=== PATIENT | male | born 1970 | race Caucasian/White ===

== ENCOUNTER → 2019-08-25 | Outpatient (CLI) | payer MEDICARE, MEDICAID ==
--- NOTE | 2019-08-25 10:30 | RADIOLOGY REPORT (SQ) ---
EXAM DESCRIPTION: LUMBAR SPINE COMPLETE COMPLETED DATE/TIME: 08/25/2019 10:15 am REASON FOR STUDY: NEURALGIA AND NEURITIS, UNSPECIFIED,LBP M79.2 NEURALGIA AND NEURITIS, UNSPECIFIED M54.5 LOW BACK PAIN COMPARISON: 11/24/2008 NUMBER OF VIEWS: Five views including obliques. TECHNIQUE: AP, lateral, oblique, and sacral radiographic images acquired of the lumbar spine. LIMITATIONS: None. FINDINGS: MINERALIZATION: Normal. SEGMENTATION: Normal. No transitional anatomy. ALIGNMENT: There is straightening of the normal lumbar lordosis. Very slight anterolisthesis of L4 o n L5. VERTEBRAE: Maintained height. No fracture or worrisome bone lesion. DISCS: Multilevel disc space narrowing most marked at L5-S1. Prominent anterior osteophytes at L3-L4 . POSTERIOR ELEMENTS: Pedicles and facets are intact. No pars defect or posterior arch defects. HARDWARE: None in the spine. PARASPINAL SOFT TISSUES: Normal. PELVIS: Intact as visualized. No fractures or worrisome bone lesions. SI joints intact. OTHER: No other significant finding. IMPRESSION: Multilevel spondylosis most marked at L5-S1. No significant change from prior study. TECHNICAL DOCUMENTATION: JOB ID: [id number] 2010 [employer]- All Rights Reserved Reading location - IP/workstation name: [email or web address]
== END ==
LOC: OD 09:59
PROVIDERS: ATTEND Nurse Practitioner Family
DX: M79.2 Neuralgia and neuritis, unspecified (principal); M54.5 Low back pain
CPT/HCPCS: 72110

== ENCOUNTER 2019-12-30 22:49 | Emergency (ER) | payer MEDICARE, MEDICAID ==
[2019-12-30] MEDS ORDERED: NORMAL SALINE 1000 ML 1,000 ML IV ONE (23:17)
[2019-12-30] MEDS ORDERED: IPRATROPIUM/ALBUTEROL 0.5-2.5 MG/3 ML AMPUL NEB ONE (23:17)
--- NOTE | 2019-12-30 23:19 | ER Document Report ---
ED Medical Screen (RME) - General Chief Complaint: Rectal Bleeding Stated Complaint: RECTAL BLEEDING Time Seen by Provider: 12/30/19 23:16 Primary Care Provider: MAKENNA FRANCISCO FNP-C [Primary Care Provider] - Follow up as needed Information source: Patient Notes: Patient states that he was in the shower and he noticed blood in the shower. Patient states he started to feel lightheaded and fell. Patient denies any known loss of consciousness. Patient denies slipping although thinks that this the blood made him very anxious. Patient denies any pain symptoms. Patient does report cough for the past 2 months. Patient reports a history of diabetes and lymphoma that is in remission. Patient denies any other abnormal bleeding or bruising. I have greeted and performed a rapid initial assessment of this patient. A comprehensive ED assessment and evaluation of the patient, analysis of test results and completion of the medical decision making process will be conducted by additional ED providers. TRAVEL OUTSIDE OF THE [place] IN LAST 30 DAYS: No - Related Data Allergies/Adverse Reactions: No Known Allergies Allergy (Verified 12/29/12 10:28) Past Medical History - Past Medical History Cardiac Medical History: Denies: Hx Coronary Artery Disease, Hx Heart Attack, Hx Hypertension Pulmonary Medical History: Denies: Hx Asthma, Hx Bronchitis, Hx COPD, Hx Pneumonia Neurological Medical History: Denies: Hx Cerebrovascular Accident, Hx Seizures Malignancy Medical History: Reports Hx Lymphoma Musculoskeltal Medical History: Reports Hx Arthritis, Reports Hx Gout Psychiatric Medical History: Reports: Hx Depression Past Surgical History: Reports: Hx Appendectomy - Immunizations Immunizations up to date: Yes Hx Diphtheria, Pertussis, Tetanus Vaccination: Yes Physical Exam - Vital signs Vitals: Temp Pulse Resp BP Pulse Ox 98.9 F 103 H 20 96/68 L 95 12/30/19 22:55 12/30/19 22:55 12/30/19 22:55 12/30/19 22:55 12/30/19 22:55 - Respiratory Breath sounds: Nonproductive cough, Wheezing - Cardiovascular Rhythm: Tachycardia Heart sounds: S1 appreciated, S2 appreciated Course - Vital Signs Vital signs: Temp Pulse Resp BP Pulse Ox 98.9 F 103 H 20 96/68 L 95 12/30/19 22:55 12/30/19 22:55 12/30/19 22:55 12/30/19 22:55 12/30/19 22:55 Doctor's Discharge - Discharge Referrals: MAKENNA FRANCISCO, CLINICAL EDUCATION MANAGER-C [Primary Care Provider] - Follow up as needed
--- NOTE | 2019-12-31 01:09 | ER Document Report ---
ED General - General Chief Complaint: Rectal Bleeding Stated Complaint: RECTAL BLEEDING Time Seen by Provider: 12/30/19 23:16 Primary Care Provider: MAKENNA FRANCISCO FNP-C [NURSE PRACTITIONER] - Follow up as needed Mode of Arrival: Ambulatory Information source: Patient Notes: 12/30/19 23:22 - ED Nursing Note by FREEDOM DE LA CRUZ Num: [id number] : 1970 Patient Age: 49 -pt had blood in tub after shower. blood was noted. pt unsure if he is still bleeding. Eliane notes Patient states that he was in the shower and he noticed blood in the shower. Patient states he started to feel lightheaded and fell. Patient denies any known loss of consciousness. Patient denies slipping although thinks that this the blood made him very anxious. Patient denies any pain symptoms. Patient does report cough for the past 2 months. Patient reports a history of diabetes and lymphoma that is in remission. Patient denies any other abnormal bleeding or bruising. my notes 49-year-old male arrives with chief complaint of having hard stools for many weeks and has to put his finger in his rectum in order to disimpact himself. He reports he had some blood in his stool and toilet today and also in the shower. Patient refuses any chest x-ray KUB or lab work. He is scheduled to see his assistant program director in 3 days and wants to go home. He would actually just want some medication to help soften his stools. TRAVEL OUTSIDE OF THE [place] IN LAST 30 DAYS: No - HPI Onset: Just prior to arrival Onset/Duration: Sudden, Better Quality of pain: No pain Severity: None Pain Level: Denies Associated symptoms: Productive cough Exacerbated by: Denies Relieved by: Denies Similar symptoms previously: No Recently seen / treated by doctor: No - Related Data Allergies/Adverse Reactions: No Known Allergies Allergy (Verified 12/29/12 10:28) Home Medications: albuterol, glipizide, januvia, metformin Past Medical History - General Information source: Patient - Social History Smoking Status: Current Every Day Smoker Cigarette use (# per day): Yes Chew tobacco use (# tins/day): No Smoking Education Provided: Yes Frequency of alcohol use: Occasional Drug Abuse: None Lives with: Family Family History: Reviewed & Not Pertinent, Arthritis Patient has suicidal ideation: No Patient has homicidal ideation: No - Past Medical History Cardiac Medical History: Denies: Hx Coronary Artery Disease, Hx Heart Attack, Hx Hypertension Pulmonary Medical History: Denies: Hx Asthma, Hx Bronchitis, Hx COPD, Hx Pneumonia Neurological Medical History: Denies: Hx Cerebrovascular Accident, Hx Seizures Malignancy Medical History: Reports Hx Lymphoma Musculoskeletal Medical History: Reports Hx Arthritis, Reports Hx Gout Psychiatric Medical History: Reports: Hx Depression Past Surgical History: Reports: Hx Appendectomy - Immunizations Immunizations up to date: Yes Hx Diphtheria, Pertussis, Tetanus Vaccination: Yes Review of Systems - Review of Systems Constitutional: No symptoms reported EENT: No symptoms reported Cardiovascular: No symptoms reported Respiratory: See HPI, Cough, Short of breath Gastrointestinal: See HPI, Constipation, Rectal bleeding Genitourinary: No symptoms reported Male Genitourinary: No symptoms reported Musculoskeletal: No symptoms reported Skin: No symptoms reported Hematologic/Lymphatic: No symptoms reported Neurological/Psychological: No symptoms reported Physical Exam - Vital signs Vitals: Temp Pulse Resp BP Pulse Ox 98.9 F 103 H 20 96/68 L 95 12/30/19 22:55 12/30/19 22:55 12/30/19 22:55 12/30/19 22:55 12/30/19 22:55 Interpretation: Hypotensive, Tachycardic - General General appearance: Appears well - HEENT Head: Normocephalic, Atraumatic Eyes: Normal Pupils: PERRL Pharynx: Normal Neck: Normal - Respiratory Respiratory status: No respiratory distress Chest status: Nontender Breath sounds: Nonproductive cough - Right-sided crackles - Cardiovascular Rhythm: Tachycardia - Abdominal Inspection: Normal Distension: No distension Bowel sounds: Normal Tenderness: Nontender Organomegaly: No organomegaly - Rectal Tenderness: No Hemorrhoids: External - Genitourinary Scrotum: Normal - Back Back: Normal - Extremities General upper extremity: Normal inspection General lower extremity: Normal inspection - Neurological Neuro grossly intact: Yes Cognition: Normal Orientation: AAOx4 Anthony Coma Scale Eye Opening: Spontaneous Anthony Coma Scale Verbal: Oriented Kasise Coma Scale Motor: Obeys Commands Anthony Coma Scale Total: 15 Speech: Normal Motor strength normal: LUE, RUE, LLE, RLE Sensory: Normal - Psychological Associated symptoms: Normal affect - Skin Skin Temperature: Warm Skin Moisture: Dry Course - Vital Signs Vital signs: Temp Pulse Resp BP Pulse Ox 98.1 F 96 16 122/78 99 12/30/19 23:43 12/30/19 23:43 12/30/19 23:43 12/30/19 23:43 12/30/19 23:43 Discharge - Discharge Clinical Impression: Rectal bleeding, Hemorrhoids, external Condition: Good Disposition: HOME, SELF-CARE Additional Instructions: Follow-up with principal technical specialist Dr. Ward or Dr. Kimball return to ER as needed take medicines as directed; encourage fluids. Make sure you follow-up with a assistant program director because of your cough. Prescriptions: Amoxicillin/Potassium Clav [Augmentin 875-125 Tablet] 1 tab PO BID #14 tab Docusate Sodium [Colace 100 mg Capsule] 100 mg PO DAILY #30 capsule Misoprostol [Cytotec 0.2 mg Tablet] 200 mcg PO BID PRN #20 tablet PRN Reason: constipation Referrals: MAKENNA FRANCISCO, SUPERVISOR [employer]-C [NURSE PRACTITIONER] - Follow up as needed
[2019-12-31 01:35] VITALS: BP 122/71
== END 2019-12-31 01:33 | disposition home or self-care (01) ==
LOC: ER 22:49
DX: K62.5 Hemorrhage of anus and rectum (principal); K64.4 Residual hemorrhoidal skin tags; K59.00 Constipation, unspecified; R05 Cough; R06.02 Shortness of breath; R09.89 Other specified symptoms and signs involving the circulatory and respiratory systems; R00.0 Tachycardia, unspecified; F17.210 Nicotine dependence, cigarettes, uncomplicated; E11.9 Type 2 diabetes mellitus without complications; Z79.84 Long term (current) use of oral hypoglycemic drugs; Z79.899 Other long term (current) drug therapy; Z85.72 Personal history of non-Hodgkin lymphomas
CPT/HCPCS: 99283

== ENCOUNTER → 2020-01-25 | Outpatient (CLI) | payer MEDICARE, MEDICAID ==
--- NOTE | 2020-01-25 13:47 | RADIOLOGY REPORT (SQ) ---
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 Images reviewed with lung, soft tissue and bone windows. Reconstructed coronal and sagittal MPR and MIP images reviewed. All images stored on PACS. All CT scanners at this facility use dose modulation, iterative reconstruction, and/or weight based d osing when appropriate to reduce radiation dose to as low as reasonably achievable (ALARA). [facility]: Dose Right [facility]: CareDose [facility]: Dose Right [facility]: Teradose 4D [facility]: Blipify CONTRAST TYPE AND DOSE: 80 mL Omnipaque 350- low osmolar. RENAL FUNCTION: Creatinine 0.9 RADIATION DOSE: . LIMITATIONS: None. FINDINGS: LUNGS AND PLEURA: Ground-glass infiltrates. Pulmonary vascular congestion. No pulmonary mass. No pleural effusion. HILAR AND MEDIASTINAL STRUCTURES: No identified masses or abnormal nodes. HEART AND VASCULAR STRUCTURES: Cardiomegaly. No aneurysm or dissection. No central pulmonary emboli . No pericardial effusion. HARDWARE: Injection port on the right. UPPER ABDOMEN: Gallstones. Periaortic lymph nodes. THYROID AND OTHER SOFT TISSUES: No masses. No adenopathy. BONES: No significant finding. OTHER: No other significant finding. IMPRESSION: 1. Cardiomegaly with pulmonary vascular congestion and ground-glass infiltrates suggest marcy of mild pulmonary edema. 2. Cholelithiasis. 3. Left periaortic lymph nodes that were not present in 2014. TECHNICAL DOCUMENTATION: JOB ID: [id number] Quality ID # [id number]: Final reports with documentation of one or more dose reduction techniques (e.g., Au tomated exposure control, adjustment of the mA and/or kV according to patient size, use of iterative reconstruction technique) 2010 [employer]- All Rights Reserved Reading location - IP/workstation name: [email or web address]
== END ==
LOC: RAD 08:43
PROVIDERS: ATTEND Internal Medicine
DX: C85.10 Unspecified B-cell lymphoma, unspecified site (principal)
CPT/HCPCS: 82565; 71260; J1642

== ENCOUNTER 2020-02-03 17:59 | Emergency (ER) | payer MEDICARE, MEDICAID ==
[2020-02-03 18:08] VITALS: BP 126/73
--- NOTE | 2020-02-03 20:27 | ER Document Report ---
ED Medical Screen (RME) - General Chief Complaint: Hand Swelling Stated Complaint: HAND SWELLING Time Seen by Provider: 02/03/20 20:19 Primary Care Provider: MICHELE GUILLEN PA-C [Primary Care Provider] - Follow up as needed Mode of Arrival: Ambulatory Information source: Patient Notes: HPI; 49-year-old male presents to the emergency room complaining of swelling to his right hand for the past 10 days. Patient states that they attempted to put an IV in his right hand to have a CAT scan they were unable to get it they want up having to access his port. States he has been having swelling ever since. His primary care physician sent him to the ER to rule out a DVT. He has no history of previous DVTs not currently on any blood thinners. PE: Alert and oriented x3. Lungs: Clear to auscultation without rales, rhonchi, wheezes. Heart: Regular rate rhythm without murmurs, rubs, gallops. Right hand swelling. Not warm or tender to palpation. No erythema noted. Positive right radial pulse. Capillary refill less than 3 seconds. I have greeted and performed a rapid initial assessment of this patient. A comprehensive ED assessment and evaluation of the patient, analysis of test results and completion of the medical decision making process will be conducted by additional ED providers. I have specifically instructed the patient or family members with the patient to immediately return to any nursing staff should anything change in the patient's condition or with their chief complaint. TRAVEL OUTSIDE OF THE [place] IN LAST 30 DAYS: No - Related Data Allergies/Adverse Reactions: No Known Allergies Allergy (Verified 12/29/12 10:28) Past Medical History - Social History Chew tobacco use (# tins/day): No Frequency of alcohol use: None Drug Abuse: None - Past Medical History Cardiac Medical History: Denies: Hx Coronary Artery Disease, Hx Heart Attack, Hx Hypertension Pulmonary Medical History: Denies: Hx Asthma, Hx Bronchitis, Hx COPD, Hx Pneumonia Neurological Medical History: Denies: Hx Cerebrovascular Accident, Hx Seizures Malignancy Medical History: Reports Hx Lymphoma Musculoskeltal Medical History: Reports Hx Arthritis, Reports Hx Gout Psychiatric Medical History: Reports: Hx Depression Past Surgical History: Reports: Hx Appendectomy - Immunizations Immunizations up to date: Yes Hx Diphtheria, Pertussis, Tetanus Vaccination: Yes Physical Exam - Vital signs Vitals: Temp 98.4 F 02/03/20 17:59 Course - Vital Signs Vital signs: Temp Pulse Resp BP Pulse Ox 98.4 F 85 18 126/73 H 100 02/03/20 18:07 02/03/20 18:07 02/03/20 18:07 02/03/20 18:07 02/03/20 18:07 Doctor's Discharge - Discharge Referrals: MICHELE GUILLEN PA-C [Primary Care Provider] - Follow up as needed
--- NOTE | 2020-02-03 21:52 | RADIOLOGY REPORT (SQ) ---
EXAM DESCRIPTION: US EXTREMITY VEINS UNILATERAL COMPLETED DATE/TME: 02/03/2020 20:26 CLINICAL HISTORY: 49 years, Male, right hand sweilling after IV attempt EXAM DESCRIPTION: CLINICAL HISTORY: 49 years Male right hand sweilling after IV attempt COMPARISON: None. TECHNIQUE: Duplex and color Doppler imaging performed to evaluate the extremity deep venous structures. Compression imaging and augmentation imaging performed. FINDINGS: No thrombus is identified in the deep venous structures imaged. There is normal flow, compressibility, and augmentation throughout. IMPRESSION: No DVT is identified.
== END 2020-02-04 07:00 | disposition left against medical advice (07) ==
LOC: ER 17:59
DX: Z53.20 Procedure and treatment not carried out because of patient's decision for unspecified reasons (principal); M79.89 Other specified soft tissue disorders
CPT/HCPCS: 93971; 99281

== ENCOUNTER → 2020-02-08 | Outpatient (CLI) | payer MEDICARE, MEDICAID ==
--- NOTE | 2020-02-09 08:37 | RADIOLOGY REPORT (SQ) ---
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 TECHNIQUE: Blood glucose level was verified. Above dose of FDG was injected intravenously. 2-D seg mented attenuation correction images were obtained from the base of the skull to the midthighs. Nonc ontrast CT images were obtained for attenuation correction and fusion with emission images. CT image s were performed without oral or intravenous contrast and are not sensitive for parenchymal lesions. A series of overlapping emission PET images were obtained. Images reviewed and manipulated at [facility] work station by the radiologist. Images stored on PACS. LIMITATIONS: None. FINDINGS: HEAD AND NECK: No areas of abnormal metabolic activity in the soft tissues of the head and neck. CHEST: No areas of abnormal metabolic activity in the chest. ABDOMEN AND PELVIS: No areas of abnormal metabolic activity in the abdomen or pelvis. Expected physi ologic activity is present in the genitourinary system and bowel. PROXIMAL LOWER EXTREMITIES: No areas of abnormal metabolic activity in the soft tissues of the lower extremities. BONES: No abnormal metabolic activity in the visualized skeleton. ADDITIONAL CT FINDINGS: Periaortic and retroperitoneal adenopathy is again noted. OTHER: No other significant findings. IMPRESSION: Negative PET-CT. No abnormal uptake in the enlarged periaortic lymph nodes. TECHNICAL DOCUMENTATION: JOB ID: [id number] 2010 [employer]- All Rights Reserved Reading location - IP/workstation name: [email or web address]
== END ==
LOC: RAD 08:42
PROVIDERS: ATTEND Internal Medicine
DX: C83.38 Diffuse large B-cell lymphoma, lymph nodes of multiple sites (principal)
CPT/HCPCS: 78815; A9552

== ENCOUNTER 2020-03-01 09:00 | Emergency (ER) | payer MEDICARE, MEDICAID ==
[2020-03-01 09:06] VITALS: BP 123/78
[2020-03-01] MEDS ORDERED: LIDOCAINE 1%/EPINEPHRINE INJ 20 ML VIAL INJ ONE (09:36)
[2020-03-01] MEDS ORDERED: SULFAMETHOXAZOLE/TRIMETHOPRIM 800-160 MG TABLET PO ONE (09:37)
[2020-03-01] MEDS ORDERED: OXYCODONE-ACETAMINOPHEN 5-325 MG TABLET PO ONE (09:37)
--- NOTE | 2020-03-01 09:40 | ER Document Report ---
ED Skin Rash/Insect Bite/Abscs - General Stated Complaint: ABSCESS Time Seen by Provider: 03/01/20 09:33 Primary Care Provider: CHANDU AGUILAR MD [ACTIVE STAFF] - Follow up as needed Notes: CHIEF COMPLAINT: Right axillary abscess HPI: 49-year-old male presenting for evaluation of a tender swollen area in the right axilla over the last 3 days has prior history of skin abscesses that have had to be drained per the patient. No fever ROS: See HPI - all other systems were reviewed and are otherwise negative Constitutional: no fever Integumentary: Positive abscess Allergy: no hives Musculoskeletal: + extremity pain or swelling Neurological: no numbness/tingling, no weakness MEDICATIONS: I agree with the patient medications as charted by the RN. ALLERGIES: I agree with the allergies as charted by the RN. PAST MEDICAL HISTORY/PAST SURGICAL HISTORY: Reviewed and agree as charted by RN. SOCIAL HISTORY: Reviewed and agree as charted by RN. FAMILY HISTORY: No significant familial comorbid conditions directly related to patient complaint EXAM: Reviewed vital signs as charted by RN. CONSTITUTIONAL: Alert and oriented and responds appropriately to questions. Well-appearing; well-nourished HEAD: Normocephalic; atraumatic EYES: Conjunctivae clear, sclerae non-icteric ENT: normal nose; no rhinorrhea; moist mucous membranes NECK: Supple without meningismus; non-tender; no cervical lymphadenopathy, no masses CARD: RRR; no murmurs, no clicks, no rubs, no gallops; symmetric distal pulses RESP: Normal chest excursion without splinting or tachypnea ABD/GI: non-distended BACK: The back appears normal EXT: Normal ROM in all joints; non-tender to palpation; no cyanosis, no effusions, no edema SKIN: Normal color for age and race; warm; dry; good turgor; and a raised indurated region with mild fluctuance in the right axilla measuring 3 cm diameter. Some surrounding erythema is noted NEURO: Moves all extremities equally; Motor and sensory function intact PSYCH: The patient's mood and manner are appropriate. Grooming and personal hygiene are appropriate. MDM: 49-year-old male with an abscess with cellulitis right axilla. No fever per the patient. Will start on Bactrim for MRSA coverage given prior history, pain medication plan to incise and drain the area TRAVEL OUTSIDE OF THE [place] IN LAST 30 DAYS: No - Related Data Allergies/Adverse Reactions: No Known Allergies Allergy (Verified 12/29/12 10:28) Past Medical History - Social History Smoking Status: Unknown if Ever Smoked Family History: Reviewed & Not Pertinent, Arthritis - Past Medical History Cardiac Medical History: Denies: Hx Coronary Artery Disease, Hx Heart Attack, Hx Hypertension Pulmonary Medical History: Denies: Hx Asthma, Hx Bronchitis, Hx COPD, Hx Pneumonia Neurological Medical History: Denies: Hx Cerebrovascular Accident, Hx Seizures Malignancy Medical History: Reports Hx Lymphoma Musculoskeletal Medical History: Reports Hx Arthritis, Reports Hx Gout Psychiatric Medical History: Reports: Hx Depression Past Surgical History: Reports: Hx Appendectomy - Immunizations Immunizations up to date: Yes Hx Diphtheria, Pertussis, Tetanus Vaccination: Yes Physical Exam - Vital signs Vitals: Temp Pulse Resp BP Pulse Ox 99.1 F 110 H 22 H 123/78 98 03/01/20 09:04 03/01/20 09:04 03/01/20 09:04 03/01/20 09:04 03/01/20 09:04 Course - Vital Signs Vital signs: Temp Pulse Resp BP Pulse Ox 99.1 F 110 H 22 H 123/78 98 03/01/20 09:04 03/01/20 09:04 03/01/20 09:04 03/01/20 09:04 03/01/20 09:04 Procedures - Incision and Drainage Right Arm Time completed: 10:20 Type: Simple Anesthetic type: 1% Lidocaine w/epi mL's of anesthetic: 2 Blade size: 11 I&D procedure: Betadine prep applied, Iodoform packing placed, Sterile dressing applied Incision Method: Incision made by scalpel Amount/type of drainage: 6 bloody and purulent Discharge - Discharge Clinical Impression: Abscess of axilla, right Cellulitis of axilla Qualifiers: Laterality: right Qualified Code(s): L03.111 - Cellulitis of right axilla Condition: Stable Disposition: HOME, SELF-CARE Additional Instructions: 1. packing out in 2-3 days, he may start removing the packing at home by taking out half an inch a day and trimming the end until it is removed 2. follow up with your primary care provider for further evaluation in 2-3 days 3. medicines as prescribed, take Percocet or Motrin for pain, no driving on narcotics 4. return sooner for any worsening condition, increasing redness or onset of fever 5. apply warm compresses to the wound area 2-3 times daily Prescriptions: Sulfamethoxazole/Trimethoprim [Bactrim Ds Tablet] 2 tab PO BID #28 tablet Oxycodone HCl/Acetaminophen [Percocet 5-325 mg Tablet] 1 tab PO Q4H PRN #15 tab PRN Reason: Referrals: CHANDU AGUILAR MD [ACTIVE STAFF] - Follow up as needed
[2020-03-01] MEDS ORDERED: LIDOCAINE 1%/EPINEPHRINE INJ 20 ML VIAL ONE (10:05)
== END 2020-03-01 10:40 | disposition home or self-care (01) ==
LOC: ER 09:00
DX: L02.411 Cutaneous abscess of right axilla (principal)
CPT/HCPCS: 99284; 10060; J3490; A9270 ×2

== ENCOUNTER 2020-03-29 20:54 | Inpatient (IN) | payer MEDICARE, MEDICAID ==
--- NOTE | 2020-03-29 21:53 | RADIOLOGY REPORT (SQ) ---
EXAM DESCRIPTION: XR CHEST 1 VIEW COMPLETED DATE/TME: 03/29/2020 21:01 CLINICAL HISTORY: 49 years, Male, sob, cough, congestion COMPARISON: December 25, 2014. NUMBER OF VIEWS: 1 TECHNIQUE: Portable AP upright view the chest was obtained at 9:13 PM. LIMITATIONS: None. FINDINGS: Right MediPort is in stable position. Heart size is within normal limits for technique. There is patchy bilateral perihilar infiltration or edema, mild/moderate in severity and greater on the left. There is a small amount of pleural fluid within the minor fissure. There is no evidence of pneumothorax. No acute bony abnormality is seen. IMPRESSION: Patchy bilateral infiltration or edema and small right pleural effusion. copyright 2010 [employer]- All Rights Reserved
--- NOTE | 2020-03-29 21:54 | RADIOLOGY REPORT (SQ) ---
EXAM DESCRIPTION: XR ELBOW 1-2 VIEWS COMPLETED DATE/TME: 03/29/2020 00:00 CLINICAL HISTORY: 49 years, Male, arm injury COMPARISON: None. TECHNIQUE: Four views of left elbow. FINDINGS: Suspected mild joint effusion. No obvious acute fracture dislocation. The possibility of occult fracture is not excluded.
--- NOTE | 2020-03-29 22:05 | EKG REPORT ---
SEVERITY:- ABNORMAL ECG - SINUS TACHYCARDIA NONSPECIFIC T ABNORMALITIES, LATERAL LEADS BORDERLINE PROLONGED QT INTERVAL : Confirmed by: Vannessa Rodriguez 29-Mar-2020 22:04:26
--- NOTE | 2020-03-29 22:27 | ER Document Report ---
ED Respiratory Problem - General Chief Complaint: Productive Cough Stated Complaint: RESPIRATORY DISTRESS Time Seen by Provider: 03/29/20 21:27 Primary Care Provider: MICHELE GUILLEN PA-C [Primary Care Provider] - Follow up as needed TRAVEL OUTSIDE OF THE [place] IN LAST 30 DAYS: No - HPI Notes: Patient is a 49-year-old male with a past medical history of diabetes who presents with shortness of breath. Patient states he has been short of breath for about 1 week. He complains of chest discomfort with coughing, headaches, fatigue. He states he has abdominal discomfort. No nausea or vomiting. He has had a decreased appetite. He states he has had nonbloody diarrhea. Patient complains of his legs being chronically swollen. He denies being in contact with anyone Covid positive. Patient states he was tested for Covid several weeks ago but that was before his shortness of breath started. He states it was negative then. - Related Data Allergies/Adverse Reactions: No Known Allergies Allergy (Verified 12/29/12 10:28) Past Medical History - General Information source: Patient - Social History Smoking Status: Current Every Day Smoker Family History: Reviewed & Not Pertinent, Arthritis - Past Medical History Cardiac Medical History: Denies: Hx Coronary Artery Disease, Hx Heart Attack, Hx Hypertension Pulmonary Medical History: Denies: Hx Asthma, Hx Bronchitis, Hx COPD, Hx Pneumonia Neurological Medical History: Denies: Hx Cerebrovascular Accident, Hx Seizures Malignancy Medical History: Reports Hx Lymphoma Musculoskeletal Medical History: Reports Hx Arthritis, Reports Hx Gout Psychiatric Medical History: Reports: Hx Depression Past Surgical History: Reports: Hx Appendectomy - Immunizations Immunizations up to date: Yes Hx Diphtheria, Pertussis, Tetanus Vaccination: Yes Review of Systems - Review of Systems Notes: CONSTITUTIONAL: Positive for subjective fevers. SKIN: No rash. HENT: No congestion, ear pain, or sore throat. EYES: No recent vision problems or eye pain. ENDOCRINE: No polyuria or polydipsia. CARDIOVASCULAR: No chest pain. Positive for chronic lower extremity edema. RESPIRATORY: Positive for cough and shortness of breath. GASTROINTESTINAL: Positive for diarrhea and nausea. MUSCULOSKELETAL: No joint pain or swelling. LYMPHATIC: No swollen glands. NEUROLOGIC: No seizures. Positive for headaches. HEMATOLOGIC: No unusual bruising or bleeding. PSYCHIATRIC: No depression or anxiety. Physical Exam - Vital signs Vitals: Temp BP Pulse Ox 98.2 F 109/73 96 03/29/20 20:58 03/29/20 20:58 03/29/20 20:58 - Notes Notes: VITAL SIGNS: Within normal limits. GENERAL: No acute distress, non-toxic appearance. Appears older than stated age. HEAD: Normal with no signs of head trauma. EYES: Conjunctiva normal, no discharge. EARS: Hearing grossly intact. NOSE: Normal. NECK: Normal range of motion, no tenderness, supple, no lymphadenopathy, No adenopathy, no JVD. CHEST: Mild tachypnea. CARDIAC: Regular rate and rhythm. Mild tachycardia. VASCULAR: +2 pitting edema in the lower extremities bilaterally. ABDOMEN: Normal and soft with no tenderness GENITOURINARY: Normal, No tenderness LYMPATHTIC: No lymphadenopathy noted. MUSCULOSKELETAL: Good range of motion of all major joints. Extremities without clubbing, cyanosis or edema. NEUROLOGICAL: Alert and oriented x 3. No focal sensory or strength deficits. Speech normal. Follows commands appropriately. PSYCHIATRIC: Normal Affect, judgement and mood. SKIN: Normal appearance with no rashes or lesions. Course - Re-evaluation Re-evalutation: 03/30/20 05:22 Patient's pulse ox dropped to 88% on room air. He was given 2 L nasal cannula. Patient CTA was negative for PE. CT of that arm was negative for fracture. Patient was given dexamethasone. I did discuss with the admitting hospitalist for admission. - Vital Signs Vital signs: Temp Pulse Resp BP Pulse Ox 98.2 F 33 H 128/96 H 95 03/29/20 20:58 03/29/20 21:08 03/29/20 22:00 03/29/20 22:01 - Laboratory Result Diagrams: 03/29/20 22:30 03/29/20 22:30 Laboratory results interpreted by me: 03/29/20 03/29/20 03/29/20 22:30 22:30 22:30 RBC 3.74 L Hgb 11.8 L Hct 34.5 L RDW 14.9 H [place] % (Auto) 14.0 H Glucose 181 H Total Bilirubin 1.9 H Direct Bilirubin 0.6 H Lactate Dehydrogenase 264 H C-Reactive Protein 56.7 H NT-Pro-B Natriuret Pep 1980 H Albumin 2.9 L Urine Protein Urine Blood Urine Urobilinogen 03/29/20 23:00 RBC Hgb Hct RDW [place] % (Auto) Glucose Total Bilirubin Direct Bilirubin Lactate Dehydrogenase C-Reactive Protein NT-Pro-B Natriuret Pep Albumin Urine Protein 30 H Urine Blood SMALL H Urine Urobilinogen 4.0 H - Diagnostic Test Radiology reviewed: Image reviewed, Reports reviewed - EKG Interpretation by Me EKG shows normal: Sinus rhythm Rate: Tachycardia When compared to previous EKG there are: Previous EKG unavailable Additional EKG results interpreted by me: 03/29/20 22:32 Sinus tachycardia at a rate of 110. QTc 482. No acute ST changes. No previous EKG available for comparison. Discharge - Discharge Clinical Impression: Cough Acute respiratory failure Qualifiers: Respiratory failure complication: hypoxia Qualified Code(s): J96.01 - Acute respiratory failure with hypoxia Injury of elbow, left Qualifiers: Encounter type: initial encounter Qualified Code(s): S59.902A - Unspecified injury of left elbow, initial encounter Condition: Stable Disposition: ADMITTED INPATIENT Admitting Provider: Connor (Hospitalist) Unit Admitted: [facility] Referrals: MICHELE GUILLEN PA-C [Primary Care Provider] - Follow up as needed
[2020-03-29 22:45] LABS: ABSOLUTE EOSINOPHILS # (AUTO) 0.2 10^3/uL (0.0-0.6); ABSOLUTE LYMPHOCYTES (AUTO) 1.4 10^3/uL (0.5-4.7); ABSOLUTE MONOCYTES (AUTO) 1.2 10^3/uL (0.1-1.4); ABSOLUTE NEUT (AUTO) 5.7 10^3/uL (1.7-8.2); BASOPHILS % (AUTO) 0.5 % (0-2); EOSINOPHILS % (AUTO) 2.3 % (0-6); HEMATOCRIT 34.5 % (37.9-51.0); HEMOGLOBIN 11.8 g/dL (13.5-17.0); LYMPHOCYTES % (AUTO) 15.9 % (13-45); MEAN CORPUSCULAR HEMOGLOBIN 31.6 pg (27.0-33.4); MEAN CORPUSCULAR HGB CONC 34.3 g/dL (32.0-36.0); MEAN CORPUSCULAR VOLUME 92 fl (80-97); PLATELET COUNT 165 10^3/uL (150-450); RED BLOOD COUNT 3.74 10^6/uL (4.35-5.55); RED CELL DISTRIBUTION WIDTH 14.9 % (11.5-14.0); SEGMENTED NEUTROPHILS % (AUTO) 67.3 % (42-78); TOTAL CELLS COUNTED % (AUTO) 100 %; WHITE BLOOD COUNT 8.5 10^3/uL (4.0-10.5)
[2020-03-29 22:50] LABS: VENOUS BLOOD BASE EXCESS 2.8 mmol/L; VENOUS BLOOD HCO3 29.5 mmol/L (20-32); VENOUS BLOOD PCO2 52.4 mmHg (35-63); VENOUS BLOOD PH 7.37 (7.30-7.42)
[2020-03-29 23:08] LABS: ALBUMIN 2.9 g/dL (3.5-5.0); ALKALINE PHOSPHATASE 116 U/L (38-126); ANION GAP 7 (5-19); ASPARTATE AMINO TRANSFERASE 58 U/L (17-59); BILIRUBIN,DIRECT 0.6 mg/dL (0.0-0.4); BILIRUBIN,TOTAL 1.9 mg/dL (0.2-1.3); BLOOD UREA NITROGEN 8 mg/dL (7-20); C-REACTIVE PROTEIN 56.7 mg/L (<10.0); CALCIUM 9.1 mg/dL (8.4-10.2); CARBON DIOXIDE 29 mmol/L (22-30); CHLORIDE 104 mmol/L (98-107); CREATINE KINASE 99 U/L (55-170); GLUCOSE 181 mg/dL (75-110); POTASSIUM 3.7 mmol/L (3.6-5.0); TOTAL PROTEIN 7.5 g/dL (6.3-8.2)
[2020-03-29 23:20] LABS: TROPONIN I 0.02 ng/mL
[2020-03-29 23:36] LABS: APPEARANCE,URINE CLEAR; BILIRUBIN,URINE NEGATIVE (NEGATIVE); COLOR,URINE AMBER; GLUCOSE, URINE NEGATIVE (NEGATIVE); KETONES,URINE NEGATIVE (NEGATIVE); LEUKOCYTE ESTERASE,URINE NEGATIVE (NEGATIVE); NITRITE,URINE NEGATIVE (NEGATIVE); PROTEIN,URINE 30 mg/dL (NEGATIVE); URINE SPECIFIC GRAVITY 1.017
[2020-03-30 00:01] LABS: A TYPE INFLUENZA AG NEGATIVE (NEGATIVE); B INFLUENZA AG NEGATIVE (NEGATIVE)
[2020-03-30] MEDS ORDERED: DEXAMETHASONE SOD PHOS INJ 10 MG/1 ML VIAL IV ONE (03:32)
--- NOTE | 2020-03-30 04:43 | RADIOLOGY REPORT (SQ) ---
EXAM DESCRIPTION: CT UPPER EXTREMITY WITHOUT IV CONTRAST COMPLETED DATE/TME: 03/29/2020 23:34 CLINICAL HISTORY: 49 years, Male, elbow pain COMPARISON: Plain films 03/29/2020 TECHNIQUE: 220 Images stored on PACS. All CT scanners at this facility use dose modulation, iterative reconstruction, and/or weight based dosing when appropriate to reduce radiation dose to as low as reasonably achievable (ALARA). [facility]: Dose Right [facility]: CareDose [facility]: Dose Right [facility]: Teradose 4D [facility]: [employer] LIMITATIONS: None. FINDINGS: Negative for acute fracture or dislocation. Mild degenerative changes of the elbow, particularly of the medial joint space with adjacent soft tissue swelling, extending posteriorly. Punctate well-corticated ossific densities in the posterior medial joint space could reflect small loose bodies. Small joint effusion. IMPRESSION: No acute osseous abnormality. Small joint effusion with posteromedial soft tissue swelling. Degenerative changes, with small loose bodies TECHNICAL DOCUMENTATION: Quality ID # [id number]: Final reports with documentation of one or more dose reduction techniques (e.g., Automated exposure control, adjustment of the mA and/or kV according to patient size, use of iterative reconstruction technique) copyright 2011 [employer]- All Rights Reserved
--- NOTE | 2020-03-30 04:46 | RADIOLOGY REPORT (SQ) ---
CLINICAL HISTORY: shortness of breath, tachycardia. creat 0.74 COMPARISON: 01/25/2020. TECHNIQUE: CT CHEST ANGIOGRAPHY WITHOUT THEN WITH IV CONTRAST on 03/29/2020 11:23 PM CDT. MIPS reconstructions were generated. This exam was performed according to our departmental dose-optimization program, which includes automated exposure control, adjustment of the mA and/or kV according to patient size and/or use of iterative reconstruction technique. MIP images were generated. FINDINGS: Thoracic aorta is normal in course and caliber without aneurysm or dissection. Pulmonary arteries are adequately opacified without acute or chronic filling defects. The heart is normal in size. There is no pericardial effusion. There are multiple borderline and mildly enlarged mediastinal lymph nodes. Right chest port is unchanged. There is no pleural effusion, pleural thickening or pneumothorax. Central airways are patent. There are diffuse patchy consolidation throughout both lungs. These are slightly progressive since the prior study. There are no acute abnormalities within the limited images of the upper abdomen. There are no acute osseous findings. No suspicious bony lesions. IMPRESSION: Chronic nonspecific airspace disease within both lungs. No aortic dissection or aneurysm. No pulmonary embolus.
[2020-03-30] MEDS ORDERED: ACETAMINOPHEN 325 MG TABLET PO PRN (05:19)
[2020-03-30] MEDS ORDERED: LEVALBUTEROL HCL NEB 0.63 MG/3 ML AMPUL NEB PRN (05:19)
[2020-03-30] MEDS ORDERED: GUAIFENESIN SYRP 200 MG/10 ML UDC PO PRN (05:19)
[2020-03-30] MEDS ORDERED: NICOTINE 21 MG/24 HR PATCH.TD24 TD PRN (05:24)
[2020-03-30] MEDS ORDERED: MELATONIN 5 MG TABLET PO PRN (05:24)
[2020-03-30] MEDS ORDERED: LORAZEPAM INJ 2 MG/1 ML VIAL IV PRN (05:24)
[2020-03-30] MEDS ORDERED: MORPHINE SULFATE 10 MG/ML INJ IV PRN ×4 (05:24→05:43)
[2020-03-30] MEDS ORDERED: HEPARIN SOD (PORCINE) 5,000 UNIT/ML 1 ML VIAL SUBCUT SCH (06:00)
[2020-03-30] MEDS ORDERED: AZITHROMYCIN 500 MG in DEXTROSE 5%-WATER 250 ML IV ONE (06:00)
[2020-03-30] MEDS ORDERED: CEFTRIAXONE 1 GM/D5W RTU 1 GM/50 ML RTUPB IV ONE (06:00)
--- NOTE | 2020-03-30 06:34 | PDOC H&P ---
History of Present Illness Admission Date/PCP: 04/30/2020 05:02 MICHELE GUILLEN PA-C Patient complains of: Dyspnea History of Present Illness: LIZABETH VICK is a 49 year old male who presented to the emergency room with a 1 week history of dyspnea. He admits progressively worsening dyspnea over the course of the last week accompanied by a nonproductive cough and associated with headaches, increased fatigue, abdominal discomfort, decreased appetite and occasional diarrhea. He denies other associated or accompanying signs and symptoms. His dyspnea is worsened with exertion and was moderate to severe at the time he presented to the emergency room. He denies prior similar episodes. He has not identified any additional aggravating or ameliorating factors for his dyspnea. In the emergency room he was found to be hypoxic and to have chest CT findings of multifocal pneumonia. Patient was subsequently admitted to the hospital for further evaluation and treatment. COVID-19 testing was performed. Past Medical History Cardiac Medical History: Denies: Coronary Artery Disease, Myocardial Infarction, Hypertension Pulmonary Medical History: Denies: Asthma, Bronchitis, Chronic Obstructive Pulmonary Disease (COPD), Pn eum[place] EENT Medical History: Denies: Cataracts, Ears - Hearing aids Neurological Medical History: Denies: Hemorrhagic CVA, Ischemic CVA, Seizures Endocrine Medical History: Reports: Diabetes Mellitus Type 2 Denies: Diabetes Mellitus Type 1, Hyperthyroidism, Hypothyroidism Renal/ Medical History: Denies: Chronic Kidney Disease, Nephrolithiasis Malignancy Medical History: Reports: Lymphoma GI Medical History: Denies: Cirrhosis, Hepatitis, Peptic Ulcer Disease Musculoskeltal Medical History: Reports: Arthritis, Gout Skin Medical History: Denies: Eczema, Psoriasis Psychiatric Medical History: Reports: Depression, Tobacco Dependency Denies: Alcohol Dependency, Substance Abuse Traumatic Medical History: Reports: None Hematology: Denies: Anemia, Bleeding Tendencies Infectious Medical History: Reports: None Past Surgical History Past Surgical History: Reports: Appendectomy, Other - Bone marrow transplant Social History Information Source: Patient Lives with: Alone Smoking Status: Current Every Day Smoker Cigarettes Packs Per Day: 1 Electronic Cigarette use?: No Frequency of Alcohol Use: None Hx Recreational Drug Use: No Drugs: None Hx Prescription Drug Abuse: No - Advance Directive Resuscitation Status: Full Code Surrogate healthcare decision maker:: Batool Kelly Family History Family History: Arthritis Parental Family History Reviewed: Yes Children Family History Reviewed: No Sibling(s) Family History Reviewed.: No Medication/Allergy Home Medications: Glipizide [Glipizide Xl] 5 mg PO DAILY 03/30/20 Ipratropium [place] [Atrovent Hfa Inhalation Aerosol 12.9 gm Mdi] 2 puff IH Q6HP PRN 03/30/20 Metformin HCl [Glucophage 500 mg Tablet] 1,000 mg PO BIDACBS 03/30/20 Sitagliptin Phosphate [Januvia 50 mg Tablet] 100 mg PO DAILY 03/30/20 Allergies/Adverse Reactions: No Known Allergies Allergy (Verified 12/29/12 10:28) Review of Systems Constitutional: PRESENT: as per HPI, anorexia, fatigue. ABSENT: chills, fever(s) Eyes: ABSENT: visual disturbances, other - Eye pain Ears: ABSENT: hearing changes, other - Ear pain Nose, Mouth, and Throat: PRESENT: as per HPI, headache(s). ABSENT: sore throat Cardiovascular: PRESENT: as per HPI, dyspnea on exertion. ABSENT: chest pain, palpitations Respiratory: PRESENT: as per HPI, cough, dyspnea. ABSENT: hemoptysis, sputum Gastrointestinal: PRESENT: as per HPI, abdominal pain, diarrhea. ABSENT: constipation, hematochezia, melena, nausea, vomiting Genitourinary: ABSENT: dysuria, hematuria Musculoskeletal: PRESENT: other - Left elbow pain. ABSENT: back pain, joint swelling Integumentary: ABSENT: pruritus, rash Neurological: ABSENT: confusion, convulsions, focal weakness, memory loss, syncope Psychiatric: ABSENT: anxiety, depression Endocrine: ABSENT: cold intolerance, heat intolerance Hematologic/Lymphatic: ABSENT: easy bleeding, easy bruising Allergic/Immunologic: ABSENT: seasonal rhinorrhea Physical Exam Vital Signs: Temp Pulse Resp BP Pulse Ox 98.2 F 33 H 128/96 H 95 03/29/20 20:58 03/29/20 21:08 03/29/20 22:00 03/29/20 22:01 Intake & Output 03/28/20 03/29/20 03/30/20 23:59 23:59 23:59 Weight 115.7 kg General appearance: PRESENT: no acute distress, cooperative Head exam: PRESENT: atraumatic, normocephalic Eye exam: PRESENT: conjunctiva pink. ABSENT: conjunctival injection, scleral i cterus Ear exam: PRESENT: normal external ear exam. ABSENT: bleeding, drainage Mouth exam: PRESENT: dry mucosa, neck supple Neck exam: ABSENT: thyromegaly, tracheal deviation Respiratory exam: PRESENT: rhonchi - Scattered rhonchi in all pham, symmetrical, wheezes - Minimal expiratory wheezes in all pham Cardiovascular exam: PRESENT: RRR. ABSENT: clicks, gallop, rubs Pulses: PRESENT: normal radial pulses, normal dorsalis pedis pul Vascular exam: PRESENT: normal capillary refill. ABSENT: pallor GI/Abdominal exam: PRESENT: normal bowel sounds, soft Rectal exam: PRESENT: deferred Extremities exam: PRESENT: tenderness - Left elbow. ABSENT: joint swelling, pedal edema Musculoskeletal exam: ABSENT: deformity, dislocation Neurological exam: PRESENT: alert, oriented to person, oriented to place, oriented to time, oriented to situation, CN II-XII grossly intact. ABSENT: motor sensory deficit Psychiatric exam: PRESENT: appropriate affect, normal mood Skin exam: PRESENT: dry, intact, warm. ABSENT: jaundice, rash, urticaria Results Laboratory Results: 03/29/20 22:30 03/29/20 22:30 03/29/20 03/29/20 03/29/20 22:30 22:30 22:30 WBC 8.5 RBC 3.74 L Hgb 11.8 L Hct 34.5 L MCV 92 MCH 31.6 MCHC 34.3 RDW 14.9 H Plt Count 165 Seg Neutrophils % 67.3 VBG pH VBG pCO2 VBG HCO3 VBG Base Excess Sodium 139.7 Potassium 3.7 Chloride 104 Carbon Dioxide 29 Anion Gap 7 BUN 8 Creatinine 0.74 Est GFR ( Amer) > 60 Glucose 181 H Lactic Acid 1.5 Calcium 9.1 Ferritin 276.00 Total Bilirubin 1.9 H AST 58 Alkaline Phosphatase 116 C-Reactive Protein 56.7 H Total Protein 7.5 Albumin 2.9 L Urine Color Urine Appearance Urine pH Ur Specific [place] Urine Protein Urine Glucose (UA) Urine Ketones Urine Blood Urine Nitrite Ur Leukocyte Esterase Urine WBC (Auto) Urine RBC (Auto) 03/29/20 03/29/20 22:30 23:00 WBC RBC Hgb Hct MCV MCH MCHC RDW Plt Count Seg Neutrophils % VBG pH 7.37 VBG pCO2 52.4 VBG HCO3 29.5 VBG Base Excess 2.8 Sodium Potassium Chloride Carbon Dioxide Anion Gap BUN Creatinine Est GFR ( Amer) Glucose Lactic Acid Calcium Ferritin Total Bilirubin AST Alkaline Phosphatase C-Reactive Protein Total Protein Albumin Urine Color RAMEZ Urine Appearance CLEAR Urine pH 6.0 Ur Specific [place] 1.017 Urine Protein 30 H Urine Glucose (UA) NEGATIVE Urine Ketones NEGATIVE Urine Blood SMALL H Urine Nitrite NEGATIVE Ur Leukocyte Esterase NEGATIVE Urine WBC (Auto) 2 Urine RBC (Auto) 3 03/29/20 03/29/20 22:30 22:30 Creatine Kinase 99 Troponin I 0.020 NT-Pro-B Natriuret Pep 1980 H Impressions: Chest X-Ray 03/29/20 21:01 IMPRESSION: Patchy bilateral infiltration or edema and small right pleural effusion. copyright 2010 [employer]- All Rights Reserved Chest/Abdomen CTA 03/29/20 23:23 IMPRESSION: Chronic nonspecific airspace disease within both lungs. No aortic dissection or aneurysm. No pulmonary embolus. Upper Extremity CT 03/29/20 23:34 IMPRESSION: No acute osseous abnormality. Small joint effusion with posteromedial soft tissue swelling. Degenerative changes, with small loose bodies TECHNICAL DOCUMENTATION: Quality ID # [id number]: Final reports with documentation of one or more dose reduction techniques (e.g., Automated exposure control, adjustment of the mA and/or kV according to patient size, use of iterative reconstruction technique) copyright 2010 [employer]- All Rights Reserved Assessment and Plan - Diagnosis (1) Multifocal pneumonia Is this a current diagnosis for this admission?: Yes (2) Acute respiratory failure with hypoxia Is this a current diagnosis for this admission?: Yes (3) Person under investigation for COVID-19 Is this a current diagnosis for this admission?: Yes (4) Diabetes mellitus type 2 in obese Is this a current diagnosis for this admission?: Yes (5) Large cell lymphoma Is this a current diagnosis for this admission?: Yes (6) Tobacco use disorder, continuous Is this a current diagnosis for this admission?: Yes - Plan Summary Summary: Will be admitted to the medical floor where he will receive routine supportive and symptomatic cares. He will receive supplemental oxygen as needed via nasal cannula and/or noninvasive airway pressure support devices as required to maintain an adequate oxygen saturation. He will receive Rocephin 1 g IV daily and azithromycin 500 mg IV daily. He will receive Decadron 2 mg IV every 8 hours. He will use morphine sulfate 2 to 4 mg IV every 2 hours as needed for pain. He will use Ativan 1 mg IV every 4 hours as needed for anxiety or restlessness. He will be treated with a diabetic restricted diet. Before meals and at bedtime Accu-Cheks will be obtained with sliding scale insulin for hyperglycemia and a hypoglycemic protocol in place. Additional laboratory and/or radiographic evaluations will be obtained as needed. - Time Time Spent with patient: Less than 15 minutes Smoking Cessation Education: 3 to 10 minutes Medications reviewed and adjusted accordingly: Yes Anticipated Discharge Disposition: Home, Self Care Anticipated Discharge Timeframe: Undetermined - Inpatient Certification Based on my medical assessment, after consideration of the patient's comorbidities, presenting symptoms, or acuity I expect that the services needed warrant INPATIENT care.: Yes I certify that my determination is in accordance with my understanding of Medicare's requirements for reasonable and necessary INPATIENT services [42 CFR 412.3e].: Yes Medical Necessity: Need Close Monitoring Due to Risk of Patient Decompensation, Risk of Complication if Not Cared For in Hospital
[2020-03-30] MEDS ORDERED: FAMOTIDINE 20 MG TABLET PO SCH (10:00)
[2020-03-30 10:46] VITALS: BP 100/69
[2020-03-30] MEDS: INSULIN REG, HUMAN 100 UNIT/ML 3 ML VIAL (PYX) SUBCUT SCH ×2 (10:47→12:44)
--- NOTE | 2020-03-30 12:32 | PDOC PROGRESS REPORT ---
Subjective Progress Note for:: 03/30/20 Subjective:: I was called to the patient's room for several acute issues. He is extremely agitated and yelling in the room. Evidently there is some issue with someone outside of the hospital. In addition the nurse reported that he had an acute onset of hematuria. He does have bilateral infiltrates very suspicious for COVID. He is on 4 L nasal cannula but tends not to wear the oxygen. Reason For Visit: MULTIFOCAL PNEUMONIA,ACUTE RESPIRATORY FAILURE Hyperglycemia due to diabetes mellitus Hematuria Physical Exam Vital Signs: Temp Pulse Resp BP Pulse Ox 97.9 F 101 H 22 H 100/69 97 03/30/20 09:16 03/30/20 09:16 03/30/20 09:16 03/30/20 09:16 03/30/20 09:16 Intake & Output 03/29/20 03/30/20 03/31/20 06:59 06:59 06:59 Intake Total 50 Balance 50 Weight 115.7 kg 115.7 kg General appearance: PRESENT: cooperative - Active participant in the encounter once he calmed down, severe distress - Patient very angry. Yelling at the person on the phone. Extremely stressed and tachypneic., well-developed Head exam: PRESENT: atraumatic, normocephalic Respiratory exam: PRESENT: prolonged expiratory phas - With respect to shortened inspiratory phase, rales - Bilaterally, symmetrical, tachypnea. ABSENT: wheezes Cardiovascular exam: PRESENT: RRR, +S1, +S2. ABSENT: bradycardia, diastolic murmur, irregular rhythm, systolic murmur, tachycardia GI/Abdominal exam: PRESENT: normal bowel sounds, soft. ABSENT: distended, guarding, tenderness Rectal exam: PRESENT: deferred Gentrourinary exam: PRESENT: other - Bloody urine observed in the toilet. ABSENT: indwelling catheter Neurological exam: PRESENT: alert, awake, oriented to person, oriented to place, oriented to situation, CN II-XII grossly intact Psychiatric exam: PRESENT: agitated - Severe Focused psych exam: ABSENT: delusional, paranoid, restlessness Skin exam: PRESENT: dry, normal color, warm. ABSENT: rash Results Laboratory Results: 03/29/20 22:30 03/29/20 22:30 03/29/20 03/29/20 03/29/20 22:30 22:30 22:30 WBC 8.5 RBC 3.74 L Hgb 11.8 L Hct 34.5 L MCV 92 MCH 31.6 MCHC 34.3 RDW 14.9 H Plt Count 165 Seg Neutrophils % 67.3 VBG pH VBG pCO2 VBG HCO3 VBG Base Excess Sodium 139.7 Potassium 3.7 Chloride 104 Carbon Dioxide 29 Anion Gap 7 BUN 8 Creatinine 0.74 Est GFR ( Amer) > 60 Glucose 181 H Lactic Acid 1.5 Calcium 9.1 Ferritin 276.00 Total Bilirubin 1.9 H AST 58 Alkaline Phosphatase 116 C-Reactive Protein 56.7 H Total Protein 7.5 Albumin 2.9 L Urine Color Urine Appearance Urine pH Ur Specific [place] Urine Protein Urine Glucose (UA) Urine Ketones Urine Blood Urine Nitrite Ur Leukocyte Esterase Urine WBC (Auto) Urine RBC (Auto) 03/29/20 03/29/20 22:30 23:00 WBC RBC Hgb Hct MCV MCH MCHC RDW Plt Count Seg Neutrophils % VBG pH 7.37 VBG pCO2 52.4 VBG HCO3 29.5 VBG Base Excess 2.8 Sodium Potassium Chloride Carbon Dioxide Anion Gap BUN Creatinine Est GFR ( Amer) Glucose Lactic Acid Calcium Ferritin Total Bilirubin AST Alkaline Phosphatase C-Reactive Protein Total Protein Albumin Urine Color RAMEZ Urine Appearance CLEAR Urine pH 6.0 Ur Specific [place] 1.017 Urine Protein 30 H Urine Glucose (UA) NEGATIVE Urine Ketones NEGATIVE Urine Blood SMALL H Urine Nitrite NEGATIVE Ur Leukocyte Esterase NEGATIVE Urine WBC (Auto) 2 Urine RBC (Auto) 3 03/29/20 03/29/20 22:30 22:30 Creatine Kinase 99 Troponin I 0.020 NT-Pro-B Natriuret Pep 1980 H Impressions: Chest X-Ray 03/29/20 21:01 IMPRESSION: Patchy bilateral infiltration or edema and small right pleural effusion. copyright 2011 [employer]- All Rights Reserved Chest/Abdomen CTA 03/29/20 23:23 IMPRESSION: Chronic nonspecific airspace disease within both lungs. No aortic dissection or aneurysm. No pulmonary embolus. Upper Extremity CT 03/29/20 23:34 IMPRESSION: No acute osseous abnormality. Small joint effusion with posteromedial soft tissue swelling. Degenerative changes, with small loose bodies TECHNICAL DOCUMENTATION: Quality ID # [id number]: Final reports with documentation of one or more dose reduction techniques (e.g., Automated exposure control, adjustment of the mA and/or kV according to patient size, use of iterative reconstruction technique) copyright 2011 [employer]- All Rights Reserved Assessment and Plan - Diagnosis (1) Acute respiratory failure with hypoxia Is this a current diagnosis for this admission?: Yes Plan: 03/30/2020-critical care visit The patient was quite agitated during this encounter. He did settle and participated in the encounter. He is on nasal cannula. Oxygen saturations were in the 90s on 4 L nasal cannula. During this encounter he did have some coughing. The cough is not productive of sputum. He does have very congested breath sounds bilaterally. Inspiratory phase is diminished. There was no wheeze. Reviewing his chest x-ray reveals multifocal pneumonia. We will utilize inhaler therapy with albuterol inhaler rescue dosing. In addition he will be on dexamethasone as well as supplements for potential Covid-19 pneumo yao. (2) Hematuria Qualifiers: Hematuria type: gross Qualified Code(s): R31.0 - Gross hematuria Is this a current diagnosis for this admission?: Yes Plan: The patient reports that he had blood in his urine several weeks ago. A brief review of old records did not reveal being evaluated at this facility. There was martha blood in the toilet. I will order a repeat urinalysis with reflex to culture. Microscopy should reveal crystals if there are stones. Also consider renal ultrasound as a source of bleeding. I have discontinued the DVT prophylaxis heparin dosing. We will check serial hemoglobins as well as the above ordered studies. I will try and find out more details about any previous episodes of hematuria. (3) Multifocal pneumonia Is this a current diagnosis for this admission?: Yes Plan: 03/30/2020- The patient has already been started on antibiotic therapy. If his condition worsens consider additional therapy such as Remdesivir. (4) Diabetes mellitus type 2 in obese Is this a current diagnosis for this admission?: Yes Plan: Initial serum glucose as well as Accu-Chek revealed significantly elevated glucose. The patient does have a home regimen in the medication reconciliation and I will evaluate and likely continue the medications that are on formulary. We will utilize Accu-Cheks at mealtime with sliding scale as well. Consider long-acting insulin based on sliding scale requirements. (5) Person under investigation for COVID-19 Is this a current diagnosis for this admission?: Yes Plan: The patient's x-ray reveals multifocal pneumonia. His white count is normal. He is afebrile. His LDH and CRP are elevated. No ferritin or d-dimer to review. He does have acute hypoxic respiratory failure. Influenza testing was negative. COVID testing is positive. There is a significant possibility that he will test positive. - Plan Summary Summary: Will be admitted to the medical floor where he will receive routine supportive and symptomatic cares. He will receive supplemental oxygen as needed via nasal cannula and/or noninvasive airway pressure support devices as required to maintain an adequate oxygen saturation. He will receive Rocephin 1 g IV daily and azithromycin 500 mg IV daily. He will receive Decadron 2 mg IV every 8 hours. He will use morphine sulfate 2 to 4 mg IV every 2 hours as needed for pain. He will use Ativan 1 mg IV every 4 hours as needed for anxiety or rest lessness. He will be treated with a diabetic restricted diet. Before meals and at bedtime Accu-Cheks will be obtained with sliding scale insulin for hyperglycemia and a hypoglycemic protocol in place. Additional laboratory and/or radiographic evaluations will be obtained as needed. - Time Total Critical Time (Minutes): 40 Medications reviewed and adjusted accordingly: Yes Anticipated Discharge Disposition: Unknown at this time. Too early in his clinical course to determine. Anticipated Discharge Timeframe: Unknown at this time.
[2020-03-30] MEDS ORDERED: AZITHROMYCIN 500 MG in DEXTROSE 5%-WATER 250 ML IV SCH (13:00)
[2020-03-30] MEDS: DEXAMETHASONE SOD PHOSPHATE INJ 4 MG/1 ML VIAL IV SCH ×2 (13:30→13:53)
--- NOTE | 2020-03-30 17:37 | Left Against Medical Advice ---
Against Medical Advice Admission Date/Time: 03/30/20 06:08 Primary Care Provider: MICHELE GUILLEN PA-C Date of Patient Emigration: 03/30/20 - Diagnosis: (1) Acute respiratory failure with hypoxia Is this a current diagnosis for this admission?: Yes (2) Hematuria Is this a current diagnosis for this admission?: Yes (3) Multifocal pneumonia Is this a current diagnosis for this admission?: Yes (4) Diabetes mellitus type 2 in obese Is this a current diagnosis for this admission?: Yes (5) Person under investigation for COVID-19 Is this a current diagnosis for this admission?: Yes - Summary: Summary: Please see Admission and Progress Notes as well. LIZABETH VICK is a 49 M, who LEFT AGAINST MEDICAL ADVICE. The Patient was admitted on 03/30/20 06:08. During the critical care visit earlier today the patient did in fact turn off his phone and participated in the encounter. Prior to entering the room the patient was extremely agitated and yelling during a discussion on the phone. It is unclear who he was talking to or what they were discussing. Because he had an acute onset of hematuria and was still feeling poorly since his admission earlier today nursing called and asked me to assess the patient. After assessing the patient and discussing with the nurse it was reported that the patient became quite angry again. This time it was focused toward the staff. It was not on the phone like before. The patient threatened to leave AGAINST MEDICAL ADVICE. Because of his agitation security eventually was called. The first attempt to remove his IV was unsuccessful and the nurse had to step back to avoid possible physical harm. A second attempt resulted in successful removal of his IV. The patient sat in his room for short while and then left AGAINST MEDICAL ADVICE. Security did escort him to the door. The patient left AGAINST MEDICAL ADVICE from the emergency department the day prior to admission. This is in fact 2 days in a row that he has left AGAINST MEDICAL ADVICE. Based on his clinical condition this morning he will certainly require ongoing medical attention. Whether he presents to this facility or a different facility is unknown at this time.
[2020-03-31] MEDS ORDERED: AZITHROMYCIN 500 MG in DEXTROSE 5%-WATER 250 ML IV SCH (08:00)
[2020-03-31] MEDS ORDERED: CEFTRIAXONE 1 GM/D5W RTU 1 GM/50 ML RTUPB IV SCH (08:00)
== END 2020-03-30 14:57 | disposition left against medical advice (07) | DRG 193 ==
LOC: ER 20:54 → EH 03-30 06:08 → 3N 03-30 09:18
PROVIDERS: ADMIT Emergency Medicine; ATTEND Hospitalist
DX: J18.9 Pneumonia, unspecified organism (principal); J96.01 Acute respiratory failure with hypoxia; Z53.29 Procedure and treatment not carried out because of patient's decision for other reasons; E11.9 Type 2 diabetes mellitus without complications; E66.9 Obesity, unspecified; M19.90 Unspecified osteoarthritis, unspecified site; M10.9 Gout, unspecified; F32.9 Major depressive disorder, single episode, unspecified; F17.210 Nicotine dependence, cigarettes, uncomplicated; R10.9 Unspecified abdominal pain; R19.7 Diarrhea, unspecified; M25.522 Pain in left elbow; R31.0 Gross hematuria; Z11.59 Encounter for screening for other viral diseases; Z85.72 Personal history of non-Hodgkin lymphomas; Z79.84 Long term (current) use of oral hypoglycemic drugs; Z79.899 Other long term (current) drug therapy; Z82.61 Family history of arthritis
CPT/HCPCS: 36415; 71045; 71275; 80053; 80307; 81001; 82550; 82728; 82803; 82962; 83605; 83615; 83880; 84484; 85025; 86140; 87040; 87635; 87804; 93005; 93010; 96374; 99285; C9803; J0696; J1100; J1644; J1815

== ENCOUNTER 2020-03-30 16:44 | Inpatient (IN) | payer MEDICARE, MEDICAID ==
--- NOTE | 2020-03-30 18:26 | ER Document Report ---
ED General - General Chief Complaint: Productive Cough Stated Complaint: COUGH, CONGESTION Time Seen by Provider: 03/30/20 17:54 Primary Care Provider: MICHELE GUILLEN PA-C [Primary Care Provider] - Follow up as needed Mode of Arrival: Ambulatory Information source: Patient Notes: Patient is a 49-year-old man with COPD who was admitted to this hospital around 5:[address] Ryan for possible pneumonia, possible Covid, hematuria, lung other things. He apparently got agitated earlier today and insisted on leaving AGAINST MEDICAL ADVICE. He is back this afternoon because he is very short of breath and not feeling well. TRAVEL OUTSIDE OF THE [place] IN LAST 30 DAYS: No - Related Data Allergies/Adverse Reactions: No Known Allergies Allergy (Verified 12/29/12 10:28) Past Medical History - Social History Smoking Status: Current Every Day Smoker Frequency of alcohol use: None Drug Abuse: None Family History: Arthritis - Past Medical History Cardiac Medical History: Denies: Hx Coronary Artery Disease, Hx Heart Attack, Hx Hypertension Pulmonary Medical History: Denies: Hx Asthma, Hx Bronchitis, Hx COPD, Hx Pneumonia Neurological Medical History: Denies: Hx Cerebrovascular Accident, Hx Seizures Endocrine Medical History: Reports: Hx Diabetes Mellitus Type 2. Denies: Hx Diabetes Mellitus Type 1, Hx Hyperthyroidism, Hx Hypothyroidism Malignancy Medical History: Reports Hx Lymphoma GI Medical History: Denies: Hx Cirrhosis, Hx Hepatitis Musculoskeletal Medical History: Reports Hx Arthritis, Reports Hx Gout Skin Medical History: Denies Hx Eczema, Denies Hx Psoriasis Psychiatric Medical History: Reports: Hx Depression Infectious Medical History: Denies: Hx Hepatitis Past Surgical History: Reports: Hx Appendectomy, Other - Bone marrow transplant - Immunizations Immunizations up to date: Yes Hx Diphtheria, Pertussis, Tetanus Vaccination: Yes Review of Systems - Review of Systems Notes: Constitutional: No fevers. No chills. EENT: No eye redness. No eye pain. No ear pain. No sore throat. Cardiovascular: No chest pain. No palpitations. Respiratory: Positive for cough, dyspnea, wheezing Gastrointestinal: No abdominal pain. No nausea, vomiting, or diarrhea. Genitourinary: Atraumatic. No lesions. No pain. No discharge. Musculoskeletal: Atraumatic. No swelling. No deformities. Skin: No rash or lesions. Lymphatic: No swollen lymph nodes. Neurologic: No headache. No syncope. Psychiatric: No suicidal or homicidal ideation. Physical Exam - Vital signs Vitals: Temp 98.0 F 03/30/20 16:46 - Notes Notes: General: Ill-appearing Cardiac: Well-perfused. Regular rate and rhythm. No murmurs, rubs, or gallops. Pulmonary: Audible crackles, tachypnea, dyspnea. Wheezing all pham Abdominal: Non-distended. Non-rigid. Bowels sounds are present in all four quadrants. No guarding or rebound. HEENT: Head is atraumatic. Conjunctivae not reddened. No tearing. PERRL. EOMI. Orbits atraumatic. No periorbital swelling or erythema. Oropharynx is without erythema, swelling, or exudates. Neck: Supple. No adenopathy. No meningismus. Dermatologic: Warm with good turgor. No rash. Atraumatic. Chest: Atraumatic. No chest wall tenderness to palpation. Musculoskeletal: Moves all extremities well. No range of motion deficits. no muscular or joint tenderness. No paraspinal muscle tenderness. no midline spinal tenderness or step-off. Genitourinary: Examination deferred Neurologic: No gross neurologic deficits. Psychiatric: Normal mood. Course - Re-evaluation Re-evalutation: 03/30/20 18:22 I reviewed the admission H&P, progress note. Patient's vital signs are stable right now but as I understand if he gets up and moves around he can get hypoxic rather quickly. I called up Dr. Llamas who is the last person to attend to him in the hospital and he said he would come in see the patient. 03/30/20 19:23 Patient is readmitted by Dr. llamas - Vital Signs Vital signs: Temp Pulse Resp BP Pulse Ox 98.0 F 96 18 120/74 96 03/30/20 16:53 03/30/20 16:53 03/30/20 16:53 03/30/20 16:53 03/30/20 16:53 Discharge - Discharge Clinical Impression: Multifocal pneumonia, Person under investigation for COVID-19 Condition: Fair Disposition: ADMITTED INPATIENT Unit Admitted: IMCU Referrals: MICHELE GUILLEN PA-C [Primary Care Provider] - Follow up as needed
[2020-03-30] MEDS ORDERED: RINGERS SOLUTION,LACTATED 1,000 ML IV PRN (19:09)
[2020-03-30] MEDS ORDERED: ACETAMINOPHEN 325 MG TABLET PO PRN (19:09)
[2020-03-30] MEDS ORDERED: ALBUTEROL SULFATE HFA (90 MCG/PUFF) 8 GM MDI IH PRN (19:09)
[2020-03-30] MEDS ORDERED: ZIPRASIDONE MESYLATE INJ/PF 20 MG SDV IM PRN (19:09)
[2020-03-30] MEDS ORDERED: MAG HYDROX/AL HYDROX/SIMETH SUSP 30 ML UDCUP PO PRN (19:09)
[2020-03-30] MEDS ORDERED: PROMETHAZINE HCL INJ 25 MG/1 ML VIAL IV PRN (19:09)
[2020-03-30] MEDS ORDERED: MAGNESIUM HYDROXIDE SUSP 30 ML UDCUP PO PRN (19:09)
[2020-03-30] MEDS ORDERED: TEMAZEPAM 15 MG CAPSULE PO PRN (19:20)
[2020-03-30] MEDS ORDERED: GLUCAGON,HUMAN RECOMB 1 MG INJ IM PRN (19:23)
[2020-03-30] MEDS ORDERED: DEXTROSE 50%-WATER 25 GM/50 ML DISP.SYRIN IV PRN ×2 (19:23)
[2020-03-30] MEDS ORDERED: DEXTROSE 40% GEL 15 GM TUBE PO PRN ×2 (19:23)
--- NOTE | 2020-03-30 19:48 | PDOC H&P ---
History of Present Illness Admission Date/PCP: MICHELE GUILLEN PA-C Patient complains of: Shortness of breath History of Present Illness: LIZABETH VICK is a 49 year old male who was admitted yesterday for bilateral pneumonia with shortness of breath. He left the emergency department AGAINST MEDICAL ADVICE on March 28. He was admitted on the and left AGAINST MEDICAL ADVICE earlier today. He returns for third time but assures me that family forced him to come back to the hospital and that he will stay till the end of treatment. When he left AGAINST MEDICAL ADVICE he had increasing shortness of breath. He had no oxygen and no medications to continue to treat the pneumonia. He was swabbed for COVID. The chest x-ray certainly suggestive. COVID results will likely be available tomorrow. The patient will be admitted. He will be placed back on antibiotics as well as the usual supplements for persons under investigation/covered positive patients. For his diabetes we will continue his metformin and utilize sliding scale. Based on his Accu-Cheks we may add back either his Januvia or glimepiride or both. He will receive some IV fluids as well as as needed medications for pain, fever, shortness of breath, nausea and insomnia. Past Medical History Cardiac Medical History: Denies: Coronary Artery Disease, Myocardial Infarction, Hypertension Pulmonary Medical History: Reports: Pneumonia, Respiratory Failure Denies: Asthma, Bronchitis, Chronic Obstructive Pulmonary Disease (COPD) Neurological Medical History: Denies: Seizures Endocrine Medical History: Reports: Diabetes Mellitus Type 2 Denies: Diabetes Mellitus Type 1, Hyperthyroidism, Hypothyroidism Malignancy Medical History: Reports: Lymphoma GI Medical History: Denies: Cirrhosis, Hepatitis Musculoskeltal Medical History: Reports: Arthritis, Gout Skin Medical History: Denies: Eczema, Psoriasis Psychiatric Medical History: Reports: Depression Denies: Alcohol Dependency, Substance Abuse, Tobacco Dependency Hematology: Denies: Anemia, Bleeding Tendencies Past Surgical History Past Surgical History: Reports: Appendectomy, Other - Bone marrow transplant Social History Information Source: Patient, [facility] Records Lives with: Family Smoking Status: Current Every Day Smoker Electronic Cigarette use?: No Frequency of Alcohol Use: None Hx Recreational Drug Use: No Drugs: None Hx Prescription Drug Abuse: No - Advance Directive Resuscitation Status: Full Code Family History Family History: Arthritis Parental Family History Reviewed: Yes Children Family History Reviewed: Yes Sibling(s) Family History Reviewed.: Yes Medication/Allergy Home Medications: Glipizide [Glipizide Xl] 5 mg PO DAILY 03/30/20 Ipratropium Atkins [Atrovent Hfa Inhalation Aerosol 12.9 gm Mdi] 2 puff IH Q6HP PRN 03/30/20 Metformin HCl [Glucophage 500 mg Tablet] 1,000 mg PO BIDACBS 03/30/20 Sitagliptin Phosphate [Januvia 50 mg Tablet] 100 mg PO DAILY 03/30/20 Allergies/Adverse Reactions: No Known Allergies Allergy (Verified 12/29/12 10:28) Review of Systems All systems: reviewed and no additional remarkable complaints except as stated Constitutional: PRESENT: night sweats Nose, Mouth, and Throat: PRESENT: other - Dry mouth Respiratory: PRESENT: cough, dyspnea Genitourinary: PRESENT: hematuria Musculoskeletal: PRESENT: other - Bilateral lower extremity edema Psychiatric: PRESENT: other - Exhibited significant agitation during his most recent hospitalization Physical Exam Vital Signs: Temp Pulse Resp BP Pulse Ox 98.0 F 96 18 120/74 96 03/30/20 16:53 03/30/20 16:53 03/30/20 16:53 03/30/20 16:53 03/30/20 16:53 General appearance: PRESENT: cooperative, mild distress - Mild to moderate distress, well-developed Head exam: PRESENT: atraumatic, normocephalic Eye exam: PRESENT: conjunctiva pale, EOMI. ABSENT: scleral icterus Ear exam: PRESENT: normal external ear exam. ABSENT: bleeding, drainage Mouth exam: PRESENT: dry mucosa, tongue midline Teeth exam: PRESENT: poor dentation Throat exam: ABSENT: post pharyngeal erythema Neck exam: ABSENT: carotid bruit, JVD, lymphadenopathy, tracheostomy Respiratory exam: PRESENT: prolonged expiratory phas, rales - Bilateral, symmetrical. ABSENT: accessory muscle use, rhonchi, tachypnea, wheezes Cardiovascular exam: PRESENT: RRR, +S1, +S2. ABSENT: bradycardia, diastolic murmur, irregular rhythm, systolic murmur, tachycardia GI/Abdominal exam: PRESENT: normal bowel sounds, soft. ABSENT: distended, guarding, tenderness Rectal exam: PRESENT: deferred Gentrourinary exam: ABSENT: indwelling catheter Extremities exam: PRESENT: +1 edema - Bilateral lower extremities Musculoskeletal exam: PRESENT: ambulatory, full ROM, normal inspection. ABSENT: deformity, dislocation Neurological exam: PRESENT: alert, awake, oriented to person, oriented to place, oriented to time, oriented to situation, CN II-XII grossly intact. ABSENT: altered Psychiatric exam: PRESENT: unusual affect - Did not maintain eye contact during encounter.. ABSENT: agitated, anxious Focused psych exam: ABSENT: delusional, paranoid, restlessness Skin exam: PRESENT: dry, normal color, warm. ABSENT: rash Assessment and Plan - Diagnosis (1) Acute respiratory failure with hypoxia Is this a current diagnosis for this admission?: Yes Plan: Patient has bilateral multifocal pneumonia. Possibly COVID related. Will provide oxygen supplement to keep oxygen saturation in the 90 to 94% range. There is a likely history of COPD but this has not been proven as yet. He will be receiving antibiotic therapy as well as the typical supplements given to patients under investigation. I have also ordered inhaler therapy and an incentive spirometer. The goal be to taper the patient back to room air. (2) Multifocal pneumonia Is this a current diagnosis for this admission?: Yes Plan: Azithromycin and ceftriaxone. For possible COVID related pneumonia he will also receiving vitamin C, zinc, vitamin D and melatonin. No indication for Remdesivir or convalescent serum at this time (3) Person under investigation for COVID-19 Is this a current diagnosis for this admission?: Yes Plan: Patient was COVID tested yesterday. Results should be available tomorrow. 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 Metformin 1 g twice daily. Humalog sliding scale coverage. Consider resuming Januvia and glimepiride. (5) Agitation Is this a current diagnosis for this admission?: Yes Plan: The patient had episodes of significant agitation earlier today. It is unclear if this is specifically related to his hospitalization or a reflection of some other comorbidity. Consider psychiatric evaluation and implementation of medications to help with anxiety and emotional lability. (6) Tobacco use disorder, continuous Is this a current diagnosis for this admission?: Yes Plan: 21 mg nicotine patch daily. - Time Time Spent with patient: 35 or more minutes Smoking Cessation Education: 3 to 10 minutes Medications reviewed and adjusted accordingly: Yes Anticipated Discharge Disposition: Home with Home Health Anticipated Discharge Timeframe: Likely 4 to 5 days or longer based on clinical response to treatment - Inpatient Certification Based on my medical assessment, after consideration of the patient's comorbidities, presenting symptoms, or acuity I expect that the services needed warrant INPATIENT care.: Yes I certify that my determination is in accordance with my understanding of Medicare's requirements for reasonable and necessary INPATIENT services [42 CFR 412.3e].: Yes Medical Necessity: Need Close Monitoring Due to Risk of Patient Decompensation, Need For IV Fluids, Need for Pain Control, Need for IV Antibiotics, Risk of Complication if Not Cared For in Hospital Post Hospital Care: D/C or Transfer Summary
[2020-03-30] MEDS ORDERED: MELATONIN 5 MG TABLET PO SCH (22:00)
[2020-03-30] MEDS ORDERED: AZITHROMYCIN 250 MG TABLET PO SCH (22:00)
[2020-03-30] MEDS: MORPHINE SULFATE 10 MG/ML INJ IV PRN (22:34)
[2020-03-30] MEDS: INSULIN LISPRO 100 UNIT/ML 3 ML VIAL SUBCUT SCH (23:02)
[2020-03-31] MEDS: MORPHINE SULFATE 10 MG/ML INJ IV PRN (04:38)
[2020-03-31] MEDS ORDERED: PANTOPRAZOLE SODIUM 40 MG TABLET.DR PO SCH (06:00)
[2020-03-31 07:06] LABS: ALBUMIN 3.4 g/dL (3.5-5.0); ALKALINE PHOSPHATASE 131 U/L (38-126); ANION GAP 10 (5-19); ASPARTATE AMINO TRANSFERASE 50 U/L (17-59); BILIRUBIN,DIRECT 0.6 mg/dL (0.0-0.4); BILIRUBIN,TOTAL 1.3 mg/dL (0.2-1.3); BLOOD UREA NITROGEN 17 mg/dL (7-20); C-REACTIVE PROTEIN 52.5 mg/L (<10.0); CALCIUM 9.8 mg/dL (8.4-10.2); CARBON DIOXIDE 26 mmol/L (22-30); CHLORIDE 102 mmol/L (98-107); GLUCOSE 237 mg/dL (75-110); POTASSIUM 4.7 mmol/L (3.6-5.0); TOTAL PROTEIN 8.5 g/dL (6.3-8.2)
[2020-03-31] MEDS ORDERED: METFORMIN HCL 500 MG TABLET PO SCH (08:00)
[2020-03-31 08:19] VITALS: BP 110/77
[2020-03-31] MEDS: INSULIN LISPRO 100 UNIT/ML 3 ML VIAL SUBCUT SCH (08:24)
--- NOTE | 2020-03-31 08:36 | RADIOLOGY REPORT (SQ) ---
EXAM DESCRIPTION: CHEST SINGLE VIEW IMAGES COMPLETED DATE/TIME: 03/31/2020 8:03 am REASON FOR STUDY: Bilateral pneumonia COMPARISON: 03/29/2020 EXAM PARAMETERS: NUMBER OF VIEWS: One view. TECHNIQUE: Single frontal radiographic view of the chest acquired. RADIATION DOSE: NA LIMITATIONS: None. FINDINGS: LUNGS AND PLEURA: Course bilateral reticulonodular opacities, grossly stable from prior. No significant effusion. No pneumothorax. MEDIASTINUM AND HILAR STRUCTURES: Stable. HEART AND VASCULAR STRUCTURES: Heart normal in size. Normal vasculature. BONES: No acute findings. HARDWARE: Right internal jugular chest port with catheter tip at SVC. OTHER: No other significant finding. IMPRESSION: Stable chest with diffuse bilateral coarse opacities suggestive of multifocal pneumonia. TECHNICAL DOCUMENTATION: JOB ID: [id number] [employer]- All Rights Reserved Reading location - IP/workstation name: [email or web address]
[2020-03-31 09:54] LABS: ABSOLUTE BASOPHILS # (AUTO) 0.1 10^3/uL (0.0-0.2); ABSOLUTE EOSINOPHILS # (AUTO) 0.1 10^3/uL (0.0-0.6); ABSOLUTE LYMPHOCYTES (AUTO) 1.3 10^3/uL (0.5-4.7); ABSOLUTE NEUT (AUTO) 8.6 10^3/uL (1.7-8.2); BASOPHILS % (AUTO) 0.5 % (0-2); EOSINOPHILS % (AUTO) 1.2 % (0-6); HEMATOCRIT 35.9 % (37.9-51.0); HEMOGLOBIN 11.8 g/dL (13.5-17.0); MEAN CORPUSCULAR HEMOGLOBIN 30.6 pg (27.0-33.4); MEAN CORPUSCULAR HGB CONC 32.9 g/dL (32.0-36.0); MEAN CORPUSCULAR VOLUME 93 fl (80-97); MONOCYTES % (AUTO) 8.9 % (3-13); PLATELET COUNT 204 10^3/uL (150-450); RED BLOOD COUNT 3.86 10^6/uL (4.35-5.55); RED CELL DISTRIBUTION WIDTH 14.9 % (11.5-14.0); SEGMENTED NEUTROPHILS % (AUTO) 77.4 % (42-78); TOTAL CELLS COUNTED % (AUTO) 100 %; WHITE BLOOD COUNT 11.1 10^3/uL (4.0-10.5)
[2020-03-31] MEDS ORDERED: CEFTRIAXONE 1 GM/D5W RTU 1 GM/50 ML RTUPB IV SCH (10:00)
[2020-03-31] MEDS ORDERED: GLIPIZIDE XL 5 MG TAB.ER.24 PO SCH (10:00)
[2020-03-31] MEDS ORDERED: DEXAMETHASONE SOD PHOSPHATE INJ 4 MG/1 ML VIAL IV SCH (10:00)
[2020-03-31] MEDS ORDERED: NICOTINE 21 MG/24 HR PATCH.TD24 TD SCH (10:00)
[2020-03-31] MEDS ORDERED: UMECLIDINIUM BROMIDE 62.5 MCG/DOSE IH SCH (10:00)
[2020-03-31] MEDS ORDERED: ZINC SULFATE 220 MG CAPSULE PO SCH (10:00)
[2020-03-31] MEDS ORDERED: CHOLECALCIFEROL (D3) 1,000 UNIT (25 MCG) TABLET PO SCH (10:00)
[2020-03-31] MEDS ORDERED: SITAGLIPTIN PHOSPHATE 50 MG TABLET PO SCH (10:00)
[2020-03-31] MEDS ORDERED: FLUTICASONE/VILANTEROL 100-25 MCG/DOSE IH SCH (10:00)
[2020-03-31] MEDS ORDERED: ASCORBIC ACID 500 MG TABLET PO SCH (10:00)
--- NOTE | 2020-03-31 16:04 | Left Against Medical Advice ---
Against Medical Advice Admission Date/Time: 03/30/20 20:24 Primary Care Provider: MICHELE GUILLEN PA-C Date of Patient Emigration: 03/31/20 - Diagnosis: (1) Acute respiratory failure with hypoxia Is this a current diagnosis for this admission?: Yes (2) Multifocal pneumonia Is this a current diagnosis for this admission?: Yes (3) Person under investigation for COVID-19 Is this a current diagnosis for this admission?: Yes (4) Hyperglycemia due to type 2 diabetes mellitus Is this a current diagnosis for this admission?: Yes (5) Agitation Is this a current diagnosis for this admission?: Yes (6) Tobacco use disorder, continuous Is this a current diagnosis for this admission?: Yes - Summary: Summary: Please see Admission and Progress Notes as well. LIZABETH VICK is a 49 M, who LEFT AGAINST MEDICAL ADVICE. The Patient was admitted on 03/30/20 20:24. This is the third time the patient has left AGAINST MEDICAL ADVICE. Yesterday morning he left. He was in the emergency department at 6:30 PM. They went down and readmitted the patient. I specifically spoke to him regarding his behavior. He states that his mother would not take him back home until he was appropriately treated. He then told me that he learned his lesson and he was going to keep his mouth shut. Unfortunately this morning he became very agitated again. He was threatening staff. His COVID results came back negative and for the patient's sake we removing him off of [address] For some reason this irritated him. This is surprising because he did want to leave his door open which is not feasible on [address] They explained to him that on [address] he would be able to keep his door open as he was previously requesting. This did not appease him at all. In discussing with the nurse he in fact was threatening. The patient has a Port-A-Cath from treatments for lymphoma in the past. He would not let nursing the access his port. A nurse escorted him to the front lobby and she reports that in the elevator he de-accessed his port by ripping out the IV. This is the third time that the patient has left AGAINST MEDICAL ADVICE in the last 4 days.
[2020-04-01] MEDS ORDERED: INFLUENZA QUAD (6MOS+) 2020-21 VAC 0.5 ML SYR IM ONE (08:00)
== END 2020-03-31 10:23 | disposition left against medical advice (07) | DRG 194 ==
LOC: ER 16:44 → EH 20:24 → 3N 23:15
PROVIDERS: ADMIT Hospitalist; ATTEND Hospitalist
DX: J18.9 Pneumonia, unspecified organism (principal); Z94.81 Bone marrow transplant status; F17.200 Nicotine dependence, unspecified, uncomplicated; R45.1 Restlessness and agitation; E11.65 Type 2 diabetes mellitus with hyperglycemia; M19.90 Unspecified osteoarthritis, unspecified site; Z79.84 Long term (current) use of oral hypoglycemic drugs; Z85.72 Personal history of non-Hodgkin lymphomas; Z90.49 Acquired absence of other specified parts of digestive tract
CPT/HCPCS: 36415; 71045; 80053; 82962; 83735; 83880; 85025; 85379; 86140; 94799; 99284; J1815; J2270; J3490; J7120

== ENCOUNTER 2020-04-14 17:17 | Emergency (ER) | payer MEDICARE, MEDICAID ==
--- NOTE | 2020-04-14 17:45 | ER Document Report ---
ED Cardiac - General Stated Complaint: LEG SWELLING Time Seen by Provider: 04/14/20 17:31 Primary Care Provider: MICHELE GUILLEN PA-C [Primary Care Provider] - Follow up as needed Notes: CHIEF COMPLAINT: Shortness of breath, leg swelling HPI: 49-year-old male with history of COPD, CHF, lymphoma in remission, tobacco use, type 2 diabetes, elevated cholesterol presenting for continued shortness of breath with worsened leg swelling. Patient states he had recently been admitted to the hospital for pneumonia. Left AGAINST MEDICAL ADVICE. Was not placed on antibiotic when he left. Did see his primary care provider who started him on a 7-day course of antibiotics which he finished and states he feels slightly better but still feels like he is very short of breath and has had increased leg swelling. Patient is on diuretics at home for heart failure per the patient. He states the diuretics do not seem to be working. Patient saw his PCP yesterday and was told that he would likely need to come to the emergency department if he did not feel better. ROS: See HPI - all other systems were reviewed and are otherwise negative Constitutional: no fever Eyes: no drainage, no blurred vision ENT: no runny nose, no sore throat Cardiovascular: no chest pain Resp: + SOB, + cough GI: no vomiting, no diarrhea, no abdominal pain : no dysuria Integumentary: no rash Allergy: no hives Musculoskeletal: + extremity pain or swelling Neurological: no numbness/tingling, no weakness MEDICATIONS: I agree with the patient medications as charted by the RN. ALLERGIES: I agree with the allergies as charted by the RN. PAST MEDICAL HISTORY/PAST SURGICAL HISTORY: Reviewed and agree as charted by RN. SOCIAL HISTORY: Reviewed and agree as charted by RN. FAMILY HISTORY: No significant familial comorbid conditions directly related to patient complaint EXAM: Reviewed vital signs as charted by RN. CONSTITUTIONAL: Alert and oriented and responds appropriately to questions. Well-appearing; well-nourished HEAD: Normocephalic; atraumatic EYES: PERRL; Conjunctivae clear, sclerae non-icteric ENT: normal nose; no rhinorrhea; moist mucous membranes; pharynx without lesions noted, no uvula edema or deviation, no tonsillar hypertrophy, phonation normal NECK: Supple without meningismus; non-tender; no cervical lymphadenopathy, no masses CARD: RRR; no murmurs, no clicks, no rubs, no gallops; symmetric distal pulses RESP: Normal chest excursion without splinting or tachypnea; breath sounds decreased bilaterally; no wheezes, no rhonchi, no rales, pulse oximetry 98% on room air not hypoxic. Spastic cough is noted. Patient does become dyspneic with speaking ABD/GI: Normal bowel sounds; non-distended; soft, non-tender, no rebound, no gua rding; no palpable organomegaly or masses. BACK: The back appears normal and is non-tender to palpation, there is no CVA tenderness EXT: Normal ROM in all joints; non-tender to palpation; no cyanosis, no effusions, 3+ pitting edema from the ankles to the knees is noted bilaterally. No edema over the abdomen SKIN: Normal color for age and race; warm; dry; good turgor; no acute lesions noted NEURO: Moves all extremities equally; Motor and sensory function intact PSYCH: The patient's mood and manner are appropriate. Grooming and personal hygiene are appropriate. MDM: 49-year-old male with multiple medical issues recently diagnosed with pneumonia but had negative Covid testing 2 weeks ago back for shortness of breath. Does have a spastic cough. On review of the records his chest x-ray on March 31 did suggest bilateral pneumonia what he states that he took a 7-day course of an antibiotic he does not recall the name of prescribed by his PCP and feels like the pneumonia improved. Will obtain screening cardiac labs, chest x- ray, EKG TRAVEL OUTSIDE OF THE [place] IN LAST 30 DAYS: No - Related Data Allergies/Adverse Reactions: No Known Allergies Allergy (Verified 12/29/12 10:28) Past Medical History - Social History Smoking Status: Unknown if Ever Smoked Family History: Arthritis - Past Medical History Cardiac Medical History: Denies: Hx Coronary Artery Disease, Hx Heart Attack, Hx Hypertension Pulmonary Medical History: Reports: Hx Pneumonia, Hx Respiratory Failure Denies: Hx Asthma, Hx Bronchitis, Hx COPD Neurological Medical History: Denies: Hx Cerebrovascular Accident, Hx Seizures Endocrine Medical History: Reports: Hx Diabetes Mellitus Type 2. Denies: Hx Diabetes Mellitus Type 1, Hx Hyperthyroidism, Hx Hypothyroidism Malignancy Medical History: Reports Hx Lymphoma GI Medical History: Denies: Hx Cirrhosis, Hx Hepatitis Musculoskeletal Medical History: Reports Hx Arthritis, Reports Hx Gout Skin Medical History: Denies Hx Eczema, Denies Hx Psoriasis Psychiatric Medical History: Reports: Hx Depression Infectious Medical History: Denies: Hx Hepatitis Past Surgical History: Reports: Hx Appendectomy, Other - Bone marrow transplant - Immunizations Immunizations up to date: Yes Hx Diphtheria, Pertussis, Tetanus Vaccination: Yes Physical Exam - Vital signs Vitals: Pulse Ox 99 04/14/20 17:27 Course - Re-evaluation Re-evalutation: 04/14/20 18:41 Patient's troponin is 0.024, on review of the records his last troponin here was 0.020, this may be baseline for the patient. He is not complaining of chest pain. His BNP is 2200 which is consistent with what he signed out with. His chest x-ray on my review suggests mild heart failure. He had finished a course of antibiotics for pneumonia. Will give Lasix here. This may be COPD exacerbation with mild CHF. Will give Decadron and breathing treatment. 04/14/20 18:[address] Newton, attending. We will proceed with current plan, will plan to try to ambulate the patient to see if he desaturates or becomes hypoxic with movement. If he does not given that his other labs are not significantly changed from prior labs when he left AGAINST MEDICAL ADVICE patient may be managed outpatient with an increase in his Lasix, nebulizer and steroids to follow-up with his PCP 04/14/20 19:57 Patient was ambulated in the room without oxygen and his pulse oximetry was 94% on room air he did not become significantly dyspneic his heart rate stayed between 105 and 110. I spoke with the patient at length. He states he would prefer to go home. He is on Lasix 40 mg daily, potassium replacement 10 mEq daily. I will double his Lasix for the next 5 days. Patient will be placed on prednisone he is aware this will make his sugars slightly elevated. He is to follow-up with his primary care provider on Friday he will call their office tomorrow as he states they were the ones that told him to come back to the emergency department for evaluation today. His chest x-ray suggests mild heart failure as do his labs. He is afebrile. I do not believe patient has pneumonia at this time he did finish a course of antibiotics from his PCP and can be followed up for this on Friday04/14/20 19:59 Patient's primary care is already working on follow-up with cardiology for the patient - Vital Signs Vital signs: Temp Pulse Resp BP Pulse Ox 97.7 F 26 H 115/75 100 04/14/20 17:41 04/14/20 18:01 04/14/20 18:00 04/14/20 18:01 - Laboratory Result Diagrams: 04/14/20 17:35 04/14/20 17:35 Laboratory results interpreted by me: 04/14/20 04/14/20 04/14/20 17:35 17:35 17:35 RBC 3.54 L Hgb 11.0 L Hct 33.7 L RDW 16.0 H Plt Count 116 L [place] % (Auto) 13.5 H Chloride 109 H Glucose 229 H Total Bilirubin 1.5 H NT-Pro-B Natriuret Pep 2470 H Albumin 3.2 L Discharge - Discharge Clinical Impression: CHF (congestive heart failure) Qualifiers: Heart failure type: unspecified Heart failure chronicity: acute on chronic Qualified Code(s): I50.9 - Heart failure, unspecified Dyspnea Qualifiers: Dyspnea type: unspecified Qualified Code(s): R06.00 - Dyspnea, unspecified Condition: Stable Disposition: HOME, SELF-CARE Additional Instructions: Increase your Lasix to 20 mg twice daily for the next 5 days. Continue your potassium 10 mEq daily. Take the prednisone as prescribed. This will make your sugars slightly elevated. Call your primary care provider tomorrow to discuss close follow-up on Friday in the office. If you feel worse or have worsened respiratory difficulty return for reevaluation as discussed Prescriptions: Prednisone [Deltasone 20 mg Tablet] 2 tab PO DAILY 5 Days #10 tablet Furosemide [Lasix 20 mg Tablet] 20 mg PO BID #10 tablet Potassium Chloride 10 meq PO QAM #5 capsule.er Referrals: MICHELE GUILLEN PA-C [Primary Care Provider] - Follow up as needed
[2020-04-14 18:13] LABS: ABSOLUTE EOSINOPHILS # (AUTO) 0.1 10^3/uL (0.0-0.6); ABSOLUTE MONOCYTES (AUTO) 0.7 10^3/uL (0.1-1.4); ABSOLUTE NEUT (AUTO) 3.2 10^3/uL (1.7-8.2); BASOPHILS % (AUTO) 0.5 % (0-2); EOSINOPHILS % (AUTO) 2.9 % (0-6); HEMATOCRIT 33.7 % (37.9-51.0); MEAN CORPUSCULAR HEMOGLOBIN 31.1 pg (27.0-33.4); MEAN CORPUSCULAR HGB CONC 32.7 g/dL (32.0-36.0); MEAN CORPUSCULAR VOLUME 95 fl (80-97); MONOCYTES % (AUTO) 13.5 % (3-13); PLATELET COUNT 116 10^3/uL (150-450); RED BLOOD COUNT 3.54 10^6/uL (4.35-5.55); SEGMENTED NEUTROPHILS % (AUTO) 64.1 % (42-78); TOTAL CELLS COUNTED % (AUTO) 100 %; WHITE BLOOD COUNT 5.1 10^3/uL (4.0-10.5)
[2020-04-14 18:22] LABS: ALBUMIN 3.2 g/dL (3.5-5.0); ALKALINE PHOSPHATASE 99 U/L (38-126); ANION GAP 5 (5-19); ASPARTATE AMINO TRANSFERASE 55 U/L (17-59); BILIRUBIN,DIRECT 0.1 mg/dL (0.0-0.4); BILIRUBIN,TOTAL 1.5 mg/dL (0.2-1.3); BLOOD UREA NITROGEN 10 mg/dL (7-20); CALCIUM 9.3 mg/dL (8.4-10.2); CARBON DIOXIDE 26 mmol/L (22-30); CHLORIDE 109 mmol/L (98-107); GLUCOSE 229 mg/dL (75-110); POTASSIUM 4.2 mmol/L (3.6-5.0); TOTAL PROTEIN 7.7 g/dL (6.3-8.2)
[2020-04-14] MEDS ORDERED: IPRATROPIUM/ALBUTEROL 0.5-2.5 MG/3 ML AMPUL NEB ONE (18:30)
[2020-04-14 18:33] LABS: TROPONIN I 0.024 ng/mL
[2020-04-14] MEDS ORDERED: DEXAMETHASONE SOD PHOS INJ 10 MG/1 ML VIAL IV ONE ×2 (18:40→18:51)
[2020-04-14] MEDS ORDERED: FUROSEMIDE 80 MG TABLET PO ONE (18:40)
--- NOTE | 2020-04-14 18:42 | RADIOLOGY REPORT (SQ) ---
EXAM DESCRIPTION: CHEST SINGLE VIEW IMAGES COMPLETED DATE/TIME: 04/14/2020 5:18 pm REASON FOR STUDY: dyspnea. COMPARISON: 03/31/2020 EXAM PARAMETERS: NUMBER OF VIEWS: One view. TECHNIQUE: Single frontal radiographic view of the chest acquired. RADIATION DOSE: NA LIMITATIONS: None. FINDINGS: LUNGS AND PLEURA: There is patchy perihilar and basilar predominant alveolar opacities in both lungs. No focal confluent consolidation. Findings are not significantly changed. No pneumotho rax. MEDIASTINUM AND HILAR STRUCTURES: No masses. Contour normal. HEART AND VASCULAR STRUCTURES: Mild cardiomegaly. Indistinctness of the pulmonary vasculature. BONES: No acute findings. HARDWARE: Right MediPort catheter with tip at the cavoatrial junction unchanged. OTHER: No other significant finding. IMPRESSION: Mild cardiomegaly with mild pulmonary edema. Superimposed infectious/ inflammatory proc ess not excluded. TECHNICAL DOCUMENTATION: JOB ID: [id number] 2010 [employer]- All Rights Reserved Reading location - IP/workstation name: [email or web address]
[2020-04-14] MEDS ORDERED: FUROSEMIDE INJ/PF 20 MG/2 ML SDV IV ONE (19:34)
[2020-04-14] MEDS ORDERED: METHYLPREDNISOLONE INJ 125 MG/2 ML SDV IV ONE (19:34)
[2020-04-14 20:20] VITALS: BP 113/75
--- NOTE | 2020-04-14 22:25 | EKG REPORT ---
SEVERITY:- ABNORMAL ECG - SINUS TACHYCARDIA BORDERLINE T WAVE ABNORMALITIES BORDERLINE PROLONGED QT INTERVAL LA ENLARGEMENT : Confirmed by: Kerwin Lizama MD 14-Apr-2020 22:24:19
== END 2020-04-14 20:28 | disposition home or self-care (01) ==
LOC: ER 17:17
DX: I50.9 Heart failure, unspecified (principal); E11.9 Type 2 diabetes mellitus without complications; Z79.899 Other long term (current) drug therapy; Z85.72 Personal history of non-Hodgkin lymphomas; Z87.01 Personal history of pneumonia (recurrent)
CPT/HCPCS: 93005; 99285; 96374; 96375; 36415; 87040; 85025; 87077; 80053; 84484; 87150 ×26; 83880; 71045; 93010; J1940; J2930; 87186

== ENCOUNTER 2020-05-22 13:43 | Emergency (ER) | payer MEDICARE, MEDICAID ==
[2020-05-22 14:04] VITALS: BP 114/82
--- NOTE | 2020-05-22 14:06 | ER Document Report ---
ED Medical Screen (RME) - General Stated Complaint: SWOLLEN GENITALS Time Seen by Provider: 05/22/20 14:04 Primary Care Provider: MICHELE GUILLEN PA-C [Primary Care Provider] - Follow up as needed Notes: HPI: 49-year-old male with history of heart failure presenting for increased swelling of the testicles and scrotum over the last 3 to 4 days. No abdominal pain nausea vomiting. Also reports increased swelling in his legs. Also reports increased shortness of breath. He states he does see a primary doctor for congestive heart failure but feels like it is much worse recently. No definite fevers. PHYSICAL EXAMINATION: exam deferred in triage area. Lung sounds are decreased with some crackles in the bilateral bases. Patient does become somewhat dyspneic with speaking I have greeted and performed a rapid initial assessment of this patient. A comprehensive ED assessment and evaluation of the patient, analysis of test results and completion of medical decision making process will be conducted by an additional ED providers. TRAVEL OUTSIDE OF THE [place] IN LAST 30 DAYS: No - Related Data Allergies/Adverse Reactions: No Known Allergies Allergy (Verified 12/29/12 10:28) Past Medical History - Past Medical History Cardiac Medical History: Denies: Hx Coronary Artery Disease, Hx Heart Attack, Hx Hypertension Pulmonary Medical History: Reports: Hx Pneumonia, Hx Respiratory Failure Denies: Hx Asthma, Hx Bronchitis, Hx COPD Neurological Medical History: Denies: Hx Cerebrovascular Accident, Hx Seizures Endocrine Medical History: Reports: Hx Diabetes Mellitus Type 2. Denies: Hx Diabetes Mellitus Type 1, Hx Hyperthyroidism, Hx Hypothyroidism Malignancy Medical History: Reports Hx Lymphoma GI Medical History: Denies: Hx Cirrhosis, Hx Hepatitis Musculoskeltal Medical History: Reports Hx Arthritis, Reports Hx Gout Skin Medical History: Denies Hx Eczema, Denies Hx Psoriasis Psychiatric Medical History: Reports: Hx Depression Infectious Medical History: Denies: Hx Hepatitis Past Surgical History: Reports: Hx Appendectomy, Other - Bone marrow transplant - Immunizations Immunizations up to date: Yes Hx Diphtheria, Pertussis, Tetanus Vaccination: Yes Physical Exam - Vital signs Vitals: Temp Pulse Resp BP Pulse Ox 98.0 F 104 H 16 114/82 96 05/22/20 14:04 05/22/20 14:04 05/22/20 14:04 05/22/20 14:04 05/22/20 14:04 Course - Vital Signs Vital signs: Temp Pulse Resp BP Pulse Ox 98.0 F 104 H 16 114/82 96 05/22/20 14:04 05/22/20 14:04 05/22/20 14:04 05/22/20 14:04 05/22/20 14:04 Doctor's Discharge - Discharge Referrals: MICHELE GUILLEN PA-C [Primary Care Provider] - Follow up as needed
--- NOTE | 2020-05-22 15:01 | RADIOLOGY REPORT (SQ) ---
EXAM DESCRIPTION: U/S SCROTUM W/DOPPLER IMAGES COMPLETED DATE/TIME: 05/22/2020 2:48 pm REASON FOR STUDY: testicular swelling COMPARISON: None. TECHNIQUE: Static and realtime chung scale imaging of the scrotum and testes. Selected color Doppler and spectral images recorded to document blood flow. LIMITATIONS: None. FINDINGS: RIGHT: TESTICLE: The right testicle measures 4 x 2 x 2 cm. The echotexture of the testicular parenchyma is homogeneous and on Doppler there is intact arterial inflow and venous outflow within it. There is no testicular mass. EPIDIDYMIS: No hyperemia. HYDROCELE OR VARICOCELE: No. HERNIA OR EXTRA-TESTICULAR MASS: No. OTHER: Mild scrotal edema. LEFT: TESTICLE: The left testicle measures 4 x 2 x 2 cm. The echotexture of the testicular parenchyma is h omogeneous and on Doppler there is intact arterial inflow and venous outflow within it. There is no testicular mass. EPIDIDYMIS: No hyperemia. HYDROCELE OR VARICOCELE: No. HERNIA OR EXTRA-TESTICULAR MASS: No. OTHER: Mild scrotal edema. IMPRESSION: 1. Scrotal edema. 2. No testicular mass or evidence of testicular torsion. 3. No epididymitis. TECHNICAL DOCUMENTATION: JOB ID: [id number] 2010 [employer]- All Rights Reserved Reading location - IP/workstation name: [email or web address]
--- NOTE | 2020-05-22 16:04 | RADIOLOGY REPORT (SQ) ---
04/14/2020 EXAM DESCRIPTION: CHEST SINGLE VIEW IMAGES COMPLETED DATE/TIME: 05/22/2020 2:47 pm REASON FOR STUDY: sob. COMPARISON: 04/14/2020 EXAM PARAMETERS: NUMBER OF VIEWS: One view. TECHNIQUE: Single frontal radiographic view of the chest acquired. RADIATION DOSE: NA LIMITATIONS: None. FINDINGS: LUNGS AND PLEURA: Worsening patchy bilateral opacities in both lungs. Probable trace bila teral pleural effusions. No pneumothorax. MEDIASTINUM AND HILAR STRUCTURES: No masses. Contour normal. HEART AND VASCULAR STRUCTURES: Heart normal in size. Normal vasculature. BONES: No acute findings. HARDWARE: The right MediPort catheter with tip at the mid SVC unchanged. OTHER: No other significant finding. IMPRESSION: Worsening patchy bilateral opacities, consistent with multifocal pneumonia. TECHNICAL DOCUMENTATION: JOB ID: [id number] 2010 [employer]- All Rights Reserved Reading location - IP/workstation name: [id number]
--- NOTE | 2020-05-22 16:36 | EKG REPORT ---
SEVERITY:- BORDERLINE ECG - SINUS TACHYCARDIA BORDERLINE R WAVE PROGRESSION, ANTERIOR LEADS BORDERLINE T ABNORMALITIES, ANT-LAT LEADS : Confirmed by: Vannessa Rodriguez 22-May-2020 16:35:50
[2020-05-22 16:49] LABS: ABSOLUTE EOSINOPHILS # (AUTO) 0.2 10^3/uL (0.0-0.6); ABSOLUTE LYMPHOCYTES (AUTO) 0.8 10^3/uL (0.5-4.7); ABSOLUTE MONOCYTES (AUTO) 0.6 10^3/uL (0.1-1.4); BASOPHILS % (AUTO) 0.5 % (0-2); EOSINOPHILS % (AUTO) 3.8 % (0-6); HEMATOCRIT 33.9 % (37.9-51.0); HEMOGLOBIN 11.3 g/dL (13.5-17.0); LYMPHOCYTES % (AUTO) 17.6 % (13-45); MEAN CORPUSCULAR HEMOGLOBIN 31.4 pg (27.0-33.4); MEAN CORPUSCULAR HGB CONC 33.2 g/dL (32.0-36.0); MEAN CORPUSCULAR VOLUME 95 fl (80-97); MONOCYTES % (AUTO) 12.3 % (3-13); PLATELET COUNT 114 10^3/uL (150-450); RED BLOOD COUNT 3.58 10^6/uL (4.35-5.55); RED CELL DISTRIBUTION WIDTH 16.1 % (11.5-14.0); SEGMENTED NEUTROPHILS % (AUTO) 65.8 % (42-78); TOTAL CELLS COUNTED % (AUTO) 100 %; WHITE BLOOD COUNT 4.6 10^3/uL (4.0-10.5)
[2020-05-22 17:15] LABS: ALBUMIN 3.4 g/dL (3.5-5.0); ALKALINE PHOSPHATASE 117 U/L (38-126); ANION GAP 5 (5-19); ASPARTATE AMINO TRANSFERASE 46 U/L (17-59); BILIRUBIN,DIRECT 0.2 mg/dL (0.0-0.4); BILIRUBIN,TOTAL 1.5 mg/dL (0.2-1.3); BLOOD UREA NITROGEN 22 mg/dL (7-20); CALCIUM 9.7 mg/dL (8.4-10.2); CARBON DIOXIDE 26 mmol/L (22-30); CHLORIDE 104 mmol/L (98-107); GLUCOSE 325 mg/dL (75-110); POTASSIUM 4.2 mmol/L (3.6-5.0); TOTAL PROTEIN 7.5 g/dL (6.3-8.2)
[2020-05-22 17:27] LABS: TROPONIN I 0.029 ng/mL
[2020-05-22] MEDS ORDERED: FUROSEMIDE INJ/PF 40 MG/4 ML SDV IV ONE (18:10)
--- NOTE | 2020-05-22 18:30 | ER Document Report ---
ED General - General Chief Complaint: Edema Stated Complaint: SWOLLEN GENITALS Time Seen by Provider: 05/22/20 14:04 Primary Care Provider: MICHELE GUILLEN PA-C [Primary Care Provider] - Follow up as needed TRAVEL OUTSIDE OF THE [place] IN LAST 30 DAYS: No - HPI Notes: Chief complaint: Shortness of breath and increased swelling of lower extremities and genitalia History of present illness: Mr. Knight is a 49-year-old male with history of CHF and lymphoma who is notoriously noncompliant with his usual treatment regimen. He comes in today complaining of increased shortness of breath and edema of his genitalia and lower extremities. It looks like he signed himself out AMA from the hospitalist inpatient service here in March of this year. He was supposed to go home on 20 mg of Lasix twice daily at that time and apparently has not been on any diuretics since then. He denies any chest pain. He denies any vomiting. He denies any fever or sputum production. He is accompanied by his mother with whom he lives here today. He has had no known Covid exposure. - Related Data Allergies/Adverse Reactions: No Known Allergies Allergy (Verified 12/29/12 10:28) Past Medical History - General Information source: Patient, Relative, [facility] Records - Social History Smoking Status: Unknown if Ever Smoked Frequency of alcohol use: None Drug Abuse: None Lives with: Family Family History: Arthritis - Past Medical History Cardiac Medical History: Reports: Hx Congestive Heart Failure Denies: Hx Coronary Artery Disease, Hx Heart Attack, Hx Hypertension Pulmonary Medical History: Reports: Hx Pneumonia, Hx Respiratory Failure Denies: Hx Asthma, Hx Bronchitis, Hx COPD Neurological Medical History: Denies: Hx Cerebrovascular Accident, Hx Seizures Endocrine Medical History: Reports: Hx Diabetes Mellitus Type 2. Denies: Hx Diabetes Mellitus Type 1, Hx Hyperthyroidism, Hx Hypothyroidism Malignancy Medical History: Reports Hx Lymphoma GI Medical History: Denies: Hx Cirrhosis, Hx Hepatitis Musculoskeletal Medical History: Reports Hx Arthritis, Reports Hx Gout Skin Medical History: Denies Hx Eczema, Denies Hx Psoriasis Psychiatric Medical History: Reports: Hx Depression Infectious Medical History: Denies: Hx Hepatitis Past Surgical History: Reports: Hx Appendectomy, Other - Bone marrow transplant - Immunizations Immunizations up to date: Yes Hx Diphtheria, Pertussis, Tetanus Vaccination: Yes Review of Systems - Review of Systems Notes: Constitutional: Negative for fever. HENT: Negative for sore throat. Eyes: Negative for visual changes. Cardiovascular: Negative for chest pain. Respiratory: As per HPI. Gastrointestinal: Negative for abdominal pain, vomiting or diarrhea. Genitourinary: As per HPI. Musculoskeletal: Negative for back pain. Skin: Negative for rash. Neurological: Negative for headaches, focal weakness or numbness. 10 point ROS negative except as marked above and in HPI. Physical Exam - Vital signs Vitals: Temp Pulse Resp BP Pulse Ox 98.0 F 104 H 16 114/82 96 05/22/20 14:04 05/22/20 14:04 05/22/20 14:04 05/22/20 14:04 05/22/20 14:04 - Notes Notes: GENERAL: Obese middle-aged male appearing in no acute distress. SKIN: Good turgor no rashes. HEAD: Normocephalic atraumatic. EYES: PERRLA. EOMI. Conjunctivae and sclerae clear. EARS: CANALS AND TMS CLEAR. NOSE: CLEAR. MOUTH: Moist mucosa. Good dentition. No stridor or edema. No drooling. NECK: Supple. No masses or thyromegaly. No adenopathy. Carotids 2+ without bruits. 2+ JVD at 30 degrees elevation. BACK: Symmetrical without tenderness. CHEST: No respiratory distress. Slight dry cough. Scattered wheezes and coarse rhonchi bilaterally . HEART: Regular rhythm. No murmur gallop or rub. ABDOMEN: Soft nontender without masses, organomegaly or rebound. Bowel sounds normally active. No bruits. GENITALIA: 2+ pedal edema. EXTREMITIES: 2+ edema both lower extremities no calf tenderness. Cap refill less than 1.5 seconds. Dorsalis pedis and posterior tibial pulses 3+ and symmetrical. NEUROLOGICAL: GCS 15. Alert and oriented x3. Fluent speech. Cranial nerves II through XII intact. Sensorimotor and cerebellar normal. Normal tone. PSYCHIATRIC: Appropriate affect. Course - Re-evaluation Re-evalutation: 05/22/20 18:30 Float Builder read his chest x-ray is possible multifocal infiltrates. I reviewed the prior films and clinical picture I think it is more likely that this is CHF. He has BNP level was 2400 when he was in the hospital previously 2 months ago and currently is up to 2900. In view of his peripheral edema this appears to be primarily cardiac decompensation. I also question that he may have an element of obstructive sleep apnea although he denies any history of is not currently on CPAP. His troponin is normal. His creatinine is normal. I ordered 40 mg of Lasix IV. We talked about possible hospitalization. He is very concerned about potential exposure to Covid and we also note that he has been very noncompliant in the past and signed himself out AMA multiple times. He indicated in no uncertain terms that he would not consent to vascularization today. Persuade him to let us try some IV Lasix Reassess his condition. Before I can get back in the room to reassess patient from nursing outside he has refused his Lasix and had eloped from the department. - Vital Signs Vital signs: Temp Pulse Resp BP Pulse Ox 98.0 F 104 H 16 114/82 96 05/22/20 14:04 05/22/20 14:04 05/22/20 14:04 05/22/20 14:04 05/22/20 14:04 - Laboratory Result Diagrams: 05/22/20 16:28 05/22/20 16:28 Laboratory results interpreted by me: 05/22/20 05/22/20 05/22/20 16:28 16:28 16:28 RBC 3.58 L Hgb 11.3 L Hct 33.9 L RDW 16.1 H Plt Count 114 L Sodium 135.1 L BUN 22 H Glucose 325 H Total Bilirubin 1.5 H NT-Pro-B Natriuret Pep 2970 H Albumin 3.4 L Discharge - Discharge Clinical Impression: CHF (congestive heart failure) Qualifiers: Heart failure type: unspecified Heart failure chronicity: acute on chronic Qualified Code(s): I50.9 - Heart failure, unspecified Disposition: ELOPED Referrals: MICHELE GUILLEN PA-C [Primary Care Provider] - Follow up as needed
[2020-05-22 19:02] LABS: APPEARANCE,URINE CLEAR; BILIRUBIN,URINE NEGATIVE (NEGATIVE); COLOR,URINE YELLOW; GLUCOSE, URINE 50 mg/dL (NEGATIVE); KETONES,URINE NEGATIVE (NEGATIVE); LEUKOCYTE ESTERASE,URINE NEGATIVE (NEGATIVE); NITRITE,URINE NEGATIVE (NEGATIVE); PROTEIN,URINE 100 mg/dL (NEGATIVE)
== END 2020-05-22 18:31 | disposition left against medical advice (07) ==
LOC: ER 13:43
DX: I50.9 Heart failure, unspecified (principal); N50.89 Other specified disorders of the male genital organs; R60.0 Localized edema; R06.02 Shortness of breath; Z53.20 Procedure and treatment not carried out because of patient's decision for unspecified reasons; E11.9 Type 2 diabetes mellitus without complications
CPT/HCPCS: 36415; 71045; 76870; 80053; 81001; 83880; 84484; 85025; 93005; 93010; 93976; 99285

== ENCOUNTER 2020-06-07 16:59 | Inpatient (IN) | payer MEDICARE, MEDICAID ==
--- NOTE | 2020-06-07 17:08 | ER Document Report ---
ED General - General Chief Complaint: Shortness Of Breath Stated Complaint: SHORTNESS OF BREATH Time Seen by Provider: 06/07/20 17:07 TRAVEL OUTSIDE OF THE [place] IN LAST 30 DAYS: No - HPI Notes: 49-year-old male presents with shortness of breath. Patient states that he developed shortness of breath around 10 PM last night, progressively worsening throughout the day. On EMS arrival, he was reportedly 84 to 86% on room air, CPAP was initiated and his sats improved to 100%. Patient initially states that he was discharged yesterday and he wants to be admitted to continue his care, also stating that he was admitted for a month. I quickly reviewed the chart and he was last admitted in March and left AMA, his last ED visit was 05/22. He then agrees that this was the last time he was in the emergency department. He states he is not taking any of his home medications because he does not have any . He has swelling in his legs. States that CPAP helped his breathing and made him feel better. HPI is limited due to acuity of situation. - Related Data Allergies/Adverse Reactions: No Known Allergies Allergy (Verified 12/29/12 10:28) Past Medical History - General Information source: Patient - Social History Smoking Status: Unknown if Ever Smoked Family History: Arthritis - Past Medical History Cardiac Medical History: Reports: Hx Congestive Heart Failure Denies: Hx Coronary Artery Disease, Hx Heart Attack, Hx Hypertension Pulmonary Medical History: Reports: Hx Pneumonia, Hx Respiratory Failure Denies: Hx Asthma, Hx Bronchitis, Hx COPD Neurological Medical History: Denies: Hx Cerebrovascular Accident, Hx Seizures Endocrine Medical History: Reports: Hx Diabetes Mellitus Type 2. Denies: Hx Livier betes Mellitus Type 1, Hx Hyperthyroidism, Hx Hypothyroidism Malignancy Medical History: Reports Hx Lymphoma GI Medical History: Denies: Hx Cirrhosis, Hx Hepatitis Musculoskeletal Medical History: Reports Hx Arthritis, Reports Hx Gout Skin Medical History: Denies Hx Eczema, Denies Hx Psoriasis Psychiatric Medical History: Reports: Hx Depression Infectious Medical History: Denies: Hx Hepatitis Past Surgical History: Reports: Hx Appendectomy, Other - Bone marrow transplant - Immunizations Immunizations up to date: Yes Hx Diphtheria, Pertussis, Tetanus Vaccination: Yes Review of Systems - Review of Systems Constitutional: denies: Fever EENT: No symptoms reported Cardiovascular: denies: Chest pain Respiratory: Short of breath Gastrointestinal: No symptoms reported Genitourinary: No symptoms reported Male Genitourinary: Other - Scrotal swelling Musculoskeletal: Leg swelling Skin: No symptoms reported Hematologic/Lymphatic: No symptoms reported Neurological/Psychological: No symptoms reported Physical Exam - Vital signs Vitals: Temp Pulse Ox 98.0 F 100 06/07/20 17:10 06/07/20 17:10 - General General appearance: Alert - HEENT Head: Normocephalic, Atraumatic Extraocular movements intact: Yes Pupils: PERRL - Respiratory Respiratory status: Tachypnea Breath sounds: Nonproductive cough, Rales - Basis - Cardiovascular Rhythm: Tachycardia Heart sounds: Normal auscultation Normal capillary refill: Yes - Abdominal Inspection: Obese Tenderness: Nontender - Genitourinary Scrotum: Swelling - Edematous - Extremities General lower extremity: Edema - 3+ pitting - Neurological Neuro grossly intact: Yes Cognition: Normal Orientation: AAOx4 Notes: Motor and sensory grossly intact - Psychological Associated symptoms: Normal affect - Skin Skin Temperature: Warm Course - Re-evaluation Re-evalutation: 49-year-old male presents with shortness of breath, hypoxic at home with EMS, started on CPAP. On arrival patient appears to be in a mild respiratory distress, he has diffuse rails and speaks in short sentences. He has generalized edema to his lower extremities and scrotum. Suspect CHF exacerbation. There are some debate whether patient was just recently mated, pe r chart review his last hospital admission was in March and last ED visit was 05/22. Patient admits to medication noncompliance. Will continue on BiPAP. Suspecting likely CHF exacerbation, will start diuresis with Lasix, hold on nitro given BP in the 100 systolic. We will also obtain Covid testing given the current pandemic. Possibly could be hypercarbic. Currently afebrile. Will obtain a CT head given his ?confusion with answering questions initially. He is grossly neurologically intact. 06/07/20 18:52 Patient seems to be improving, will try off BiPAP at this time while he goes to radiology 06/07/20 19:04 No leukocytosis or left shift. Chronic stable anemia. VBG demonstrates normal pCO2. Slight hypokalemia and hypomagnesemia, replacement ordered. Creatinine within normal limits, though higher than previous values of 0.8-1. Slight lactic acidosis 2.2. LFTs normal, no signs of hepatic congestion. Elevated BNP with slight troponin leak. EtOH negative. Chest x-ray again showing bilateral infiltrates, feel this likely reflects edema, have added on procalcitonin 06/07/20 19:[address] head 06/07/20 20:11 Patient has been tolerating nasal cannula, into check on him and has no respiratory distress, he is agreeable to stay for admission 06/07/20 20:18 Covid negative Patient admitted to the hospitalist service - Vital Signs Vital signs: Temp Pulse Resp BP Pulse Ox 98.0 F 111 H 20 119/76 100 06/07/20 17:10 06/07/20 17:33 06/07/20 18:00 06/07/20 18:00 06/07/20 18:01 - Laboratory Results Result Diagrams: 06/07/20 17:14 06/07/20 17:14 Laboratory Results Interpreted: 06/07/20 06/07/20 06/07/20 17:14 17:14 17:14 RBC 3.70 L Hgb 11.5 L Hct 34.8 L RDW 15.4 H Plt Count 102 L Lymph % (Auto) 10.5 L [place] % (Auto) 13.9 H VBG pH Sodium 136.0 L Potassium 3.5 L Chloride 93 L Carbon Dioxide 35 H BUN 32 H Glucose 227 H POC Glucose Lactic Acid Magnesium 1.5 L Total Bilirubin 2.2 H Direct Bilirubin 0.5 H NT-Pro-B Natriuret Pep 3330 H Albumin 3.4 L Urine Blood Ur Leukocyte Esterase 06/07/20 06/07/20 06/07/20 17:14 17:25 17:32 RBC Hgb Hct RDW Plt Count Lymph % (Auto) [place] % (Auto) VBG pH 7.43 H Sodium Potassium Chloride Carbon Dioxide BUN Glucose POC Glucose 210 H Lactic Acid 2.2 H Magnesium Total Bilirubin Direct Bilirubin NT-Pro-B Natriuret Pep Albumin Urine Blood Ur Leukocyte Esterase 06/07/20 19:18 RBC Hgb Hct RDW Plt Count Lymph % (Auto) [place] % (Auto) VBG pH Sodium Potassium Chloride Carbon Dioxide BUN Glucose POC Glucose Lactic Acid Magnesium Total Bilirubin Direct Bilirubin NT-Pro-B Natriuret Pep Albumin Urine Blood MODERATE H Ur Leukocyte Esterase TRACE H Critical Laboratory Results Reviewed: No Critical Results - Radiology Results Critical Radiology Results Reviewed: No Critical Results - EKG Interpretation by Me Additional EKG results interpreted by me: EKG is interpreted by me. Sinus tachycardia, rate 101. Narrow QRS, borderline QTC 498. Nonspecific ST changes. No ST segment elevation. Discharge - Discharge Clinical Impression: Hypomagnesemia, Medical non-compliance Acute exacerbation of CHF (congestive heart failure) Qualifiers: Heart failure type: unspecified Qualified Code(s): I50.9 - Heart failure, unspecified Disposition: ADMITTED INPATIENT Admitting Provider: Malcom (Hospitalist) Unit Admitted: Telemetry
[2020-06-07] MEDS ORDERED: FUROSEMIDE INJ/PF 20 MG/2 ML SDV IV ONE (17:18)
[2020-06-07 17:47] LABS: VENOUS BLOOD BASE EXCESS 6.4 mmol/L; VENOUS BLOOD PCO2 49.7 mmHg (35-63); VENOUS BLOOD PH 7.43 (7.30-7.42)
[2020-06-07 17:48] LABS: ABSOLUTE EOSINOPHILS # (AUTO) 0.3 10^3/uL (0.0-0.6); ABSOLUTE LYMPHOCYTES (AUTO) 0.8 10^3/uL (0.5-4.7); ABSOLUTE NEUT (AUTO) 5.2 10^3/uL (1.7-8.2); BASOPHILS % (AUTO) 0.4 % (0-2); EOSINOPHILS % (AUTO) 4.4 % (0-6); HEMATOCRIT 34.8 % (37.9-51.0); HEMOGLOBIN 11.5 g/dL (13.5-17.0); LYMPHOCYTES % (AUTO) 10.5 % (13-45); MEAN CORPUSCULAR HEMOGLOBIN 31.1 pg (27.0-33.4); MEAN CORPUSCULAR HGB CONC 33.1 g/dL (32.0-36.0); MEAN CORPUSCULAR VOLUME 94 fl (80-97); MONOCYTES % (AUTO) 13.9 % (3-13); PLATELET COUNT 102 10^3/uL (150-450); RED CELL DISTRIBUTION WIDTH 15.4 % (11.5-14.0); SEGMENTED NEUTROPHILS % (AUTO) 70.8 % (42-78); TOTAL CELLS COUNTED % (AUTO) 100 %; WHITE BLOOD COUNT 7.3 10^3/uL (4.0-10.5)
--- NOTE | 2020-06-07 17:50 | RADIOLOGY REPORT (SQ) ---
EXAM DESCRIPTION: CHEST SINGLE VIEW IMAGES COMPLETED DATE/TIME: 06/07/2020 4:24 pm REASON FOR STUDY: SOB COMPARISON: 05/22/2020 EXAM PARAMETERS: NUMBER OF VIEWS: One view. TECHNIQUE: Single frontal radiographic view of the chest acquired. RADIATION DOSE: NA LIMITATIONS: None. FINDINGS: LUNGS AND PLEURA: Slightly improved aeration with diffuse patchy opacities in both lungs a gain demonstrated. No pleural effusion or pneumothorax. MEDIASTINUM AND HILAR STRUCTURES: No masses. Contour normal. HEART AND VASCULAR STRUCTURES: Moderate cardiomegaly. No pulmonary vascular congestion. BONES: No acute findings. HARDWARE: Right MediPort catheter with tip at the mid SVC unchanged. OTHER: No other significant finding. IMPRESSION: Slightly improved aeration in both lungs suggestive of improving pneumonia. TECHNICAL DOCUMENTATION: JOB ID: [id number] 2010 [employer]- All Rights Reserved Reading location - IP/workstation name: [email or web address]
[2020-06-07 18:06] LABS: ALBUMIN 3.4 g/dL (3.5-5.0); ALKALINE PHOSPHATASE 105 U/L (38-126); ANION GAP 8 (5-19); ASPARTATE AMINO TRANSFERASE 51 U/L (17-59); BILIRUBIN,DIRECT 0.5 mg/dL (0.0-0.4); BILIRUBIN,TOTAL 2.2 mg/dL (0.2-1.3); BLOOD UREA NITROGEN 32 mg/dL (7-20); CALCIUM 9.5 mg/dL (8.4-10.2); CARBON DIOXIDE 35 mmol/L (22-30); CHLORIDE 93 mmol/L (98-107); GLUCOSE 227 mg/dL (75-110); PHOSPHORUS 2.7 mg/dL (2.5-4.5); POTASSIUM 3.5 mmol/L (3.6-5.0); TOTAL PROTEIN 7.8 g/dL (6.3-8.2)
[2020-06-07 18:07] LABS: ALCOHOL < 10 mg/dL (NONE DETECTED)
[2020-06-07 18:16] LABS: TROPONIN I 0.033 ng/mL
[2020-06-07] MEDS ORDERED: POTASSIUM CHLORIDE 20 MEQ PACKET PO ONE (18:51)
--- NOTE | 2020-06-07 19:06 | EKG REPORT ---
SEVERITY:- ABNORMAL ECG - SINUS TACHYCARDIA 101. BORDERLINE R WAVE PROGRESSION, ANTERIOR LEADS NONSPECIFIC T ABNORMALITIES, LATERAL LEADS BORDERLINE PROLONGED QT INTERVAL : Confirmed by: Kerwin Lizama MD 07-Jun-2020 19:06:18
[2020-06-07] MEDS: MAGNESIUM SULFATE/D5W 1 GM/100 ML RTUPB IV SCH ×2 (19:13→21:45)
[2020-06-07 20:04] LABS: APPEARANCE,URINE CLEAR; BILIRUBIN,URINE NEGATIVE (NEGATIVE); COLOR,URINE YELLOW; GLUCOSE, URINE NEGATIVE (NEGATIVE); KETONES,URINE NEGATIVE (NEGATIVE); LEUKOCYTE ESTERASE,URINE TRACE (NEGATIVE); NITRITE,URINE NEGATIVE (NEGATIVE); PROTEIN,URINE NEGATIVE (NEGATIVE); URINE SPECIFIC GRAVITY 1.006; UROBILINOGEN,URINE NEGATIVE mg/dL (<2.0)
[2020-06-07 20:17] LABS: URINE AMPHETAMINES SCREEN NEGATIVE; URINE BARBITURATES SCREEN NEGATIVE; URINE BENZODIAZEPINES SCREEN NEGATIVE; URINE COCAINE SCREEN NEGATIVE; URINE MARIJUANA (THC) SCREEN NEGATIVE; URINE METHADONE SCREEN NEGATIVE; URINE PHENCYCLIDINE SCREEN NEGATIVE
[2020-06-07] MEDS ORDERED: ONDANSETRON HCL INJ/PF 4 MG/2 ML SDV IV PRN (22:38)
[2020-06-07] MEDS ORDERED: ACETAMINOPHEN 325 MG TABLET PO PRN (22:38)
[2020-06-07] MEDS ORDERED: TEMAZEPAM 7.5 MG CAPSULE PO PRN (22:38)
[2020-06-07] MEDS ORDERED: PROMETHAZINE HCL INJ 25 MG/1 ML VIAL IV PRN (22:38)
[2020-06-07] MEDS ORDERED: MAG HYDROX/AL HYDROX/SIMETH SUSP 30 ML UDCUP PO PRN (22:38)
[2020-06-07] MEDS ORDERED: DEXTROSE 40% GEL 15 GM TUBE PO PRN ×2 (22:47)
[2020-06-07] MEDS ORDERED: GLUCAGON,HUMAN RECOMB 1 MG INJ IM PRN (22:47)
[2020-06-07] MEDS ORDERED: DEXTROSE 50%-WATER 25 GM/50 ML DISP.SYRIN IV PRN ×2 (22:47)
[2020-06-07] MEDS ORDERED: ATORVASTATIN CALCIUM 40 MG TABLET PO ONE (23:00)
[2020-06-07] MEDS ORDERED: ASPIRIN 81 MG TABLET, CHEWABLE PO ONE (23:00)
[2020-06-07] MEDS ORDERED: FAMOTIDINE 20 MG TABLET PO ONE (23:00)
--- NOTE | 2020-06-08 02:01 | PDOC H&P ---
History of Present Illness Admission Date/PCP: 06/07/20 21:04 MICHELE GUILLEN PA-C History of Present Illness: LIZABETH VICK is a 49 year old male past medical history of morbid obesity, CHF, history of medication nonadherence with frequent presentation to ED and leaving AMA, patient is presenting to ED today complaining of worsening shortness of breath, bilateral lower extremity, scrotal and abdominal edema. Unfortunately patient is very poor historian and does not provide much history, complaining of any history of CAD or being followed up by PCP or a environmental field services technician. When asked if he is adherent with his medication he states he only takes it when he has it, he does not follow cardiac diet either. Patient denies any fever, chills, nausea, vomiting, diarrhea, constipation. In ED he was noted to have elevated proBNP, mildly elevated troponin, and hospital was consulted for admission. Past Medical History Cardiac Medical History: Reports: Congestive Heart Failure Denies: Coronary Artery Disease, Myocardial Infarction, Hypertension Pulmonary Medical History: Reports: Pneumonia, Respiratory Failure Denies: Asthma, Bronchitis, Chronic Obstructive Pulmonary Disease (COPD) Neurological Medical History: Denies: Seizures Endocrine Medical History: Reports: Diabetes Mellitus Type 2 Denies: Diabetes Mellitus Type 1, Hyperthyroidism, Hypothyroidism Malignancy Medical History: Reports: Lymphoma GI Medical History: Denies: Cirrhosis, Hepatitis Musculoskeltal Medical History: Reports: Arthritis, Gout Skin Medical History: Denies: Eczema, Psoriasis Psychiatric Medical History: Reports: Depression Hematology: Denies: Anemia, Bleeding Tendencies Past Surgical History Past Surgical History: Reports: Appendectomy, Other - Bone marrow transplant Social History Smoking Status: Current Every Day Smoker Frequency of Alcohol Use: None Hx Recreational Drug Use: No Drugs: None Hx Prescription Drug Abuse: Yes Family History Family History: Arthritis Parental Family History Reviewed: Yes Children Family History Reviewed: Yes Sibling(s) Family History Reviewed.: Yes Medication/Allergy Home Medications: Glipizide [Glipizide Xl] 5 mg PO DAILY 03/30/20 Ipratropium [place] [Atrovent Hfa] 2 puff IH Q6 03/30/20 Metformin HCl [Glucophage 500 mg Tablet] 1,000 mg PO BIDACBS 03/30/20 Sitagliptin Phosphate [Januvia 50 mg Tablet] 100 mg PO DAILY 03/30/20 Furosemide [Lasix 20 mg Tablet] 20 mg PO BID #10 tablet 04/14/20 Potassium Chloride 10 meq PO QAM #5 capsule.er 04/14/20 Prednisone [Deltasone 20 mg Tablet] 2 tab PO DAILY 5 Days #10 tablet 04/14/20 Allergies/Adverse Reactions: No Known Allergies Allergy (Verified 12/29/12 10:28) Review of Systems Review of Systems: as per hpi Physical Exam Vital Signs: Temp Pulse Resp BP Pulse Ox 99.3 F 106 H 29 H 92/73 L 100 06/07/20 23:25 06/07/20 23:25 06/07/20 22:00 06/07/20 23:25 06/07/20 23:25 Intake & Output 06/06/20 06/07/20 06/08/20 06:59 06:59 06:59 Intake Total 300 Balance 300 Weight 113.398 kg General appearance: PRESENT: disheveled, obese Head exam: PRESENT: atraumatic, normocephalic Neck exam: PRESENT: JVD. ABSENT: carotid bruit, lymphadenopathy, thyromegaly Respiratory exam: PRESENT: crackles. ABSENT: rales, rhonchi, wheezes Cardiovascular exam: PRESENT: RRR. ABSENT: diastolic murmur, rubs, systolic murmur GI/Abdominal exam: PRESENT: normal bowel sounds, soft, other - Abdominal wall edema. ABSENT: distended, guarding, mass, organolmegaly, rebound, tenderness Gentrourinary exam: PRESENT: scrotal swelling - Bilateral scrotal edema Extremities exam: PRESENT: +2 edema Neurological exam: PRESENT: alert, awake, oriented to person, oriented to place, oriented to time, oriented to situation, CN II-XII grossly intact. ABSENT: motor sensory deficit Skin exam: PRESENT: dry, intact, warm. ABSENT: cyanosis, rash Results Laboratory Results: 06/07/20 17:14 06/07/20 17:14 06/07/20 06/07/20 06/07/20 17:14 17:14 17:14 WBC 7.3 RBC 3.70 L Hgb 11.5 L Hct 34.8 L MCV 94 MCH 31.1 MCHC 33.1 RDW 15.4 H Plt Count 102 L Seg Neutrophils % 70.8 VBG pH VBG pCO2 VBG HCO3 VBG Base Excess Sodium 136.0 L Potassium 3.5 L Chloride 93 L Carbon Dioxide 35 H Anion Gap 8 BUN 32 H Creatinine 1.18 Est GFR ( Amer) > 60 Glucose 227 H Lactic Acid 2.2 H Calcium 9.5 Phosphorus 2.7 Magnesium 1.5 L Total Bilirubin 2.2 H AST 51 Alkaline Phosphatase 105 Total Protein 7.8 Albumin 3.4 L Urine Color Urine Appearance Urine pH Ur Specific [place] Urine Protein Urine Glucose (UA) Urine Ketones Urine Blood Urine Nitrite Ur Leukocyte Esterase Urine WBC (Auto) Urine RBC (Auto) 06/07/20 06/07/20 17:32 19:18 WBC RBC Hgb Hct MCV MCH MCHC RDW Plt Count Seg Neutrophils % VBG pH 7.43 H VBG pCO2 49.7 VBG HCO3 32.0 VBG Base Excess 6.4 Sodium Potassium Chloride Carbon Dioxide Anion Gap BUN Creatinine Est GFR ( Amer) Glucose Lactic Acid Calcium Phosphorus Magnesium Total Bilirubin AST Alkaline Phosphatase Total Protein Albumin Urine Color YELLOW Urine Appearance CLEAR Urine pH 5.0 Ur Specific [place] 1.006 Urine Protein NEGATIVE Urine Glucose (UA) NEGATIVE Urine Ketones NEGATIVE Urine Blood MODERATE H Urine Nitrite NEGATIVE Ur Leukocyte Esterase TRACE H Urine WBC (Auto) 9 Urine RBC (Auto) 11 06/07/20 17:14 Troponin I 0.033 NT-Pro-B Natriuret Pep 3330 H Impressions: Chest X-Ray 06/07/20 17:14 IMPRESSION: Slightly improved aeration in both lungs suggestive of improving pneumonia. Assessment and Plan - Diagnosis (1) Anasarca Is this a current diagnosis for this admission?: Yes Plan: Patient denies any history of CAD but has had several admission to ED for CHF exacerbation. Unfortunately patient does not have a PCP and does not follow-up with a environmental field services technician. Patient is not adherent to his medication or fluid restriction. Presenting with bilateral lower extremity, scrotal and abdominal wall edema. Admit to telemetry, IV diuretics guided by volume status and renal function and electrolytes, strict ins and outs, fluid restriction, daily weight. 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 Patient has frequent presentation with acute CHF exacerbation. Presenting with anasarca and shortness of breath on admission with elevated proBNP. Plan as per #1. Will obtain 2D echo. Cardiology consulted. (3) Medical non-compliance Is this a current diagnosis for this admission?: Yes Plan: Patient extensively advised on medication adherence. Rubber Stamp Assembler consulted for medication assistance. (4) Diabetes mellitus type 2 in obese Is this a current diagnosis for this admission?: Yes Plan: On oral hypoglycemics. No hemoglobin A1c available. Not sure if diabetes is well controlled. Diabetic diet, sliding scale insulin, Accu-Chek, hypoglycemia protocol. We will obtain hemoglobin A1c. Diabetic education. (5) Tobacco use disorder, continuous Is this a current diagnosis for this admission?: Yes Plan: Counseled on quitting. NicoDerm patch will be provided. (6) Elevated troponin Is this a current diagnosis for this admission?: Yes Plan: Troponin on admission 0.033. Baseline troponin 0.2. Any anginal symptoms. Denies any history of CAD. EKG no acute changes. This is likely due to demand mismatch due to underlying acute CHF exacerbation. Admit to telemetry, trend troponins, antiplatelets, statins, beta-blockers. Cardiology consulted. - Time Time Spent with patient: 35 or more minutes Anticipated Discharge Disposition: Home with Home Health Anticipated Discharge Timeframe: within 72 hours
[2020-06-08] MEDS: OXYCODONE-ACETAMINOPHEN 5-325 MG TABLET PO PRN ×2 (05:01→12:25)
[2020-06-08 06:07] LABS: ABSOLUTE EOSINOPHILS # (AUTO) 0.2 10^3/uL (0.0-0.6); ABSOLUTE MONOCYTES (AUTO) 1.6 10^3/uL (0.1-1.4); ABSOLUTE NEUT (AUTO) 8.8 10^3/uL (1.7-8.2); BASOPHILS % (AUTO) 0.2 % (0-2); EOSINOPHILS % (AUTO) 1.6 % (0-6); HEMATOCRIT 29.9 % (37.9-51.0); HEMOGLOBIN 10.3 g/dL (13.5-17.0); LYMPHOCYTES % (AUTO) 8.9 % (13-45); MEAN CORPUSCULAR HEMOGLOBIN 31.4 pg (27.0-33.4); MEAN CORPUSCULAR HGB CONC 34.3 g/dL (32.0-36.0); MEAN CORPUSCULAR VOLUME 91 fl (80-97); MONOCYTES % (AUTO) 13.9 % (3-13); RED BLOOD COUNT 3.27 10^6/uL (4.35-5.55); RED CELL DISTRIBUTION WIDTH 15.2 % (11.5-14.0); SEGMENTED NEUTROPHILS % (AUTO) 75.4 % (42-78); TOTAL CELLS COUNTED % (AUTO) 100 %; WHITE BLOOD COUNT 11.7 10^3/uL (4.0-10.5)
[2020-06-08] MEDS: HEPARIN SOD (PORCINE) 5,000 UNIT/ML 1 ML VIAL SUBCUT SCH ×3 (06:08→22:15)
[2020-06-08] MEDS: FUROSEMIDE INJ/PF 40 MG/4 ML SDV IV SCH ×2 (06:09→16:02)
[2020-06-08 06:23] LABS: ALBUMIN 2.9 g/dL (3.5-5.0); ALKALINE PHOSPHATASE 90 U/L (38-126); ANION GAP 7 (5-19); ASPARTATE AMINO TRANSFERASE 49 U/L (17-59); BILIRUBIN,DIRECT 0.5 mg/dL (0.0-0.4); BILIRUBIN,TOTAL 2.5 mg/dL (0.2-1.3); BLOOD UREA NITROGEN 32 mg/dL (7-20); CALCIUM 9.1 mg/dL (8.4-10.2); CARBON DIOXIDE 32 mmol/L (22-30); CHLORIDE 95 mmol/L (98-107); CHOLESTEROL 179.36 mg/dL (0-200); GLUCOSE 213 mg/dL (75-110); PHOSPHORUS 2.7 mg/dL (2.5-4.5); POTASSIUM 3.5 mmol/L (3.6-5.0); TOTAL PROTEIN 6.9 g/dL (6.3-8.2); TRIGLYCERIDES 72 mg/dL (<150)
[2020-06-08 06:33] LABS: DIRECT LDL 91 mg/dL (<100)
[2020-06-08 06:37] LABS: PLATELET COUNT 82 10^3/uL (150-450)
[2020-06-08] MEDS: INSULIN LISPRO 100 UNIT/ML 3 ML VIAL SUBCUT SCH ×4 (08:02→22:14)
--- NOTE | 2020-06-08 10:19 | PDOC CONSULTATION ---
Consultation Consult Date: 06/08/20 Attending physician:: MARY MORALES Provider Consulted: TC MARTIN Consult reason:: HF History of Present Illness Admission Date/PCP: 06/07/20 21:04 MICHELE GUILLEN PA-C History of Present Illness: LIZABETH VICK is a 49 year old male with history of lymphoma, morbid obesity, heart failure of unclear etiology, medication noncompliance, with multiple evaluations in our emergency room as well as admission to this facility but the patient leaves AMA before completing treatment who is consulted to our service for evaluation of dyspnea and heart failure exacerbation. Review of his chart demonstrates that the patient had been seen or admitted to our facility at least 5 times in the last several months. He was seen in our emergency room on 03/28/2020 for evaluation of shortness of breath. At that time he was diagnosed with pneumonia and left the emergency room AMA. He returned to the emergency room on 03/30/2024 worsening dyspnea, he was diagnosed with pneumonia and admitted however he left AMA on 03/31/2020. He returned to our emergency room on 05/22/2020 complaining of genital edema, at that time his chest x-ray was c onsistent with worsening multifocal pneumonia and a scrotal ultrasound demonstrated edema. The emergency room physician recommended Lasix and admission however the patient declined to be admitted, refused his Lasix and eloped from the emergency department. His dyspnea continued to worsen and he pr esented again yesterday to the emergency room with worsening shortness of breath, bilateral lower extremity edema as well as scrotal and abdominal edema. His chest x-ray during this admission was read by radiology as improved aeration without pulmonary edema however, upon my review, it appears more consistent with heart failure although it is improved from his prior x-ray on 05/22/2020. Physical exam on 06/08/2020: GENERAL: Sleeping but arousable, appears to have some developmental delay. Ple asant and conversational. Normal mood. Not in acute distress. Well groomed and well developed. HEENT: Normocephalic, atraumatic. Pupils equal. Sclerae anicteric. Oropharynx moist. NECK: No JVD. No carotid bruits. LUNGS: Diffuse rhonchi in all pham. Normal respiratory effort without the use of accessory muscles or intercostal retractions. CARDIOVASCULAR: Regular rate and rhythm, normal S1 and S2 without murmurs, rubs, or gallops. PMI not displaced. ABDOMEN: No masses or tenderness to palpation. No bruit. No splenomegaly or hepatomegaly. No abdominal aorta bruit noted. EXTREMITIES: 2-3+ pitting edema bilaterally, no cyanosis, no clubbing. +2 pulses femoral and pedal pulses bilaterally. SKIN: No lesions or rashes. MUSCULOSKELETAL: No chest tenderness to palpation. NEUROLOGIC: Nonfocal. No gross sensory or motor deficits bilateral upper or lower extremities. Past Medical History Cardiac Medical History: Reports: Congestive Heart Failure Denies: Coronary Artery Disease, Myocardial Infarction, Hypertension Pulmonary Medical History: Reports: Pneumonia, Respiratory Failure Denies: Asthma, Bronchitis, Chronic Obstructive Pulmonary Disease (COPD) Neurological Medical History: Denies: Seizures Endocrine Medical History: Reports: Diabetes Mellitus Type 2 Denies: Diabetes Mellitus Type 1, Hyperthyroidism, Hypothyroidism Malignancy Medical History: Reports: Lymphoma GI Medical History: Denies: Cirrhosis, Hepatitis Musculoskeltal Medical History: Reports: Arthritis, Gout Skin Medical History: Denies: Eczema, Psoriasis Psychiatric Medical History: Reports: Depression Hematology: Denies: Anemia, Bleeding Tendencies Past Surgical History Past Surgical History: Reports: Appendectomy, Other - Bone marrow transplant Social History Smoking Status: Current Every Day Smoker Frequency of Alcohol Use: None Hx Recreational Drug Use: No Drugs: None Hx Prescription Drug Abuse: Yes Family History Family History: Arthritis Parental Family History Reviewed: Yes Children Family History Reviewed: Yes Sibling(s) Family History Reviewed.: Yes Medication/Allergy Home Medications: Glipizide [Glipizide Xl] 5 mg PO DAILY 03/30/20 Ipratropium [place] [Atrovent Hfa] 2 puff IH Q6 03/30/20 Metformin HCl [Glucophage 500 mg Tablet] 1,000 mg PO BIDACBS 03/30/20 Sitagliptin Phosphate [Januvia 50 mg Tablet] 100 mg PO DAILY 03/30/20 Potassium Chloride 10 meq PO QAM #5 capsule.er 04/14/20 Budesonide/Formoterol Fumarate [Symbicort Hfa 160-4.5 Mcg Inhaler 6 gm] 2 puff IH Q12 06/08/20 Furosemide [Lasix 20 mg Tablet] 40 mg PO DAILY 06/08/20 Hydrocodone/Acetaminophen [[facility] 5-325 Tablet] 1 each PO TIDP PRN 06/08/20 Tiotropium [place] [Spiriva Respimat] 2 puff PO DAILY 06/08/20 Allergies/Adverse Reactions: No Known Allergies Allergy (Verified 12/29/12 10:28) Physical Exam Vital Signs: Temp Pulse Resp BP Pulse Ox 99.3 F 100 29 H 92/73 L 100 06/07/20 23:25 06/08/20 01:58 06/07/20 22:00 06/07/20 23:25 06/07/20 23:25 Intake & Output 06/06/20 06/07/20 06/08/20 06:59 06:59 06:59 Intake Total 900 Output Total 125 Balance 775 Weight 123.6 kg Results Laboratory Results: 06/08/20 04:54 06/08/20 04:54 06/07/20 06/07/20 06/07/20 17:14 17:14 17:14 WBC 7.3 RBC 3.70 L Hgb 11.5 L Hct 34.8 L MCV 94 MCH 31.1 MCHC 33.1 RDW 15.4 H Plt Count 102 L Seg Neutrophils % 70.8 VBG pH VBG pCO2 VBG HCO3 VBG Base Excess Sodium 136.0 L Potassium 3.5 L Chloride 93 L Carbon Dioxide 35 H Anion Gap 8 BUN 32 H Creatinine 1.18 Est GFR ( Amer) > 60 Glucose 227 H Lactic Acid 2.2 H Calcium 9.5 Phosphorus 2.7 Magnesium 1.5 L Total Bilirubin 2.2 H AST 51 Alkaline Phosphatase 105 Total Protein 7.8 Albumin 3.4 L Triglycerides Cholesterol LDL Cholesterol Direct VLDL Cholesterol HDL Cholesterol Urine Color Urine Appearance Urine pH Ur Specific [place] Urine Protein Urine Glucose (UA) Urine Ketones Urine Blood Urine Nitrite Ur Leukocyte Esterase Urine WBC (Auto) Urine RBC (Auto) 06/07/20 06/07/20 06/08/20 17:32 19:18 04:54 WBC 11.7 H RBC 3.27 L Hgb 10.3 L Hct 29.9 L MCV 91 MCH 31.4 MCHC 34.3 RDW 15.2 H Plt Count 82 L Seg Neutrophils % 75.4 VBG pH 7.43 H VBG pCO2 49.7 VBG HCO3 32.0 VBG Base Excess 6.4 Sodium Potassium Chloride Carbon Dioxide Anion Gap BUN Creatinine Est GFR ( Amer) Glucose Lactic Acid Calcium Phosphorus Magnesium Total Bilirubin AST Alkaline Phosphatase Total Protein Albumin Triglycerides Cholesterol LDL Cholesterol Direct VLDL Cholesterol HDL Cholesterol Urine Color YELLOW Urine Appearance CLEAR Urine pH 5.0 Ur Specific [place] 1.006 Urine Protein NEGATIVE Urine Glucose (UA) NEGATIVE Urine Ketones NEGATIVE Urine Blood MODERATE H Urine Nitrite NEGATIVE Ur Leukocyte Esterase TRACE H Urine WBC (Auto) 9 Urine RBC (Auto) 11 06/08/20 04:54 WBC RBC Hgb Hct MCV MCH MCHC RDW Plt Count Seg Neutrophils % VBG pH VBG pCO2 VBG HCO3 VBG Base Excess Sodium 133.7 L Potassium 3.5 L Chloride 95 L Carbon Dioxide 32 H Anion Gap 7 BUN 32 H Creatinine 1.18 Est GFR ( Amer) > 60 Glucose 213 H Lactic Acid Calcium 9.1 Phosphorus 2.7 Magnesium 1.6 Total Bilirubin 2.5 H AST 49 Alkaline Phosphatase 90 Total Protein 6.9 Albumin 2.9 L Triglycerides 72 Cholesterol 179.36 LDL Cholesterol Direct 91 VLDL Cholesterol 14.0 HDL Cholesterol 46 Urine Color Urine Appearance Urine pH Ur Specific [place] Urine Protein Urine Glucose (UA) Urine Ketones Urine Blood Urine Nitrite Ur Leukocyte Esterase Urine WBC (Auto) Urine RBC (Auto) 06/07/20 06/08/20 17:14 04:54 Troponin I 0.033 0.039 NT-Pro-B Natriuret Pep 3330 H Impressions: Chest X-Ray 06/07/20 17:14 IMPRESSION: Slightly improved aeration in both lungs suggestive of improving pneumonia. 06/08/20 04:54 06/08/20 04:54 MCV 91 fl (80-97) 06/08/20 04:54 MCH 31.4 pg (27.0-33.4) 06/08/20 04:54 MCHC 34.3 g/dL (32.0-36.0) 06/08/20 04:54 RDW 15.2 % (11.5-14.0) H 06/08/20 04:54 Seg Neutrophils % 75.4 % (42-78) 06/08/20 04:54 VBG pH 7.43 (7.30-7.42) H 06/07/20 17:32 VBG pCO2 49.7 mmHg (35-63) 06/07/20 17:32 VBG HCO3 32.0 mmol/L (20-32) 06/07/20 17:32 VBG Base Excess 6.4 mmol/L 06/07/20 17:32 Chloride 95 mmol/L (98-107) L 06/08/20 04:54 Carbon Dioxide 32 mmol/L (22-30) H 06/08/20 04:54 Anion Gap 7 (5-19) 06/08/20 04:54 Est GFR ( Amer) > 60 (>60) 06/08/20 04:54 Glucose 213 mg/dL (75-110) H 06/08/20 04:54 Lactic Acid 2.2 mmol/L (0.7-2.1) H 06/07/20 17:14 Calcium 9.1 mg/dL (8.4-10.2) 06/08/20 04:54 Phosphorus 2.7 mg/dL (2.5-4.5) 06/08/20 04:54 Magnesium 1.6 mg/dL (1.6-2.3) 06/08/20 04:54 Total Bilirubin 2.5 mg/dL (0.2-1.3) H 06/08/20 04:54 AST 49 U/L (17-59) 06/08/20 04:54 Alkaline Phosphatase 90 U/L (38-126) 06/08/20 04:54 Total Protein 6.9 g/dL (6.3-8.2) 06/08/20 04:54 Albumin 2.9 g/dL (3.5-5.0) L 06/08/20 04:54 Triglycerides 72 mg/dL (<150) 06/08/20 04:54 Cholesterol 179.36 mg/dL (0-200) 06/08/20 04:54 LDL Cholesterol Direct 91 mg/dL (<100) 06/08/20 04:54 VLDL Cholesterol 14.0 mg/dL (10-31) 06/08/20 04:54 HDL Cholesterol 46 mg/dL (>40) 06/08/20 04:54 Urine Color YELLOW 06/07/20 19:18 Urine Appearance CLEAR 06/07/20 19:18 Urine pH 5.0 (5.0-9.0) 06/07/20 19:18 Ur Specific [place] 1.006 06/07/20 19:18 Urine Protein NEGATIVE mg/dL (NEGATIVE) 06/07/20 19:18 Urine Glucose (UA) NEGATIVE mg/dL (NEGATIVE) 06/07/20 19:18 Urine Ketones NEGATIVE mg/dL (NEGATIVE) 06/07/20 19:18 Urine Blood MODERATE (NEGATIVE) H 06/07/20 19:18 Urine Nitrite NEGATIVE (NEGATIVE) 06/07/20 19:18 Ur Leukocyte Esterase TRACE (NEGATIVE) H 06/07/20 19:18 Urine WBC (Auto) 9 /HPF 06/07/20 19:18 Urine RBC (Auto) 11 /HPF 06/07/20 19:18 06/07/20 06/08/20 17:14 04:54 Troponin I 0.033 0.039 NT-Pro-B Natriuret Pep 3330 H Current Medication List Generic Name Dose Route Start Last Admin Trade Name Freq PRN Reason Stop Dose Admin Acetaminophen 325 mg 06/07/20 22:38 Acetaminophen 325 Mg Tablet PO 07/07/20 22:37 Q4HP PRN FEVER >101 Al Hydrox/Mg Hydrox/Simethicone 15 ml 06/07/20 22:38 Mag Hydrox/Al Hydrox/Simeth Susp 30 Ml Udcup PO 07/07/20 22:37 Q6HP PRN HEARTBURN Albuterol/Ipratropium 3 ml 06/07/20 22:38 Ipratropium/Albuterol 0.5-2.5 Mg/3 Ml Ampul NEB 07/07/20 22:37 RTQ6HP PRN SHORTNESS OF BREATH Aspirin 81 mg 06/08/20 22:00 Aspirin 81 Mg Tablet, Chewable PO 07/08/20 21:59 QHS CAMILO Atorvastatin Calcium 40 mg 06/08/20 22:00 Atorvastatin Calcium 40 Mg Tablet PO 07/08/20 21:59 QHS CAMILO Dextrose 12.5 gm 06/07/20 22:47 Dextrose 50%-Water 25 Gm/50 Ml Disp.Syrin IV 07/07/20 22:46 PRN PRN FOR BG 50-69 IN ALERT PATIENT Protocol Dextrose 25 gm 06/07/20 22:47 Dextrose 50%-Water 25 Gm/50 Ml Disp.Syrin IV 07/07/20 22:46 PRN PRN PER PROTOCOL Protocol Docusate Sodium 100 mg 06/08/20 10:00 Docusate Sodium 100 Mg Capsule PO 07/08/20 09:59 BID CAMILO Famotidine 20 mg 06/08/20 10:00 Famotidine 20 Mg Tablet PO 07/08/20 09:59 Q12 CAMILO Furosemide 40 mg 06/08/20 06:00 06/08/20 06:09 Furosemide Inj/Pf 40 Mg/4 Ml Sdv IV 07/08/20 05:59 40 mg Q8 CAMILO Administration Glucagon 1 mg 06/07/20 22:47 Glucagon,Human Recomb 1 Mg Inj IM 07/07/20 22:46 PRN PRN Evaluate for BG < 70 Protocol Glucose 15 gm 06/07/20 22:47 Dextrose 40% Gel 15 Gm Tube PO 07/07/20 22:46 PRN PRN FOR BG 50-69 IN ALERT PATIENT Protocol Glucose 30 gm 06/07/20 22:47 Dextrose 40% Gel 15 Gm Tube PO 07/07/20 22:46 PRN PRN FOR BG < 50 IN ALERT PATIENT Protocol Heparin Sodium (Porcine) 5,000 unit 06/08/20 06:00 06/08/20 06:08 Heparin Sod (Porcine) 5,000 Unit/Ml 1 Ml Vial SUBCUT 07/08/20 05:59 5,000 unit Q8 CAMILO Administration Insulin Human Lispro 0 - 12 unit 06/08/20 08:00 Insulin Lispro 100 Unit/Ml 3 Ml Vial SUBCUT 07/08/20 07:59 ACHS [facility] Protocol Lisinopril 2.5 mg 06/08/20 10:00 Lisinopril 5 Mg Tablet PO 07/08/20 09:59 DAILY [facility] Ondansetron HCl 4 mg 06/07/20 22:38 Ondansetron Hcl Inj/Pf 4 Mg/2 Ml Sdv IV 07/07/20 22:37 Q4HP PRN FOR NAUSEA/VOMITING Oxycodone/Acetaminophen 1 tab 06/07/20 22:38 06/08/20 05:01 Oxycodone-Acetaminophen 5-325 Mg Tablet PO 06/14/20 22:37 1 tab Q4HP PRN Administration FOR PAIN SCALE 3-5 Promethazine HCl 6.25 mg 06/07/20 22:38 06/08/20 05:02 Promethazine Hcl Inj 25 Mg/1 Ml Vial IV 07/07/20 22:37 6.25 mg Q4HP PRN Administration FOR NAUSEA/VOMITING Temazepam 7.5 mg 06/07/20 22:38 Temazepam 7.5 Mg Capsule PO 06/14/20 22:37 HSP PRN SLEEP OR INSOMNIA Discontinued Medications Generic Name Dose Route Start Last Admin Trade Name Freq PRN Reason Stop Dose Admin Aspirin 81 mg 06/07/20 23:00 06/07/20 23:36 Aspirin 81 Mg Tablet, Chewable PO 06/07/20 23:01 81 mg NOW ONE Administration Atorvastatin Calcium 40 mg 06/07/20 23:00 06/07/20 23:36 Atorvastatin Calcium 40 Mg Tablet PO 06/07/20 23:01 40 mg NOW ONE Administration Famotidine 20 mg 06/07/20 23:00 06/07/20 23:36 Famotidine 20 Mg Tablet PO 06/07/20 23:01 20 mg NOW ONE Administration Furosemide 40 mg 06/07/20 17:18 06/07/20 17:59 Furosemide Inj/Pf 20 Mg/2 Ml Sdv IV 06/07/20 17:19 40 mg NOW ONE Administration Magnesium Sulfate/Dextrose 1 gm in 100 mls @ 100 mls/hr 06/07/20 19:00 06/07/20 22:45 Magnesium Sulfate Rtu-D5w 1 Gm/100 Ml Premix IV 06/07/20 20:59 Infused Q1H CAMILO Infusion Potassium Chloride 40 meq 06/07/20 18:51 06/07/20 19:11 Potassium Chloride 20 Meq Packet PO 06/07/20 18:52 40 meq NOW ONE Administration Assessment & Plan - Diagnosis (1) Acute exacerbation of CHF (congestive heart failure) Qualifiers: Heart failure type: combined systolic and diastolic Qualified Code(s): I50.43 - Acute on chronic combined systolic (congestive) and diastolic (congestive) heart failure Is this a current diagnosis for this admission?: Yes Plan: The patient appears to be clinically fluid overloaded with lower extremity edema, rhonchi in all pulmonary pham and scrotal edema. I believe this exacerbation of his heart failure is secondary to medication and medical follow- up noncompliance which, after my interview with him today, appears to be from a degree of developmental delay. I am not 100% convinced that the patient understands his medical condition and may need competency evaluation before he decides to leave [facility] as he had done in the past. Recommendations: -Continue diuresis with current doses of Lasix. -Add Toprol 25 mg daily once he is further diuresed. -Restrict fluid intake to 1500 cc daily. -Low sodium diet, less than 1500 mg daily. -Strict intake and output. -Daily weights. -Daily BMP and magnesium and replace electrolytes as needed. -Agree with echocardiography. -The patient will eventually need ischemic assessment. -Further recommendations pending results of echocardiogram. (2) Elevated troponin Is this a current diagnosis for this admission?: Yes Plan: His troponin is detectable but nondiagnostic. It appears to be a chronic issue as he has had prior mildly elevated troponins. He denies ischemic symptoms. Recommendations: -Continue with current medical management. -We will proceed with ischemic assessment eventually.
[2020-06-08] MEDS: LISINOPRIL 5 MG TABLET PO SCH (10:56)
[2020-06-08] MEDS: FAMOTIDINE 20 MG TABLET PO SCH ×2 (10:57→22:13)
[2020-06-08] MEDS: DOCUSATE SODIUM 100 MG CAPSULE PO SCH ×2 (10:57→17:45)
[2020-06-08] MEDS: IPRATROPIUM/ALBUTEROL 0.5-2.5 MG/3 ML AMPUL NEB PRN (11:06)
--- NOTE | 2020-06-08 14:33 | XCELERA REPORT ---
[address] [address] Transthoracic Echocardiogram Report Name: LIZABETH VICK Age: 49 yrs Gender: Male : 1970 Patient Status: Inpatient Patient Location: [address] [place] [address] Study Date: 06/08/2020 09:20 AM Height: 71 in Weight: 250 lb BSA: 2.3 m2 Procedure: A complete two-dimensional transthoracic echocardiogram was performed (2D, M-mode, spectral and color flow Doppler). The study was technically difficult with many images being suboptimal in quality. Reason For Study: acute Chf Previous Evaluation: No previous studies were available. Ordering Physician: MARY MORALES Performed By: Riya Hyatt Interpretation Summary Technically limited study and difficult to interpret. Suboptimal windows due to the patient's body habitus. No interpretable subcostal views. The left ventricle is mildly dilated. Left ventricular systolic function is moderately reduced. The Ejection Fraction estimate is 30-35%. LV diastolic function could not be adequately assessed. There is moderate global hypokinesis of the left ventricle. Borderline RV systolic function. Mild MR, mild TR. No prior studies for comparison. MMode/2D Measurements & Calculations RVDd: 3.4 cm LVIDd: 5.8 cm FS: 16.4 % Ao root diam: 2.5 cm IVSd: 0.88 cm LVIDs: 4.8 cm EDV(Teich): 163.3 ml Ao root area: 5.1 cm2 LVPWd: 0.91 cm ESV(Teich): 108.0 ml LA dimension: 3.8 cm EF(Teich): 33.9 % Doppler Measurements & Calculations MV E max murali: MV P1/2t max murali: Ao V2 max: LV V1 max P.3 cm/sec 171.6 cm/sec 153.2 cm/sec 6.3 mmHg MV P1/2t: 58.9 msec Ao max P.4 mmHgLV V1 mean PG: MVA(P1/2t): 3.7 cm2 Ao V2 mean: 3.4 mmHg MV dec slope: 111.1 cm/sec LV V1 max: Ao mean P.4 cm/sec 853.6 cm/sec2 5.8 mmHg LV V1 mean: MV dec time: 0.17 sec Ao V2 VTI: 29.0 cm 83.8 cm/sec LV V1 VTI: 23.6 cm PA V2 max: TR max murali: MV P1/2t-pr_phl: 103.9 cm/sec 235.3 cm/sec 58.9 msec PA max P.3 mmHgTR max P.1 mmHg Left Ventricle The left ventricle is mildly dilated. Left ventricular systolic function is moderately reduced. The Ejection Fraction estimate is 30-35%. LV diastolic function could not be adequately assessed. There is moderate global hypokinesis of the left ventricle. Right Ventricle The right ventricle is grossly normal size. The right ventricular systolic function is borderline reduced. Atria The right atrium is normal. The left atrial size is normal. Interarterial septum not well visualized and not well dopplered. Cannot comment on ASD/PFO presence. Mitral Valve The mitral valve is normal in structure and function. There is no evidence of mitral valve prolapse. There is no mitral valve stenosis. There is a mild amount of mitral regurgitation. Aortic Valve The aortic valve is not well visualized secondary to technical limitations. There is no aortic valvular vegetation. There is no aortic valve stenosis. No aortic regurgitation is present. Tricuspid Valve The tricuspid is normal in structure and function. There is no tricuspid valve prolapse. There is no tricuspid stenosis. There is a mild amount of tricuspid regurgitation. Pulmonic Valve The pulmonic valve is not well visualized. There is no vegetation on the pulmonic valve. There is no pulmonic valvular stenosis. There is no pulmonic valvular regurgitation. Great Vessels The aortic root is normal size. Effusions There is no pericardial effusion. There is no pleural effusion. : MARY MORALES Antonio
--- NOTE | 2020-06-08 17:31 | RADIOLOGY REPORT (SQ) ---
EXAM DESCRIPTION: CT HEAD WITHOUT IMAGES COMPLETED DATE/TIME: 06/08/2020 5:18 pm REASON FOR STUDY: AMS COMPARISON: None. TECHNIQUE: Axial images acquired through the brain without intravenous contrast. Images reviewed wi th bone, brain and subdural windows. Additional sagittal and coronal reconstructions were generated. Images stored on PACS. All CT scanners at this facility use dose modulation, iterative reconstruction, and/or weight based d osing when appropriate to reduce radiation dose to as low as reasonably achievable (ALARA). [facility]: Dose Right [facility]: CareDose [facility]: Dose Right [facility]: Teradose 4D [facility]: [employer] RADIATION DOSE: CT Rad equipment meets quality standard of care and radiation dose reduction techniq ues were employed. CTDIvol: 53.2 mGy. DLP: 1124 mGy-cm. mGy. LIMITATIONS: None. FINDINGS: VENTRICLES: Normal size and contour. CEREBRUM: No masses. No hemorrhage. No midline shift. No evidence for acute infarction. Normal gra y/white matter differentiation. No areas of low density in the white matter. CEREBELLUM: No masses. No hemorrhage. No alteration of density. No evidence for acute infarction. EXTRAAXIAL SPACES: No fluid collections. No masses. ORBITS AND GLOBE: No intra- or extraconal masses. Normal contour of globe without masses. CALVARIUM: No fracture. PARANASAL SINUSES: There is mucoperiosteal thickening in the left maxillary sinus and in some of the ethmoid air cells. There is an air-fluid level in the left maxillary sinus. SOFT TISSUES: No mass or hematoma. OTHER: No other significant finding. IMPRESSION: Sinus disease. No acute intracranial imaging findings. EVIDENCE OF ACUTE STROKE: NO. COMMENT: Quality ID # [id number]: Final reports with documentation of one or more dose reduction techniques (e.g., Automated exposure control, adjustment of the mA and/or kV according to patient size, use of iterative reconstruction technique) TECHNICAL DOCUMENTATION: JOB ID: [id number] 2010 [email or web address]- All Rights Reserved Reading location - IP/workstation name: [email or web address]
--- NOTE | 2020-06-08 19:25 | PDOC PROGRESS REPORT ---
Subjective Date:: 06/08/20 Subjective:: LIZABETH VICK is a 49 year old male past medical history of morbid obesity, CHF, h istory of medication nonadherence with frequent presentation to ED and leaving AMA, patient is presenting to ED today complaining of worsening shortness of breath, bilateral lower extremity, scrotal and abdominal edema. Unfortunately patient is very poor historian and does not provide much history, complaining of any history of CAD or being followed up by PCP or a winder helper. When asked if he is adherent with his medication he states he only takes it when he has it, he does not follow cardiac diet either. Patient denies any fever, chills, nausea, vomiting, diarrhea, constipation. In ED he was noted to have elevated proBNP, mildly elevated troponin, and hospital was consulted for admission. D1 hospital stay 06/08/20 Patient was seen and examined at bedside. His mood is very labile and is a poor historian, does not really want to answer questions. However he is not delirious or violent. He admits to feeling short of breath but this has improved since his admission. he denied any chest pain. He admits to not taking his medications. Reason For Visit: ANASARCA,ACUTE CHF EXACERBATION Physical Exam Vital Signs: Temp Pulse Resp BP Pulse Ox 97.6 F 79 19 130/107 H 100 06/08/20 15:21 06/08/20 15:21 06/08/20 15:21 06/08/20 15:21 06/08/20 15:21 Intake & Output 06/07/20 06/08/20 06/09/20 06:59 06:59 06:59 Intake Total 900 458 Output Total 125 275 Balance 775 183 Weight 123.6 kg General appearance: PRESENT: disheveled, mild distress, obese Head exam: PRESENT: atraumatic, normocephalic Eye exam: PRESENT: EOMI, PERRLA Mouth exam: PRESENT: moist Neck exam: PRESENT: full ROM Respiratory exam: PRESENT: rales, rhonchi, symmetrical Cardiovascular exam: PRESENT: RRR, +S1, +S2 Pulses: PRESENT: +2 pedal pulses bilateral GI/Abdominal exam: PRESENT: normal bowel sounds, soft. ABSENT: rebound, tenderness Gentrourinary exam: PRESENT: scrotal swelling, indwelling catheter Extremities exam: PRESENT: +2 edema Musculoskeletal exam: PRESENT: full ROM Psychiatric exam: PRESENT: other - onerous Skin exam: PRESENT: normal color Results Laboratory Results: 06/08/20 04:54 06/08/20 04:54 06/07/20 06/08/20 06/08/20 19:18 04:54 04:54 WBC 11.7 H RBC 3.27 L Hgb 10.3 L Hct 29.9 L MCV 91 MCH 31.4 MCHC 34.3 RDW 15.2 H Plt Count 82 L Seg Neutrophils % 75.4 Sodium 133.7 L Potassium 3.5 L Chloride 95 L Carbon Dioxide 32 H Anion Gap 7 BUN 32 H Creatinine 1.18 Est GFR ( Amer) > 60 Glucose 213 H Calcium 9.1 Phosphorus 2.7 Magnesium 1.6 Total Bilirubin 2.5 H AST 49 Alkaline Phosphatase 90 Total Protein 6.9 Albumin 2.9 L Triglycerides 72 Cholesterol 179.36 LDL Cholesterol Direct 91 VLDL Cholesterol 14.0 HDL Cholesterol 46 Urine Color YELLOW Urine Appearance CLEAR Urine pH 5.0 Ur Specific [place] 1.006 Urine Protein NEGATIVE Urine Glucose (UA) NEGATIVE Urine Ketones NEGATIVE Urine Blood MODERATE H Urine Nitrite NEGATIVE Ur Leukocyte Esterase TRACE H Urine WBC (Auto) 9 Urine RBC (Auto) 11 06/07/20 06/08/20 17:14 04:54 Troponin I 0.033 0.039 NT-Pro-B Natriuret Pep 3330 H Impressions: Chest X-Ray 06/07/20 17:14 IMPRESSION: Slightly improved aeration in both lungs suggestive of improving pneumonia. Head CT 06/08/20 08:00 IMPRESSION: Sinus disease. No acute intracranial imaging findings. EVIDENCE OF ACUTE STROKE: NO. Assessment and Plan - Diagnosis (1) Acute exacerbation of CHF (congestive heart failure) Qualifiers: Heart failure type: combined systolic and diastolic Qualified Code(s): I50.43 - Acute on chronic combined systolic (congestive) and diastolic (congestive) heart failure Is this a current diagnosis for this admission?: Yes Plan: Patient denies any history of CAD, has not had any previous echo, does not follow-up with PCP or cardiology. Patient has frequent presentation with acute CHF exacerbation. BNP 3330 Echo EF 30 to 35%, moderately reduced LV systolic function, moderate global hypokinesis of the left ventricle. Continue Lasix, Toprol, Lipitor Started on Aldactone 25 daily We will start beta-loulou once he is more diuresed per cardiology recs He will eventually need ischemic work-up I doubt if he is getting agreed to this or be compliant with the recommendations. Daily weights Strict intake and output Cardiology consulted. (2) Anasarca Is this a current diagnosis for this admission?: Yes Plan: Patient denies any history of CAD but has had several admission to ED for CHF exacerbation. Unfortunately patient does not have a PCP and does not follow-up with a winder helper. Patient is not adherent to his medication or fluid restriction. Presenting with bilateral lower extremity, scrotal and abdominal wall edema. Started on Lasix, Aldactone Strict I&O Daily weights (3) Elevated troponin Is this a current diagnosis for this admission?: Yes Plan: Troponin on admission 0.033>0.039. Baseline troponin 0.2. no anginal symptoms. Denies any history of CAD. EKG no acute changes. This is likely due to demand mismatch due to underlying acute CHF exacerbation. Continue medical management for now (4) Medical non-compliance Is this a current diagnosis for this admission?: Yes Plan: Patient extensively advised on medication adherence. Chef Assistant consulted for medication assistance. (5) Acute respiratory insufficiency Is this a current diagnosis for this admission?: Yes Plan: -Patient came in due to shortness of breath -Chest x-ray showing pneumonia with negative covid -BNP elevated 3330 -This likely secondary to pulmonary congestion from acute CHF exacerbation - continue O2 support PRN (6) Diabetes mellitus type 2 in obese Is this a current diagnosis for this admission?: Yes Plan: On oral hypoglycemics. No hemoglobin A1c available. A1C 9.4 Started on Lantus 12 units twice a day Diabetic diet, sliding scale insulin, Accu-Chek, hypoglycemia protocol. Diabetic education. (7) Tobacco use disorder, continuous Is this a current diagnosis for this admission?: Yes Plan: Counseled on quitting. NicoDerm patch will be provided. - Time Time Spent with patient: 25-34 minutes Medications reviewed and adjusted accordingly: Yes Anticipated Discharge Disposition: Home with Home Health Anticipated Discharge Timeframe: TBD
[2020-06-08] MEDS: SPIRONOLACTONE 25 MG TABLET PO SCH (20:09)
[2020-06-08] MEDS ORDERED: INSULIN GLARGINE,HUM.REC.ANLOG 1,000 UNIT/10 ML VIAL (PYX) SUBCUT ONE (22:10)
[2020-06-08] MEDS: ATORVASTATIN CALCIUM 40 MG TABLET PO SCH (22:12)
[2020-06-08] MEDS: INSULIN GLARGINE,HUM.REC.ANLOG 1,000 UNIT/10 ML VIAL SUBCUT SCH (22:13)
[2020-06-08] MEDS: ASPIRIN 81 MG TABLET, CHEWABLE PO SCH (22:13)
[2020-06-09] MEDS: HEPARIN SOD (PORCINE) 5,000 UNIT/ML 1 ML VIAL SUBCUT SCH ×3 (06:51→23:17)
[2020-06-09 08:10] LABS: ANION GAP 5 (5-19); BLOOD UREA NITROGEN 47 mg/dL (7-20); CARBON DIOXIDE 34 mmol/L (22-30); CHLORIDE 94 mmol/L (98-107); GLUCOSE 193 mg/dL (75-110); POTASSIUM 3.8 mmol/L (3.6-5.0)
--- NOTE | 2020-06-09 08:30 | PDOC PROGRESS REPORT ---
Subjective Date:: 06/09/20 Subjective:: LIZABETH VICK is a 49 year old male with history of lymphoma, morbid obesity, heart failure of unclear etiology, medication noncompliance, with multiple evaluations in our emergency room as well as admission to this facility but the patient leaves AMA before completing treatment who is consulted to our service for evaluation of dyspnea and heart failure exacerbation. Review of his chart demonstrates that the patient had been seen or admitted to our facility at least 5 times in the last several months. He was seen in our emergency room on 03/28/2020 for evaluation of shortness of breath. At that time he was diagnosed with pneumonia and left the emergency room AMA. He returned to the emergency room on 03/30/2024 worsening dyspnea, he was diagnosed with pneumonia and admi tted however he left AMA on 03/31/2020. He returned to our emergency room on 05/22/2020 complaining of genital edema, at that time his chest x-ray was consistent with worsening multifocal pneumonia and a scrotal ultrasound demonstrated edema. The emergency room physician recommended Lasix and admi ssion however the patient declined to be admitted, refused his Lasix and eloped from the emergency department. His dyspnea continued to worsen and he presented again yesterday to the emergency room with worsening shortness of breath, bilateral lower extremity edema as well as scrotal and abdominal edema. His chest x-ray during this admission was read by radiology as improved aeration without pulmonary edema however, upon my review, it appears more consistent with heart failure although it is improved from his prior x-ray on 05/22/2020. 06/09/2020: The patient had an uneventful night from the cardiovascular standpoint. He states that he feels slightly better and has no cardiovascular complaints. Unfortunately, his echocardiogram demonstrated an ejection fraction between 30 and 35% among other findings. He was begun on Aldactone 25 mg daily yesterday by the hospitalist team. His blood pressure had been on the low side. His fluid balance is only - 42 cc. Physical exam on 06/09/2020: GENERAL: Awake and conversational, appears to have some developmental delay. Normal mood. Not in acute distress. Well groomed and well developed. HEENT: Normocephalic, atraumatic. Pupils equal. Sclerae anicteric. Oropharynx moist. NECK: No JVD. No carotid bruits. LUNGS: Diffuse rhonchi in all pham. Normal respiratory effort without the use of accessory muscles or intercostal retractions. CARDIOVASCULAR: Regular rate and rhythm, normal S1 and S2 without murmurs, rubs, or gallops. PMI not displaced. ABDOMEN: No masses or tenderness to palpation. No bruit. No splenomegaly or hepatomegaly. No abdominal aorta bruit noted. EXTREMITIES: 2-3+ pitting edema bilaterally, no cyanosis, no clubbing. +2 pulses femoral and pedal pulses bilaterally. SKIN: No lesions or rashes. MUSCULOSKELETAL: No chest tenderness to palpation. Scrotal edema present. NEUROLOGIC: Nonfocal. No gross sensory or motor deficits bilateral upper or lower extremities. Reason For Visit: ANASARCA,ACUTE CHF EXACERBATION Physical Exam Vital Signs: Temp Pulse Resp BP Pulse Ox 97.8 F 77 18 92/52 L 100 06/08/20 23:21 06/09/20 02:00 06/08/20 23:21 06/08/20 23:21 06/08/20 23:21 Intake & Output 06/07/20 06/08/20 06/09/20 06:59 06:59 06:59 Intake Total 900 458 Output Total 125 500 Balance 775 -42 Weight 123.6 kg 127.8 kg Results Laboratory Results: 06/08/20 04:54 06/08/20 04:54 06/07/20 06/08/20 17:14 04:54 Troponin I 0.033 0.039 NT-Pro-B Natriuret Pep 3330 H Impressions: Chest X-Ray 06/07/20 17:14 IMPRESSION: Slightly improved aeration in both lungs suggestive of improving pneumonia. Head CT 06/08/20 08:00 IMPRESSION: Sinus disease. No acute intracranial imaging findings. EVIDENCE OF ACUTE STROKE: NO. 06/08/20 04:54 06/09/20 07:23 MCV 91 fl (80-97) 06/08/20 04:54 MCH 31.4 pg (27.0-33.4) 06/08/20 04:54 MCHC 34.3 g/dL (32.0-36.0) 06/08/20 04:54 RDW 15.2 % (11.5-14.0) H 06/08/20 04:54 Seg Neutrophils % 75.4 % (42-78) 06/08/20 04:54 VBG pH 7.43 (7.30-7.42) H 06/07/20 17:32 VBG pCO2 49.7 mmHg (35-63) 06/07/20 17:32 VBG HCO3 32.0 mmol/L (20-32) 06/07/20 17:32 VBG Base Excess 6.4 mmol/L 06/07/20 17:32 Chloride 94 mmol/L (98-107) L 06/09/20 07:23 Carbon Dioxide 34 mmol/L (22-30) H 06/09/20 07:23 Anion Gap 5 (5-19) 06/09/20 07:23 Est GFR ( Amer) 40 (>60) L 06/09/20 07:23 Glucose 193 mg/dL (75-110) H 06/09/20 07:23 Lactic Acid 2.2 mmol/L (0.7-2.1) H 06/07/20 17:14 Calcium 9.0 mg/dL (8.4-10.2) 06/09/20 07:23 Phosphorus 2.7 mg/dL (2.5-4.5) 06/08/20 04:54 Magnesium 1.6 mg/dL (1.6-2.3) 06/08/20 04:54 Total Bilirubin 2.5 mg/dL (0.2-1.3) H 06/08/20 04:54 AST 49 U/L (17-59) 06/08/20 04:54 Alkaline Phosphatase 90 U/L (38-126) 06/08/20 04:54 Total Protein 6.9 g/dL (6.3-8.2) 06/08/20 04:54 Albumin 2.9 g/dL (3.5-5.0) L 06/08/20 04:54 Triglycerides 72 mg/dL (<150) 06/08/20 04:54 Cholesterol 179.36 mg/dL (0-200) 06/08/20 04:54 LDL Cholesterol Direct 91 mg/dL (<100) 06/08/20 04:54 VLDL Cholesterol 14.0 mg/dL (10-31) 06/08/20 04:54 HDL Cholesterol 46 mg/dL (>40) 06/08/20 04:54 Urine Color YELLOW 06/07/20 19:18 Urine Appearance CLEAR 06/07/20 19:18 Urine pH 5.0 (5.0-9.0) 06/07/20 19:18 Ur Specific [place] 1.006 06/07/20 19:18 Urine Protein NEGATIVE mg/dL (NEGATIVE) 06/07/20 19:18 Urine Glucose (UA) NEGATIVE mg/dL (NEGATIVE) 06/07/20 19:18 Urine Ketones NEGATIVE mg/dL (NEGATIVE) 06/07/20 19:18 Urine Blood MODERATE (NEGATIVE) H 06/07/20 19:18 Urine Nitrite NEGATIVE (NEGATIVE) 06/07/20 19:18 Ur Leukocyte Esterase TRACE (NEGATIVE) H 06/07/20 19:18 Urine WBC (Auto) 9 /HPF 06/07/20 19:18 Urine RBC (Auto) 11 /HPF 06/07/20 19:18 06/07/20 06/08/20 17:14 04:54 Troponin I 0.033 0.039 NT-Pro-B Natriuret Pep 3330 H Current Medication List Generic Name Dose Route Start Last Admin Trade Name Freq PRN Reason Stop Dose Admin Acetaminophen 325 mg 06/07/20 22:38 Acetaminophen 325 Mg Tablet PO 07/07/20 22:37 Q4HP PRN FEVER >101 Al Hydrox/Mg Hydrox/Simethicone 15 ml 06/07/20 22:38 Mag Hydrox/Al Hydrox/Simeth Susp 30 Ml Udcup PO 07/07/20 22:37 Q6HP PRN HEARTBURN Albuterol/Ipratropium 3 ml 06/07/20 22:38 06/08/20 11:06 Ipratropium/Albuterol 0.5-2.5 Mg/3 Ml Ampul NEB 07/07/20 22:37 3 ml RTQ6HP PRN Administration SHORTNESS OF BREATH Aspirin 81 mg 06/08/20 22:00 06/08/20 22:13 Aspirin 81 Mg Tablet, Chewable PO 07/08/20 21:59 81 mg QHS CAMILO Administration Atorvastatin Calcium 40 mg 06/08/20 22:00 06/08/20 22:12 Atorvastatin Calcium 40 Mg Tablet PO 07/08/20 21:59 40 mg QHS CAMILO Administration Dextrose 12.5 gm 06/07/20 22:47 Dextrose 50%-Water 25 Gm/50 Ml Disp.Syrin IV 01/22/21 22:46 PRN PRN FOR BG 50-69 IN ALERT PATIENT Protocol Dextrose 25 gm 06/07/20 22:47 Dextrose 50%-Water 25 Gm/50 Ml Disp.Syrin IV 07/07/20 22:46 PRN PRN PER PROTOCOL Protocol Docusate Sodium 100 mg 06/08/20 10:00 06/08/20 17:45 Docusate Sodium 100 Mg Capsule PO 07/08/20 09:59 100 mg BID CAMILO Administration Famotidine 20 mg 06/08/20 10:00 06/08/20 22:13 Famotidine 20 Mg Tablet PO 07/08/20 09:59 20 mg Q12 CAMILO Administration Furosemide 60 mg 06/09/20 10:00 Furosemide Inj/Pf 40 Mg/4 Ml Sdv IV 07/09/20 09:59 BID CAMILO Glucagon 1 mg 06/07/20 22:47 Glucagon,Human Recomb 1 Mg Inj IM 07/07/20 22:46 PRN PRN Evaluate for BG < 70 Protocol Glucose 15 gm 06/07/20 22:47 Dextrose 40% Gel 15 Gm Tube PO 07/07/20 22:46 PRN PRN FOR BG 50-69 IN ALERT PATIENT Protocol Glucose 30 gm 06/07/20 22:47 Dextrose 40% Gel 15 Gm Tube PO 07/07/20 22:46 PRN PRN FOR BG < 50 IN ALERT PATIENT Protocol Heparin Sodium (Porcine) 5,000 unit 06/08/20 06:00 06/09/20 06:51 Heparin Sod (Porcine) 5,000 Unit/Ml 1 Ml Vial SUBCUT 07/08/20 05:59 Not Given Q8 [facility] Insulin Glargine 12 unit 06/08/20 22:00 06/08/20 22:13 Insulin Glargine,Hum.Rec.Anlog 1,000 Unit/10 Ml Vial SUBCUT 07/08/20 21:59 12 unit Q12 CAMILO Administration Insulin Human Lispro 0 - 12 unit 06/08/20 08:00 06/08/20 22:14 Insulin Lispro 100 Unit/Ml 3 Ml Vial SUBCUT 07/08/20 07:59 4 unit ACHS CAMILO Administration Protocol Lisinopril 2.5 mg 06/08/20 10:00 06/08/20 10:56 Lisinopril 5 Mg Tablet PO 07/08/20 09:59 2.5 mg DAILY CAMILO Administration Ondansetron HCl 4 mg 06/07/20 22:38 Ondansetron Hcl Inj/Pf 4 Mg/2 Ml Sdv IV 07/07/20 22:37 Q4HP PRN FOR NAUSEA/VOMITING Oxycodone/Acetaminophen 1 tab 06/07/20 22:38 06/08/20 12:25 Oxycodone-Acetaminophen 5-325 Mg Tablet PO 06/14/20 22:37 1 tab Q4HP PRN Administration FOR PAIN SCALE 3-5 Promethazine HCl 6.25 mg 06/07/20 22:38 06/08/20 05:02 Promethazine Hcl Inj 25 Mg/1 Ml Vial IV 07/07/20 22:37 6.25 mg Q4HP PRN Administration FOR NAUSEA/VOMITING Spironolactone 25 mg 06/08/20 20:00 06/08/20 20:09 Spironolactone 25 Mg Tablet PO 07/08/20 19:59 25 mg DAILY CAMILO Administration Temazepam 7.5 mg 06/07/20 22:38 Temazepam 7.5 Mg Capsule PO 06/14/20 22:37 HSP PRN SLEEP OR INSOMNIA Discontinued Medications Generic Name Dose Route Start Last Admin Trade Name Freq PRN Reason Stop Dose Admin Aspirin 81 mg 06/07/20 23:00 06/07/20 23:36 Aspirin 81 Mg Tablet, Chewable PO 06/07/20 23:01 81 mg NOW ONE Administration Atorvastatin Calcium 40 mg 06/07/20 23:00 06/07/20 23:36 Atorvastatin Calcium 40 Mg Tablet PO 06/07/20 23:01 40 mg NOW ONE Administration Famotidine 20 mg 06/07/20 23:00 06/07/20 23:36 Famotidine 20 Mg Tablet PO 06/07/20 23:01 20 mg NOW ONE Administration Furosemide 40 mg 06/07/20 17:18 06/07/20 17:59 Furosemide Inj/Pf 20 Mg/2 Ml Sdv IV 06/07/20 17:19 40 mg NOW ONE Administration Furosemide 40 mg 06/08/20 06:00 06/08/20 16:02 Furosemide Inj/Pf 40 Mg/4 Ml Sdv IV 07/08/20 05:59 Not Given Q8 CAMILO Magnesium Sulfate/Dextrose 1 gm in 100 mls @ 100 mls/hr 06/07/20 19:00 06/07/20 22:45 Magnesium Sulfate Rtu-[id number] 1 Gm/100 Ml Premix IV 06/07/20 20:59 Infused Q1H CAMILO Infusion Insulin Glargine Confirm 06/08/20 22:10 06/08/20 22:34 Insulin Glargine,Hum.Rec.Anlog 1,000 Unit/10 Ml Vial (Pyx) Administered 06/08/20 22:11 Not Given Dose 1 unit SUBCUT .STK-MED ONE Potassium Chloride 40 meq 06/07/20 18:51 06/07/20 19:11 Potassium Chloride 20 Meq Packet PO 06/07/20 18:52 40 meq NOW ONE Administration Assessment & Plan - Diagnosis (1) Acute exacerbation of CHF (congestive heart failure) Qualifiers: Heart failure type: combined systolic and diastolic Qualified Code(s): I50.43 - Acute on chronic combined systolic (congestive) and diastolic (congestive) heart failure Is this a current diagnosis for this admission?: Yes Plan: The patient has heart failure with reduced ejection fraction with an EF between 30 and 35%. He continues to be fluid overloaded on exam and his response to Lasix therapy has been minimal which I believe could be secondary to hypoalbuminemia. His blood pressure is now on the low side which limits our ability to diurese him more aggressively as well as addition of medications to achieve GDMT. To complicate matters, his creatinine increased acutely after adding Aldactone. He continues to be clinically fluid overloaded with lower extremity edema, rhonchi in all pulmonary pham and scrotal edema. I believe this exacerbation of his heart failure is secondary to medication and medical follow-up noncompliance which, after my interview with him today, appears to be from a degree of developmental delay. I am not 100% convinced that the patient understands his medical condition and may need competency evaluation before he decides to leave [place] as he had done in the past. Recommendations: -Continue diuresis with current doses of Lasix. Please give albumin IV 30 minutes prior to Lasix dose. -Discontinue Aldactone. -Discontinue lisinopril. -We will consider adding Entresto 24 mg / 26 mg twice daily 36 hours after last dose of lisinopril and when renal function improved. -Add Toprol 25 mg daily once he is further diuresed. -Restrict fluid intake to 1500 cc daily. -Low sodium diet, less than 1500 mg daily. -Strict intake and output. -Daily weights. -Daily BMP and magnesium and replace electrolytes as needed. -The patient will eventually need ischemic assessment. (2) Elevated troponin Is this a current diagnosis for this admission?: Yes Plan: His troponin is detectable but nondiagnostic. It appears to be a chronic issue as he has had prior mildly elevated troponins. He denies ischemic symptoms. Recommendations: -Continue with current medical management. -We will proceed with ischemic assessment eventually.
[2020-06-09] MEDS: INSULIN LISPRO 100 UNIT/ML 3 ML VIAL SUBCUT SCH ×4 (08:47→22:06)
[2020-06-09] MEDS: DOCUSATE SODIUM 100 MG CAPSULE PO SCH ×2 (10:11→17:22)
[2020-06-09] MEDS: FAMOTIDINE 20 MG TABLET PO SCH ×2 (10:11→21:05)
[2020-06-09] MEDS: LISINOPRIL 5 MG TABLET PO SCH (10:12)
[2020-06-09] MEDS: INSULIN GLARGINE,HUM.REC.ANLOG 1,000 UNIT/10 ML VIAL SUBCUT SCH ×2 (10:12→22:07)
[2020-06-09] MEDS: FUROSEMIDE INJ/PF 40 MG/4 ML SDV IV SCH ×2 (10:13→17:23)
[2020-06-09] MEDS: SPIRONOLACTONE 25 MG TABLET PO SCH (10:13)
[2020-06-09] MEDS ORDERED: ALBUMIN HUMAN 12.5 GM/50 ML RTUINJ IV ONE (12:15)
[2020-06-09] MEDS: IPRATROPIUM/ALBUTEROL 0.5-2.5 MG/3 ML AMPUL NEB PRN (14:36)
--- NOTE | 2020-06-09 16:29 | PDOC PROGRESS REPORT ---
Subjective Date:: 06/09/20 Subjective:: LIZABETH VICK is a 49 year old male past medical history of morbid obesity, CHF, h istory of medication nonadherence with frequent presentation to ED and leaving AMA, patient is presenting to ED today complaining of worsening shortness of breath, bilateral lower extremity, scrotal and abdominal edema. Unfortunately patient is very poor historian and does not provide much history, complaining of any history of CAD or being followed up by PCP or a clinic office coordinator. When asked if he is adherent with his medication he states he only takes it when he has it, he does not follow cardiac diet either. Patient denies any fever, chills, nausea, vomiting, diarrhea, constipation. In ED he was noted to have elevated proBNP, mildly elevated troponin, and hospital was consulted for admission. D1 hospital stay 06/08/20 Patient was seen and examined at bedside. His mood is very labile and is a poor historian, does not really want to answer questions. However he is not delirious or violent. He admits to feeling short of breath but this has improved since his admission. he denied any chest pain. He admits to not taking his medications. D2 hospital stay 06/09/20. Patient was seen and examined at bedside. His mood as very labile according to the nurse but he is otherwise stable. Moderate cough and he is requiring 2L of nasal cannula. Crea worse today, lisinopril and aldactone was held, lasix continued. Reason For Visit: ANASARCA,ACUTE CHF EXACERBATION Physical Exam Vital Signs: Temp Pulse Resp BP Pulse Ox 97.5 F 84 14 92/48 L 88 L 06/09/20 11:27 06/09/20 14:33 06/09/20 14:33 06/09/20 11:27 06/09/20 14:33 Intake & Output 06/08/20 06/09/20 06/10/20 06:59 06:59 06:59 Intake Total 900 458 360 Output Total 125 500 400 Balance 775 -42 -40 Weight 123.6 kg 127.8 kg General appearance: PRESENT: disheveled, mild distress Head exam: PRESENT: atraumatic, normocephalic Eye exam: PRESENT: EOMI, PERRLA Mouth exam: PRESENT: moist Neck exam: PRESENT: full ROM Respiratory exam: PRESENT: crackles, rales, symmetrical, unlabored Cardiovascular exam: PRESENT: RRR, +S1, +S2 Pulses: PRESENT: +2 pedal pulses bilateral GI/Abdominal exam: PRESENT: normal bowel sounds, soft. ABSENT: rebound Gentrourinary exam: PRESENT: scrotal swelling, other Extremities exam: PRESENT: full ROM, +2 edema Musculoskeletal exam: PRESENT: full ROM Neurological exam: PRESENT: alert, awake, oriented to place. ABSENT: oriented to time, oriented to situation Psychiatric exam: PRESENT: unusual affect Focused psych exam: PRESENT: delusional Skin exam: PRESENT: normal color Results Laboratory Results: 06/08/20 04:54 06/09/20 07:23 06/09/20 07:23 Sodium 132.8 L Potassium 3.8 Chloride 94 L Carbon Dioxide 34 H Anion Gap 5 BUN 47 H Creatinine 2.14 H Est GFR ( Amer) 40 L Glucose 193 H Calcium 9.0 06/07/20 06/08/20 17:14 04:54 Troponin I 0.033 0.039 NT-Pro-B Natriuret Pep 3330 H Impressions: Chest X-Ray 06/07/20 17:14 IMPRESSION: Slightly improved aeration in both lungs suggestive of improving pneumonia. Head CT 06/08/20 08:00 IMPRESSION: Sinus disease. No acute intracranial imaging findings. EVIDENCE OF ACUTE STROKE: NO. Assessment and Plan - Diagnosis (1) Acute exacerbation of CHF (congestive heart failure) Qualifiers: Heart failure type: combined systolic and diastolic Qualified Code(s): I50.43 - Acute on chronic combined systolic (congestive) and diastolic (congestive) heart failure Is this a current diagnosis for this admission?: Yes Plan: Patient denies any history of CAD, has not had any previous echo, does not follow-up with PCP or cardiology. Patient has frequent presentation with acute CHF exacerbation. BNP 3330 Echo EF 30 to 35%, moderately reduced LV systolic function, moderate global hypokinesis of the left ventricle. Continue Lasix, Toprol, Lipitor We will start beta-loulou once he is more diuresed per cardiology recs He will eventually need ischemic work-up I doubt if he is getting agreed to this or be compliant with the recommendations. Daily weights Strict intake and output Cardiology consulted. (2) Anasarca Is this a current diagnosis for this admission?: Yes Plan: Patient denies any history of CAD but has had several admission to ED for CHF exacerbation. Unfortunately patient does not have a PCP and does not follow-up with a clinic office coordinator. Patient is not adherent to his medication or fluid restriction. Presenting with bilateral lower extremity, scrotal and abdominal wall edema. aldactone stopped continue lasix at current dose Strict I&O Daily weights (3) Elevated troponin Is this a current diagnosis for this admission?: Yes Plan: Troponin on admission 0.033>0.039. Baseline troponin 0.2. no anginal symptoms. Denies any history of CAD. EKG no acute changes. This is likely due to demand mismatch due to underlying acute CHF exacerbation. Continue medical management for now (4) Medical non-compliance Is this a current diagnosis for this admission?: Yes Plan: Patient extensively advised on medication adherence. Customer Service Representative consulted for medication assistance. (5) Acute respiratory insufficiency Is this a current diagnosis for this admission?: Yes Plan: -Patient came in due to shortness of breath -Chest x-ray showing pneumonia with negative covid -BNP elevated 3330 -This likely secondary to pulmonary congestion from acute CHF exacerbation - continue O2 support PRN (6) Diabetes mellitus type 2 in obese Is this a current diagnosis for this admission?: Yes Plan: On oral hypoglycemics. No hemoglobin A1c available. A1C 9.4 Started on Lantus 12 units twice a day Diabetic diet, sliding scale insulin, Accu-Chek, hypoglycemia protocol. Diabetic education. (7) Tobacco use disorder, continuous Is this a current diagnosis for this admission?: Yes Plan: Counseled on quitting. NicoDerm patch will be provided. - Time Time Spent with patient: 15-24 minutes Medications reviewed and adjusted accordingly: Yes Anticipated Discharge Disposition: Home, Self Care Anticipated Discharge Timeframe: tbd
[2020-06-09] MEDS: ATORVASTATIN CALCIUM 40 MG TABLET PO SCH (21:05)
[2020-06-09] MEDS: ASPIRIN 81 MG TABLET, CHEWABLE PO SCH (21:05)
[2020-06-10] MEDS: MORPHINE SULFATE 10 MG/ML INJ IV PRN ×2 (00:06→13:20)
[2020-06-10] MEDS ORDERED: HALOPERIDOL LACTATE INJ 5 MG/1 ML VIAL IM ONE (01:00)
[2020-06-10] MEDS: HEPARIN SOD (PORCINE) 5,000 UNIT/ML 1 ML VIAL SUBCUT SCH ×3 (06:42→22:49)
[2020-06-10 08:33] LABS: ANION GAP 8 (5-19); BLOOD UREA NITROGEN 50 mg/dL (7-20); CALCIUM 9.7 mg/dL (8.4-10.2); CARBON DIOXIDE 30 mmol/L (22-30); CHLORIDE 98 mmol/L (98-107); GLUCOSE 196 mg/dL (75-110); POTASSIUM 3.9 mmol/L (3.6-5.0)
--- NOTE | 2020-06-10 08:36 | PDOC PROGRESS REPORT ---
Subjective Date:: 06/10/20 Subjective:: LIZABETH VICK is a 49 year old male with history of lymphoma, morbid obesity, heart failure of unclear etiology, medication noncompliance, with multiple evaluations in our emergency room as well as admission to this facility but the patient leaves AMA before completing treatment who is consulted to our service for evaluation of dyspnea and heart failure exacerbation. Review of his chart demonstrates that the patient had been seen or admitted to our facility at least 5 times in the last several months. He was seen in our emergency room on 03/28/2020 for evaluation of shortness of breath. At that time he was diagnosed with pneumonia and left the emergency room AMA. He returned to the emergency room on 03/30/2024 worsening dyspnea, he was diagnosed with pneumonia and admi tted however he left AMA on 03/31/2020. He returned to our emergency room on 05/22/2020 complaining of genital edema, at that time his chest x-ray was consistent with worsening multifocal pneumonia and a scrotal ultrasound demonstrated edema. The emergency room physician recommended Lasix and admi ssion however the patient declined to be admitted, refused his Lasix and eloped from the emergency department. His dyspnea continued to worsen and he presented again yesterday to the emergency room with worsening shortness of breath, bilateral lower extremity edema as well as scrotal and abdominal edema. His chest x-ray during this admission was read by radiology as improved aeration without pulmonary edema however, upon my review, it appears more consistent with heart failure although it is improved from his prior x-ray on 05/22/2020. 06/10/2020: The patient had an uneventful night from the cardiovascular standpoint however became very agitated and hostile yesterday evening requiring morphine and Haldol. He is currently sleeping and difficult to arouse which the nurses state is from the Haldol he received earlier today. Delete unfortunately, his echocardiogram demonstrated an ejection fraction between 30 and 35% among other findings. Both lisinopril and Aldactone were discontinued given the acute renal dysfunction he developed particularly after Aldactone was started. He diuresed very well yesterday however he is only -617 cc in his net fluid balance since admission. Physical exam on 06/10/2020: GENERAL: Sleeping and difficult to wake up. Normal mood. Not in acute di stress. Well groomed and well developed. HEENT: Normocephalic, atraumatic. Pupils equal. Sclerae anicteric. Oropharynx moist. NECK: No JVD. No carotid bruits. LUNGS: Diffuse rhonchi in all pham. Normal respiratory effort without the use of accessory muscles or intercostal retractions. CARDIOVASCULAR: Regular rate and rhythm, normal S1 and S2 without murmurs, rubs, or gallops. PMI not displaced. ABDOMEN: No masses or tenderness to palpation. No bruit. No splenomegaly or hepatomegaly. No abdominal aorta bruit noted. EXTREMITIES: 2-3+ pitting edema bilaterally, no cyanosis, no clubbing. +2 pulses femoral and pedal pulses bilaterally. SKIN: No lesions or rashes. MUSCULOSKELETAL: No chest tenderness to palpation. Scrotal edema present. NEUROLOGIC: Nonfocal. No gross sensory or motor deficits bilateral upper or lower extremities. Reason For Visit: ANASARCA,ACUTE CHF EXACERBATION Physical Exam Vital Signs: Temp Pulse Resp BP Pulse Ox 97.9 F 89 24 H 111/52 L 92 06/09/20 22:00 06/09/20 19:47 06/09/20 15:33 06/09/20 19:47 06/09/20 19:47 Intake & Output 06/09/20 06/10/20 06/11/20 06:59 06:59 06:59 Intake Total 458 650 Output Total 500 2000 Balance -42 -1350 Weight 127.8 kg 127.8 kg Results Laboratory Results: 06/08/20 04:54 06/09/20 07:23 06/09/20 07:23 Sodium 132.8 L Potassium 3.8 Chloride 94 L Carbon Dioxide 34 H Anion Gap 5 BUN 47 H Creatinine 2.14 H Est GFR ( Amer) 40 L Glucose 193 H Calcium 9.0 06/07/20 06/08/20 17:14 04:54 Troponin I 0.033 0.039 NT-Pro-B Natriuret Pep 3330 H Impressions: Chest X-Ray 06/07/20 17:14 IMPRESSION: Slightly improved aeration in both lungs suggestive of improving pneumonia. Head CT 06/08/20 08:00 IMPRESSION: Sinus disease. No acute intracranial imaging findings. EVIDENCE OF ACUTE STROKE: NO. 06/08/20 04:54 MCV 91 fl (80-97) 06/08/20 04:54 MCH 31.4 pg (27.0-33.4) 06/08/20 04:54 MCHC 34.3 g/dL (32.0-36.0) 06/08/20 04:54 RDW 15.2 % (11.5-14.0) H 06/08/20 04:54 Seg Neutrophils % 75.4 % (42-78) 06/08/20 04:54 VBG pH 7.43 (7.30-7.42) H 06/07/20 17:32 VBG pCO2 49.7 mmHg (35-63) 06/07/20 17:32 VBG HCO3 32.0 mmol/L (20-32) 06/07/20 17:32 VBG Base Excess 6.4 mmol/L 06/07/20 17:32 Chloride 94 mmol/L (98-107) L 06/09/20 07:23 Carbon Dioxide 34 mmol/L (22-30) H 06/09/20 07:23 Anion Gap 5 (5-19) 06/09/20 07:23 Est GFR ( Amer) 40 (>60) L 06/09/20 07:23 Glucose 193 mg/dL (75-110) H 06/09/20 07:23 Lactic Acid 2.2 mmol/L (0.7-2.1) H 06/07/20 17:14 Calcium 9.0 mg/dL (8.4-10.2) 06/09/20 07:23 Phosphorus 2.7 mg/dL (2.5-4.5) 06/08/20 04:54 Magnesium 1.6 mg/dL (1.6-2.3) 06/08/20 04:54 Total Bilirubin 2.5 mg/dL (0.2-1.3) H 06/08/20 04:54 AST 49 U/L (17-59) 06/08/20 04:54 Alkaline Phosphatase 90 U/L (38-126) 06/08/20 04:54 Total Protein 6.9 g/dL (6.3-8.2) 06/08/20 04:54 Albumin 2.9 g/dL (3.5-5.0) L 06/08/20 04:54 Triglycerides 72 mg/dL (<150) 06/08/20 04:54 Cholesterol 179.36 mg/dL (0-200) 06/08/20 04:54 LDL Cholesterol Direct 91 mg/dL (<100) 06/08/20 04:54 VLDL Cholesterol 14.0 mg/dL (10-31) 06/08/20 04:54 HDL Cholesterol 46 mg/dL (>40) 06/08/20 04:54 Urine Color YELLOW 06/07/20 19:18 Urine Appearance CLEAR 06/07/20 19:18 Urine pH 5.0 (5.0-9.0) 06/07/20 19:18 Ur Specific [place] 1.006 06/07/20 19:18 Urine Protein NEGATIVE mg/dL (NEGATIVE) 06/07/20 19:18 Urine Glucose (UA) NEGATIVE mg/dL (NEGATIVE) 06/07/20 19:18 Urine Ketones NEGATIVE mg/dL (NEGATIVE) 06/07/20 19:18 Urine Blood MODERATE (NEGATIVE) H 06/07/20 19:18 Urine Nitrite NEGATIVE (NEGATIVE) 06/07/20 19:18 Ur Leukocyte Esterase TRACE (NEGATIVE) H 06/07/20 19:18 Urine WBC (Auto) 9 /HPF 06/07/20 19:18 Urine RBC (Auto) 11 /HPF 06/07/20 19:18 06/07/20 06/08/20 17:14 04:54 Troponin I 0.033 0.039 NT-Pro-B Natriuret Pep 3330 H Current Medication List Generic Name Dose Route Start Last Admin Trade Name Freq PRN Reason Stop Dose Admin Acetaminophen 325 mg 06/07/20 22:38 Acetaminophen 325 Mg Tablet PO 07/07/20 22:37 Q4HP PRN FEVER >101 Al Hydrox/Mg Hydrox/Simethicone 15 ml 06/07/20 22:38 Mag Hydrox/Al Hydrox/Simeth Susp 30 Ml Udcup PO 07/07/20 22:37 Q6HP PRN HEARTBURN Albuterol/Ipratropium 3 ml 06/07/20 22:38 06/09/20 14:36 Ipratropium/Albuterol 0.5-2.5 Mg/3 Ml Ampul NEB 07/07/20 22:37 3 ml RTQ6HP PRN Administration SHORTNESS OF BREATH Aspirin 81 mg 06/08/20 22:00 06/09/20 21:05 Aspirin 81 Mg Tablet, Chewable PO 07/08/20 21:59 81 mg QHS CAMILO Administration Atorvastatin Calcium 40 mg 06/08/20 22:00 06/09/20 21:05 Atorvastatin Calcium 40 Mg Tablet PO 07/08/20 21:59 40 mg QHS CAMILO Administration Dextrose 12.5 gm 06/07/20 22:47 Dextrose 50%-Water 25 Gm/50 Ml Disp.Syrin IV 07/07/20 22:46 PRN PRN FOR BG 50-69 IN ALERT PATIENT Protocol Dextrose 25 gm 06/07/20 22:47 Dextrose 50%-Water 25 Gm/50 Ml Disp.Syrin IV 07/07/20 22:46 PRN PRN PER PROTOCOL Protocol Docusate Sodium 100 mg 06/08/20 10:00 06/09/20 17:22 Docusate Sodium 100 Mg Capsule PO 07/08/20 09:59 100 mg BID CAMILO Administration Famotidine 20 mg 06/08/20 10:00 06/09/20 21:05 Famotidine 20 Mg Tablet PO 07/08/20 09:59 20 mg Q12 CAMILO Administration Furosemide 60 mg 06/09/20 10:00 06/09/20 17:23 Furosemide Inj/Pf 40 Mg/4 Ml Sdv IV 07/09/20 09:59 60 mg BID CAMILO Administration Glucagon 1 mg 06/07/20 22:47 Glucagon,Human Recomb 1 Mg Inj IM 07/07/20 22:46 PRN PRN Evaluate for BG < 70 Protocol Glucose 15 gm 06/07/20 22:47 Dextrose 40% Gel 15 Gm Tube PO 07/07/20 22:46 PRN PRN FOR BG 50-69 IN ALERT PATIENT Protocol Glucose 30 gm 06/07/20 22:47 Dextrose 40% Gel 15 Gm Tube PO 07/07/20 22:46 PRN PRN FOR BG < 50 IN ALERT PATIENT Protocol Heparin Sodium (Porcine) 5,000 unit 06/08/20 06:00 06/10/20 06:42 Heparin Sod (Porcine) 5,000 Unit/Ml 1 Ml Vial SUBCUT 07/08/20 05:59 Not Given Q8 CAMILO Insulin Glargine 15 unit 06/09/20 22:00 06/09/20 22:07 Insulin Glargine,Hum.Rec.Anlog 1,000 Unit/10 Ml Vial SUBCUT 07/09/20 21:59 15 unit Q12 CAMILO Administration Insulin Human Lispro 0 - 12 unit 06/08/20 08:00 06/09/20 22:06 Insulin Lispro 100 Unit/Ml 3 Ml Vial SUBCUT 07/08/20 07:59 4 unit ACHS CAMILO Administration Protocol Morphine Sulfate 1 mg 06/09/20 23:51 06/10/20 00:06 Morphine Sulfate 10 Mg/Ml Inj IV 06/16/20 23:50 1 mg Q4HP PRN Administration PAIN Ondansetron HCl 4 mg 06/07/20 22:38 Ondansetron Hcl Inj/Pf 4 Mg/2 Ml Sdv IV 07/07/20 22:37 Q4HP PRN FOR NAUSEA/VOMITING Oxycodone/Acetaminophen 1 tab 06/07/20 22:38 06/08/20 12:25 Oxycodone-Acetaminophen 5-325 Mg Tablet PO 06/14/20 22:37 1 tab Q4HP PRN Administration FOR PAIN SCALE 3-5 Promethazine HCl 6.25 mg 06/07/20 22:38 06/08/20 05:02 Promethazine Hcl Inj 25 Mg/1 Ml Vial IV 07/07/20 22:37 6.25 mg Q4HP PRN Administration FOR NAUSEA/VOMITING Temazepam 7.5 mg 06/07/20 22:38 06/09/20 21:06 Temazepam 7.5 Mg Capsule PO 06/14/20 22:37 7.5 mg HSP PRN Administration SLEEP OR INSOMNIA Discontinued Medications Generic Name Dose Route Start Last Admin Trade Name Freq PRN Reason Stop Dose Admin Aspirin 81 mg 06/07/20 23:00 06/07/20 23:36 Aspirin 81 Mg Tablet, Chewable PO 06/07/20 23:01 81 mg NOW ONE Administration Atorvastatin Calcium 40 mg 06/07/20 23:00 06/07/20 23:36 Atorvastatin Calcium 40 Mg Tablet PO 06/07/20 23:01 40 mg NOW ONE Administration Famotidine 20 mg 06/07/20 23:00 06/07/20 23:36 Famotidine 20 Mg Tablet PO 06/07/20 23:01 20 mg NOW ONE Administration Furosemide 40 mg 06/07/20 17:18 06/07/20 17:59 Furosemide Inj/Pf 20 Mg/2 Ml Sdv IV 06/07/20 17:19 40 mg NOW ONE Administration Furosemide 40 mg 06/08/20 06:00 06/08/20 16:02 Furosemide Inj/Pf 40 Mg/4 Ml Sdv IV 07/08/20 05:59 Not Given Q8 CAMILO Haloperidol Lactate 2 mg 06/10/20 01:00 06/10/20 01:13 Haloperidol Lactate Inj 5 Mg/1 Ml Vial IM 06/10/20 01:01 2 mg ONCE ONE Administration Magnesium Sulfate/Dextrose 1 gm in 100 mls @ 100 mls/hr 06/07/20 19:00 06/07/20 22:45 Magnesium Sulfate Rtu-D5w 1 Gm/100 Ml Premix IV 06/07/20 20:59 Infused Q1H CAMILO Infusion Albumin Human 12.5 gm in 50 mls @ 50 mls/hr 06/09/20 12:15 06/09/20 18:36 Albuminar-25 Rtu Inj 12.5 Gm/50 Ml Premix IV 06/09/20 13:14 Infused NOW ONE Infusion Insulin Glargine 12 unit 06/08/20 22:00 06/09/20 10:12 Insulin Glargine,Hum.Rec.Anlog 1,000 Unit/10 Ml Vial SUBCUT 07/08/20 21:59 12 unit Q12 CAMILO Administration Insulin Glargine Confirm 06/08/20 22:10 06/08/20 22:34 Insulin Glargine,Hum.Rec.Anlog 1,000 Unit/10 Ml Vial (Pyx) Administered 06/08/20 22:11 Not Given Dose 1 unit SUBCUT .STK-MED ONE Lisinopril 2.5 mg 06/08/20 10:00 06/09/20 10:12 Lisinopril 5 Mg Tablet PO 07/08/20 09:59 2.5 mg DAILY CAMILO Administration Potassium Chloride 40 meq 06/07/20 18:51 06/07/20 19:11 Potassium Chloride 20 Meq Packet PO 06/07/20 18:52 40 meq NOW ONE Administration Spironolactone 25 mg 06/08/20 20:00 06/09/20 10:13 Spironolactone 25 Mg Tablet PO 07/08/20 19:59 25 mg DAILY CAMILO Administration Assessment & Plan - Diagnosis (1) Acute exacerbation of CHF (congestive heart failure) Qualifiers: Heart failure type: combined systolic and diastolic Qualified Code(s): I50.43 - Acute on chronic combined systolic (congestive) and diastolic (congestive) heart failure Is this a current diagnosis for this admission?: Yes Plan: The patient has heart failure with reduced ejection fraction with an EF between 30 and 35%. He continues to be fluid overloaded on exam and his response to Lasix therapy was very good yesterday after receiving some albumin prior to L asix with a documented output of 2 L bringing his net fluid balance to -617 mL since admission. Unfortunately he continues to be fluid overloaded and required morphine and Haldol last night and clinical cytopathologist today to control his hostility. His BMP is pending today. He definitely needs psychological/psychiatric evaluation. Recommendations: -Continue diuresis with current doses of Lasix with IV albumin 30 minutes prior to Lasix dose. -We will consider adding Entresto 24 mg / 26 mg twice daily 36 hours after last dose of lisinopril and when renal function improved. -Add Toprol 25 mg daily once he is further diuresed. -Restrict fluid intake to 1500 cc daily. -Low sodium diet, less than 1500 mg daily. -Strict intake and output. -Daily weights. -Daily BMP and magnesium and replace electrolytes as needed. -The patient will eventually need ischemic assessment. (2) Elevated troponin Is this a current diagnosis for this admission?: Yes Plan: His troponin is detectable but nondiagnostic. It appears to be a chronic issue as he has had prior mildly elevated troponins. He denies ischemic symptoms. Recommendations: -Continue with current medical management. -We will proceed with ischemic assessment eventually.
[2020-06-10] MEDS: INSULIN LISPRO 100 UNIT/ML 3 ML VIAL SUBCUT SCH ×4 (09:01→21:27)
[2020-06-10] MEDS: DOCUSATE SODIUM 100 MG CAPSULE PO SCH ×2 (09:02→17:25)
[2020-06-10] MEDS: FAMOTIDINE 20 MG TABLET PO SCH ×2 (09:02→22:53)
[2020-06-10] MEDS: FUROSEMIDE INJ/PF 40 MG/4 ML SDV IV SCH ×2 (09:12→17:29)
--- NOTE | 2020-06-10 09:25 | RADIOLOGY REPORT (SQ) ---
EXAM DESCRIPTION: CHEST SINGLE VIEW IMAGES COMPLETED DATE/TIME: 06/10/2020 8:42 am REASON FOR STUDY: Increased SOB COMPARISON: 06/07/2020 EXAM PARAMETERS: NUMBER OF VIEWS: One view. TECHNIQUE: Single frontal radiographic view of the chest acquired. RADIATION DOSE: NA LIMITATIONS: None. FINDINGS: LUNGS AND PLEURA: Interval worsening of diffuse increased mixed interstitial and airspace opacities. No large pleural effusion or pneumothorax. MEDIASTINUM AND HILAR STRUCTURES: No masses. Contour normal. HEART AND VASCULAR STRUCTURES: Stable cardiomegaly. The central vasculature is largely obscured by p ulmonary findings. BONES: No acute findings. HARDWARE: Right chest wall Port-A-Cath terminates in the region of the superior vena cava. OTHER: No other significant finding. IMPRESSION: 1. Interval progression in the appearance of diffusely increased mixed interstitial and airspace opacities. In the setting of cardiomegaly, differential considerations include both CHF ex acerbation and/or infectious process. 2. Stable Port-A-Cath. TECHNICAL DOCUMENTATION: JOB ID: [id number] 2010 [employer]- All Rights Reserved Reading location - IP/workstation name: [email or web address]
[2020-06-10] MEDS: INSULIN GLARGINE,HUM.REC.ANLOG 1,000 UNIT/10 ML VIAL SUBCUT SCH ×2 (11:37→22:53)
[2020-06-10] MEDS: IPRATROPIUM/ALBUTEROL 0.5-2.5 MG/3 ML AMPUL NEB PRN (11:55)
[2020-06-10 12:04] LABS: ARTERIAL BLOOD BASE EXCESS 8.8 mmol/L; ARTERIAL BLOOD H2CO3 1.45 mmol/L (1.05-1.35); ARTERIAL BLOOD HCO3 33.9 mmol/L (20-24); ARTERIAL BLOOD O2 SATURATION 87.8 % (94-98); ARTERIAL BLOOD PCO2 48.1 mmHg (35-45); ARTERIAL BLOOD PH 7.47 (7.35-7.45); ARTERIAL BLOOD PO2 51.1 mmHg (80-100); ARTERIAL BLOOD TOTAL CO2 35.4 mmol/L (23-27)
[2020-06-10 12:05] LABS: ARTERIAL BLOOD FIO2 21%
[2020-06-10] MEDS ORDERED: LORAZEPAM INJ 2 MG/1 ML VIAL IV ONE (13:35)
--- NOTE | 2020-06-10 14:31 | PDOC PROGRESS REPORT ---
Subjective Date:: 06/10/20 Subjective:: LIZABETH VICK is a 49 year old male past medical history of morbid obesity, CHF, h istory of medication nonadherence with frequent presentation to ED and leaving AMA, patient is presenting to ED today complaining of worsening shortness of breath, bilateral lower extremity, scrotal and abdominal edema. Unfortunately patient is very poor historian and does not provide much history, complaining of any history of CAD or being followed up by PCP or a master control operator. When asked if he is adherent with his medication he states he only takes it when he has it, he does not follow cardiac diet either. Patient denies any fever, chills, nausea, vomiting, diarrhea, constipation. In ED he was noted to have elevated proBNP, mildly elevated troponin, and hospital was consulted for admission. D1 hospital stay 06/08/20 Patient was seen and examined at bedside. His mood is very labile and is a poor historian, does not really want to answer questions. However he is not delirious or violent. He admits to feeling short of breath but this has improved since his admission. he denied any chest pain. He admits to not taking his medications. D2 hospital stay 06/09/20. Patient was seen and examined at bedside. His mood as very labile according to the nurse but he is otherwise stable. Moderate cough and he is requiring 2L of nasal cannula. Crea worse today, lisinopril and aldactone was held, lasix continued. D3 hospital stay 06/10/20. Patient was seen and examined at bedside. Per n vicente patient became very agitated last night requiring morphine and haldol. This morning he was initially very drowsy and confused then again became belligerent. He was given 1 dose of ativan, QTC 498 which is already prolonged. Seroquel started for tonight. I suspect the patient has an underlying psychiatric problem but he is non compliant and I doubt if he has ever seen a therapist or a psychiatrist for a formal diagnosis. Will consult psych. Reason For Visit: ANASARCA,ACUTE CHF EXACERBATION Physical Exam Vital Signs: Temp Pulse Resp BP Pulse Ox 97.4 F 88 20 92/50 L 90 L 06/10/20 08:17 06/10/20 11:55 06/10/20 11:55 06/10/20 07:00 06/10/20 11:55 Intake & Output 06/09/20 06/10/20 06/11/20 06:59 06:59 06:59 Intake Total 458 650 Output Total 500 2000 Balance -42 -1350 Weight 127.8 kg 127.8 kg General appearance: PRESENT: disheveled, mild distress, obese, other - uncooperative Head exam: PRESENT: atraumatic, normocephalic Eye exam: PRESENT: EOMI, PERRLA Mouth exam: PRESENT: moist Neck exam: PRESENT: full ROM Respiratory exam: PRESENT: rales, rhonchi, symmetrical Cardiovascular exam: PRESENT: RRR, +S1, +S2 Pulses: PRESENT: +2 pedal pulses bilateral GI/Abdominal exam: PRESENT: normal bowel sounds, soft. ABSENT: rebound, tenderness Extremities exam: PRESENT: +2 edema Neurological exam: PRESENT: alert, awake. ABSENT: oriented to person, oriented to place, oriented to time Psychiatric exam: PRESENT: manic, unusual affect Focused psych exam: PRESENT: psychomotor agitation Skin exam: PRESENT: normal color Results Laboratory Results: 06/08/20 04:54 06/10/20 07:07 06/10/20 06/10/20 06/10/20 07:07 11:30 13:30 Carbonic Acid 1.45 H HCO3/H2CO3 Ratio 23:1 ABG pH 7.47 H ABG pCO2 48.1 H ABG pO2 51.1 L ABG HCO3 33.9 H ABG O2 Saturation 87.8 L ABG Base Excess 8.8 FiO2 21% Sodium 136.4 L Potassium 3.9 Chloride 98 Carbon Dioxide 30 Anion Gap 8 BUN 50 H Creatinine 1.72 H Est GFR ( Amer) 51 L Glucose 196 H Calcium 9.7 Ammonia 35.9 H 06/07/20 06/08/20 17:14 04:54 Troponin I 0.033 0.039 NT-Pro-B Natriuret Pep 3330 H Impressions: Head CT 06/08/20 08:00 IMPRESSION: Sinus disease. No acute intracranial imaging findings. EVIDENCE OF ACUTE STROKE: NO. Chest X-Ray 06/10/20 00:00 IMPRESSION: 1. Interval progression in the appearance of diffusely increased mixed interstitial and airspace opacities. In the setting of cardiomegaly, differential considerations include both CHF exacerbation and/or infectious process. 2. Stable Port-A-Cath. Assessment and Plan - Diagnosis (1) Acute exacerbation of CHF (congestive heart failure) Qualifiers: Heart failure type: combined systolic and diastolic Qualified Code(s): I50.43 - Acute on chronic combined systolic (congestive) and diastolic (congestive) heart failure Is this a current diagnosis for this admission?: Yes Plan: Patient denies any history of CAD, has not had any previous echo, does not follow-up with PCP or cardiology. Patient has frequent presentation with acute CHF exacerbation. BNP 3330 Echo EF 30 to 35%, moderately reduced LV systolic function, moderate global hypokinesis of the left ventricle. Continue Lasix, Toprol, Lipitor We will start beta-loulou once he is more diuresed per cardiology recs He will eventually need ischemic work-up I doubt if he is getting agreed to this or be compliant with the recommendations. Daily weights Strict intake and output Cardiology consulted. (2) Anasarca Is this a current diagnosis for this admission?: Yes Plan: Patient denies any history of CAD but has had several admission to ED for CHF exacerbation. Unfortunately patient does not have a PCP and does not follow-up with a master control operator. Patient is not adherent to his medication or fluid restriction. Presenting with bilateral lower extremity, scrotal and abdominal wall edema. aldactone stopped continue lasix at current dose, to give albumin with lasix Strict I&O Daily weights (3) Elevated troponin Is this a current diagnosis for this admission?: Yes Plan: Troponin on admission 0.033>0.039. Baseline troponin 0.2. no anginal symptoms. Denies any history of CAD. EKG no acute changes. This is likely due to demand mismatch due to underlying acute CHF exacerbation. Continue medical management for now (4) Medical non-compliance Is this a current diagnosis for this admission?: Yes Plan: Patient extensively advised on medication adherence. Car Detailer consulted for medication assistance. (5) Acute respiratory insufficiency Is this a current diagnosis for this admission?: Yes Plan: -Patient came in due to shortness of breath -Chest x-ray showing pneumonia with negative covid -BNP elevated 3330 -This likely secondary to pulmonary congestion from acute CHF exacerbation - continue O2 support PRN (6) Diabetes mellitus type 2 in obese Is this a current diagnosis for this admission?: Yes Plan: On oral hypoglycemics. No hemoglobin A1c available. A1C 9.4 Started on Lantus 12 units twice a day Diabetic diet, sliding scale insulin, Accu-Chek, hypoglycemia protocol. Diabetic education. (7) Tobacco use disorder, continuous Is this a current diagnosis for this admission?: Yes (8) Agitation Is this a current diagnosis for this admission?: Yes Plan: -Patient has been agitated with very labile mood since admission. He has never been formally diagnosed with any psychiatric condition but I suspect he has has 1 either a borderline personality disorder or schizophrenic types condition. He has gone home AGAINST MEDICAL ADVICE several times in the past so I suspect this is a chronic condition. -started on seroqeul - psych consult - Time Time Spent with patient: 25-34 minutes Medications reviewed and adjusted accordingly: Yes Anticipated Discharge Disposition: Home with Home Health Anticipated Discharge Timeframe: tbd
[2020-06-10] MEDS: ALBUMIN HUMAN 12.5 GM/50 ML RTUINJ IV SCH (17:29)
[2020-06-10] MEDS: QUETIAPINE FUMARATE 25 MG TABLET PO SCH (22:53)
[2020-06-10] MEDS: ASPIRIN 81 MG TABLET, CHEWABLE PO SCH (22:53)
[2020-06-10] MEDS: ATORVASTATIN CALCIUM 40 MG TABLET PO SCH (22:53)
[2020-06-11] MEDS: HEPARIN SOD (PORCINE) 5,000 UNIT/ML 1 ML VIAL SUBCUT SCH ×3 (05:12→22:47)
--- NOTE | 2020-06-11 07:51 | PDOC PROGRESS REPORT ---
Subjective Date:: 06/11/20 Subjective:: LIZABETH VICK is a 49 year old male with history of lymphoma, morbid obesity, heart failure of unclear etiology, medication noncompliance, with multiple evaluations in our emergency room as well as admission to this facility but the patient leaves AMA before completing treatment who is consulted to our service for evaluation of dyspnea and heart failure exacerbation. Review of his chart demonstrates that the patient had been seen or admitted to our facility at least 5 times in the last several months. He was seen in our emergency room on 03/28/2020 for evaluation of shortness of breath. At that time he was diagnosed with pneumonia and left the emergency room AMA. He returned to the emergency room on 03/30/2024 worsening dyspnea, he was diagnosed with pneumonia and admi tted however he left AMA on 03/31/2020. He returned to our emergency room on 05/22/2020 complaining of genital edema, at that time his chest x-ray was consistent with worsening multifocal pneumonia and a scrotal ultrasound demonstrated edema. The emergency room physician recommended Lasix and admi ssion however the patient declined to be admitted, refused his Lasix and eloped from the emergency department. His dyspnea continued to worsen and he presented again yesterday to the emergency room with worsening shortness of breath, bilateral lower extremity edema as well as scrotal and abdominal edema. His chest x-ray during this admission was read by radiology as improved aeration without pulmonary edema however, upon my review, it appears more consistent with heart failure although it is improved from his prior x-ray on 05/22/2020. 06/11/2020: The patient had an uneventful night from the cardiovascular standpoint however he refused to take evening meds as he did not want to wake up to take them. Per nursing report, he continues to be very combative and hostile. He continues to pull on his telemetry leads as well as pulse oximetry monitor. He continues to be he has had a very good response to diuretic therapy and is now -4.417L in his net fluid balance since admission. The urine in his [place] appears to be concentrated and his blood pressure is on the low side. Physical exam on 06/11/2020: GENERAL: Sleeping and difficult to wake up. Naked in bed and not in acute distress. Disheveled. HEENT: Normocephalic, atraumatic. Pupils equal. Sclerae anicteric. Oropharynx dry. NECK: No JVD. No carotid bruits. LUNGS: Diffuse rhonchi in all pham. Normal respiratory effort without the use of accessory muscles or intercostal retractions. CARDIOVASCULAR: Regular rate and rhythm, normal S1 and S2 without murmurs, rubs, or gallops. PMI not displaced. ABDOMEN: No masses or tenderness to palpation. No bruit. No splenomegaly or hepatomegaly. No abdominal aorta bruit noted. EXTREMITIES: 2-3+ pitting edema bilaterally, no cyanosis, no clubbing. +2 pulses femoral and pedal pulses bilaterally. SKIN: No lesions or rashes. MUSCULOSKELETAL: No chest tenderness to palpation. Scrotal edema present. NEUROLOGIC: Nonfocal. No gross sensory or motor deficits bilateral upper or lower extremities. Reason For Visit: ANASARCA,ACUTE CHF EXACERBATION Physical Exam Vital Signs: Temp Pulse Resp BP Pulse Ox 98.8 F 100 20 89/50 L 98 06/10/20 23:00 06/11/20 02:00 06/10/20 23:00 06/10/20 23:00 06/10/20 23:00 Intake & Output 06/09/20 06/10/20 06/11/20 06:59 06:59 06:59 Intake Total 458 650 50 Output Total 500 2000 3850 Balance -42 -3370 -3800 Weight 127.8 kg 127.8 kg 127.6 kg Results Laboratory Results: 06/08/20 04:54 06/10/20 07:07 06/10/20 06/10/20 06/10/20 07:07 11:30 13:30 Carbonic Acid 1.45 H HCO3/H2CO3 Ratio 23:1 ABG pH 7.47 H ABG pCO2 48.1 H ABG pO2 51.1 L ABG HCO3 33.9 H ABG O2 Saturation 87.8 L ABG Base Excess 8.8 FiO2 21% Sodium 136.4 L Potassium 3.9 Chloride 98 Carbon Dioxide 30 Anion Gap 8 BUN 50 H Creatinine 1.72 H Est GFR ( Amer) 51 L Glucose 196 H Calcium 9.7 Ammonia 35.9 H 06/07/20 06/08/20 17:14 04:54 Troponin I 0.033 0.039 NT-Pro-B Natriuret Pep 3330 H Impressions: Head CT 06/08/20 08:00 IMPRESSION: Sinus disease. No acute intracranial imaging findings. EVIDENCE OF ACUTE STROKE: NO. Chest X-Ray 06/10/20 00:00 IMPRESSION: 1. Interval progression in the appearance of diffusely increased mixed interstitial and airspace opacities. In the setting of cardiomegaly, differential considerations include both CHF exacerbation and/or infectious pro cess. 2. Stable Port-A-Cath. Assessment & Plan - Diagnosis (1) Acute exacerbation of CHF (congestive heart failure) Qualifiers: Heart failure type: combined systolic and diastolic Qualified Code(s): I50.43 - Acute on chronic combined systolic (congestive) and diastolic (congestive) heart failure Is this a current diagnosis for this admission?: Yes Plan: The patient has heart failure with reduced ejection fraction with an EF between 30 and 35%. He has responded very well to diuresis and his fluid balance is admission is now -4.4 L. On exam his oral mucosa is dry, his blood pressure is on the low side but continues to have lower extremity edema although his scrotal edema is slightly improved. To complicate matters he had been delirious and hostile to the nursing staff. He continues to pull on his cardiac telemetry leads therefore no telemetry has been recorded. The urine in his [place] catheter looks concentrated. His chemistry is pending this morning. Given that he appears slightly dehydrated on exam we will decrease his Lasix dose and will continue to diurese him as tolerated by his blood pressure and general clinical status. Recommendations: -Decrease Lasix to 40 mg IV twice daily with IV albumin 30 minutes prior to Lasix dose. -We will consider adding Entresto 24 mg / 26 mg twice daily 36 hours after last dose of lisinopril and when renal function improved. -Add Toprol 25 mg daily once he is further diuresed. -Restrict fluid intake to 1500 cc daily. -Low sodium diet, less than 1500 mg daily. -Strict intake and output. -Daily weights. -Daily BMP and magnesium and replace electrolytes as needed. -The patient will eventually need ischemic assessment. (2) Elevated troponin Is this a current diagnosis for this admission?: Yes Plan: His troponin is detectable but nondiagnostic. It appears to be a chronic issue as he has had prior mildly elevated troponins. He denies ischemic symptoms. Recommendations: -Continue with current medical management. -We will proceed with ischemic assessment eventually.
[2020-06-11] MEDS: INSULIN LISPRO 100 UNIT/ML 3 ML VIAL SUBCUT SCH ×4 (08:29→22:47)
[2020-06-11] MEDS: DOCUSATE SODIUM 100 MG CAPSULE PO SCH ×2 (10:10→17:21)
[2020-06-11] MEDS: FUROSEMIDE INJ/PF 40 MG/4 ML SDV IV SCH ×2 (10:11→17:30)
[2020-06-11] MEDS: FAMOTIDINE 20 MG TABLET PO SCH ×2 (10:15→22:48)
[2020-06-11] MEDS: ALBUMIN HUMAN 12.5 GM/50 ML RTUINJ IV SCH ×2 (10:18→18:49)
[2020-06-11] MEDS ORDERED: ZIPRASIDONE MESYLATE INJ/PF 20 MG SDV IM ONE (12:00)
[2020-06-11] MEDS ORDERED: LORAZEPAM INJ 2 MG/1 ML VIAL ONE (13:04)
[2020-06-11] MEDS: INSULIN GLARGINE,HUM.REC.ANLOG 1,000 UNIT/10 ML VIAL SUBCUT SCH ×2 (14:09→22:47)
[2020-06-11] MEDS ORDERED: LORAZEPAM INJ 2 MG/1 ML VIAL IV ONE (14:15)
[2020-06-11 14:17] LABS: ABSOLUTE EOSINOPHILS # (AUTO) 0.2 10^3/uL (0.0-0.6); ABSOLUTE LYMPHOCYTES (AUTO) 0.6 10^3/uL (0.5-4.7); ABSOLUTE MONOCYTES (AUTO) 0.2 10^3/uL (0.1-1.4); ABSOLUTE NEUT (AUTO) 6.7 10^3/uL (1.7-8.2); BASOPHILS % (AUTO) 0.4 % (0-2); EOSINOPHILS % (AUTO) 2.3 % (0-6); HEMATOCRIT 31.9 % (37.9-51.0); HEMOGLOBIN 10.6 g/dL (13.5-17.0); LYMPHOCYTES % (AUTO) 7.4 % (13-45); MEAN CORPUSCULAR HEMOGLOBIN 30.7 pg (27.0-33.4); MEAN CORPUSCULAR HGB CONC 33.1 g/dL (32.0-36.0); MEAN CORPUSCULAR VOLUME 93 fl (80-97); MONOCYTES % (AUTO) 2.4 % (3-13); PLATELET COUNT 122 10^3/uL (150-450); RED BLOOD COUNT 3.44 10^6/uL (4.35-5.55); SEGMENTED NEUTROPHILS % (AUTO) 87.5 % (42-78); TOTAL CELLS COUNTED % (AUTO) 100 %; WHITE BLOOD COUNT 7.7 10^3/uL (4.0-10.5)
[2020-06-11 14:37] LABS: ALBUMIN 3.2 g/dL (3.5-5.0); ALKALINE PHOSPHATASE 87 U/L (38-126); ANION GAP 8 (5-19); ASPARTATE AMINO TRANSFERASE 104 U/L (17-59); BILIRUBIN,DIRECT 0.5 mg/dL (0.0-0.4); BILIRUBIN,TOTAL 1.7 mg/dL (0.2-1.3); BLOOD UREA NITROGEN 42 mg/dL (7-20); CARBON DIOXIDE 37 mmol/L (22-30); CHLORIDE 97 mmol/L (98-107); GLUCOSE 121 mg/dL (75-110); TOTAL PROTEIN 7.2 g/dL (6.3-8.2)
--- NOTE | 2020-06-11 15:30 | PDOC PROGRESS REPORT ---
Subjective Date:: 06/11/20 Subjective:: LIZABETH VICK is a 49 year old male past medical history of morbid obesity, CHF, h istory of medication nonadherence with frequent presentation to ED and leaving AMA, patient is presenting to ED today complaining of worsening shortness of breath, bilateral lower extremity, scrotal and abdominal edema. Unfortunately patient is very poor historian and does not provide much history, complaining of any history of CAD or being followed up by PCP or a custodial services manager. When asked if he is adherent with his medication he states he only takes it when he has it, he does not follow cardiac diet either. Patient denies any fever, chills, nausea, vomiting, diarrhea, constipation. In ED he was noted to have elevated proBNP, mildly elevated troponin, and hospital was consulted for admission. D1 hospital stay 06/08/20 Patient was seen and examined at bedside. His mood is very labile and is a poor historian, does not really want to answer questions. However he is not delirious or violent. He admits to feeling short of breath but this has improved since his admission. he denied any chest pain. He admits to not taking his medications. D2 hospital stay 06/09/20. Patient was seen and examined at bedside. His mood as very labile according to the nurse but he is otherwise stable. Moderate cough and he is requiring 2L of nasal cannula. Crea worse today, lisinopril and aldactone was held, lasix continued. D3 hospital stay 06/10/20. Patient was seen and examined at bedside. Per ailyn zhang patient became very agitated last night requiring morphine and haldol. This morning he was initially very drowsy and confused then again became belligerent. He was given 1 dose of ativan, QTC 498 which is already prolonged. Seroquel started for tonight. I suspect the patient has an underlying psychiatric problem but he is non compliant and I doubt if he has ever seen a therapist or a psychiatrist for a formal diagnosis. Will consult psych. D4 hospital stay 06/11/20. Patient was seen and examined at bedside. He is becoming more aggressive and confused. He refused to take his oral medications and has pulled out his acuna catheter causing bleeding. He was given geodon and ativan for sedation. I have tried to call his mom at [phone] but was unable to get a hold of her. MRI ordered to assess AMS. ABG yesterday did not show any CO2 retention adn ammonia is normal. Reason For Visit: ANASARCA,ACUTE CHF EXACERBATION Physical Exam Vital Signs: Temp Pulse Resp BP Pulse Ox 98.2 F 96 22 H 135/97 H 97 06/11/20 08:34 06/11/20 07:00 06/11/20 07:00 06/11/20 07:00 06/11/20 07:00 Intake & Output 06/10/20 06/11/20 06/12/20 06:59 06:59 06:59 Intake Total 650 50 50 Output Total 2000 3850 Balance -1350 -3800 50 Weight 127.8 kg 127.6 kg General appearance: PRESENT: no acute distress, morbidly obese Head exam: PRESENT: atraumatic, normocephalic Eye exam: PRESENT: EOMI, PERRLA Neck exam: PRESENT: full ROM Respiratory exam: PRESENT: rales, symmetrical, tachypnea Cardiovascular exam: PRESENT: +S1, +S2, tachycardia GI/Abdominal exam: PRESENT: normal bowel sounds, soft. ABSENT: rebound, tenderness Gentrourinary exam: PRESENT: indwelling catheter Musculoskeletal exam: PRESENT: full ROM Neurological exam: PRESENT: altered Psychiatric exam: PRESENT: agitated, anxious Focused psych exam: PRESENT: restlessness Skin exam: PRESENT: normal color Results Laboratory Results: 06/11/20 13:40 06/11/20 13:40 06/11/20 06/11/20 06/11/20 13:40 13:40 13:40 WBC 7.7 RBC 3.44 L Hgb 10.6 L Hct 31.9 L MCV 93 MCH 30.7 MCHC 33.1 RDW 15.0 H Plt Count 122 L Seg Neutrophils % 87.5 H Sodium 141.7 Potassium 4.0 Chloride 97 L Carbon Dioxide 37 H Anion Gap 8 BUN 42 H Creatinine 1.35 H Est GFR ( Amer) > 60 Glucose 121 H Calcium 10.0 Magnesium 1.5 L Total Bilirubin 1.7 H AST 104 H Alkaline Phosphatase 87 Total Protein 7.2 Albumin 3.2 L 06/07/20 06/08/20 17:14 04:54 Troponin I 0.033 0.039 NT-Pro-B Natriuret Pep 3330 H Impressions: Head CT 06/08/20 08:00 IMPRESSION: Sinus disease. No acute intracranial imaging findings. EVIDENCE OF ACUTE STROKE: NO. Chest X-Ray 06/10/20 00:00 IMPRESSION: 1. Interval progression in the appearance of diffusely increased mixed interstitial and airspace opacities. In the setting of cardiomegaly, differential considerations include both CHF exacerbation and/or infectious process. 2. Stable Port-A-Cath. Assessment and Plan - Diagnosis (1) Acute exacerbation of CHF (congestive heart failure) Qualifiers: Heart failure type: combined systolic and diastolic Qualified Code(s): I50.43 - Acute on chronic combined systolic (congestive) and diastolic (congestive) heart failure Is this a current diagnosis for this admission?: Yes Plan: Patient denies any history of CAD, has not had any previous echo, does not follow-up with PCP or cardiology. Patient has frequent presentation with acute CHF exacerbation. BNP 3330 Echo EF 30 to 35%, moderately reduced LV systolic function, moderate global hypokinesis of the left ventricle. Continue Lasix, Toprol, Lipitor We will start beta-loulou once he is more diuresed per cardiology recs He will eventually need ischemic work-up I doubt if he is getting agreed to this or be compliant with the recommendations. Daily weights Strict intake and output Cardiology consulted. (2) Anasarca Is this a current diagnosis for this admission?: Yes Plan: Improving Patient denies any history of CAD but has had several admission to ED for CHF exacerbation. Unfortunately patient does not have a PCP and does not follow-up with a custodial services manager. Patient is not adherent to his medication or fluid restriction. Presenting with bilateral lower extremity, scrotal and abdominal wall edema. aldactone stopped continue lasix at current dose, to give albumin with lasix Strict I&O Daily weights (3) Elevated troponin Is this a current diagnosis for this admission?: Yes Plan: Troponin on admission 0.033>0.039. Baseline troponin 0.2. no anginal symptoms. Denies any history of CAD. EKG no acute changes. This is likely due to demand mismatch due to underlying acute CHF exacerbation. Continue medical management for now (4) Medical non-compliance Is this a current diagnosis for this admission?: Yes Plan: Patient extensively advised on medication adherence. Lint Cleaner consulted for medication assistance. (5) Acute respiratory insufficiency Is this a current diagnosis for this admission?: Yes Plan: -Patient came in due to shortness of breath -Chest x-ray showing pneumonia with negative covid -BNP elevated 3330 -This likely secondary to pulmonary congestion from acute CHF exacerbation - continue O2 support PRN, patient continuously removed his nasal cannula (6) Diabetes mellitus type 2 in obese Is this a current diagnosis for this admission?: Yes Plan: On oral hypoglycemics. No hemoglobin A1c available. A1C 9.4 Started on Lantus 12 units twice a day Diabetic diet, sliding scale insulin, Accu-Chek, hypoglycemia protocol. Diabetic education. (7) Tobacco use disorder, continuous Is this a current diagnosis for this admission?: Yes Plan: Counseled on quitting. NicoDerm patch will be provided. (8) Agitation Is this a current diagnosis for this admission?: Yes Plan: -Patient has been agitated with very labile mood since admission. He has never been formally diagnosed with any psychiatric condition but I suspect he has has 1 either a borderline personality disorder or schizophrenic types condition. He has gone home AGAINST MEDICAL ADVICE several times in the past so I suspect this is a chronic condition. - drug screen negative -started on seroquel - MRI ordered - psych consult (9) Hypomagnesemia Is this a current diagnosis for this admission?: Yes Plan: - Mg 1.5 - replaced via IV - Time Time Spent with patient: 25-34 minutes Medications reviewed and adjusted accordingly: Yes Anticipated Discharge Disposition: Home with Home Health Anticipated Discharge Timeframe: tbd
[2020-06-11] MEDS: MAGNESIUM SULFATE/D5W 1 GM/100 ML RTUPB IV SCH (17:31)
--- NOTE | 2020-06-11 17:38 | PSYCHOLOGICAL NOTE ---
Psych Note - Psych Note Date seen by psych provider: 06/11/20 Time seen by psych provider: 17:10 Psych Note: Reason for Consult:mood swings and aggressive behaviour Patient is unable to engage in evaluation at this time due to needing medication to address behaviours. Clinician spoke with attending nurse. She reported she has been assigned to him every day since Friday. She reported that on Friday he was completely orientated with brief anger outburst, but then would apologize after. She disclosed today and yesterday it has gotten worse. She reported the patient does not even respond to his name anymore and is swing, kicking, and trying to bite. She reported he even bites himself. She continued to disclose the patient's mother stated he has baseline anger and aggression. Patient has never been seen by the behavioral health team; however a chart review indicates the patient disclosed a history of depression during previous visits. Patient reportedly stated he did not want to take medications. Behavioral health team will attempt evaluation again at a later time.
--- NOTE | 2020-06-11 20:37 | EKG REPORT ---
SEVERITY:- ABNORMAL ECG - SINUS TACHYCARDIA LOW VOLTAGE IN FRONTAL LEADS NONSPECIFIC T ABNORMALITIES, DIFFUSE LEADS : Confirmed by: Kerwin Lizama MD 11-Jun-2020 20:36:14
[2020-06-11] MEDS: ASPIRIN 81 MG TABLET, CHEWABLE PO SCH (22:46)
[2020-06-11] MEDS: ATORVASTATIN CALCIUM 40 MG TABLET PO SCH (22:48)
[2020-06-11] MEDS: QUETIAPINE FUMARATE 25 MG TABLET PO SCH (22:48)
[2020-06-11] MEDS ORDERED: MAGNESIUM SULFATE/D5W 1 GM/100 ML RTUPB IV SCH (23:45)
[2020-06-12] MEDS: MAGNESIUM SULFATE/D5W 1 GM/100 ML RTUPB IV SCH (00:37)
[2020-06-12] MEDS ORDERED: ACETAMINOPHEN 1,000 MG/100 ML RTUPB IV ONE (04:15)
[2020-06-12 06:51] LABS: ANION GAP 9 (5-19); BLOOD UREA NITROGEN 47 mg/dL (7-20); CALCIUM 9.6 mg/dL (8.4-10.2); CARBON DIOXIDE 36 mmol/L (22-30); CHLORIDE 99 mmol/L (98-107); GLUCOSE 107 mg/dL (75-110); POTASSIUM 3.4 mmol/L (3.6-5.0)
[2020-06-12] MEDS: HEPARIN SOD (PORCINE) 5,000 UNIT/ML 1 ML VIAL SUBCUT SCH ×3 (06:53→23:13)
[2020-06-12] MEDS ORDERED: CARVEDILOL 6.25 MG TABLET PO SCH (10:00)
[2020-06-12] MEDS ORDERED: LORAZEPAM INJ 2 MG/1 ML VIAL IV ONE ×2 (10:34→15:12)
[2020-06-12] MEDS ORDERED: VANCOMYCIN HCL 0 MG in DEXTROSE 5%-WATER 250 ML IV NR (10:45)
[2020-06-12] MEDS: INSULIN LISPRO 100 UNIT/ML 3 ML VIAL SUBCUT SCH ×4 (10:51→23:13)
[2020-06-12] MEDS: DOCUSATE SODIUM 100 MG CAPSULE PO SCH ×2 (10:55→18:27)
[2020-06-12] MEDS: INSULIN GLARGINE,HUM.REC.ANLOG 1,000 UNIT/10 ML VIAL SUBCUT SCH ×2 (10:56→23:27)
[2020-06-12] MEDS: FAMOTIDINE 20 MG TABLET PO SCH ×2 (10:57→23:28)
[2020-06-12] MEDS ORDERED: ZIPRASIDONE MESYLATE INJ/PF 20 MG SDV IM ONE (11:00)
[2020-06-12] MEDS: ALBUMIN HUMAN 12.5 GM/50 ML RTUINJ IV SCH (11:02)
[2020-06-12] MEDS: FUROSEMIDE INJ/PF 40 MG/4 ML SDV IV SCH (11:03)
[2020-06-12] MEDS ORDERED: VANCOMYCIN HCL 1,500 MG in DEXTROSE 5%-WATER 250 ML IV ONE (11:30)
[2020-06-12] MEDS ORDERED: PIPERACILLIN/TAZOBACTAM 3.375 GM VIAL IV SCH (12:00)
--- NOTE | 2020-06-12 12:24 | PDOC PROGRESS REPORT ---
Subjective Date:: 06/12/20 Subjective:: Patient was followed by Dr. Avina during the past week. Please review his n otes for clinical course up to this point. Today at the time of my exam patient is quite confused and combative and is not cooperative for exam. He does have coarse noisy respirations. Nurses have had difficulty restraining him. From a heart failure standpoint patient was being managed with diuretics. He was also diagnosed with pneumonia and receiving antibiotic therapy. Reason For Visit: ANASARCA,ACUTE CHF EXACERBATION Physical Exam Vital Signs: Temp Pulse Resp BP Pulse Ox 98.9 F 86 16 120/60 93 06/12/20 11:15 06/12/20 11:47 06/12/20 11:47 06/12/20 11:15 06/12/20 11:47 Intake & Output 06/11/20 06/12/20 06/13/20 06:59 06:59 06:59 Intake Total 50 200 50 Output Total 3850 1950 100 Balance -3800 -1750 -50 Weight 127.6 kg 128 kg General appearance: PRESENT: mild distress, obese Head exam: PRESENT: atraumatic, normocephalic Eye exam: PRESENT: conjunctiva pink, EOMI Respiratory exam: PRESENT: crackles, rales, symmetrical Cardiovascular exam: PRESENT: RRR, +S1, +S2 GI/Abdominal exam: PRESENT: soft Rectal exam: PRESENT: deferred Neurological exam: PRESENT: altered Skin exam: PRESENT: dry, intact Results Laboratory Results: 06/11/20 13:40 06/12/20 06:01 06/11/20 06/11/20 06/11/20 13:40 13:40 13:40 WBC 7.7 RBC 3.44 L Hgb 10.6 L Hct 31.9 L MCV 93 MCH 30.7 MCHC 33.1 RDW 15.0 H Plt Count 122 L Seg Neutrophils % 87.5 H Sodium 141.7 Potassium 4.0 Chloride 97 L Carbon Dioxide 37 H Anion Gap 8 BUN 42 H Creatinine 1.35 H Est GFR ( Amer) > 60 Glucose 121 H Calcium 10.0 Magnesium 1.5 L Total Bilirubin 1.7 H AST 104 H Alkaline Phosphatase 87 Total Protein 7.2 Albumin 3.2 L 06/12/20 06:01 WBC RBC Hgb Hct MCV MCH MCHC RDW Plt Count Seg Neutrophils % Sodium 143.5 Potassium 3.4 L Chloride 99 Carbon Dioxide 36 H Anion Gap 9 BUN 47 H Creatinine 1.48 H Est GFR ( Amer) > 60 Glucose 107 Calcium 9.6 Magnesium 1.7 Total Bilirubin AST Alkaline Phosphatase Total Protein Albumin 06/07/20 06/08/20 17:14 04:54 Troponin I 0.033 0.039 NT-Pro-B Natriuret Pep 3330 H EKG Comments: Transthoracic echocardiogram 06/08/2020 Left ventricular ejection fraction 30 to 35%. Mild MR and mild TR. There is no pericardial effusion. Twelve-lead EKG 06/11/2020. Sinus tachycardia 120 bpm QTC is 402 ms. Twelve-lead EKG 06/07/2020 sinus tachycardia 101 bpm borderline low voltage Troponin 0 0.033 06/08/2020 454 Troponin 0 0.039 06/07/2020 1714 Impressions: Head CT 06/08/20 08:00 IMPRESSION: Sinus disease. No acute intracranial imaging findings. EVIDENCE OF ACUTE STROKE: NO. Chest X-Ray 06/10/20 00:00 IMPRESSION: 1. Interval progression in the appearance of diffusely increased mixed interstitial and airspace opacities. In the setting of cardiomegaly, differential considerations include both CHF exacerbation and/or infectious p rocess. 2. Stable Port-A-Cath. Assessment & Plan - Diagnosis (1) Acute exacerbation of CHF (congestive heart failure) Qualifiers: Heart failure type: combined systolic and diastolic Qualified Code(s): I50.43 - Acute on chronic combined systolic (congestive) and diastolic (congestive) heart failure Is this a current diagnosis for this admission?: Yes Plan: Congestive heart failure with reduced ejection fraction estimated at 30 to 35% Patient has been responding to diuretic therapy with volume loss. Continue intravenous furosemide Continue monitoring weights and intake and output. Continue to monitor electrolytes as we diurese Continue carvedilol 6.25 mg twice daily No SUZY or ARB at this point. (2) Agitation Is this a current diagnosis for this admission?: Yes Plan: Likely multifactorial including drug effects and drug withdrawal. This is being investigated (3) Elevated troponin Is this a current diagnosis for this admission?: Yes Plan: Mildly elevated troponins in the setting of heart failure. No ischemic symptoms. Need ischemia evaluation later especially given LV dysfunction. This can be followed and arranged later.
[2020-06-12] MEDS: PIPERACILLIN SODIUM/TAZOBACTAM 3.375 GM in NORMAL SALINE 100 ML IV SCH ×2 (13:36→18:22)
[2020-06-12] MEDS ORDERED: LORAZEPAM INJ 2 MG/1 ML VIAL ONE (15:13)
--- NOTE | 2020-06-12 16:39 | PSYCHOLOGICAL NOTE ---
Psych Note - Psych Note Date seen by psych provider: 06/12/20 Time seen by psych provider: 14:00 Psych Note: Reason for Consult:mood swings and aggressive behaviour Patient is unable to engage in evaluation at this time due to needing medication to address behaviours in an attempt to obtain an MRI. Clinician spoke with attending nurse. She reports the patient's has continued to have difficulties today (Yelling, bitting through soft restraints and kicking). She reports the patient will be going for an MRI shortly and medication was given in the hope it would help with successful imaging. Behavioral health team will attempt evaluation again at a later time.
--- NOTE | 2020-06-12 17:39 | PDOC PROGRESS REPORT ---
Subjective Date:: 06/12/20 Subjective:: LIZABETH KNIGHT is a 49 year old male past medical history of morbid obesity, CHF, h istory of medication nonadherence with frequent presentation to ED and leaving AMA, patient is presenting to ED today complaining of worsening shortness of breath, bilateral lower extremity, scrotal and abdominal edema. Unfortunately patient is very poor historian and does not provide much history, complaining of any history of CAD or being followed up by PCP or a line leader. When asked if he is adherent with his medication he states he only takes it when he has it, he does not follow cardiac diet either. Patient denies any fever, chills, nausea, vomiting, diarrhea, constipation. In ED he was noted to have elevated proBNP, mildly elevated troponin, and hospital was consulted for admission. D1 hospital stay 06/08/20 Patient was seen and examined at bedside. His mood is very labile and is a poor historian, does not really want to answer questions. However he is not delirious or violent. He admits to feeling short of breath but this has improved since his admission. he denied any chest pain. He admits to not taking his medications. D2 hospital stay 06/09/20. Patient was seen and examined at bedside. His mood as very labile according to the nurse but he is otherwise stable. Moderate cough and he is requiring 2L of nasal cannula. Crea worse today, lisinopril and aldactone was held, lasix continued. D3 hospital stay 06/10/20. Patient was seen and examined at bedside. Per ailyn zhang patient became very agitated last night requiring morphine and haldol. This morning he was initially very drowsy and confused then again became belligerent. He was given 1 dose of ativan, QTC 498 which is already prolonged. Seroquel started for tonight. I suspect the patient has an underlying psychiatric problem but he is non compliant and I doubt if he has ever seen a therapist or a psychiatrist for a formal diagnosis. Will consult psych. D4 hospital stay 06/11/20. Patient was seen and examined at bedside. He is becoming more aggressive and confused. He refused to take his oral medications and has pulled out his acuna catheter causing bleeding. He was given geodon and ativan for sedation. I have tried to call his mom at [phone] but was unable to get a hold of her. MRI ordered to assess AMS. ABG yesterday did not show any CO2 retention and ammonia is normal. D5 06/12/20 . Patient was seen and examined at bedside. He is still very agitated and also spiked a fever of 101 yesterday. repeat blood culture and CXR ordered. He was started on empiric zosyn and vanc. MRI was attempted today and he was given geocarmen saldivar ativan in preparation for the procedure however he bec domenica agitated again while waiting to get MRI brain. Psych attempted to see him again today however he was sedated. he is still on restraints due to severe agitation. I was able to reach his mom and according to her Mr. Knight has always had very labile mood and would frequently swear at her. She also suspects that is doing crack but she is unsure if she drinks heavily. Reason For Visit: ANASARCA,ACUTE CHF EXACERBATION Physical Exam Vital Signs: Temp Pulse Resp BP Pulse Ox 98.9 F 86 16 120/60 93 06/12/20 11:15 06/12/20 11:47 06/12/20 11:47 06/12/20 11:15 06/12/20 11:47 Intake & Output 06/11/20 06/12/20 06/13/20 06:59 06:59 06:59 Intake Total 50 200 50 Output Total 3850 1950 100 Balance -3800 -1750 -50 Weight 127.6 kg 128 kg General appearance: PRESENT: disheveled, morbidly obese Head exam: PRESENT: atraumatic, normocephalic Eye exam: PRESENT: EOMI, PERRLA Mouth exam: PRESENT: moist Neck exam: PRESENT: full ROM Respiratory exam: PRESENT: rales, symmetrical, tachypnea Cardiovascular exam: PRESENT: RRR, +S1, +S2 GI/Abdominal exam: PRESENT: normal bowel sounds, soft, tenderness Extremities exam: PRESENT: full ROM Musculoskeletal exam: PRESENT: full ROM Neurological exam: PRESENT: altered Psychiatric exam: PRESENT: normal mood Skin exam: PRESENT: normal color Results Laboratory Results: 06/11/20 13:40 06/12/20 06:01 06/12/20 06:01 Sodium 143.5 Potassium 3.4 L Chloride 99 Carbon Dioxide 36 H Anion Gap 9 BUN 47 H Creatinine 1.48 H Est GFR ( Amer) > 60 Glucose 107 Calcium 9.6 Magnesium 1.7 06/07/20 06/08/20 17:14 04:54 Troponin I 0.033 0.039 NT-Pro-B Natriuret Pep 3330 H Impressions: Head CT 06/08/20 08:00 IMPRESSION: Sinus disease. No acute intracranial imaging findings. EVIDENCE OF ACUTE STROKE: NO. Chest X-Ray 06/10/20 00:00 IMPRESSION: 1. Interval progression in the appearance of diffusely increased mixed interstitial and airspace opacities. In the setting of cardiomegaly, differential considerations include both CHF exacerbation and/or infectious process. 2. Stable Port-A-Cath. Assessment and Plan - Diagnosis (1) Agitation Is this a current diagnosis for this admission?: Yes Plan: -Patient has been agitated with very labile mood since admission. He has never been formally diagnosed with any psychiatric condition but I suspect he has has 1 either a borderline personality disorder or schizophrenic types condition. He has gone home AGAINST MEDICAL ADVICE several times in the past so I suspect this is a chronic condition. - ddx. psych condition aggravated by general medical condition or acute metabolic enceph - drug screen negative -he ahs been getting geodon 10 mg to control his agitation. Would monitor his QTc daily as he is at a high risk for QT prolongation - MRI ordered attempted today but patient became very agitated - psych consult (2) Acute exacerbation of CHF (congestive heart failure) Qualifiers: Heart failure type: combined systolic and diastolic Qualified Code(s): I50.43 - Acute on chronic combined systolic (congestive) and diastolic (congestive) heart failure Is this a current diagnosis for this admission?: Yes Plan: -Patient denies any history of CAD, has not had any previous echo, does not follow-up with PCP or cardiology. -Patient has frequent presentation with acute CHF exacerbation. -BNP 3330 -Echo EF 30 to 35%, moderately reduced LV systolic function, moderate global hypokinesis of the left ventricle. -Continue Lasix decreased 40 IV daily due to uptrending crea. I believe he is adequately diuresed now as his swelling has significantly improved however we cannot start his carvedilol, aspirin and entresto due to his agitation - should be on coreg but since he's not taking anything orally has switched him to lopressor IV -He will eventually need ischemic work-up I doubt if he is getting agreed to this or be compliant with the recommendations. -Daily weights -Strict intake and output -Cardiology consulted. (3) Anasarca Is this a current diagnosis for this admission?: Yes Plan: Improving Patient denies any history of CAD but has had several admission to ED for CHF exacerbation. Unfortunately patient does not have a PCP and does not follow-up with a line leader. Patient is not adherent to his medication or fluid restriction. Presenting with bilateral lower extremity, scrotal and abdominal wall edema. aldactone stopped lasix decreased to 40 Iv daily. would ideally switch to oral however with his agitation this has not happened Strict I&O Daily weights (4) Elevated troponin Is this a current diagnosis for this admission?: Yes Plan: Troponin on admission 0.033>0.039. Baseline troponin 0.2. no anginal symptoms. Denies any history of CAD. EKG no acute changes. This is likely due to demand mismatch due to underlying acute CHF exacerbation. Continue medical management for now (5) Medical non-compliance Is this a current diagnosis for this admission?: Yes Plan: Patient extensively advised on medication adherence. Stereotyper Helper consulted for medication assistance. (6) Acute respiratory insufficiency Is this a current diagnosis for this admission?: Yes Plan: -Patient came in due to shortness of breath -Chest x-ray showing pneumonia with negative covid -BNP elevated 3330 -This likely secondary to pulmonary congestion from acute CHF exacerbation - continue O2 support PRN, patient continuously removed his nasal cannula (7) Diabetes mellitus type 2 in obese Is this a current diagnosis for this admission?: Yes Plan: On oral hypoglycemics. No hemoglobin A1c available. A1C 9.4 Started on Lantus 12 units twice a day Diabetic diet, sliding scale insulin, Accu-Chek, hypoglycemia protocol. Diabetic education. (8) Tobacco use disorder, continuous Is this a current diagnosis for this admission?: Yes Plan: Counseled on quitting. NicoDerm patch will be provided. (9) Hypomagnesemia Is this a current diagnosis for this admission?: Yes Plan: - Mg 1.5 - replaced via IV - Time Time Spent with patient: 25-34 minutes Medications reviewed and adjusted accordingly: Yes Anticipated Discharge Disposition: Home with Home Health Anticipated Discharge Timeframe: tbd
--- NOTE | 2020-06-12 17:58 | CDI QUERY ---
CDI Query CDI Review: Dear Provider, Please clarify these findings noted in documentation and add to progress notes and D/C summary: PNEUMONIA, please specify type if possible clinical findings- -Patient came in due to shortness of breath -Chest x-ray showing pneumonia with negative covid spiked fever, started on antibiotics ACUTE METABOLIC ENCEPHALOPATHY? ACUTE TOXIC ENCEPHALOPATHY? OTHER? Clinical data: AMS CONFUSED AGITATED POSSIBLE PSYCH HISTORY Thanks, Joanne Pat, CDI [phone]
[2020-06-12] MEDS: METOPROLOL TARTRATE PF/INJ 5 MG/5 ML SDV IV SCH (18:22)
--- NOTE | 2020-06-12 20:21 | RADIOLOGY REPORT (SQ) ---
EXAM DESCRIPTION: XR CHEST 1 VIEW COMPLETED DATE/TME: 06/12/2020 17:55 CLINICAL HISTORY: 49 years, Male, fever and desaturation COMPARISON: Chest x-ray 06/10/2020 [address] 03/31/2020. CT chest 03/30/2020. TECHNIQUE: Upright portable chest x-ray FINDINGS: [id number] cardiomegaly. No acute mediastinal widening. CT demonstrated enlarged 33 mm main pulmonary artery. Bilateral patchy infiltrates. Appear mildly improved since two days ago. Similar patchy densities were noted on 03/31/2020. IMPRESSION: Persistent patchy groundglass and interstitial infiltrates. Relapsing viral pneumonia? Noninfectious processes? Previous CT chest demonstrated mediastinal and hilar adenopathy. Is there history of sarcoidosis?
[2020-06-12] MEDS ORDERED: VANCOMYCIN HCL 1,250 MG in DEXTROSE 5%-WATER 250 ML IV SCH (22:00)
[2020-06-12] MEDS: ASPIRIN 81 MG TABLET, CHEWABLE PO SCH (23:13)
[2020-06-12] MEDS: ATORVASTATIN CALCIUM 40 MG TABLET PO SCH (23:28)
[2020-06-13] MEDS ORDERED: ACETAMINOPHEN SOLN 325 MG/10.15 ML UDCUP PO PRN (00:48)
[2020-06-13] MEDS: PIPERACILLIN SODIUM/TAZOBACTAM 3.375 GM in NORMAL SALINE 100 ML IV SCH ×4 (00:57→19:00)
[2020-06-13] MEDS ORDERED: ACETAMINOPHEN 1,000 MG/100 ML RTUPB IV ONE (01:00)
[2020-06-13] MEDS: METOPROLOL TARTRATE PF/INJ 5 MG/5 ML SDV IV SCH ×4 (02:14→17:41)
[2020-06-13] MEDS: IPRATROPIUM/ALBUTEROL 0.5-2.5 MG/3 ML AMPUL NEB PRN (06:51)
[2020-06-13 07:13] LABS: ANION GAP 11 (5-19); BLOOD UREA NITROGEN 58 mg/dL (7-20); CALCIUM 9.2 mg/dL (8.4-10.2); CARBON DIOXIDE 35 mmol/L (22-30); CHLORIDE 100 mmol/L (98-107); POTASSIUM 3.7 mmol/L (3.6-5.0)
[2020-06-13 07:15] LABS: GLUCOSE 99 mg/dL (75-110)
[2020-06-13 07:23] LABS: ARTERIAL BLOOD BASE EXCESS 4.9 mmol/L; ARTERIAL BLOOD H2CO3 1.69 mmol/L (1.05-1.35); ARTERIAL BLOOD HCO3 31.8 mmol/L (20-24); ARTERIAL BLOOD O2 SATURATION 97.1 % (94-98); ARTERIAL BLOOD PH 7.37 (7.35-7.45); ARTERIAL BLOOD PO2 97.7 mmHg (80-100); ARTERIAL BLOOD TOTAL CO2 33.5 mmol/L (23-27)
[2020-06-13 07:29] LABS: ARTERIAL BLOOD FIO2 4L
[2020-06-13] MEDS ORDERED: NALOXONE HCL INJ/PF 0.4 MG/1 ML SDV ONE ×2 (07:45→07:48)
[2020-06-13] MEDS ORDERED: FLUMAZENIL INJ 0.5 MG/5 ML VIAL ONE (07:51)
[2020-06-13 08:43] LABS: ARTERIAL BLOOD BASE EXCESS 5.4 mmol/L; ARTERIAL BLOOD FIO2 4L; ARTERIAL BLOOD H2CO3 1.61 mmol/L (1.05-1.35); ARTERIAL BLOOD HCO3 31.3 mmol/L (20-24); ARTERIAL BLOOD O2 SATURATION 99.3 % (94-98); ARTERIAL BLOOD PCO2 53.4 mmHg (35-45); ARTERIAL BLOOD PH 7.39 (7.35-7.45); ARTERIAL BLOOD PO2 194.3 mmHg (80-100); ARTERIAL BLOOD TOTAL CO2 32.9 mmol/L (23-27)
--- NOTE | 2020-06-13 08:46 | PDOC PROGRESS REPORT ---
Subjective Date:: 06/13/20 Subjective:: 49 year old male past medical history of morbid obesity, CHF, history of medica tion nonadherence with frequent presentation to ED and leaving AMA, patient is presenting to ED today complaining of worsening shortness of breath, bilateral lower extremity, scrotal and abdominal edema. Unfortunately patient is very poor historian and does not provide much history, complaining of any history of CAD or being followed up by PCP or a instructional systems specialist. When asked if he is adherent with his medication he states he only takes it when he has it, he does not follow cardiac diet either. Patient denies any fever, chills, nausea, vomiting, diarrhea, constipation. In ED he was noted to have elevated proBNP, mildly elevated troponin, and hospital was consulted for admission. D1 hospital stay 06/08/20 Patient was seen and examined at bedside. His mood is very labile and is a poor historian, does not really want to answer questions. However he is not delirious or violent. He admits to feeling short of breath but this has improved since his admission. he denied any chest pain. He admits to not taking his medications. D2 hospital stay 06/09/20. Patient was seen and examined at bedside. His mood as very labile according to the nurse but he is otherwise stable. Moderate cough and he is requiring 2L of nasal cannula. Crea worse today, lisinopril and aldactone was held, lasix continued. D3 hospital stay 06/10/20. Patient was seen and examined at bedside. Per slot supervisor patient became very agitated last night requiring morphine and haldol. This morning he was initially very drowsy and confused then again became belligerent. He was given 1 dose of ativan, QTC 498 which is already prolonged. Seroquel started for tonight. I suspect the patient has an underlying psychiatric problem but he is non compliant and I doubt if he has ever seen a therapist or a psychiatrist for a formal diagnosis. Will consult psych. D4 hospital stay 06/11/20. Patient was seen and examined at bedside. He is becoming more aggressive and confused. He refused to take his oral medications and has pulled out his acuna catheter causing bleeding. He was given geodon and ativan for sedation. I have tried to call his mom at [phone] but was unable to get a hold of her. MRI ordered to assess AMS. ABG yesterday did not show any CO2 retention and ammonia is normal. D5 06/12/20 . Patient was seen and examined at bedside. He is still very agitated and also spiked a fever of 101 yesterday. repeat blood culture and CXR ordered. He was started on empiric zosyn and vanc. MRI was attempted today and he was given geodon adn ativan in preparation for the procedure however he became agitated again while waiting to get MRI brain. Psych attempted to see him again today however he was sedated. he is still on restraints due to severe agitation. I was able to reach his mom and according to her Mr. Knight has always had very labile mood and would frequently swear at her. She also suspects that is doing crack but she is unsure if she drinks heavily. 06/13/2020-the nurse Laura called me around 7:05 AM to report that patient is not doing well not responding he is on a nonrebreather requested to come to the bedside DAMEON for further evaluation. I went up to the room within few minutes on and found patient unresponsive and on nonrebreather. Rapid response was called. Patient was given a Narcan, Remicade without any success. Last time patient got sedatives is around 3 PM yesterday. Patient is not responding to sternal rubs. Not responding to painful stimuli. Started on IV fluids normal saline, stat labs are requested. Stat chest x-ray was requested. Stat ABG was done. ABG reported chest x-ray report pending this time. Dr. Fields ICU attending came in within a few minutes of calling respiratory response and provided valuable input. His impression is patient is aspirated. Dr. Sánchez impression is patient may need to be intubated. Patient was accepted to ICU but no beds are available so the patient is going to ED room 12. Reason For Visit: ANASARCA,ACUTE CHF EXACERBATION Physical Exam Vital Signs: Temp Pulse Resp BP Pulse Ox 100.9 F H 101 H 20 121/49 L 97 06/13/20 03:38 06/13/20 07:00 06/13/20 07:00 06/13/20 03:38 06/13/20 07:00 Intake & Output 06/12/20 06/13/20 06/14/20 06:59 06:59 06:59 Intake Total 200 50 Output Total 1950 585 Balance -1750 -535 Weight 128 kg 114 kg General appearance: PRESENT: other - Patient is unresponsive. Not responding to verbal commands and painful stimuli. Head exam: PRESENT: atraumatic Eye exam: PRESENT: other - Pupils are barely reactive. Mouth exam: PRESENT: neck supple Teeth exam: PRESENT: poor dentation Neck exam: ABSENT: carotid bruit, JVD, lymphadenopathy, thyromegaly Respiratory exam: PRESENT: decreased breath sounds Cardiovascular exam: PRESENT: RRR. ABSENT: diastolic murmur, rubs, systolic murmur GI/Abdominal exam: PRESENT: normal bowel sounds, soft. ABSENT: distended, guarding, mass, organolmegaly, rebound, tenderness Rectal exam: PRESENT: deferred Gentrourinary exam: PRESENT: indwelling catheter Extremities exam: PRESENT: full ROM. ABSENT: calf tenderness, clubbing, pedal edema Neurological exam: PRESENT: other - Patient is unresponsive not responding to verbal commands not responding to painful stimuli of external rubs. Results Laboratory Results: 06/11/20 13:40 06/13/20 06:07 06/13/20 06/13/20 06:07 07:00 Carbonic Acid 1.69 H HCO3/H2CO3 Ratio 18:1 ABG pH 7.37 ABG pCO2 56.0 H ABG pO2 97.7 ABG HCO3 31.8 H ABG O2 Saturation 97.1 ABG Base Excess 4.9 FiO2 4L Sodium 145.8 H Potassium 3.7 Chloride 100 Carbon Dioxide 35 H Anion Gap 11 BUN 58 H Creatinine 2.71 H Est GFR ( Amer) 30 L Glucose 99 Calcium 9.2 Magnesium 1.7 06/07/20 19:37 Blood Blood Culture - Final NO GROWTH IN 5 DAYS 06/07/20 17:14 Blood Blood Culture - Final NO GROWTH IN 5 DAYS 06/07/20 06/08/20 17:14 04:54 Troponin I 0.033 0.039 NT-Pro-B Natriuret Pep 3330 H Impressions: Head CT 06/08/20 08:00 IMPRESSION: Sinus disease. No acute intracranial imaging findings. EVIDENCE OF ACUTE STROKE: NO. Chest X-Ray 06/12/20 00:00 IMPRESSION: Persistent patchy groundglass and interstitial infiltrates. Relapsing viral pneumonia? Noninfectious processes? Previous CT chest demonstrated mediastinal and hilar adenopathy. Is there history of sarcoidosis? Assessment and Plan - Diagnosis (1) Acute metabolic encephalopathy Is this a current diagnosis for this admission?: Yes Plan: 06/13/2020-patient is unresponsive to painful stimuli and verbal commands. In acute metabolic encephalopathy most likely secondary to aspiration pneumonia causing hypoxic and colopathy. Patient is on IV vancomycin and Zosyn, stat labs, chest x-ray ABG was requested. Patient was started on normal saline at 1 L wide open. Plan to do the cautious IV infusion because of the history of congestive heart failure. Patient blood pressure at the time of rapid response is 80/60. BiPAP is requested to standby, deep suctioning was requested. Patient is accepted to ICU by Dr. Sánchez and because of the lack of beds in the ICU patient is going to ED room 12. (2) Acute respiratory failure with hypoxia Is this a current diagnosis for this admission?: Yes Plan: 06/13/2020-patient has acute hypoxic restaurant failure with hypoxia on nonrebreather. Unresponsive. Chest x-ray indicated of bilateral infiltrates he is on IV vancomycin and Zosyn. BiPAP is at bedside. Probably patient need intubation to protect the airway. Most likely patient has aspiration pneumonia. (3) Acute exacerbation of CHF (congestive heart failure) Qualifiers: Heart failure type: combined systolic and diastolic Qualified Code(s): I50.43 - Acute on chronic combined systolic (congestive) and diastolic (congestive) heart failure Is this a current diagnosis for this admission?: Yes Plan: -Patient denies any history of CAD, has not had any previous echo, does not follow-up with PCP or cardiology. -Patient has frequent presentation with acute CHF exacerbation. -BNP 3330 -Echo EF 30 to 35%, moderately reduced LV systolic function, moderate global hypokinesis of the left ventricle. -Continue Lasix decreased 40 IV daily due to uptrending crea. I believe he is adequately diuresed now as his swelling has significantly improved however we cannot start his carvedilol, aspirin and entresto due to his agitation - should be on coreg but since he's not taking anything orally has switched him to lopressor IV -He will eventually need ischemic work-up I doubt if he is getting agreed to this or be compliant with the recommendations. -Daily weights -Strict intake and output -Cardiology consulted. (4) Sepsis Is this a current diagnosis for this admission?: Yes Plan: 06/13/2020-patient is septic. With temp of 100.9, hypotension, in acute metabolic encephalopathy, in acute respiratory failure requiring nonrebreather. Meeting the criteria for sepsis. To continue IV vancomycin and Zosyn at this time. There is high possibility of aspiration pneumonia. (5) ADRI (acute kidney injury) Is this a current diagnosis for this admission?: Yes Plan: 06/13/2020-serum creatinine is 1.48 yesterday this morning is 2.7. Patient has acute kidney injury most likely prerenal causes. - Time Anticipated Discharge Disposition: Home, Self Care Anticipated Discharge Timeframe: within 72 hours
[2020-06-13] MEDS: INSULIN LISPRO 100 UNIT/ML 3 ML VIAL SUBCUT SCH ×4 (08:56→22:18)
[2020-06-13] MEDS ORDERED: NOREPINEPHRINE BITARTRATE INJ/PF 4 MG/4 ML SDV IV ONE ×3 (09:15→17:18)
[2020-06-13] MEDS: INSULIN GLARGINE,HUM.REC.ANLOG 1,000 UNIT/10 ML VIAL SUBCUT SCH ×2 (10:00→22:20)
--- NOTE | 2020-06-13 10:31 | RADIOLOGY REPORT (SQ) ---
EXAM DESCRIPTION: CHEST SINGLE VIEW IMAGES COMPLETED DATE/TIME: 06/13/2020 9:00 am REASON FOR STUDY: resp. failure COMPARISON: Previous day NUMBER OF VIEWS: One view. TECHNIQUE: Single frontal radiographic image of the chest acquired. LIMITATIONS: None. FINDINGS: LUNGS AND PLEURA: Bilateral airspace disease with increasing density in the lung bases. N o pneumothorax. MEDIASTINUM AND HEART: Stable heart size and mediastinal structures. SUPPORT DEVICES: Appropriate location without change. BONY STRUCTURES: No acute findings. HARDWARE: None. OTHER: No other significant finding. IMPRESSION: Rehydration versus progressing edema or sepsis. Reading location - IP/workstation name: [email or web address]
[2020-06-13] MEDS: DEXTROSE 5%-WATER 250 ML with NOREPINEPHRINE BITARTRATE 4 MG IV PRN ×2 (10:40)
[2020-06-13] MEDS: CALCIUM GLUCONATE 1 GM/NS 50 ML RTU IV SCH ×2 (11:15→12:00)
[2020-06-13] MEDS ORDERED: VASOPRESSIN INJ 20 UNIT/1 ML VIAL ONE (11:17)
[2020-06-13] MEDS ORDERED: ALBUTEROL SULFATE 0.083% NEB 2.5 MG/3 ML AMPUL NEB PRN (11:23)
[2020-06-13] MEDS ORDERED: ACETAMINOPHEN 325 MG TABLET NG PRN (11:23)
[2020-06-13] MEDS ORDERED: ONDANSETRON 4 MG TAB.RAPDIS NG PRN (11:23)
--- NOTE | 2020-06-13 11:29 | RADIOLOGY REPORT (SQ) ---
EXAM DESCRIPTION: CHEST SINGLE VIEW IMAGES COMPLETED DATE/TIME: 06/13/2020 7:34 am REASON FOR STUDY: post intubation COMPARISON: 06/13/2020 EXAM PARAMETERS: NUMBER OF VIEWS: One view. TECHNIQUE: Single frontal radiographic view of the chest acquired. RADIATION DOSE: NA LIMITATIONS: Hypoinflation. External leads partially obscure underlying structures. FINDINGS: LUNGS AND PLEURA: Lungs are hypoinflated with diffuse bilateral patchy airspace opacities, similar to prior examination. Cannot exclude trace pleural effusions. No visualized pneumothorax. MEDIASTINUM AND HILAR STRUCTURES: Stable. HEART AND VASCULAR STRUCTURES: Heart is enlarged. Pulmonary vascular congestion. BONES: No acute findings. HARDWARE: Interval intubation with the endotracheal tube tip projecting approximately 4.6 cm above th e johnathan. Right MediPort catheter is unchanged. Esophagogastric tube descends below the level of th is image. OTHER: No other significant finding. IMPRESSION: 1. Endotracheal tube tip projects approximately 4.6 cm above the johnathan. 2. Cardiomegaly with diffuse bilateral airspace opacities, similar to prior examination. TECHNICAL DOCUMENTATION: JOB ID: [id number] [employer]- All Rights Reserved Reading location - IP/workstation name: [email or web address]
[2020-06-13] MEDS ORDERED: PHARMACY COMMUNICATION ORDER MC NR (11:30)
[2020-06-13] MEDS ORDERED: MORPHINE SULFATE 10 MG/ML INJ IV PRN (11:39)
[2020-06-13] MEDS: FAMOTIDINE 20 MG TABLET PO SCH (12:02)
[2020-06-13] MEDS ORDERED: MAG HYDROX/AL HYDROX/SIMETH SUSP 30 ML UDCUP NG PRN (12:30)
[2020-06-13] MEDS ORDERED: ACETAMINOPHEN SOLN 325 MG/10.15 ML UDCUP NG PRN (12:30)
--- NOTE | 2020-06-13 12:49 | CRITICAL CARE ADMISSION REPORT ---
HPI Date:: 06/13/20 Reason for ICU Reason:: Need for intubation Admission Date/Time & PCP: Admission Date/Time: 06/07/20 21:04 Primary Care Provider: MICHELE GUILLEN PA-C HPI: LIZABETH VICK is a 49 year old male with history of lymphoma, morbid obesity, heart failure of unclear etiology, medication noncompliance, with multiple evaluations in our emergency room as well as admission to this facility but the patient leaves AMA before completing treatment who is consulted to our service for evaluation of dyspnea and heart failure exacerbation. Review of his chart demonstrates that the patient had been seen or admitted to our facility at least 5 times in the last several months. He was seen in our emergency room on 03/28/2020 for evaluation of shortness of breath. At that time he was diagnosed with pneumonia and left the emergency room AMA. He returned to the emergency room on 03/30/2024 worsening dyspnea, he was diagnosed with pneumonia and admitted however he left AMA on 03/31/2020. He returned to our emergency room on 05/22/2020 complaining of genital edema, at that time his chest x-ray was consistent with worsening multifocal pneumonia and a scrotal ultrasound demonstrated edema. The emergency room physician recommended Lasix and admission however the patient declined to be admitted, refused his Lasix and eloped from the emergency department. His dyspnea continued to worsen and he presented again yesterday to the emergency room with worsening shortness of breath, bilateral lower extremity edema as well as scrotal and abdominal edema. His chest x-ray during this admission was read by radiology as improved aeration without pulmonary edema however, upon my review, it appears more consistent with heart failure although it is improved from his prior x-ray on 05/22/2020. Physical exam on 06/08/2020: GENERAL: Sleeping but arousable, appears to have some developmental delay. Pleasant and conversational. Normal mood. Not in acute distress. Well groomed and well developed. HEENT: Normocephalic, atraumatic. Pupils equal. Sclerae anicteric. Oropharynx moist. NECK: No JVD. No carotid bruits. LUNGS: Diffuse rhonchi in all pham. Normal respiratory effort without the use of accessory muscles or intercostal retractions. CARDIOVASCULAR: Regular rate and rhythm, normal S1 and S2 without murmurs, rubs, or gallops. PMI not displaced. ABDOMEN: No masses or tenderness to palpation. No bruit. No splenomegaly or hepatomegaly. No abdominal aorta bruit noted. EXTREMITIES: 2-3+ pitting edema bilaterally, no cyanosis, no clubbing. +2 pulses femoral and pedal pulses bilaterally. SKIN: No lesions or rashes. MUSCULOSKELETAL: No chest tenderness to palpation. NEUROLOGIC: Nonfocal. No gross sensory or motor deficits bilateral upper or lower extremities. 06/13; Asked to see this pt during an USER EXPERIENCE RESEARCHER call. Pt is obtunded and not well proecting his airway. He is minimaly responsive with no reaction to narcan and romazicon. He is being treated for CHF. His most recent EF is 35% with diastolic dysfunction. He shows soft signs of aspiration and has been like this for two days. He has ARF with BUN/cr 54/2.7 which would make meds last longer. He was intubated in the ED where he was moved and needs NG and stomach suctioning to start. History obtained from:: Old records and nursing staff. - Diagnosis/Plan (1) Aspiration into airway Qualifiers: Encounter type: initial encounter Qualified Code(s): T17.908A - Unspecified foreign body in respiratory tract, part unspecified causing other injury, initial encounter Is this a current diagnosis for this admission?: Yes Plan: This is presumed given his presentation and large amount of secretions. He has been obtunded and certainly is at risk even for saliva aspiration. Pneumonia is another possibility. Continue antibiotics and supportive care. (2) Acute exacerbation of CHF (congestive heart failure) Qualifiers: Heart failure type: combined systolic and diastolic Qualified Code(s): I50.43 - Acute on chronic combined systolic (congestive) and diastolic (congestive) heart failure Is this a current diagnosis for this admission?: Yes Plan: This is mostly R sided but he does have a reduced EF at 35%. He has received much fluid and may certainly be in L sided failure. (3) Acute metabolic encephalopathy Is this a current diagnosis for this admission?: Yes Plan: This is likely multifactorial, aspiration or pneumonia most likely. Past Medical History Cardiac Medical History: Reports: Congestive Heart Failure Denies: Coronary Artery Disease, Myocardial Infarction, Hypertension Pulmonary Medical History: Reports: Pneumonia, Respiratory Failure Denies: Asthma, Bronchitis, Chronic Obstructive Pulmonary Disease (COPD) Neurological Medical History: Denies: Seizures Endocrine Medical History: Reports: Diabetes Mellitus Type 2 Denies: Diabetes Mellitus Type 1, Hyperthyroidism, Hypothyroidism Malignancy Medical History: Reports: Lymphoma GI Medical History: Denies: Cirrhosis, Hepatitis Musculoskeltal Medical History: Reports: Arthritis, Gout Skin Medical History: Denies: Eczema, Psoriasis Psychiatric Medical History: Reports: Depression Hematology: Denies: Anemia, Bleeding Tendencies Past Surgical History Past Surgical History: Reports: Appendectomy, Other - Bone marrow transplant Social/Family History - Social History Smoking Status: Current Every Day Smoker Frequency of Alcohol Use: None Hx Recreational Drug Use: No Drugs: None Hx Prescription Drug Abuse: Yes - Medication/Allergies Home Medications: Glipizide [Glipizide Xl] 5 mg PO DAILY 03/30/20 Ipratropium Warren [Atrovent Hfa] 2 puff IH Q6 03/30/20 Metformin HCl [Glucophage 500 mg Tablet] 1,000 mg PO BIDACBS 03/30/20 Sitagliptin Phosphate [Januvia 50 mg Tablet] 100 mg PO DAILY 03/30/20 Potassium Chloride 10 meq PO QAM #5 capsule.er 04/14/20 Budesonide/Formoterol Fumarate [Symbicort Hfa 160-4.5 Mcg Inhaler 6 gm] 2 puff IH Q12 06/08/20 Furosemide [Lasix 20 mg Tablet] 40 mg PO DAILY 06/08/20 Hydrocodone/Acetaminophen [[place] 5-325 Tablet] 1 each PO TIDP PRN 06/08/20 Tiotropium Warren [Spiriva Respimat] 2 puff PO DAILY 06/08/20 Allergies/Adverse Reactions: No Known Allergies Allergy (Verified 12/29/12 10:28) Review of Systems ROS unobtainable: Due to endotracheal tube, Due to mental status Physical Exam Vital Signs: Temp Pulse Resp BP Pulse Ox 98.7 F 102 H 26 H 93/39 L 98 06/13/20 07:33 06/13/20 07:33 06/13/20 07:35 06/13/20 07:33 06/13/20 07:50 Intake & Output 06/12/20 06/13/20 06/14/20 06:59 06:59 06:59 Intake Total 200 50 Output Total 1950 585 Balance -2080 -535 Weight 128 kg 114 kg Weight/Height Weight 114 kg Height 5 ft 11 in General appearance: PRESENT: no acute distress, obese Head exam: PRESENT: atraumatic, normocephalic Eye exam: PRESENT: PERRLA Ear exam: PRESENT: normal external ear exam Mouth exam: PRESENT: moist, tongue midline Respiratory exam: PRESENT: clear to auscultation dilia, rhonchi - Both sides.. ABSENT: rales, wheezes Cardiovascular exam: PRESENT: RRR. ABSENT: diastolic murmur, rubs, systolic murmur GI/Abdominal exam: PRESENT: normal bowel sounds, soft. ABSENT: distended, guarding, mass, organolmegaly, rebound, tenderness Rectal exam: PRESENT: deferred Gentrourinary exam: PRESENT: indwelling catheter Extremities exam: PRESENT: full ROM. ABSENT: calf tenderness, clubbing, pedal edema Musculoskeletal exam: PRESENT: normal inspection Neurological exam: PRESENT: other - Moving all 4 extremities but not purposefully or to command Skin exam: PRESENT: dry, intact, warm. ABSENT: cyanosis, rash Tubes/Lines: PRESENT: Endotracheal Tube, Nasogastic Tube Laboratory/Radiographs Laboratory Results: 06/11/20 13:40 06/13/20 06:07 06/13/20 06/13/20 06/13/20 06:07 07:00 07:50 Carbonic Acid 1.69 H 1.61 H HCO3/H2CO3 Ratio 18:1 19:1 ABG pH 7.37 7.39 ABG pCO2 56.0 H 53.4 H ABG pO2 97.7 194.3 H ABG HCO3 31.8 H 31.3 H ABG O2 Saturation 97.1 99.3 H ABG Base Excess 4.9 5.4 FiO2 4L 4L Sodium 145.8 H Potassium 3.7 Chloride 100 Carbon Dioxide 35 H Anion Gap 11 BUN 58 H Creatinine 2.71 H Est GFR ( Amer) 30 L Glucose 99 Calcium 9.2 Magnesium 1.7 Ammonia 06/13/20 09:57 Carbonic Acid HCO3/H2CO3 Ratio ABG pH ABG pCO2 ABG pO2 ABG HCO3 ABG O2 Saturation ABG Base Excess FiO2 Sodium Potassium Chloride Carbon Dioxide Anion Gap BUN Creatinine Est GFR ( Amer) Glucose Calcium Magnesium Ammonia 41.1 H 06/07/20 19:37 Blood Blood Culture - Final NO GROWTH IN 5 DAYS 06/07/20 17:14 Blood Blood Culture - Final NO GROWTH IN 5 DAYS 06/07/20 06/08/20 17:14 04:54 Troponin I 0.033 0.039 NT-Pro-B Natriuret Pep 3330 H Impressions: Head CT 06/08/20 08:00 IMPRESSION: Sinus disease. No acute intracranial imaging findings. EVIDENCE OF ACUTE STROKE: NO. Chest X-Ray 06/13/20 00:00 IMPRESSION: 1. Endotracheal tube tip projects approximately 4.6 cm above the johnathan. 2. Cardiomegaly with diffuse bilateral airspace opacities, similar to prior examination. All labs, radiographs, diagnostic studies and EKGs were personally reviewed: Yes In addition, reports of radiographic and diagnostic studies were read: Yes Critical Time Critical Time (minutes): 45 -: The care of a critically ill patient is dynamic. This note represents a static moment in the admission process. Orders and treatments may be given simultaneously and urgently, and time is not product support sales representative of the treatment process. This patient requires Critical Care secondary to life threatening organ or limb dysfunction. Without Critical Care services, the patient is at risk for increased mortality and morbidity.
[2020-06-13] MEDS: RINGERS SOLUTION,LACTATED 1,000 ML IV PRN ×2 (13:00→19:41)
--- NOTE | 2020-06-13 13:09 | Progress Note ---
Provider Note Provider Note: R femoral A-line placed sterilly on first attempt. No complicaqtions.
[2020-06-13] MEDS ORDERED: HYDROCORTISONE SOD SUCCINATE INJ/PF 100 MG/2 ML SDV IV ONE (13:15)
[2020-06-13 14:07] LABS: ARTERIAL BLOOD BASE EXCESS 3.4 mmol/L; ARTERIAL BLOOD H2CO3 1.78 mmol/L (1.05-1.35); ARTERIAL BLOOD HCO3 30.4 mmol/L (20-24); ARTERIAL BLOOD O2 SATURATION 55.1 % (94-98); ARTERIAL BLOOD PCO2 59.2 mmHg (35-45); ARTERIAL BLOOD PH 7.33 (7.35-7.45); ARTERIAL BLOOD TOTAL CO2 32.2 mmol/L (23-27)
[2020-06-13] MEDS: DOCUSATE SODIUM 100 MG CAPSULE PO SCH ×2 (14:07→19:19)
[2020-06-13 14:49] LABS: ARTERIAL BLOOD FIO2 95%
[2020-06-13 14:50] LABS: ARTERIAL BLOOD PO2 31.8 mmHg (80-100)
[2020-06-13] MEDS: FUROSEMIDE INJ/PF 40 MG/4 ML SDV IV SCH (17:17)
[2020-06-13] MEDS: HEPARIN SOD (PORCINE) 5,000 UNIT/ML 1 ML VIAL SUBCUT SCH ×3 (17:40→22:17)
[2020-06-13] MEDS: LACTULOSE SYRUP 20 GM/30 ML UDCUP NG SCH ×2 (17:41→19:20)
[2020-06-13] MEDS: DEXTROSE 5%-WATER 250 ML with VASOPRESSIN 100 UNIT IV PRN ×2 (18:59)
--- NOTE | 2020-06-13 21:35 | EKG REPORT ---
SEVERITY:- ABNORMAL ECG - SINUS RHYTHM LOW VOLTAGE IN FRONTAL LEADS BORDERLINE T ABNORMALITIES, DIFFUSE LEADS PROLONGED QT INTERVAL : Confirmed by: Laith Pablo MD 13-Jun-2020 21:34:52
[2020-06-13] MEDS ORDERED: VANCOMYCIN HCL 1,250 MG in DEXTROSE 5%-WATER 250 ML IV SCH (22:00)
[2020-06-13] MEDS ORDERED: ATORVASTATIN CALCIUM 40 MG TABLET NG SCH (22:00)
[2020-06-13] MEDS: FAMOTIDINE INJ/PF 20 MG/2 ML SDV IV SCH (22:19)
[2020-06-13] MEDS: FAMOTIDINE 20 MG TABLET NG SCH (22:20)
[2020-06-13] MEDS: (PENDING PHARMACY ID) (Budesonide/Formoterol Fumarate 60 PUFF/6 GM Inhaler) IH SCH (22:21)
[2020-06-13] MEDS: ASPIRIN 81 MG TABLET, CHEWABLE NG SCH (22:21)
[2020-06-14] MEDS: DEXTROSE 5%-WATER 250 ML with NOREPINEPHRINE BITARTRATE 4 MG IV PRN ×4 (00:09→06:06)
[2020-06-14] MEDS ORDERED: VASOPRESSIN INJ 20 UNIT/1 ML VIAL ONE ×2 (00:32→12:41)
[2020-06-14] MEDS: DEXTROSE 5%-WATER 250 ML with VASOPRESSIN 100 UNIT IV PRN ×4 (00:36→01:30)
[2020-06-14] MEDS ORDERED: PROPOFOL 1,000 MG/100 ML INFUS..BTL IV ONE (01:22)
[2020-06-14] MEDS ORDERED: FUROSEMIDE INJ/PF 40 MG/4 ML SDV ONE (01:25)
[2020-06-14] MEDS: PROPOFOL 1,000 MG/100 ML INFUS..BTL IV PRN ×5 (01:30→20:08)
[2020-06-14] MEDS ORDERED: FUROSEMIDE INJ/PF 40 MG/4 ML SDV IV ONE (01:45)
[2020-06-14] MEDS ORDERED: DEXMEDETOMIDINE IN 0.9 % NACL 400 MCG/100 ML RTUPB IV PRN (02:09)
[2020-06-14] MEDS: PIPERACILLIN SODIUM/TAZOBACTAM 3.375 GM in NORMAL SALINE 100 ML IV SCH ×5 (02:17→23:58)
[2020-06-14] MEDS ORDERED: NOREPINEPHRINE BITARTRATE INJ/PF 4 MG/4 ML SDV IV ONE (03:23)
[2020-06-14 03:24] LABS: ALBUMIN 3.1 g/dL (3.5-5.0); ALKALINE PHOSPHATASE 87 U/L (38-126); BILIRUBIN,DIRECT 1.5 mg/dL (0.0-0.4); BILIRUBIN,TOTAL 2.8 mg/dL (0.2-1.3); BLOOD UREA NITROGEN 69 mg/dL (7-20); CALCIUM 8.1 mg/dL (8.4-10.2); CHLORIDE 103 mmol/L (98-107); GLUCOSE 282 mg/dL (75-110); TOTAL PROTEIN 6.9 g/dL (6.3-8.2)
[2020-06-14 03:46] LABS: ASPARTATE AMINO TRANSFERASE 1058 U/L (17-59)
--- NOTE | 2020-06-14 03:46 | RADIOLOGY REPORT (SQ) ---
CHEST X-RAY 1 VIEW on 06/14/2020 at 2:21 AM CLINICAL INDICATION: ET tube placement COMPARISON: 06/13/2020 FINDINGS: ET tube tip is in the mid thoracic trachea approximately 4.1 cm above the level of the johnathan. NG tube extends into the stomach and below the level of this film. Right IJ Port-A-Cath tip is in the SVC. Cardiomegaly is noted. There are continued bilateral opacities consistent with edema and/or pneumonia and differential diagnosis would include viral infections. IMPRESSION: No significant change in the appearance of the chest.
[2020-06-14 03:53] LABS: ANION GAP 14 (5-19)
[2020-06-14 03:56] LABS: CARBON DIOXIDE 26 mmol/L (22-30); POTASSIUM 4.6 mmol/L (3.6-5.0)
[2020-06-14 04:04] LABS: HEMATOCRIT 28.5 % (37.9-51.0); HEMOGLOBIN 9.2 g/dL (13.5-17.0); MEAN CORPUSCULAR HEMOGLOBIN 30.6 pg (27.0-33.4); MEAN CORPUSCULAR HGB CONC 32.3 g/dL (32.0-36.0); MEAN CORPUSCULAR VOLUME 95 fl (80-97); PLATELET COUNT 118 10^3/uL (150-450); RED BLOOD COUNT 3.01 10^6/uL (4.35-5.55); RED CELL DISTRIBUTION WIDTH 15.5 % (11.5-14.0)
[2020-06-14 04:31] LABS: ABSOLUTE LYMPHOCYTES# (MANUAL) 2.2 10^3/uL (0.5-4.7); ABSOLUTE MONOCYTES # (MANUAL) 4.4 10^3/uL (0.1-1.4); BASOPHILS % (MANUAL) 0 % (0-2); EOSINOPHILS % (MANUAL) 0 % (0-6); LYMPHOCYTES % (MANUAL) 5 % (13-45); MONOCYTES % (MANUAL) 10 % (3-13); SEGMENTED NEUTROPHILS % (MAN) 85 % (42-78); TOTAL CELLS COUNTED 100
[2020-06-14 04:35] LABS: ANISOCYTOSIS 1+; PLATELET COMMENT DECREASED; POLYCHROMASIA SLIGHT; TOXIC GRANULATION SLIGHT; TOXIC VACUOLATION PRESENT
[2020-06-14 04:39] LABS: ANION GAP 12 (5-19); BLOOD UREA NITROGEN 68 mg/dL (7-20); CARBON DIOXIDE 28 mmol/L (22-30); CHLORIDE 101 mmol/L (98-107); GLUCOSE 276 mg/dL (75-110); POTASSIUM 4.6 mmol/L (3.6-5.0)
[2020-06-14] MEDS ORDERED: PIPERACILLIN/TAZOBACTAM 3.375 GM VIAL IV ONE (05:20)
[2020-06-14] MEDS ORDERED: PHENYLEPHRINE HCL INJ/PF 10 MG/1 ML SDV ONE ×2 (07:27→07:33)
[2020-06-14] MEDS: DOCUSATE SODIUM 100 MG CAPSULE PO SCH ×2 (10:00→18:06)
[2020-06-14] MEDS: INSULIN GLARGINE,HUM.REC.ANLOG 1,000 UNIT/10 ML VIAL SUBCUT SCH ×2 (10:00→21:52)
[2020-06-14] MEDS: FAMOTIDINE 20 MG TABLET NG SCH ×2 (10:00→21:51)
[2020-06-14] MEDS: FAMOTIDINE INJ/PF 20 MG/2 ML SDV IV SCH ×2 (10:30→21:50)
[2020-06-14] MEDS: INSULIN LISPRO 100 UNIT/ML 3 ML VIAL SUBCUT SCH ×4 (10:40→21:50)
[2020-06-14] MEDS: METOPROLOL TARTRATE PF/INJ 5 MG/5 ML SDV IV SCH (11:48)
[2020-06-14] MEDS: DEXTROSE 5%-WATER 250 ML with PHENYLEPHRINE HCL 40 MG IV PRN ×6 (13:47→22:10)
--- NOTE | 2020-06-14 14:39 | PDOC CRITICAL CARE PROG REPORT ---
General Date:: 06/14/20 ICU Day:: 2 Ventilator Day:: 2 Hospital Day:: 6 Resuscitation Status: Full Code Events in the past 12 to 24 Hours:: Intubated for airway protection. Review of systems relevant to events:: Neurological, renal, CV Reason for ICU Addmission:: Need for intubation - Medications: Medications reviewed and adjusted accordingly: Yes Vasopressors:: None Sedation:: Propofol. Physical Exam Vital Signs: Temp Pulse Resp BP Pulse Ox 98.9 F 94 22 H 99/56 L 99 06/13/20 21:37 06/13/20 08:35 06/13/20 19:00 06/14/20 00:10 06/14/20 04:44 Intake & Output 06/13/20 06/14/20 06/15/20 06:59 06:59 06:59 Intake Total 50 2689 286 Output Total 585 220 Balance -535 2469 286 Weight 114 kg 127 kg 127 kg Weight/Height Weight 127 kg Height 5 ft 11 in General appearance: PRESENT: no acute distress, obese Head exam: PRESENT: atraumatic, normocephalic Eye exam: PRESENT: conjunctiva pink, EOMI, PERRLA. ABSENT: scleral icterus Ear exam: PRESENT: normal external ear exam Mouth exam: PRESENT: moist, tongue midline Respiratory exam: PRESENT: clear to auscultation dilia, rhonchi. ABSENT: rales, wheezes GI/Abdominal exam: PRESENT: normal bowel sounds, soft. ABSENT: distended, guarding, mass, organolmegaly, rebound, tenderness Rectal exam: PRESENT: deferred Gentrourinary exam: PRESENT: indwelling catheter Extremities exam: PRESENT: full ROM. ABSENT: calf tenderness, clubbing, pedal edema Neurological exam: PRESENT: other - Sedated. Skin exam: PRESENT: dry, intact, warm. ABSENT: cyanosis, rash Tubes/Lines: PRESENT: Endotracheal Tube, Nasogastic Tube Laboratory/Radiographs Laboratory Results: 06/14/20 03:54 06/14/20 03:54 06/13/20 06/14/20 06/14/20 13:58 02:30 03:54 WBC RBC Hgb Hct MCV MCH MCHC RDW Plt Count Seg Neutrophils % Carbonic Acid 1.78 H HCO3/H2CO3 Ratio 17:1 ABG pH 7.33 L ABG pCO2 59.2 H ABG pO2 31.8 L* ABG HCO3 30.4 H ABG O2 Saturation 55.1 L ABG Base Excess 3.4 FiO2 95% Sodium 143.2 141.2 Potassium 4.6 4.6 Chloride 103 101 Carbon Dioxide 26 28 Anion Gap 14 12 BUN 69 H 68 H Creatinine 3.05 H 3.08 H Est GFR ( Amer) 26 L 26 L Glucose 282 H 276 H Calcium 8.1 L 8.0 L Total Bilirubin 2.8 H AST 1058 H Alkaline Phosphatase 87 Total Protein 6.9 Albumin 3.1 L 06/14/20 03:54 WBC 43.6 H* D RBC 3.01 L Hgb 9.2 L Hct 28.5 L MCV 95 MCH 30.6 MCHC 32.3 RDW 15.5 H Plt Count 118 L Seg Neutrophils % Not Reportable Carbonic Acid HCO3/H2CO3 Ratio ABG pH ABG pCO2 ABG pO2 ABG HCO3 ABG O2 Saturation ABG Base Excess FiO2 Sodium Potassium Chloride Carbon Dioxide Anion Gap BUN Creatinine Est GFR ( Amer) Glucose Calcium Total Bilirubin AST Alkaline Phosphatase Total Protein Albumin 06/07/20 06/08/20 06/14/20 17:14 04:54 02:30 Troponin I 0.033 0.039 NT-Pro-B Natriuret Pep 3330 H [id number] H Impressions: Head CT 06/08/20 08:00 IMPRESSION: Sinus disease. No acute intracranial imaging findings. EVIDENCE OF ACUTE STROKE: NO. Chest X-Ray 06/14/20 00:00 IMPRESSION: No significant change in the appearance of the chest. All labs, radiographs, diagnostic studies and EKGs were personally reviewed: Yes In addition, reports of radiographic and diagnostic studies were read: Yes Assessment and Plan - Diagnosis (1) Aspiration into airway Qualifiers: Encounter type: initial encounter Qualified Code(s): T17.908A - Unspecified foreign body in respiratory tract, part unspecified causing other injury, initial encounter Is this a current diagnosis for this admission?: Yes Plan: His CXR shows evidence of aspiration or CHF which he has a history of both. He is a high risk for aspiration and for this reason was intubated. (2) Acute exacerbation of CHF (congestive heart failure) Qualifiers: Heart failure type: combined systolic and diastolic Qualified Code(s): I50.43 - Acute on chronic combined systolic (congestive) and diastolic (congestive) heart failure Is this a current diagnosis for this admission?: Yes Plan: At this point he is in mild dyastolic CHF (3) Acute metabolic encephalopathy Is this a current diagnosis for this admission?: Yes Plan: He is more active and needing to be restrained. (4) Hypotension (arterial) Is this a current diagnosis for this admission?: Yes Plan: The patient is not responding well to vasopressin. HR only 75-80. Will start epinephrine Plan Summary: Change to include epinephrine reason for continued hypotension not clear. Check lactic acid. I have talked to his mpother today and updated her. Critical Time Critical Time (minutes): 35 Level of Care: ICU Anticipated discharge: Home Anticipated DC Timeframe: Other -: 1. The care of a critical patient is a dynamic process. This note is a customer account representative synopsis but static in nature. The timeframe for treatments given in order is not necessarily the actual time these treatments may have been done. 2. This patient requires critical care secondary to ongoing requirements for therapy not offered or safe outside the critical care environment. Transfer to a lower level of care will result in altered life or limb morbidity and mortality. 3. Multidisciplinary rounds completed. 4. ABCDE bundle addressed.
[2020-06-14] MEDS ORDERED: EPINEPHRINE INJ/PF 1 MG/1 ML AMPULE ONE (14:44)
[2020-06-14 15:07] LABS: C DIFFICILE GDH NEGATIVE (NEGATIVE)
[2020-06-14 16:05] LABS: ARTERIAL BLOOD BASE EXCESS 1.3 mmol/L; ARTERIAL BLOOD FIO2 50%; ARTERIAL BLOOD H2CO3 1.16 mmol/L (1.05-1.35); ARTERIAL BLOOD HCO3 25.4 mmol/L (20-24); ARTERIAL BLOOD O2 SATURATION 98.1 % (94-98); ARTERIAL BLOOD PCO2 38.4 mmHg (35-45); ARTERIAL BLOOD PH 7.44 (7.35-7.45); ARTERIAL BLOOD PO2 108.8 mmHg (80-100); ARTERIAL BLOOD TOTAL CO2 26.6 mmol/L (23-27)
[2020-06-14] MEDS: AMINO AC/PROTEIN HYDR/WHEY PRO 11 GM/45 ML PKT NG SCH (18:05)
[2020-06-14] MEDS: DEXTROSE 5%-WATER 250 ML with EPINEPHRINE/PF 1 MG IV PRN ×6 (18:05→22:22)
[2020-06-14] MEDS: ASPIRIN 81 MG TABLET, CHEWABLE NG SCH (21:50)
[2020-06-14] MEDS: (PENDING PHARMACY ID) (Budesonide/Formoterol Fumarate 60 PUFF/6 GM Inhaler) IH SCH (22:00)
[2020-06-15] MEDS: PROPOFOL 1,000 MG/100 ML INFUS..BTL IV PRN ×4 (00:10→13:22)
[2020-06-15] MEDS: DEXTROSE 5%-WATER 250 ML with PHENYLEPHRINE HCL 40 MG IV PRN ×8 (00:45→12:20)
[2020-06-15] MEDS: DEXTROSE 5%-WATER 250 ML with EPINEPHRINE/PF 1 MG IV PRN ×10 (01:15→12:18)
[2020-06-15 05:32] LABS: HEMATOCRIT 27.8 % (37.9-51.0); HEMOGLOBIN 9.3 g/dL (13.5-17.0); MEAN CORPUSCULAR HEMOGLOBIN 31.2 pg (27.0-33.4); MEAN CORPUSCULAR HGB CONC 33.4 g/dL (32.0-36.0); MEAN CORPUSCULAR VOLUME 94 fl (80-97); PLATELET COUNT 129 10^3/uL (150-450); RED BLOOD COUNT 2.98 10^6/uL (4.35-5.55); RED CELL DISTRIBUTION WIDTH 15.1 % (11.5-14.0)
[2020-06-15] MEDS: PIPERACILLIN SODIUM/TAZOBACTAM 3.375 GM in NORMAL SALINE 100 ML IV SCH ×3 (05:39→17:08)
[2020-06-15 05:47] LABS: ANION GAP 15 (5-19); BLOOD UREA NITROGEN 86 mg/dL (7-20); CALCIUM 7.3 mg/dL (8.4-10.2); CARBON DIOXIDE 24 mmol/L (22-30); CHLORIDE 95 mmol/L (98-107); GLUCOSE 380 mg/dL (75-110); POTASSIUM 3.8 mmol/L (3.6-5.0)
[2020-06-15 06:22] LABS: ABSOLUTE LYMPHOCYTES# (MANUAL) 4.9 10^3/uL (0.5-4.7); ABSOLUTE MONOCYTES # (MANUAL) 4.6 10^3/uL (0.1-1.4); BAND NEUTROPHILS % (MANUAL) 1 % (3-5); BASOPHILS % (MANUAL) 0 % (0-2); EOSINOPHILS % (MANUAL) 0 % (0-6); LYMPHOCYTES % (MANUAL) 14 % (13-45); MONOCYTES % (MANUAL) 13 % (3-13); SEGMENTED NEUTROPHILS % (MAN) 72 % (42-78); TOTAL CELLS COUNTED 100
[2020-06-15 06:24] LABS: ANISOCYTOSIS SLIGHT; TOXIC GRANULATION SLIGHT; TOXIC VACUOLATION PRESENT
[2020-06-15 06:25] LABS: PLATELET CLUMPS PRESENT; PLATELET COMMENT DECREASED; POLYCHROMASIA SLIGHT; TARGET CELLS SLIGHT; TEAR DROP CELLS SLIGHT
[2020-06-15] MEDS: INSULIN LISPRO 100 UNIT/ML 3 ML VIAL SUBCUT SCH ×3 (06:52→17:09)
[2020-06-15 07:12] LABS: WHITE BLOOD COUNT 43.6 10^3/uL (4.0-10.5)
[2020-06-15] MEDS: INSULIN GLARGINE,HUM.REC.ANLOG 1,000 UNIT/10 ML VIAL SUBCUT SCH ×2 (09:02→22:13)
[2020-06-15] MEDS: FAMOTIDINE INJ/PF 20 MG/2 ML SDV IV SCH ×2 (09:03→22:11)
[2020-06-15] MEDS: DOCUSATE SODIUM 100 MG CAPSULE PO SCH ×2 (09:03→20:08)
[2020-06-15] MEDS: AMINO AC/PROTEIN HYDR/WHEY PRO 11 GM/45 ML PKT NG SCH ×2 (09:03→17:09)
--- NOTE | 2020-06-15 09:38 | PDOC CRITICAL CARE PROG REPORT ---
General Date:: 06/15/20 ICU Day:: 2 Ventilator Day:: 2 Hospital Day:: 7 Resuscitation Status: Full Code Events in the past 12 to 24 Hours:: Intubated for airway protection. 06/15: Worsening ARF. With mental status and now renal failure I wonder if his main issue is cadiac output tying all this togather. Dr. Pablo to see. Review of systems relevant to events:: CV, Renal, Neurological. Reason for ICU Addmission:: Need for intubation. Worsening renal failure. - Medications: Medications reviewed and adjusted accordingly: Yes Vasopressors:: Vasopressin, Phenylephrine. Sedation:: Propofol. Physical Exam Vital Signs: Temp Pulse Resp BP Pulse Ox 98.0 F 84 19 85/46 L 100 06/15/20 08:00 06/15/20 08:00 06/15/20 08:45 06/15/20 08:45 06/15/20 08:45 Intake & Output 06/14/20 06/15/20 06/16/20 06:59 06:59 06:59 Intake Total 2847 8607 75 Output Total 220 125 Balance 2627 8482 75 Weight 127 kg 130.5 kg Weight/Height Weight 130.5 kg Height 5 ft 11 in General appearance: PRESENT: no acute distress, obese Head exam: PRESENT: atraumatic, normocephalic Eye exam: PRESENT: conjunctiva pink, EOMI, PERRLA. ABSENT: scleral icterus Ear exam: PRESENT: normal external ear exam Mouth exam: PRESENT: moist, tongue midline Respiratory exam: PRESENT: clear to auscultation dilia. ABSENT: rales, rhonchi, wheezes Cardiovascular exam: PRESENT: RRR. ABSENT: diastolic murmur, rubs, systolic murmur GI/Abdominal exam: PRESENT: normal bowel sounds, soft. ABSENT: distended, guarding, mass, organolmegaly, rebound, tenderness Rectal exam: PRESENT: deferred Gentrourinary exam: PRESENT: indwelling catheter Extremities exam: PRESENT: full ROM. ABSENT: calf tenderness, clubbing, pedal edema Musculoskeletal exam: PRESENT: normal inspection Neurological exam: PRESENT: other - Sedated. Psychiatric exam: PRESENT: agitated - At times Skin exam: PRESENT: dry, intact, warm. ABSENT: cyanosis, rash Tubes/Lines: PRESENT: Endotracheal Tube, Nasogastic Tube Laboratory/Radiographs Laboratory Results: 06/15/20 05:12 06/15/20 05:12 06/14/20 06/14/20 06/15/20 03:54 15:47 05:12 WBC 43.6 H* D RBC Hgb Hct MCV MCH MCHC RDW Plt Count Seg Neutrophils % Carbonic Acid 1.16 HCO3/H2CO3 Ratio 21:1 ABG pH 7.44 ABG pCO2 38.4 ABG pO2 108.8 H ABG HCO3 25.4 H ABG O2 Saturation 98.1 H ABG Base Excess 1.3 FiO2 50% Sodium 133.9 L Potassium 3.8 Chloride 95 L Carbon Dioxide 24 Anion Gap 15 BUN 86 H Creatinine 4.15 H Est GFR ( Amer) 19 L Glucose 380 H Calcium 7.3 L 06/15/20 05:12 WBC 35.0 H* RBC 2.98 L Hgb 9.3 L Hct 27.8 L MCV 94 MCH 31.2 MCHC 33.4 RDW 15.1 H Plt Count 129 L Seg Neutrophils % Not Reportable Carbonic Acid HCO3/H2CO3 Ratio ABG pH ABG pCO2 ABG pO2 ABG HCO3 ABG O2 Saturation ABG Base Excess FiO2 Sodium Potassium Chloride Carbon Dioxide Anion Gap BUN Creatinine Est GFR ( Amer) Glucose Calcium 06/12/20 16:52 Blood Blood Culture (PCR) - Final 06/07/20 06/08/20 06/14/20 17:14 04:54 02:30 Troponin I 0.033 0.039 NT-Pro-B Natriuret Pep 3330 H 38852 H Impressions: Head CT 06/08/20 08:00 IMPRESSION: Sinus disease. No acute intracranial imaging findings. EVIDENCE OF ACUTE STROKE: NO. Chest X-Ray 06/14/20 00:00 IMPRESSION: No significant change in the appearance of the chest. All labs, radiographs, diagnostic studies and EKGs were personally reviewed: Yes In addition, reports of radiographic and diagnostic studies were read: Yes Assessment and Plan - Diagnosis (1) Acute exacerbation of CHF (congestive heart failure) Qualifiers: Heart failure type: combined systolic and diastolic Qualified Code(s): I50.43 - Acute on chronic combined systolic (congestive) and diastolic (congestive) heart failure Is this a current diagnosis for this admission?: Yes Plan: At this point he will see Dr. Pablo to consider milrinone to boost CO. (2) Acute metabolic encephalopathy Is this a current diagnosis for this admission?: Yes Plan: Again he needs sedation but is his worsening mental status due to worsening CO? (3) Aspiration into airway Qualifiers: Encounter type: initial encounter Qualified Code(s): T17.908A - Unspecified foreign body in respiratory tract, part unspecified causing other injury, initial encounter Is this a current diagnosis for this admission?: Yes Plan: Resolving and I dont believe it is is major problem right now. (4) Hypotension (arterial) Is this a current diagnosis for this admission?: Yes Plan: He is now on 2 presors and may need Milrinone. Plan Summary: Await cardiology input. Critical Time Critical Time (minutes): 35 Level of Care: ICU Anticipated discharge: Home Anticipated DC Timeframe: Other -: 1. The care of a critical patient is a dynamic process. This note is a charter representative synopsis but static in nature. The timeframe for treatments given in order is not necessarily the actual time these treatments may have been done. 2. This patient requires critical care secondary to ongoing requirements for therapy not offered or safe outside the critical care environment. Transfer to a lower level of care will result in altered life or limb morbidity and mortality. 3. Multidisciplinary rounds completed. 4. ABCDE bundle addressed.
--- NOTE | 2020-06-15 11:25 | PDOC PROGRESS REPORT ---
Subjective Date:: 06/15/20 Subjective:: Patient known to the cardiology service from previous consultation. Please see notes by Dr. Avina. On 06/12/2020 morning patient became further obtunded and could not protect his airway and was intubated. Subsequently he was transferred to the intensive care unit. His clinical presentation was suggestive of congestive heart failure and respiratory failure. He has required pressors and it has been difficult for him to maintain his blood pressure. Is also become erythematous. At the time of my evaluation is calm and sedated. He is presently being managed with epinephrine infusion as well as Maxim-Synephrine infusion. Reason For Visit: OBTUNDATION,NEEDS ETT FOR AIRWAY PROTECTION Physical Exam Vital Signs: Temp Pulse Resp BP Pulse Ox 98.0 F 84 17 98/60 L 100 06/15/20 09:36 06/15/20 10:00 06/15/20 10:00 06/15/20 10:00 06/15/20 10:00 Intake & Output 06/14/20 06/15/20 06/16/20 06:59 06:59 06:59 Intake Total 2847 8607 955 Output Total 220 125 300 Balance 2627 8482 655 Weight 127 kg 130.5 kg General appearance: PRESENT: no acute distress, other - Sedated on ventilator Head exam: PRESENT: atraumatic, normocephalic - Lines and tubes noted. Eye exam: PRESENT: conjunctiva pale Neck exam: PRESENT: JVD Respiratory exam: PRESENT: crackles, decreased breath sounds, symmetrical Cardiovascular exam: PRESENT: RRR, +S1, +S2 Pulses: PRESENT: normal radial pulses GI/Abdominal exam: PRESENT: soft Rectal exam: PRESENT: deferred Extremities exam: PRESENT: pedal edema, +1 edema, other - Anasarca Musculoskeletal exam: PRESENT: normal inspection Neurological exam: PRESENT: altered - Sedated Skin exam: PRESENT: dry, intact Results Laboratory Results: 06/15/20 05:12 06/15/20 05:12 06/14/20 06/14/20 06/15/20 03:54 15:47 05:12 WBC 43.6 H* D RBC Hgb Hct MCV MCH MCHC RDW Plt Count Seg Neutrophils % Carbonic Acid 1.16 HCO3/H2CO3 Ratio 21:1 ABG pH 7.44 ABG pCO2 38.4 ABG pO2 108.8 H ABG HCO3 25.4 H ABG O2 Saturation 98.1 H ABG Base Excess 1.3 FiO2 50% Sodium 133.9 L Potassium 3.8 Chloride 95 L Carbon Dioxide 24 Anion Gap 15 BUN 86 H Creatinine 4.15 H Est GFR ( Amer) 19 L Glucose 380 H Calcium 7.3 L 06/15/20 05:12 WBC 35.0 H* RBC 2.98 L Hgb 9.3 L Hct 27.8 L MCV 94 MCH 31.2 MCHC 33.4 RDW 15.1 H Plt Count 129 L Seg Neutrophils % Not Reportable Carbonic Acid HCO3/H2CO3 Ratio ABG pH ABG pCO2 ABG pO2 ABG HCO3 ABG O2 Saturation ABG Base Excess FiO2 Sodium Potassium Chloride Carbon Dioxide Anion Gap BUN Creatinine Est GFR ( Amer) Glucose Calcium 06/13/20 09:09 Tracheal Aspirate Gram Stain - Final 06/12/20 16:52 Blood Blood Culture (PCR) - Final 06/07/20 06/08/20 06/14/20 17:14 04:54 02:30 Troponin I 0.033 0.039 NT-Pro-B Natriuret Pep 3330 H 70739 H EKG Comments: Telemetry shows sinus rhythm at 98 bpm Twelve-lead EKG 06/13/2020 1703. Independently viewed by me. Sinus rhythm, 77 bpm, low voltage in frontal leads, borderline T wave abnormalities, normal AV conduction, QTC is 512 ms. Transthoracic echocardiogram 06/08/2020 Left ventricular ejection fraction estimated at 30 to 35% RV is borderline reduced function. Mild MR and mild TR there is no pericardial effusion White blood cell count increased to 35,000 Sodium is 133.9 Creatinine is elevated at 4.15 Chest x-ray 06/14/2020 shows right-sided Port-A-Cath cardiomegaly bilateral op acities consistent with edema and/pneumonia Impressions: Head CT 06/08/20 08:00 IMPRESSION: Sinus disease. No acute intracranial imaging findings. EVIDENCE OF ACUTE STROKE: NO. Chest X-Ray 06/14/20 00:00 IMPRESSION: No significant change in the appearance of the chest. Assessment & Plan - Diagnosis (1) Acute exacerbation of CHF (congestive heart failure) Qualifiers: Heart failure type: combined systolic and diastolic Qualified Code(s): I50.43 - Acute on chronic combined systolic (congestive) and diastolic (congestive) heart failure Is this a current diagnosis for this admission?: Yes Plan: Congestive heart failure with reduced ejection fraction estimated at 30 to 35% Intubated due to respiratory failure which is multifactorial. Presently has leukocytosis. Would recommend weaning epinephrine as well as Maxim-Synephrine to off. Would recommend substituting these medications with norepinephrine and milrinone if needed. Watch volume status Requires continued intravenous diuresis However renal functions compromising his care and he continues to be in acute kidney injury. (2) Agitation Is this a current diagnosis for this admission?: Yes Plan: Patient is presently sedated and calm. (3) Elevated troponin Is this a current diagnosis for this admission?: Yes Plan: Mildly elevated troponins in the setting of heart failure. No ischemic symptoms. Need ischemia evaluation later especially given LV dysfunction. This can be arranged based on clinical course. - Notes Notes: I saw and evaluated the patient in the intensive care unit. I also spoke with the basketball player Dr. Bianchi. We have both agreed that his infusion can be changed from the present regimen to include norepinephrine and milrinone-the latter if need be
[2020-06-15] MEDS ORDERED: NOREPINEPHRINE BITARTRATE INJ/PF 4 MG/4 ML SDV IV ONE ×2 (12:09→20:13)
[2020-06-15] MEDS ORDERED: NORMAL SALINE IV PRN ×4 (13:44→13:55)
[2020-06-15] MEDS ORDERED: EPINEPHRINE IV PRN ×4 (13:44→13:55)
[2020-06-15] MEDS ORDERED: NORMAL SALINE 250 ML with PHENYLEPHRINE HCL 40 MG IV PRN ×2 (13:59)
[2020-06-15] MEDS: MILRINONE LACTATE/D5W 20 MG/100 ML RTUINJ IV PRN ×3 (14:53→22:55)
[2020-06-15] MEDS ORDERED: DEXMEDETOMIDINE IN 0.9 % NACL 400 MCG/100 ML RTUPB IV ONE (17:20)
[2020-06-15] MEDS: NORMAL SALINE 250 ML with FUROSEMIDE 250 MG IV PRN ×2 (18:05)
[2020-06-15] MEDS: DEXTROSE 5%-WATER 250 ML with NOREPINEPHRINE BITARTRATE 4 MG IV PRN ×2 (20:16)
[2020-06-15] MEDS ORDERED: VASOPRESSIN INJ 20 UNIT/1 ML VIAL ONE (20:21)
--- NOTE | 2020-06-15 20:21 | Operative Report ---
Bedside Procedure - History of Present Illness Indication for Procedure: Hemodynamic monitoring Date: 06/13/20 Provider: JOAQUINA MEDEROS - Additional Procedures Arterial Line Time performed: 20:15 Notes: Operation/Procedure: left radial arterial line placement Consent for operation or procedure: Implied due to patient condition - need for invasive monitoring Anesthesia: 2 cc of 1% Lidocaine Indications: Hemodynamic monitoring After properly positioning the patient's wrist in the standard fashion, the site was prepped and draped in a sterile fashion. Lidocaine was administered subcutaneously as a local infiltration and given time to take effect. Next, the radial artery was entered, noting bright red, pulsatile flow. A guidewire was easily inserted, the needle removed, and the catheter was then placed using the Seldinger technique. The guidewire was removed, with good flow present. The catheter was then connected to the transducer with a good waveform noted. The catheter was secured with suture and an occlusive dressing was placed after properly cleaning and prepping the site. Complications: The patient tolerated the procedure well and no complications were noted. Estimated Blood Loss: minimal Plan: Arterial line to remain in place for hemodynamic monitoring.
[2020-06-15] MEDS: (PENDING PHARMACY ID) (Budesonide/Formoterol Fumarate 60 PUFF/6 GM Inhaler) IH SCH ×2 (20:34→22:11)
[2020-06-15] MEDS: DEXTROSE 5%-WATER 250 ML with VASOPRESSIN 100 UNIT IV PRN ×2 (20:35)
[2020-06-15] MEDS: ASPIRIN 81 MG TABLET, CHEWABLE NG SCH (22:11)
[2020-06-16] MEDS ORDERED: MILRINONE LACTATE/D5W 20 MG/100 ML RTUINJ IV PRN (00:18)
[2020-06-16] MEDS: INSULIN LISPRO 100 UNIT/ML 3 ML VIAL SUBCUT SCH ×4 (00:18→17:39)
[2020-06-16] MEDS: DEXTROSE 5%-WATER 250 ML with NOREPINEPHRINE BITARTRATE 4 MG IV PRN ×10 (00:26→20:02)
[2020-06-16] MEDS: PIPERACILLIN SODIUM/TAZOBACTAM 3.375 GM in NORMAL SALINE 100 ML IV SCH ×3 (00:28→11:28)
[2020-06-16] MEDS ORDERED: ALBUMIN HUMAN 500 ML IV ONE (04:22)
[2020-06-16] MEDS: ALBUMIN HUMAN 12.5 GM/50 ML RTUINJ IV SCH ×2 (04:30→05:23)
[2020-06-16] MEDS ORDERED: RINGERS SOLUTION,LACTATED 500 ML IV ONE (04:31)
[2020-06-16 04:55] LABS: HEMATOCRIT 24.1 % (37.9-51.0); HEMOGLOBIN 8.1 g/dL (13.5-17.0); MEAN CORPUSCULAR HGB CONC 33.7 g/dL (32.0-36.0); MEAN CORPUSCULAR VOLUME 92 fl (80-97); RED BLOOD COUNT 2.62 10^6/uL (4.35-5.55); RED CELL DISTRIBUTION WIDTH 14.7 % (11.5-14.0); WHITE BLOOD COUNT 16.5 10^3/uL (4.0-10.5)
[2020-06-16 04:56] LABS: ARTERIAL BLOOD BASE EXCESS 1.6 mmol/L; ARTERIAL BLOOD H2CO3 1.32 mmol/L (1.05-1.35); ARTERIAL BLOOD HCO3 26.6 mmol/L (20-24); ARTERIAL BLOOD O2 SATURATION 96.9 % (94-98); ARTERIAL BLOOD PCO2 43.8 mmHg (35-45); ARTERIAL BLOOD PO2 91.1 mmHg (80-100); ARTERIAL BLOOD TOTAL CO2 27.9 mmol/L (23-27)
[2020-06-16 04:57] LABS: ARTERIAL BLOOD FIO2 50%
[2020-06-16 05:00] LABS: PLATELET COUNT 82 10^3/uL (150-450)
[2020-06-16 05:14] LABS: ANION GAP 13 (5-19); BLOOD UREA NITROGEN 84 mg/dL (7-20); CALCIUM 7.5 mg/dL (8.4-10.2); CARBON DIOXIDE 25 mmol/L (22-30); CHLORIDE 95 mmol/L (98-107); GLUCOSE 311 mg/dL (75-110); POTASSIUM 3.2 mmol/L (3.6-5.0)
[2020-06-16 05:20] LABS: BAND NEUTROPHILS % (MANUAL) 4 % (3-5); BASOPHILS % (MANUAL) 0 % (0-2); EOSINOPHILS % (MANUAL) 2 % (0-6); LYMPHOCYTES % (MANUAL) 6 % (13-45); MONOCYTES % (MANUAL) 6 % (3-13); SEGMENTED NEUTROPHILS % (MAN) 82 % (42-78); TOTAL CELLS COUNTED 100
[2020-06-16 05:22] LABS: ANISOCYTOSIS SLIGHT; PLATELET COMMENT DECREASED
[2020-06-16] MEDS: POTASSI CL 20 MEQ/50 ML RIDER 20 MEQ/50 ML RTUPB IV SCH ×2 (06:02→07:30)
[2020-06-16] MEDS: FAMOTIDINE INJ/PF 20 MG/2 ML SDV IV SCH ×2 (09:24→22:03)
[2020-06-16] MEDS: AMINO AC/PROTEIN HYDR/WHEY PRO 11 GM/45 ML PKT NG SCH ×2 (09:24→17:37)
[2020-06-16] MEDS: DOCUSATE SODIUM 100 MG CAPSULE PO SCH ×2 (09:24→17:26)
[2020-06-16] MEDS: INSULIN GLARGINE,HUM.REC.ANLOG 1,000 UNIT/10 ML VIAL SUBCUT SCH ×2 (09:24→22:03)
[2020-06-16] MEDS: (PENDING PHARMACY ID) (Budesonide/Formoterol Fumarate 60 PUFF/6 GM Inhaler) IH SCH (10:03)
[2020-06-16] MEDS ORDERED: DEXMEDETOMIDINE IN 0.9 % NACL 400 MCG/100 ML RTUPB IV ONE (10:55)
[2020-06-16] MEDS ORDERED: DOPAMINE HCL/DEXTROSE 5%-WATER 800 MG/250 ML RTUINJ IV ONE (10:56)
[2020-06-16] MEDS: DEXMEDETOMIDINE IN NS 400 MCG/100 ML RTUPB IV PRN ×3 (11:10→20:03)
[2020-06-16] MEDS: NORMAL SALINE 250 ML with FUROSEMIDE 250 MG IV PRN ×2 (11:12)
[2020-06-16] MEDS ORDERED: DOPAMINE HCL 800 MG/D5W 250 ML IV PRN (12:52)
[2020-06-16] MEDS ORDERED: NORMAL SALINE 250 ML with FUROSEMIDE 250 MG IV PRN ×2 (12:52)
[2020-06-16] MEDS ORDERED: ALBUMIN HUMAN 12.5 GM/50 ML RTUINJ IV ONE (13:15)
--- NOTE | 2020-06-16 16:52 | PDOC CONSULTATION ---
Consultation Consult Date: 06/16/20 Provider Consulted: Yunior DALEY Consult reason:: ADRI History of Present Illness Admission Date/PCP: 06/07/20 21:04 MICHELE GUILLEN PA-C History of Present Illness: LIZABETH VICK is a 49 year old male was seen in the ICU today. He remains intubated and sedated. Therefore discussions were done with the treating nurse/interactive media marketing director and chart review. He was admitted on the May with history of lymphoma, morbid obesity, heart failure of unclear etiology, medication noncompliance, with multiple evaluations in our emergency room as well as admission to this facility but the patient leaves AMA before completing treatments. He was admitted with c/o dyspnea , worsening scotal and pedal edema and possible heart failure exacerbation. Review of his chart demonstrates that the patient had been seen or admitted to our facility at least 5 times in the last several months. He was seen in our emergency room on 03/28/2020 for evaluation of shortness of breath. At that time he was diagnosed with pneumonia and left the emergency room AMA. He returned to the emergency room on 03/30/2024 worsening dyspnea, he was diagnosed with pneumonia and admitted however he left AMA on 03/31/2020. He returned to our emergency room on 05/22/2020 complaining of genital edema, at that time his chest x-ray was consistent with worsening multifocal pneumonia and a scrotal ultrasound demonstrated edema. The emergency room physician recommended Lasix and admission however the patient declined to be admitted, refused his Lasix and left AMA from the emergency department. Patient was initially admitted to the floor but developed respiratory failure on the which necessitated intubation and was transferred to the ICU where he is now. His renal functions initially showed a creatinine of 1.1 on admission. But 3 days following admissions, he has developed ADRI with creeping creatinine upwards to the current 4+. His urine output also continues to drop. After discussions that Dr. Odonnell/interactive media marketing director with me, I suggested that he start him on Lasix infusion and today note that he has had a urine output of 2000+ which is very encouraging.Labs and medications were reviewed. Past Medical History Cardiac Medical History: Reports: Hypertension-primary Denies: Coronary Artery Disease, Myocardial Infarction Pulmonary Medical History: Reports: Pneumonia, Respiratory Failure Denies: Asthma, Bronchitis, Chronic Obstructive Pulmonary Disease (COPD) Neurological Medical History: Denies: Seizures Endocrine Medical History: Reports: Diabetes Mellitus Type 2 Denies: Diabetes Mellitus Type 1, Hyperthyroidism, Hypothyroidism Malignancy Medical History: Reports: Lymphoma GI Medical History: Denies: Cirrhosis, Hepatitis Musculoskeltal Medical History: Reports: Arthritis, Gout Skin Medical History: Denies: Eczema, Psoriasis Psychiatric Medical History: Reports: Depression Past Surgical History Past Surgical History: Reports: Appendectomy, Other - Bone marrow transplant Social History Smoking Status: Current Every Day Smoker Frequency of Alcohol Use: None Hx Recreational Drug Use: No Drugs: None Hx Prescription Drug Abuse: Yes - Advance Directive Resuscitation Status: Full Code Family History Parental Family History Reviewed: No - Patient intubated and sedated. Children Family History Reviewed: No Sibling(s) Family History Reviewed.: No Medication/Allergy Home Medications: Glipizide [Glipizide Xl] 5 mg PO DAILY 03/30/20 Ipratropium [place] [Atrovent Hfa] 2 puff IH Q6 03/30/20 Metformin HCl [Glucophage 500 mg Tablet] 1,000 mg PO BIDACBS 03/30/20 Sitagliptin Phosphate [Januvia 50 mg Tablet] 100 mg PO DAILY 03/30/20 Potassium Chloride 10 meq PO QAM #5 capsule.er 04/14/20 Budesonide/Formoterol Fumarate [Symbicort Hfa 160-4.5 Mcg Inhaler 6 gm] 2 puff IH Q12 06/08/20 Furosemide [Lasix 20 mg Tablet] 40 mg PO DAILY 06/08/20 Hydrocodone/Acetaminophen [Edcouch 5-325 Tablet] 1 each PO TIDP PRN 06/08/20 Tiotropium [place] [Spiriva Respimat] 2 puff PO DAILY 06/08/20 Allergies/Adverse Reactions: No Known Allergies Allergy (Verified 12/29/12 10:28) Review of Systems ROS unobtainable: Due to endotracheal tube - Chart review was done and discussions with our treating nurse. Physical Exam Vital Signs: Temp Pulse Resp BP Pulse Ox 98.2 F 99 21 H 125/52 L 96 06/16/20 12:00 06/16/20 14:00 06/16/20 14:00 06/16/20 14:00 06/16/20 16:26 Intake & Output 06/15/20 06/16/20 06/17/20 06:59 06:59 06:59 Intake Total 9107 6683 874 Output Total 125 3205 700 Balance 8980 2060 174 Weight 130.5 kg 132.6 kg General appearance: PRESENT: disheveled Exam: Patient is intubated and sedated. Is morbidly obese. Eye exam: PRESENT: EOMI, PERRLA. ABSENT: scleral icterus Ear exam: PRESENT: normal external ear exam Neck exam: ABSENT: lymphadenopathy, meningismus, tenderness, thyromegaly, tracheal deviation Respiratory exam: PRESENT: clear to auscultation dilia, decreased breath sounds. ABSENT: crackles Cardiovascular exam: PRESENT: +S1, +S2 GI/Abdominal exam: PRESENT: normal bowel sounds, soft. ABSENT: organomegaly, tenderness Extremities exam: PRESENT: +2 edema Neurological exam: PRESENT: altered Skin exam: ABSENT: erythema, mottled, rash Results Laboratory Results: 06/16/20 04:10 06/16/20 04:10 06/16/20 06/16/20 06/16/20 04:10 04:10 04:10 WBC 16.5 H RBC 2.62 L Hgb 8.1 L Hct 24.1 L MCV 92 MCH 31.0 MCHC 33.7 RDW 14.7 H Plt Count 82 L Seg Neutrophils % Not Reportable Carbonic Acid HCO3/H2CO3 Ratio ABG pH ABG pCO2 ABG pO2 ABG HCO3 ABG O2 Saturation ABG Base Excess FiO2 Sodium 132.7 L Potassium 3.2 L Chloride 95 L Carbon Dioxide 25 Anion Gap 13 BUN 84 H Creatinine 4.78 H Est GFR ( Amer) 16 L Glucose 311 H Lactic Acid Calcium 7.5 L Ionized Calcium Marisabel 1.03 L 06/16/20 06/16/20 04:10 04:10 WBC RBC Hgb Hct MCV MCH MCHC RDW Plt Count Seg Neutrophils % Carbonic Acid 1.32 HCO3/H2CO3 Ratio 20:1 ABG pH 7.40 ABG pCO2 43.8 ABG pO2 91.1 ABG HCO3 26.6 H ABG O2 Saturation 96.9 ABG Base Excess 1.6 FiO2 50% Sodium Potassium Chloride Carbon Dioxide Anion Gap BUN Creatinine Est GFR ( Amer) Glucose Lactic Acid 1.4 Calcium Ionized Calcium Marisabel 06/12/20 16:52 Blood Blood Culture (PCR) - Final 06/12/20 16:52 Blood Blood Culture - Final Corynebacterium Species 06/13/20 09:09 Tracheal Aspirate Gram Stain - Final 06/07/20 06/08/20 06/14/20 17:14 04:54 02:30 Troponin I 0.033 0.039 NT-Pro-B Natriuret Pep 3330 H 50055 H Impressions: Head CT 06/08/20 08:00 IMPRESSION: Sinus disease. No acute intracranial imaging findings. EVIDENCE OF ACUTE STROKE: NO. Chest X-Ray 06/14/20 00:00 IMPRESSION: No significant change in the appearance of the chest. Assessment & Plan - Diagnosis (1) Septic shock Plan: Blood cultures and sputum cultures are positive for corynebacterium. Patient currently on double pressors with worsening multisystem organ failure. Renal failure and oliguria. Patient seems to be responding nicely to initiation of IV Lasix. Continue on antibiotics but dose medications for GFR of less than 25 cc/min. Dose adjustments made for his Pip - Tazo. I also note that the patient was tested for Covid serology on the but no further testings have been done since then. However there are certain features that might indicate that patient has got Covid including his last CXR, and I would request that patient has had a repeat Covid serology testing with PCR today. Meanwhile I am asking for coagulation profile Including a D-dimer followed by C-reactive protein and a serum ferritin level to see if that would lead any credence to the possibility of Covid diagnosis. (2) ADRI (acute kidney injury) Is this a current diagnosis for this admission?: Yes Plan: Patient was seemingly oliguric to yesterday. However seems to be responding to IV Lasix and would continue . Treat other extraneous factors including is congestive heart failure/septic shock. No acute indications for renal replacements at the moment. Please dose medications for GFR of less than 25 cc/min. Discussions were done with treating nurse as well as with the interactive media marketing director. (3) Acute exacerbation of CHF (congestive heart failure) Qualifiers: Heart failure type: combined systolic and diastolic Qualified Code(s): I50.43 - Acute on chronic combined systolic (congestive) and diastolic (congestive) heart failure Is this a current diagnosis for this admission?: Yes Plan: Even though CHF is a distinct possibility I am highly concerned for the fact that this patient might have Covid pneumonia. Reviewing his chest x-ray done on the is that patient has got an interstitial pattern that is quite suggestive of Covid pneumonia. That in conjunction with other laboratory values are quite concerning for the patient to be Covid positive and appropriate medications needs to be restarted especially remdesivir and steroids if that is the case. I will therefore add on some testing as mentioned earlier and I would definitely ask for a PCR testing to be done today and closely follow his results. Discussed with treating nurse Jazmin. (4) Acute metabolic encephalopathy Is this a current diagnosis for this admission?: Yes Plan: Secondary to respiratory failure of unknown etiology. Differential diagnosis includes CHF/Covid pneumonia. (5) Acute respiratory insufficiency Is this a current diagnosis for this admission?: Yes Plan: Secondary to congestive heart failure/possible Covid pneumonia. (6) Anasarca Is this a current diagnosis for this admission?: Yes Plan: In the setting of septic shock. (7) Hypomagnesemia Is this a current diagnosis for this admission?: Yes (8) Hypotension (arterial) Is this a current diagnosis for this admission?: Yes Plan: Secondary to septic shock. Differentials also to be considered besides the fact that he has coynebacterium bacteremia is taht he may have Covid pneumonia. (9) Medical non-compliance Is this a current diagnosis for this admission?: Yes Plan: Status quo. (10) Diabetes mellitus type 2 in obese Is this a current diagnosis for this admission?: Yes Plan: As per interactive media marketing director. (11) Anemia Plan: In the setting of septic shock. However initiate studies.
[2020-06-16 17:06] LABS: INTERNATIONAL RATION (INR) 1.39; PARTIAL THROMBOPLASTIN TIME 29.7 SEC (23.5-35.8); PROTHROMBIN TIME 17.2 SEC (11.4-15.4)
--- NOTE | 2020-06-16 17:11 | PDOC CRITICAL CARE PROG REPORT ---
General Date:: 06/16/20 ICU Day:: 3 Ventilator Day:: 3 Hospital Day:: 8 Resuscitation Status: Full Code Events in the past 12 to 24 Hours:: Intubated for airway protection. 06/15: Worsening ARF. With mental status and now renal failure I wonder if his main issue is cadiac output tying all this togather. Dr. Pablo to see. 06/16: Urine output beter. BUN/Cr worse. Trying to wean vent. Review of systems relevant to events:: Neurological, renal, CV. Reason for ICU Addmission:: Need for intubation. Worsening renal failure. - Medications: Medications reviewed and adjusted accordingly: Yes Vasopressors:: Dopamine, levophed, epinephrine. Sedation:: Precedex Physical Exam Vital Signs: Temp Pulse Resp BP Pulse Ox 98.2 F 119 H 25 H 124/52 L 92 06/16/20 12:00 06/16/20 12:00 06/16/20 12:00 06/16/20 12:00 06/16/20 12:00 Intake & Output 06/15/20 06/16/20 06/17/20 06:59 06:59 06:59 Intake Total 9107 6683 746 Output Total 125 3205 680 Balance 8982 3478 66 Weight 130.5 kg 132.6 kg Weight/Height Weight 132.6 kg Height 5 ft 11 in General appearance: PRESENT: no acute distress, obese Head exam: PRESENT: atraumatic, normocephalic Eye exam: PRESENT: conjunctiva pink, EOMI, PERRLA. ABSENT: scleral icterus Ear exam: PRESENT: normal external ear exam Mouth exam: PRESENT: moist, tongue midline Respiratory exam: PRESENT: clear to auscultation dilia. ABSENT: rales, rhonchi, wheezes Cardiovascular exam: PRESENT: RRR. ABSENT: diastolic murmur, rubs, systolic murmur GI/Abdominal exam: PRESENT: normal bowel sounds, soft. ABSENT: distended, guarding, mass, organolmegaly, rebound, tenderness Rectal exam: PRESENT: deferred Gentrourinary exam: PRESENT: indwelling catheter Extremities exam: PRESENT: full ROM. ABSENT: calf tenderness, clubbing, pedal edema Musculoskeletal exam: PRESENT: normal inspection Neurological exam: PRESENT: other - Sedated Skin exam: PRESENT: dry, intact, warm. ABSENT: cyanosis, rash Tubes/Lines: PRESENT: Endotracheal Tube, Central Line, Nasogastic Tube Laboratory/Radiographs Laboratory Results: 06/16/20 04:10 06/16/20 04:10 06/16/20 06/16/20 06/16/20 04:10 04:10 04:10 WBC 16.5 H RBC 2.62 L Hgb 8.1 L Hct 24.1 L MCV 92 MCH 31.0 MCHC 33.7 RDW 14.7 H Plt Count 82 L Seg Neutrophils % Not Reportable Carbonic Acid HCO3/H2CO3 Ratio ABG pH ABG pCO2 ABG pO2 ABG HCO3 ABG O2 Saturation ABG Base Excess FiO2 Sodium 132.7 L Potassium 3.2 L Chloride 95 L Carbon Dioxide 25 Anion Gap 13 BUN 84 H Creatinine 4.78 H Est GFR ( Amer) 16 L Glucose 311 H Lactic Acid Calcium 7.5 L Ionized Calcium Marisabel 1.03 L 06/16/20 06/16/20 04:10 04:10 WBC RBC Hgb Hct MCV MCH MCHC RDW Plt Count Seg Neutrophils % Carbonic Acid 1.32 HCO3/H2CO3 Ratio 20:1 ABG pH 7.40 ABG pCO2 43.8 ABG pO2 91.1 ABG HCO3 26.6 H ABG O2 Saturation 96.9 ABG Base Excess 1.6 FiO2 50% Sodium Potassium Chloride Carbon Dioxide Anion Gap BUN Creatinine Est GFR ( Amer) Glucose Lactic Acid 1.4 Calcium Ionized Calcium Marisabel 06/12/20 16:52 Blood Blood Culture (PCR) - Final 06/12/20 16:52 Blood Blood Culture - Final Corynebacterium Species 06/13/20 09:09 Tracheal Aspirate Gram Stain - Final 06/07/20 06/08/20 06/14/20 17:14 04:54 02:30 Troponin I 0.033 0.039 NT-Pro-B Natriuret Pep 3330 H 52364 H Impressions: Head CT 06/08/20 08:00 IMPRESSION: Sinus disease. No acute intracranial imaging findings. EVIDENCE OF ACUTE STROKE: NO. Chest X-Ray 06/14/20 00:00 IMPRESSION: No significant change in the appearance of the chest. All labs, radiographs, diagnostic studies and EKGs were personally reviewed: Yes In addition, reports of radiographic and diagnostic studies were read: Yes Assessment and Plan - Diagnosis (1) Acute exacerbation of CHF (congestive heart failure) Qualifiers: Heart failure type: combined systolic and diastolic Qualified Code(s): I50.43 - Acute on chronic combined systolic (congestive) and diastolic (congestive) heart failure Is this a current diagnosis for this admission?: Yes Plan: Not currently in CHF. Continue Milrinone (2) Acute metabolic encephalopathy Is this a current diagnosis for this admission?: Yes Plan: He is currently sedated but we are starting the weaning process. (3) Aspiration into airway Qualifiers: Encounter type: initial encounter Qualified Code(s): T17.908A - Unspecified foreign body in respiratory tract, part unspecified causing other injury, initial encounter Is this a current diagnosis for this admission?: Yes Plan: Resolved (4) Hypotension (arterial) Is this a current diagnosis for this admission?: Yes Plan: Still needing milrinoe and now on dopamine per Dr. Gomez, as well as epi, levophed. (5) COVID-19 Is this a current diagnosis for this admission?: Yes Plan: Although his rapid test was negative on the 07 of June his obtundation and CXR is suggestive as pointed out by Dr. Gomez today. Will check a second test. Plan Summary: Try to wean down pressors and may get levophed off. Wean vent as tolerated. Critical Time Critical Time (minutes): 35 Level of Care: ICU Anticipated discharge: Home Anticipated DC Timeframe: Other -: 1. The care of a critical patient is a dynamic process. This note is a repres entative synopsis but static in nature. The timeframe for treatments given in order is not necessarily the actual time these treatments may have been done. 2. This patient requires critical care secondary to ongoing requirements for therapy not offered or safe outside the critical care environment. Transfer to a lower level of care will result in altered life or limb morbidity and mortality. 3. Multidisciplinary rounds completed. 4. ABCDE bundle addressed.
[2020-06-16 17:22] LABS: IRON(TIBC) 69.5 ug/dL (49-181)
[2020-06-16 17:26] LABS: C-REACTIVE PROTEIN 73.9 mg/L (<10.0)
[2020-06-16 17:29] LABS: D-DIMER 13.62 ug/mL (0.00-0.50)
[2020-06-16 18:18] LABS: ABSOLUTE RETICS # 0.029 10^6/uL (0.028-0.122); RETICULOCYTE COUNT (AUTO) 1.07 % (0.66-2.85)
[2020-06-16 18:29] LABS: FOLATE 9.04 ng/mL (>2.76)
[2020-06-16] MEDS: DEXTROSE 5%-WATER 250 ML with VASOPRESSIN 100 UNIT IV PRN ×2 (20:03)
[2020-06-16] MEDS ORDERED: TAZOBACTAM IV SCH (22:00)
[2020-06-16] MEDS ORDERED: PIPERACILLIN SODIUM IV SCH (22:00)
[2020-06-16] MEDS ORDERED: NORMAL SALINE IV SCH (22:00)
[2020-06-16] MEDS: ASPIRIN 81 MG TABLET, CHEWABLE NG SCH (22:02)
[2020-06-17] MEDS: NORMAL SALINE 250 ML with FUROSEMIDE 250 MG IV PRN ×2 (00:09)
[2020-06-17] MEDS: PIPERACILLIN SODIUM/TAZOBACTAM 2.25 GM in NORMAL SALINE 50 ML IV SCH ×4 (00:10→22:13)
[2020-06-17] MEDS: INSULIN LISPRO 100 UNIT/ML 3 ML VIAL SUBCUT SCH ×4 (00:18→18:13)
[2020-06-17] MEDS: DEXMEDETOMIDINE IN NS 400 MCG/100 ML RTUPB IV PRN ×3 (00:40→13:01)
[2020-06-17 00:55] LABS: HEMATOCRIT 24.9 % (37.9-51.0); HEMOGLOBIN 8.5 g/dL (13.5-17.0); MEAN CORPUSCULAR HEMOGLOBIN 30.9 pg (27.0-33.4); MEAN CORPUSCULAR HGB CONC 34.1 g/dL (32.0-36.0); MEAN CORPUSCULAR VOLUME 91 fl (80-97); RED BLOOD COUNT 2.75 10^6/uL (4.35-5.55); RED CELL DISTRIBUTION WIDTH 14.7 % (11.5-14.0); WHITE BLOOD COUNT 9.4 10^3/uL (4.0-10.5)
[2020-06-17 01:12] LABS: ALKALINE PHOSPHATASE 76 U/L (38-126); ANION GAP 11 (5-19); ASPARTATE AMINO TRANSFERASE 215 U/L (17-59); BILIRUBIN,DIRECT 1.5 mg/dL (0.0-0.4); BILIRUBIN,TOTAL 2.3 mg/dL (0.2-1.3); BLOOD UREA NITROGEN 87 mg/dL (7-20); CALCIUM 8.4 mg/dL (8.4-10.2); CARBON DIOXIDE 27 mmol/L (22-30); CHLORIDE 96 mmol/L (98-107); GLUCOSE 261 mg/dL (75-110); PHOSPHORUS 4.7 mg/dL (2.5-4.5); POTASSIUM 3.5 mmol/L (3.6-5.0); TOTAL PROTEIN 6.7 g/dL (6.3-8.2)
[2020-06-17 01:39] LABS: PLATELET COUNT 73 10^3/uL (150-450)
[2020-06-17 01:47] LABS: BASOPHILS % (MANUAL) 0 % (0-2)
[2020-06-17 01:48] LABS: ABSOLUTE LYMPHOCYTES# (MANUAL) 0.7 10^3/uL (0.5-4.7); ABSOLUTE MONOCYTES # (MANUAL) 0.8 10^3/uL (0.1-1.4); BAND NEUTROPHILS % (MANUAL) 1 % (3-5); EOSINOPHILS % (MANUAL) 2 % (0-6); LYMPHOCYTES % (MANUAL) 7 % (13-45); MONOCYTES % (MANUAL) 8 % (3-13); SEGMENTED NEUTROPHILS % (MAN) 82 % (42-78); TOTAL CELLS COUNTED 100
[2020-06-17 01:50] LABS: ANISOCYTOSIS 1+; OVALOCYTES 1+; PLATELET COMMENT DECREASED; POIKILOCYTOSIS 1+; TEAR DROP CELLS 1+; TOXIC GRANULATION 1+
[2020-06-17] MEDS: (PENDING PHARMACY ID) (Budesonide/Formoterol Fumarate 60 PUFF/6 GM Inhaler) IH SCH ×2 (03:06→09:25)
[2020-06-17] MEDS: MAGNESIUM SULFATE/D5W 1 GM/100 ML RTUPB IV SCH ×2 (05:04→06:03)
[2020-06-17] MEDS ORDERED: MAGNESIUM SULFATE/D5W 1 GM/100 ML RTUPB IV ONE (06:01)
[2020-06-17] MEDS ORDERED: NOREPINEPHRINE BITARTRATE INJ/PF 4 MG/4 ML SDV IV ONE (06:56)
--- NOTE | 2020-06-17 08:26 | RADIOLOGY REPORT (SQ) ---
EXAM DESCRIPTION: CHEST SINGLE VIEW IMAGES COMPLETED DATE/TIME: 06/17/2020 6:43 am REASON FOR STUDY: resp failure; f/u congestion infiltrate, ETT pos COMPARISON: 06/14/2020 NUMBER OF VIEWS: One view. TECHNIQUE: Single frontal radiographic image of the chest acquired. LIMITATIONS: None. FINDINGS: LUNGS AND PLEURA: Bilateral airspace disease with slight improved aeration in both lungs. No pneumothorax. MEDIASTINUM AND HEART: Stable heart size and mediastinal structures. SUPPORT DEVICES: Appropriate location without change. BONY STRUCTURES: No acute findings. HARDWARE: None. OTHER: No other significant finding. IMPRESSION: Slight improvement. No pneumothorax. Reading location - IP/workstation name: [email or web address]
[2020-06-17] MEDS: INSULIN GLARGINE,HUM.REC.ANLOG 1,000 UNIT/10 ML VIAL SUBCUT SCH ×2 (09:24→23:05)
[2020-06-17] MEDS: AMINO AC/PROTEIN HYDR/WHEY PRO 11 GM/45 ML PKT NG SCH ×2 (09:24→18:17)
[2020-06-17] MEDS: FAMOTIDINE INJ/PF 20 MG/2 ML SDV IV SCH ×2 (09:24→22:13)
[2020-06-17] MEDS: DOCUSATE SODIUM 100 MG CAPSULE PO SCH ×2 (09:25→17:12)
--- NOTE | 2020-06-17 09:50 | PDOC CRITICAL CARE PROG REPORT ---
General Date:: 06/17/20 ICU Day:: 4 Ventilator Day:: 4 Hospital Day:: 9 Resuscitation Status: Full Code Events in the past 12 to 24 Hours:: Intubated for airway protection. 06/15: Worsening ARF. With mental status and now renal failure I wonder if his main issue is cadiac output tying all this togather. Dr. Pablo to see. 06/16: Urine output beter. BUN/Cr worse. Trying to wean vent. 06/17: Making more urine. Hold on HD. Try to wean both vent and pressors. Review of systems relevant to events:: Pulmonary, CV, neurological. Reason for ICU Addmission:: Need for intubation. Worsening renal failure. - Medications: Medications reviewed and adjusted accordingly: Yes Vasopressors:: Levophed, Vasopressin Sedation:: Precedex Physical Exam Vital Signs: Temp Pulse Resp BP Pulse Ox 98.2 F 86 0 L 106/55 L 98 06/16/20 22:00 06/16/20 22:00 06/17/20 08:00 06/16/20 18:00 06/17/20 08:00 Intake & Output 06/16/20 06/17/20 06/18/20 06:59 06:59 06:59 Intake Total 6683 1736 137 Output Total 3205 2025 Balance 3478 -289 137 Weight 132.6 kg 132.3 kg Weight/Height Weight 132.3 kg Height 5 ft 11 in General appearance: PRESENT: no acute distress, obese Head exam: PRESENT: atraumatic, normocephalic Eye exam: PRESENT: conjunctiva pink, EOMI, PERRLA. ABSENT: scleral icterus Ear exam: PRESENT: normal external ear exam Mouth exam: PRESENT: moist, tongue midline Respiratory exam: PRESENT: clear to auscultation dilia. ABSENT: rales, rhonchi, wheezes Cardiovascular exam: PRESENT: RRR. ABSENT: diastolic murmur, rubs, systolic murmur GI/Abdominal exam: PRESENT: normal bowel sounds, soft. ABSENT: distended, guarding, mass, organolmegaly, rebound, tenderness Rectal exam: PRESENT: deferred Gentrourinary exam: PRESENT: indwelling catheter Extremities exam: PRESENT: +1 edema Musculoskeletal exam: PRESENT: normal inspection Neurological exam: PRESENT: other - Sedated Skin exam: PRESENT: dry, intact, warm. ABSENT: cyanosis, rash Tubes/Lines: PRESENT: Endotracheal Tube, Arterial Catheter, Nasogastic Tube Laboratory/Radiographs Laboratory Results: 06/17/20 00:39 06/17/20 00:39 06/16/20 06/16/20 06/16/20 16:41 16:41 17:54 WBC RBC Hgb Hct MCV MCH MCHC RDW Plt Count Seg Neutrophils % Retic Count (auto) 1.07 Sodium Potassium Chloride Carbon Dioxide Anion Gap BUN Creatinine Est GFR ( Amer) Glucose Calcium Phosphorus Magnesium 1.8 Iron 69.5 TIBC 239 L % Saturation 29 Ferritin 460.00 Total Bilirubin AST Alkaline Phosphatase C-Reactive Protein 73.9 H Total Protein Albumin Vitamin B12 > 1000.0 H Folate 9.04 06/17/20 06/17/20 00:39 00:39 WBC 9.4 RBC 2.75 L Hgb 8.5 L Hct 24.9 L MCV 91 MCH 30.9 MCHC 34.1 RDW 14.7 H Plt Count 73 L Seg Neutrophils % Not Reportable Retic Count (auto) Sodium 134.0 L Potassium 3.5 L Chloride 96 L Carbon Dioxide 27 Anion Gap 11 BUN 87 H Creatinine 3.96 H Est GFR ( Amer) 20 L Glucose 261 H Calcium 8.4 Phosphorus 4.7 H Magnesium 1.7 Iron TIBC % Saturation Ferritin Total Bilirubin 2.3 H AST 215 H Alkaline Phosphatase 76 C-Reactive Protein Total Protein 6.7 Albumin 3.0 L Vitamin B12 Folate 06/12/20 16:52 Blood Blood Culture (PCR) - Final 06/12/20 16:52 Blood Blood Culture - Final Corynebacterium Species 06/13/20 09:09 Tracheal Aspirate Gram Stain - Final 06/07/20 06/08/20 06/14/20 17:14 04:54 02:30 Troponin I 0.033 0.039 NT-Pro-B Natriuret Pep 3330 H [id number] H Impressions: Head CT 06/08/20 08:00 IMPRESSION: Sinus disease. No acute intracranial imaging findings. EVIDENCE OF ACUTE STROKE: NO. Chest X-Ray 06/17/20 06:00 IMPRESSION: Slight improvement. No pneumothorax. All labs, radiographs, diagnostic studies and EKGs were personally reviewed: Yes In addition, reports of radiographic and diagnostic studies were read: Yes Assessment and Plan - Diagnosis (1) Acute exacerbation of CHF (congestive heart failure) Qualifiers: Heart failure type: combined systolic and diastolic Qualified Code(s): I50.43 - Acute on chronic combined systolic (congestive) and diastolic (congestive) heart failure Is this a current diagnosis for this admission?: Yes Plan: His RV has received a boost from milrinone, has needed pressors to maintain a MAP > 65. (2) Acute metabolic encephalopathy Is this a current diagnosis for this admission?: Yes Plan: Wean off sedation and extubated we will have to reassess. (3) Aspiration into airway Qualifiers: Encounter type: initial encounter Qualified Code(s): T17.908A - Unspecified foreign body in respiratory tract, part unspecified causing other injury, initial encounter Is this a current diagnosis for this admission?: Yes Plan: Improving (4) Hypotension (arterial) Is this a current diagnosis for this admission?: Yes Plan: The positive vent pressure is likely causing at least some of this. Should be improved with extubation. (5) COVID-19 Is this a current diagnosis for this admission?: Yes Plan: He has tested negative. Plan Summary: Will begin wean of both vent and pressors. Critical Time Critical Time (minutes): 35 Level of Care: ICU Anticipated discharge: Home Anticipated DC Timeframe: Other -: 1. The care of a critical patient is a dynamic process. This note is a business office representative synopsis but static in nature. The timeframe for treatments given in order is not necessarily the actual time these treatments may have been done. 2. This patient requires critical care secondary to ongoing requirements for therapy not offered or safe outside the critical care environment. Transfer to a lower level of care will result in altered life or limb morbidity and mortality. 3. Multidisciplinary rounds completed. 4. ABCDE bundle addressed.
[2020-06-17] MEDS: DEXTROSE 5%-WATER 250 ML with NOREPINEPHRINE BITARTRATE 4 MG IV PRN ×4 (10:55→18:58)
[2020-06-17] MEDS: ASPIRIN 81 MG TABLET, CHEWABLE NG SCH (22:13)
[2020-06-17] MEDS ORDERED: INSULIN GLARGINE,HUM.REC.ANLOG 1,000 UNIT/10 ML VIAL (PYX) SUBCUT ONE (23:03)
[2020-06-18] MEDS: INSULIN LISPRO 100 UNIT/ML 3 ML VIAL SUBCUT SCH ×4 (03:11→17:31)
[2020-06-18 03:26] LABS: HEMATOCRIT 26.2 % (37.9-51.0); HEMOGLOBIN 9.1 g/dL (13.5-17.0); MEAN CORPUSCULAR HEMOGLOBIN 31.4 pg (27.0-33.4); MEAN CORPUSCULAR HGB CONC 34.6 g/dL (32.0-36.0); MEAN CORPUSCULAR VOLUME 91 fl (80-97); RED BLOOD COUNT 2.89 10^6/uL (4.35-5.55); RED CELL DISTRIBUTION WIDTH 15.1 % (11.5-14.0); WHITE BLOOD COUNT 10.5 10^3/uL (4.0-10.5)
[2020-06-18 03:35] LABS: ANION GAP 12 (5-19); BLOOD UREA NITROGEN 98 mg/dL (7-20); CALCIUM 8.6 mg/dL (8.4-10.2); CARBON DIOXIDE 27 mmol/L (22-30); CHLORIDE 97 mmol/L (98-107); GLUCOSE 192 mg/dL (75-110); PHOSPHORUS 4.9 mg/dL (2.5-4.5); POTASSIUM 3.5 mmol/L (3.6-5.0)
[2020-06-18 03:43] LABS: PLATELET COUNT 99 10^3/uL (150-450)
[2020-06-18 03:47] LABS: ABSOLUTE LYMPHOCYTES# (MANUAL) 1.5 10^3/uL (0.5-4.7); ABSOLUTE MONOCYTES # (MANUAL) 1.1 10^3/uL (0.1-1.4); BAND NEUTROPHILS % (MANUAL) 1 % (3-5); BASOPHILS % (MANUAL) 0 % (0-2); EOSINOPHILS % (MANUAL) 2 % (0-6); LYMPHOCYTES % (MANUAL) 14 % (13-45); MONOCYTES % (MANUAL) 10 % (3-13); SEGMENTED NEUTROPHILS % (MAN) 73 % (42-78); TOTAL CELLS COUNTED 100
[2020-06-18 03:48] LABS: ANISOCYTOSIS SLIGHT; PLATELET COMMENT DECREASED
[2020-06-18 03:50] LABS: BURR CELLS 1+
[2020-06-18 03:51] LABS: OVALOCYTES SLIGHT
[2020-06-18 03:52] LABS: TARGET CELLS SLIGHT
[2020-06-18] MEDS: NORMAL SALINE 250 ML with FUROSEMIDE 250 MG IV PRN ×4 (04:52→08:27)
[2020-06-18] MEDS: PIPERACILLIN SODIUM/TAZOBACTAM 2.25 GM in NORMAL SALINE 50 ML IV SCH ×3 (05:44→22:25)
[2020-06-18] MEDS: DEXTROSE 5%-WATER 250 ML with NOREPINEPHRINE BITARTRATE 4 MG IV PRN ×4 (08:28→21:48)
[2020-06-18] MEDS: (PENDING PHARMACY ID) (Budesonide/Formoterol Fumarate 60 PUFF/6 GM Inhaler) IH SCH ×3 (08:49→22:23)
--- NOTE | 2020-06-18 08:55 | PDOC CRITICAL CARE PROG REPORT ---
General Date:: 06/18/20 ICU Day:: 5 Hospital Day:: 10 Resuscitation Status: Full Code Events in the past 12 to 24 Hours:: Intubated for airway protection. 06/15: Worsening ARF. With mental status and now renal failure I wonder if his main issue is cadiac output tying all this togather. Dr. Pablo to see. 06/16: Urine output beter. BUN/Cr worse. Trying to wean vent. 06/17: Making more urine. Hold on HD. Try to wean both vent and pressors. 06/18: Extubated. More awake. Tolerating liquids. Review of systems relevant to events:: CV, renal. Reason for ICU Addmission:: Need for intubation. Worsening renal failure. - Medications: Medications reviewed and adjusted accordingly: Yes Sedation:: None Physical Exam Vital Signs: Temp Pulse Resp BP Pulse Ox 97.0 F 80 22 H 107/60 96 06/17/20 22:00 06/17/20 22:00 06/17/20 19:44 06/17/20 19:44 06/18/20 00:16 Intake & Output 06/17/20 06/18/20 06/19/20 06:59 06:59 06:59 Intake Total 1836 899 286 Output Total 5 1905 Balance -189 -1006 286 Weight 132.3 kg 130.2 kg Weight/Height Weight 130.2 kg Height 5 ft 11 in General appearance: PRESENT: no acute distress, morbidly obese Head exam: PRESENT: atraumatic, normocephalic Eye exam: PRESENT: conjunctiva pink, EOMI, PERRLA. ABSENT: scleral icterus Ear exam: PRESENT: normal external ear exam Mouth exam: PRESENT: moist, tongue midline Respiratory exam: PRESENT: clear to auscultation dilia, decreased breath sounds, rhonchi. ABSENT: rales, wheezes Cardiovascular exam: PRESENT: RRR. ABSENT: diastolic murmur, rubs, systolic murmur GI/Abdominal exam: PRESENT: normal bowel sounds, soft. ABSENT: distended, guarding, mass, organolmegaly, rebound, tenderness Rectal exam: PRESENT: deferred Gentrourinary exam: PRESENT: indwelling catheter Extremities exam: PRESENT: full ROM. ABSENT: calf tenderness, clubbing, pedal edema Musculoskeletal exam: PRESENT: normal inspection Neurological exam: PRESENT: alert, altered, awake, CN II-XII grossly intact Skin exam: PRESENT: dry, intact, warm. ABSENT: cyanosis, rash Laboratory/Radiographs Laboratory Results: 06/18/20 03:00 06/18/20 03:00 06/18/20 06/18/20 03:00 03:00 WBC 10.5 RBC 2.89 L Hgb 9.1 L Hct 26.2 L MCV 91 MCH 31.4 MCHC 34.6 RDW 15.1 H Plt Count 99 L Seg Neutrophils % Not Reportable Sodium 135.6 L Potassium 3.5 L Chloride 97 L Carbon Dioxide 27 Anion Gap 12 BUN 98 H Creatinine 3.38 H Est GFR ( Amer) 23 L Glucose 192 H Calcium 8.6 Phosphorus 4.9 H Magnesium 2.0 06/12/20 17:07 Blood Blood Culture - Final NO GROWTH IN 5 DAYS 06/13/20 09:09 Tracheal Aspirate Gram Stain - Final 06/13/20 09:09 Tracheal Aspirate Sputum Culture - Final Group C Beta Streptococcus Corynebacterium Striatum Greatly Reduced Normal Elizabeth 06/07/20 06/08/20 06/14/20 17:14 04:54 02:30 Troponin I 0.033 0.039 NT-Pro-B Natriuret Pep 3330 H [id number] H Impressions: Head CT 06/08/20 08:00 IMPRESSION: Sinus disease. No acute intracranial imaging findings. EVIDENCE OF ACUTE STROKE: NO. Chest X-Ray 06/17/20 06:00 IMPRESSION: Slight improvement. No pneumothorax. All labs, radiographs, diagnostic studies and EKGs were personally reviewed: Yes In addition, reports of radiographic and diagnostic studies were read: Yes Assessment and Plan - Diagnosis (1) Acute exacerbation of CHF (congestive heart failure) Qualifiers: Heart failure type: combined systolic and diastolic Qualified Code(s): I50.43 - Acute on chronic combined systolic (congestive) and diastolic (congestive) heart failure Is this a current diagnosis for this admission?: Yes Plan: Cutting milrinone in half. Hope to wean levophed in turn. Needs ICU for milrinone and levophed. (2) Acute metabolic encephalopathy Is this a current diagnosis for this admission?: Yes Plan: Improved. Still a bit altered but much improved. (3) Aspiration into airway Qualifiers: Encounter type: initial encounter Qualified Code(s): T17.908A - Unspecified foreign body in respiratory tract, part unspecified causing other injury, initial encounter Is this a current diagnosis for this admission?: Yes Plan: Resolved (4) Hypotension (arterial) Is this a current diagnosis for this admission?: Yes Plan: With his CHF and EF, I would accept a BR of 90/51 MAP 60-65 if he is still making urine (5) ADRI (acute kidney injury) Is this a current diagnosis for this admission?: Yes Plan: Improving with CR 3.2 and GFR 23. No HD needed Plan Summary: Keep in ICU until he is off levophed and Milrinone. Critical Time Critical Time (minutes): 35 Level of Care: ICU Anticipated discharge: Home Anticipated DC Timeframe: Other -: 1. The care of a critical patient is a dynamic process. This note is a insurance claims representative synopsis but static in nature. The timeframe for treatments given in order is not necessarily the actual time these treatments may have been done. 2. This patient requires critical care secondary to ongoing requirements for therapy not offered or safe outside the critical care environment. Transfer to a lower level of care will result in altered life or limb morbidity and mortality. 3. Multidisciplinary rounds completed. 4. ABCDE bundle addressed.
[2020-06-18] MEDS: DOCUSATE SODIUM 100 MG CAPSULE PO SCH ×2 (09:47→17:16)
[2020-06-18] MEDS: INSULIN GLARGINE,HUM.REC.ANLOG 1,000 UNIT/10 ML VIAL SUBCUT SCH ×2 (09:47→22:27)
[2020-06-18] MEDS: AMINO AC/PROTEIN HYDR/WHEY PRO 11 GM/45 ML PKT NG SCH ×2 (09:49→17:19)
[2020-06-18] MEDS: FAMOTIDINE INJ/PF 20 MG/2 ML SDV IV SCH ×2 (09:58→22:25)
[2020-06-18 11:08] LABS: ANION GAP 12 (5-19); BLOOD UREA NITROGEN 89 mg/dL (7-20); CARBON DIOXIDE 22 mmol/L (22-30); CHLORIDE 100 mmol/L (98-107); GLUCOSE 160 mg/dL (75-110); POTASSIUM 3.1 mmol/L (3.6-5.0)
[2020-06-18] MEDS: DEXTROSE 5%-WATER 250 ML with VASOPRESSIN 100 UNIT IV PRN ×2 (15:06)
[2020-06-18] MEDS ORDERED: IPRATROPIUM/ALBUTEROL 0.5-2.5 MG/3 ML AMPUL NEB ONE (17:40)
[2020-06-18] MEDS ORDERED: IPRATROPIUM/ALBUTEROL 0.5-2.5 MG/3 ML AMPUL NEB PRN (17:40)
--- NOTE | 2020-06-18 18:10 | PDOC PROGRESS REPORT ---
Subjective Date:: 06/18/20 Subjective:: Patient was seen and examined. He is extubated. He is confused and mildly comb ative. Does not admit to any complaints however. When he converses he does get dyspneic. He was evaluated by nephrology. Patient has responded to Lasix infusion. Patient continues to be on milrinone and norepinephrine infusions. Reason For Visit: OBTUNDATION,NEEDS ETT FOR AIRWAY PROTECTION Physical Exam Vital Signs: Temp Pulse Resp BP Pulse Ox 94.4 F L 90 24 H 82/64 L 100 06/18/20 12:00 06/18/20 17:40 06/18/20 17:40 06/18/20 12:00 06/18/20 17:40 Intake & Output 06/17/20 06/18/20 06/19/20 06:59 06:59 06:59 Intake Total 1836 899 636 Output Total 20245 225 Balance -189 -1006 411 Weight 132.3 kg 130.2 kg General appearance: PRESENT: no acute distress, cooperative, obese, well- developed, well-nourished Head exam: PRESENT: atraumatic, normocephalic Eye exam: PRESENT: conjunctiva pink, EOMI Mouth exam: PRESENT: moist Neck exam: PRESENT: JVD Respiratory exam: PRESENT: crackles, decreased breath sounds, prolonged expiratory phas, rales, symmetrical Cardiovascular exam: PRESENT: RRR, +S1, +S2, other Extremities exam: PRESENT: pedal edema, +2 edema, other - Dental edema Musculoskeletal exam: PRESENT: normal inspection Neurological exam: PRESENT: altered Psychiatric exam: PRESENT: agitated Focused psych exam: PRESENT: restlessness Skin exam: PRESENT: dry, intact, pallor Results Laboratory Results: 06/18/20 03:00 06/18/20 10:25 06/18/20 06/18/20 06/18/20 03:00 03:00 10:25 WBC 10.5 RBC 2.89 L Hgb 9.1 L Hct 26.2 L MCV 91 MCH 31.4 MCHC 34.6 RDW 15.1 H Plt Count 99 L Seg Neutrophils % Not Reportable Sodium 135.6 L 134.0 L Potassium 3.5 L 3.1 L Chloride 97 L 100 Carbon Dioxide 27 22 Anion Gap 12 12 BUN 98 H 89 H Creatinine 3.38 H 3.05 H Est GFR ( Amer) 23 L 26 L Glucose 192 H 160 H Calcium 8.6 8.0 L Phosphorus 4.9 H Magnesium 2.0 06/12/20 17:07 Blood Blood Culture - Final NO GROWTH IN 5 DAYS 06/07/20 06/08/20 06/14/20 17:14 04:54 02:30 Troponin I 0.033 0.039 NT-Pro-B Natriuret Pep 3330 H [id number] H EKG Comments: Telemetry presently shows sinus rhythm at 92 bpm Twelve-lead EKG 06/13/2020 1703. Independently viewed by me. Sinus rhythm, 77 bpm, low voltage in frontal leads, borderline T wave abnormalities, mildly prolonged QTc interval 512 ms. Transthoracic echocardiogram 06/08/2020 Left ventricular ejection fraction is diminished and is estimated at 30 to 35%. Borderline RV systolic function. Mild MR and mild TR. Leukocytosis is improved with white count being diminished from 43.6-10.5 today. Hemoglobin is 9.1 and hematocrit is 26.2 SARS-CoV-2 not detected June 16, 2020 chest x-ray 06/17/2020. Bilateral airspace disease. No pneumothorax. Impressions: Head CT 06/08/20 08:00 IMPRESSION: Sinus disease. No acute intracranial imaging findings. EVIDENCE OF ACUTE STROKE: NO. Chest X-Ray 06/17/20 06:00 IMPRESSION: Slight improvement. No pneumothorax. Assessment & Plan - Diagnosis (1) Acute exacerbation of CHF (congestive heart failure) Qualifiers: Heart failure type: combined systolic and diastolic Qualified Code(s): I50.43 - Acute on chronic combined systolic (congestive) and diastolic (congestive) heart failure Is this a current diagnosis for this admission?: Yes Plan: Congestive heart failure with reduced ejection fraction estimated at 30 to 35% Extubated. Respiratory status is still somewhat tenuous but overall much improved. Has had good improvement in perfusion parameters also continues to be pressor dependent and also on milrinone as well. Patient was also responded to intravenous diuresis. Renal function is also improved indicating passive effect from renal vascular congestion. Would recommend weaning present agents including milrinone as well as norepinephrine over the next 24 hours as blood pressure would permit. (2) Agitation Is this a current diagnosis for this admission?: Yes Plan: Continues to be somewhat agitated and combative. (3) Elevated troponin Is this a current diagnosis for this admission?: Yes Plan: Mildly elevated troponins in the setting of heart failure. No ischemic sympt oms. Need ischemia evaluation later especially given LV dysfunction. This can be arranged based on clinical course. (4) Shock Is this a current diagnosis for this admission?: Yes Plan: Multifactorial Septic insult on a background of LV dysfunction Significant improvement with improvement of leukocytosis and probably septic picture. Underlying LV dysfunction probably dominates the current picture Has responded to diuresis and will require gradual wean of present agents as tolerated. (5) ADRI (acute kidney injury) Is this a current diagnosis for this admission?: Yes Plan: Appreciate nephrology input Patient responded well to intravenous diuresis We watch blood pressure closely as we continue to diurese and also try to wean pressor agents as tolerated. Creatinine is also improved from 3.38-3.05 in the last 8 hours
[2020-06-18] MEDS: ASPIRIN 81 MG TABLET, CHEWABLE NG SCH (22:25)
[2020-06-19] MEDS ORDERED: HALOPERIDOL LACTATE INJ 5 MG/1 ML VIAL IV ONE (03:19)
[2020-06-19] MEDS: INSULIN LISPRO 100 UNIT/ML 3 ML VIAL SUBCUT SCH ×4 (05:04→18:39)
[2020-06-19] MEDS: PIPERACILLIN SODIUM/TAZOBACTAM 2.25 GM in NORMAL SALINE 50 ML IV SCH ×3 (08:40→22:29)
[2020-06-19] MEDS: (PENDING PHARMACY ID) (Budesonide/Formoterol Fumarate 60 PUFF/6 GM Inhaler) IH SCH ×2 (10:33→22:30)
[2020-06-19] MEDS: AMINO AC/PROTEIN HYDR/WHEY PRO 11 GM/45 ML PKT NG SCH ×2 (10:34→20:54)
[2020-06-19] MEDS: DOCUSATE SODIUM 100 MG CAPSULE PO SCH ×2 (10:41→18:43)
[2020-06-19] MEDS: FAMOTIDINE INJ/PF 20 MG/2 ML SDV IV SCH ×2 (10:41→22:29)
[2020-06-19] MEDS: INSULIN GLARGINE,HUM.REC.ANLOG 1,000 UNIT/10 ML VIAL SUBCUT SCH ×3 (10:44→22:56)
[2020-06-19 11:34] LABS: PATH REVIEW PATHOLOGIST REVIEWED
[2020-06-19 11:35] LABS: PATH REVIEW PATHOLOGIST REVIEWED
--- NOTE | 2020-06-19 17:06 | PDOC PROGRESS REPORT ---
Subjective Date:: 06/19/20 Subjective:: Chart and case reviewed. Patient was admitted with shock due to possible sepsis and CHF. He also had ADRI with creatinine going from 1.1>4> and currently 3.05. Patient is currently oliguric but there is responded well with Lasix drip and has been making decent amount of urine output anywhere between 1.3 to 2 L. Patient was also initially intubated and was extubated 2 days ago, 06/17/20. Patient is currently confused and has minimal response to questioning. He is a still requiring pressors. Unfortunately his blood work has been difficult to obtain today. Reason For Visit: OBTUNDATION,NEEDS ETT FOR AIRWAY PROTECTION Physical Exam Vital Signs: Temp Pulse Resp BP Pulse Ox 97.6 F 87 19 91/65 L 100 06/19/20 12:00 06/19/20 12:00 06/19/20 12:00 06/19/20 12:00 06/19/20 12:00 Intake & Output 06/18/20 06/19/20 06/20/20 06:59 06:59 06:59 Intake Total 899 1127 341 Output Total 1905 1315 100 Balance -1006 -188 241 Weight 130.2 kg 126.8 kg Exam: General appearance: PRESENT: no acute distress, cooperative, well-developed, well-nourished Head exam: PRESENT: atraumatic, normocephalic Eye exam: PRESENT: conjunctiva pale, PERRLA. ABSENT: scleral icterus Neck exam: ABSENT: JVD Respiratory exam: PRESENT: Diminished breath sounds. ABSENT: crackles, rales, rhonchi, unlabored, wheezes Cardiovascular exam: PRESENT: Regular rate rhythm -+S1, +S2. ABSENT: diastolic murmur, systolic murmur GI/Abdominal exam: PRESENT: normal bowel sounds, soft. ABSENT: guarding, mass, tenderness Extremities exam: Positive anasarca with upper extremity edema and grade 1 bilateral lower extremity pitting edema Neurological exam: PRESENT: alert, awake, oriented to person only. Skin exam: PRESENT: dry, warm, Cardiovascular exam: PRESENT: +S1, +S2 GI/Abdominal exam: PRESENT: normal bowel sounds, soft. ABSENT: organomegaly, tenderness Results Laboratory Results: 06/18/20 03:00 06/18/20 10:25 12/06/08/20 06/14/20 17:14 04:54 02:30 Troponin I 0.033 0.039 NT-Pro-B Natriuret Pep 3330 H [id number] H Impressions: Head CT 06/08/20 08:00 IMPRESSION: Sinus disease. No acute intracranial imaging findings. EVIDENCE OF ACUTE STROKE: NO. Chest X-Ray 06/17/20 06:00 IMPRESSION: Slight improvement. No pneumothorax. Assessment & Plan - Diagnosis (1) ADRI (acute kidney injury) Is this a current diagnosis for this admission?: Yes Plan: Creatinine going from 1.1>4+>3.05. Currently nonoliguric. Likely secondary to multifactorial ATN secondary to acute shock due to sepsis, hypotension and CHF. Kidney function is currently improving although no blood work today due to difficult stick. No indication for acute renal replacement therapy. Continue current management with current Lasix drip and vasopressors to maintain adequate blood pressure. (2) Acute exacerbation of CHF (congestive heart failure) Qualifiers: Heart failure type: combined systolic and diastolic Qualified Code(s): I50.43 - Acute on chronic combined systolic (congestive) and diastolic (congestive) heart failure Is this a current diagnosis for this admission?: Yes Plan: LVEF of 30 to 35%. Hopper Operator, Dr. Pablo on board. (3) Acute metabolic encephalopathy Is this a current diagnosis for this admission?: Yes (4) Anasarca Is this a current diagnosis for this admission?: Yes (5) Shock Is this a current diagnosis for this admission?: Yes Plan: Due to a combination of sepsis and cardiac dysfunction. (6) Sepsis Is this a current diagnosis for this admission?: Yes (7) Hypotension (arterial) Is this a current diagnosis for this admission?: Yes Plan: On vasopressin and Levophed. Per microwave radio technician. (8) Anemia Is this a current diagnosis for this admission?: Yes (9) Hypokalemia Is this a current diagnosis for this admission?: Yes Plan: Needs repeat labs. (10) Acute respiratory failure with hypoxia Is this a current diagnosis for this admission?: Yes (11) Diabetes mellitus type 2 in obese Is this a current diagnosis for this admission?: Yes (12) Medical non-compliance Is this a current diagnosis for this admission?: Yes - Time Time with patient: 15-25 minutes
--- NOTE | 2020-06-19 19:30 | PDOC CRITICAL CARE PROG REPORT ---
General Date:: 06/19/20 ICU Day:: 6 Hospital Day:: 11 Resuscitation Status: Full Code Events in the past 12 to 24 Hours:: Intubated for airway protection. 06/15: Worsening ARF. With mental status and now renal failure I wonder if his main issue is cadiac output tying all this togather. Dr. Pablo to see. 06/16: Urine output beter. BUN/Cr worse. Trying to wean vent. 06/17: Making more urine. Hold on HD. Try to wean both vent and pressors. 06/18: Extubated. More awake. Tolerating liquids. 06/19: Remains extubated. Conversant. A little hard to understand, dysarthric. Nurse reported concern about difficulty with swallowing pills. On IV fluids and Lasix infusion. Review of systems relevant to events:: CV, renal. Reason for ICU Addmission:: Need for intubation. Worsening renal failure. - Medications: Medications reviewed and adjusted accordingly: Yes Vasopressors:: Levophed, Vasopressin Physical Exam Vital Signs: Temp Pulse Resp BP Pulse Ox 97.6 F 87 19 91/65 L 100 06/19/20 12:00 06/19/20 12:00 06/19/20 12:00 06/19/20 12:00 06/19/20 12:00 Intake & Output 06/18/20 06/19/20 06/20/20 06:59 06:59 06:59 Intake Total 899 1127 419 Output Total 1905 1315 150 Balance -1006 -188 269 Weight 130.2 kg 126.8 kg Weight/Height Weight 126.8 kg Height 1.8 m General appearance: PRESENT: no acute distress, well-developed, well-nourished Head exam: PRESENT: atraumatic, normocephalic Eye exam: PRESENT: conjunctiva pink, EOMI, PERRLA. ABSENT: scleral icterus Mouth exam: PRESENT: moist, tongue midline Neck exam: ABSENT: carotid bruit, JVD, lymphadenopathy, thyromegaly Respiratory exam: PRESENT: clear to auscultation dilia. ABSENT: rales, rhonchi, wheezes Cardiovascular exam: PRESENT: RRR. ABSENT: diastolic murmur, rubs, systolic murmur Pulses: PRESENT: normal dorsalis pedis pul Musculoskeletal exam: PRESENT: normal inspection. ABSENT: deformity Neurological exam: PRESENT: awake, reflexes normal, CN II-XII grossly intact. ABSENT: motor sensory deficit Psychiatric exam: ABSENT: agitated, anxious Focused psych exam: ABSENT: catatonic, delusional Tubes/Lines: PRESENT: Other - Port-A-Cath Laboratory/Radiographs Laboratory Results: 06/18/20 03:00 06/18/20 10:25 06/07/20 06/08/20 06/14/20 17:14 04:54 02:30 Troponin I 0.033 0.039 NT-Pro-B Natriuret Pep 3330 H [id number] H Impressions: Head CT 06/08/20 08:00 IMPRESSION: Sinus disease. No acute intracranial imaging findings. EVIDENCE OF ACUTE STROKE: NO. Chest X-Ray 06/17/20 06:00 IMPRESSION: Slight improvement. No pneumothorax. All labs, radiographs, diagnostic studies and EKGs were personally reviewed: Yes In addition, reports of radiographic and diagnostic studies were read: Yes Assessment and Plan - Diagnosis (1) ADRI (acute kidney injury) Is this a current diagnosis for this admission?: Yes Plan: * Stop furosemide infusion. * Stop LR. (2) Acute exacerbation of CHF (congestive heart failure) Qualifiers: Heart failure type: combined systolic and diastolic Qualified Code(s): I50.43 - Acute on chronic combined systolic (congestive) and diastolic (congestive) heart failure Is this a current diagnosis for this admission?: Yes Plan: * Off milrinone. * Wean Levophed as tolerated. (3) Hypotension (arterial) Is this a current diagnosis for this admission?: Yes Plan: * Titrate Levophed for MAP 65+. (4) Acute metabolic encephalopathy Is this a current diagnosis for this admission?: Yes Critical Time Critical Time (minutes): 45 Level of Care: ICU -: 1. The care of a critical patient is a dynamic process. This note is a employer relations representative synopsis but static in nature. The timeframe for treatments given in order is not necessarily the actual time these treatments may have been done. 2. This patient requires critical care secondary to ongoing requirements for therapy not offered or safe outside the critical care environment. Transfer to a lower level of care will result in altered life or limb morbidity and mortality. 3. Multidisciplinary rounds completed. 4. ABCDE bundle addressed.
[2020-06-19 19:37] LABS: ANION GAP 12 (5-19); BLOOD UREA NITROGEN 100 mg/dL (7-20); CALCIUM 9.2 mg/dL (8.4-10.2); CARBON DIOXIDE 26 mmol/L (22-30); CHLORIDE 97 mmol/L (98-107); GLUCOSE 89 mg/dL (75-110); POTASSIUM 3.7 mmol/L (3.6-5.0)
[2020-06-19] MEDS: ASPIRIN 81 MG TABLET, CHEWABLE NG SCH (22:22)
[2020-06-19] MEDS ORDERED: RINGERS SOLUTION,LACTATED 1,000 ML IV ONE (22:54)
[2020-06-20] MEDS: INSULIN LISPRO 100 UNIT/ML 3 ML VIAL SUBCUT SCH ×4 (01:21→19:30)
[2020-06-20 06:20] LABS: ANION GAP 15 (5-19); BLOOD UREA NITROGEN 102 mg/dL (7-20); CALCIUM 9.2 mg/dL (8.4-10.2); CARBON DIOXIDE 27 mmol/L (22-30); CHLORIDE 97 mmol/L (98-107); GLUCOSE 85 mg/dL (75-110); PHOSPHORUS 6.1 mg/dL (2.5-4.5); POTASSIUM 4.2 mmol/L (3.6-5.0)
[2020-06-20] MEDS: PIPERACILLIN SODIUM/TAZOBACTAM 2.25 GM in NORMAL SALINE 50 ML IV SCH ×3 (08:02→23:52)
[2020-06-20] MEDS: FAMOTIDINE INJ/PF 20 MG/2 ML SDV IV SCH ×2 (11:00→23:52)
--- NOTE | 2020-06-20 12:34 | PDOC CRITICAL CARE PROG REPORT ---
General Date:: 06/20/20 ICU Day:: 7 Hospital Day:: 12 Resuscitation Status: Full Code Events in the past 12 to 24 Hours:: Intubated for airway protection. 06/15: Worsening ARF. With mental status and now renal failure I wonder if his main issue is cadiac output tying all this togather. Dr. Pablo to see. 06/16: Urine output beter. BUN/Cr worse. Trying to wean vent. 06/17: Making more urine. Hold on HD. Try to wean both vent and pressors. 06/18: Extubated. More awake. Tolerating liquids. 06/19: Remains extubated. Conversant. A little hard to understand, dysarthric. Nurse reported concern about difficulty with swallowing pills. On IV fluids and Lasix infusion. 06/20: Remains extubated. On 3 LPM via nasal cannula, SPO2 100%. Follows com mands. Awake, alert. Overnight, nursing staff reported concerns about [place] obstruction. Irrigation resulted in removal of bloody clots. Now draining lisa-colored urine. Off pressors. Off Lasix infusion. Review of systems relevant to events:: CV, renal. Reason for ICU Addmission:: Need for intubation. Worsening renal failure. - Medications: Medications reviewed and adjusted accordingly: Yes Vasopressors:: None Physical Exam Vital Signs: Temp Pulse Resp BP Pulse Ox 97.9 F 88 17 94/54 L 99 06/20/20 10:00 06/20/20 09:37 06/20/20 06:02 06/20/20 06:02 06/20/20 09:05 Intake & Output 06/19/20 06/20/20 06/21/20 06:59 06:59 06:59 Intake Total 1127 528 Output Total 1315 460 395 Balance -188 68 -395 Weight 126.8 kg 129.8 kg Weight/Height Weight 129.8 kg Height 1.8 m General appearance: PRESENT: no acute distress, well-developed, well-nourished Head exam: PRESENT: atraumatic, normocephalic Eye exam: PRESENT: conjunctival injection Mouth exam: PRESENT: dry mucosa, tongue midline Neck exam: ABSENT: carotid bruit, JVD, lymphadenopathy, thyromegaly Respiratory exam: PRESENT: rales, rhonchi. ABSENT: wheezes Cardiovascular exam: PRESENT: RRR. ABSENT: diastolic murmur, rubs, systolic murmur Pulses: PRESENT: normal dorsalis pedis pul GI/Abdominal exam: PRESENT: normal bowel sounds, soft. ABSENT: distended, guarding, mass, organolmegaly, rebound, tenderness Gentrourinary exam: PRESENT: indwelling catheter Extremities exam: PRESENT: clubbing, full ROM, pedal edema, +1 edema. ABSENT: calf tenderness Neurological exam: PRESENT: alert, awake, reflexes normal, CN II-XII grossly intact. ABSENT: motor sensory deficit Psychiatric exam: ABSENT: agitated, anxious Skin exam: PRESENT: dry, intact, warm. ABSENT: cyanosis, rash Laboratory/Radiographs Laboratory Results: 06/18/20 03:00 06/20/20 05:33 06/19/20 06/20/20 19:05 05:33 Sodium 135.1 L 138.7 Potassium 3.7 4.2 Chloride 97 L 97 L Carbon Dioxide 26 27 Anion Gap 12 15 BUN 100 H 102 H Creatinine 3.48 H 3.75 H Est GFR ( Amer) 23 L 21 L Glucose 89 85 Calcium 9.2 9.2 Phosphorus 6.1 H Magnesium 2.0 2.0 06/07/20 06/08/20 06/14/20 17:14 04:54 02:30 Troponin I 0.033 0.039 NT-Pro-B Natriuret Pep 3330 H [id number] H Impressions: Head CT 06/08/20 08:00 IMPRESSION: Sinus disease. No acute intracranial imaging findings. EVIDENCE OF ACUTE STROKE: NO. Chest X-Ray 06/17/20 06:00 IMPRESSION: Slight improvement. No pneumothorax. All labs, radiographs, diagnostic studies and EKGs were personally reviewed: Yes In addition, reports of radiographic and diagnostic studies were read: Yes Assessment and Plan - Diagnosis (1) ADRI (acute kidney injury) Is this a current diagnosis for this admission?: Yes Plan: * Furosemide infusion per Nephrology. * Monitor urine output. * Monitor serum creatinine. (2) Acute exacerbation of CHF (congestive heart failure) Qualifiers: Heart failure type: combined systolic and diastolic Qualified Code(s): I50.43 - Acute on chronic combined systolic (congestive) and diastolic (con gestive) heart failure Is this a current diagnosis for this admission?: Yes Plan: * Off milrinone. * Off norepinephrine. (3) Hypotension (arterial) Is this a current diagnosis for this admission?: Yes Plan: * Resolved (4) Acute metabolic encephalopathy Is this a current diagnosis for this admission?: Yes Plan: * Improved. Still a bit altered but much improved. Plan Summary: OK to transfer to floor with telemetry. Critical Time Critical Time (minutes): 45 Level of Care: ICU -: 1. The care of a critical patient is a dynamic process. This note is a outreach representative synopsis but static in nature. The timeframe for treatments given in order is not necessarily the actual time these treatments may have been done. 2. This patient requires critical care secondary to ongoing requirements for therapy not offered or safe outside the critical care environment. Transfer to a lower level of care will result in altered life or limb morbidity and mortality. 3. Multidisciplinary rounds completed. 4. ABCDE bundle addressed.
[2020-06-20] MEDS: DOCUSATE SODIUM 100 MG CAPSULE PO SCH ×2 (13:42→17:12)
[2020-06-20] MEDS: INSULIN GLARGINE,HUM.REC.ANLOG 1,000 UNIT/10 ML VIAL SUBCUT SCH ×2 (13:42→22:57)
[2020-06-20] MEDS: (PENDING PHARMACY ID) (Budesonide/Formoterol Fumarate 60 PUFF/6 GM Inhaler) IH SCH ×2 (13:42→22:57)
[2020-06-20] MEDS: AMINO AC/PROTEIN HYDR/WHEY PRO 11 GM/45 ML PKT NG SCH ×2 (13:44→17:12)
[2020-06-20] MEDS ORDERED: FUROSEMIDE INJ/PF 40 MG/4 ML SDV IV SCH (15:00)
--- NOTE | 2020-06-20 16:17 | PDOC PROGRESS REPORT ---
Subjective Date:: 06/19/20 Subjective:: Patient was seen and examined on June 19, 2020. He was able to maintain his a irway. He appeared to be confused. Less combative. Reason For Visit: OBTUNDATION,NEEDS ETT FOR AIRWAY PROTECTION Physical Exam Vital Signs: Temp Pulse Resp BP Pulse Ox 97.9 F 88 17 105/47 L 95 06/20/20 10:00 06/20/20 09:37 06/20/20 13:01 06/20/20 13:00 06/20/20 13:01 Intake & Output 06/19/20 06/20/20 06/21/20 06:59 06:59 06:59 Intake Total 1127 528 170 Output Total 1315 460 520 Balance -188 68 -350 Weight 126.8 kg 129.8 kg General appearance: PRESENT: no acute distress, cooperative, obese, well- developed, well-nourished Head exam: PRESENT: atraumatic, normocephalic Eye exam: PRESENT: conjunctiva pink, EOMI Mouth exam: PRESENT: moist Respiratory exam: PRESENT: crackles, decreased breath sounds, symmetrical, unlabored Cardiovascular exam: PRESENT: RRR, +S1, +S2 Pulses: PRESENT: normal radial pulses GI/Abdominal exam: PRESENT: soft Rectal exam: PRESENT: deferred Extremities exam: PRESENT: +1 edema Neurological exam: PRESENT: alert, awake Psychiatric exam: PRESENT: flat affect Skin exam: PRESENT: dry, intact, pallor Results Laboratory Results: 06/18/20 03:00 06/20/20 05:33 06/19/20 06/20/20 19:05 05:33 Sodium 135.1 L 138.7 Potassium 3.7 4.2 Chloride 97 L 97 L Carbon Dioxide 26 27 Anion Gap 12 15 BUN 100 H 102 H Creatinine 3.48 H 3.75 H Est GFR ( Amer) 23 L 21 L Glucose 89 85 Calcium 9.2 9.2 Phosphorus 6.1 H Magnesium 2.0 2.0 06/07/20 06/08/20 06/14/20 17:14 04:54 02:30 Troponin I 0.033 0.039 NT-Pro-B Natriuret Pep 3330 H 38039 H EKG Comments: Telemetry shows sinus rhythm at 90 bpm Impressions: Head CT 06/08/20 08:00 IMPRESSION: Sinus disease. No acute intracranial imaging findings. EVIDENCE OF ACUTE STROKE: NO. Chest X-Ray 06/17/20 06:00 IMPRESSION: Slight improvement. No pneumothorax. Assessment & Plan - Diagnosis (1) Acute exacerbation of CHF (congestive heart failure) Qualifiers: Heart failure type: combined systolic and diastolic Qualified Code(s): I50 .43 - Acute on chronic combined systolic (congestive) and diastolic (congestive) heart failure Is this a current diagnosis for this admission?: Yes Plan: Congestive heart failure with reduced ejection fraction estimated at 30 to 35% Extubated. Respiratory status is still somewhat tenuous but overall much improved. Has had good improvement in perfusion parameters also continues to be pressor dependent and also on milrinone as well. Patient was also responded to intravenous diuresis. Renal function is also improved indicating passive effect from renal vascular congestion. Would recommend weaning present agents (2) Agitation Is this a current diagnosis for this admission?: Yes Plan: Continues to be somewhat agitated and combative. (3) Elevated troponin Is this a current diagnosis for this admission?: Yes Plan: Mildly elevated troponins in the setting of heart failure. No ischemic symptoms. Need ischemia evaluation later especially given LV dysfunction. This can be arr anged based on clinical course. (4) Shock Is this a current diagnosis for this admission?: Yes Plan: Multifactorial Septic insult on a background of LV dysfunction Significant improvement with improvement of leukocytosis and probably septic picture. Underlying LV dysfunction probably dominates the current picture Has responded to diuresis and will require gradual wean of present agents as tolerated. (5) ADRI (acute kidney injury) Is this a current diagnosis for this admission?: Yes Plan: Appreciate nephrology input Patient responded well to intravenous diuresis We watch blood pressure closely as we continue to diurese and also try to wean pressor agents as tolerated.
--- NOTE | 2020-06-20 16:26 | PDOC PROGRESS REPORT ---
Subjective Date:: 06/20/20 Subjective:: Patient was seen and examined on June 20, 2019 1 in the morning. He appears c omfortable but confused. All infusions have been discontinued including furosemide. He appeared to have Clots in his Bolivar catheter which was irrigated. No discomfort admitted to but he also does not respond to questioning and has a flat affect today Reason For Visit: OBTUNDATION,NEEDS ETT FOR AIRWAY PROTECTION Physical Exam Vital Signs: Temp Pulse Resp BP Pulse Ox 97.9 F 88 17 105/47 L 95 06/20/20 10:00 06/20/20 09:37 06/20/20 13:01 06/20/20 13:00 06/20/20 13:01 Intake & Output 06/19/20 06/20/20 06/21/20 06:59 06:59 06:59 Intake Total 1127 528 170 Output Total 1315 460 520 Balance -188 68 -350 Weight 126.8 kg 129.8 kg General appearance: PRESENT: no acute distress, cooperative, obese, well- developed, well-nourished Head exam: PRESENT: atraumatic, normocephalic Eye exam: PRESENT: conjunctiva pale Respiratory exam: PRESENT: crackles, decreased breath sounds, symmetrical, unlabored Cardiovascular exam: PRESENT: RRR, +S1, +S2, other - Telemetry shows sinus rhythm at 92 bpm Pulses: PRESENT: normal radial pulses GI/Abdominal exam: PRESENT: soft Rectal exam: PRESENT: deferred Gentrourinary exam: PRESENT: scrotal swelling, indwelling catheter Extremities exam: PRESENT: +1 edema Neurological exam: PRESENT: alert, awake, CN II-XII grossly intact Psychiatric exam: PRESENT: flat affect - Hello Skin exam: PRESENT: dry Results Laboratory Results: 06/18/20 03:00 06/20/20 05:33 06/19/20 06/20/20 19:05 05:33 Sodium 135.1 L 138.7 Potassium 3.7 4.2 Chloride 97 L 97 L Carbon Dioxide 26 27 Anion Gap 12 15 BUN 100 H 102 H Creatinine 3.48 H 3.75 H Est GFR ( Amer) 23 L 21 L Glucose 89 85 Calcium 9.2 9.2 Phosphorus 6.1 H Magnesium 2.0 2.0 06/07/20 06/08/20 06/14/20 17:14 04:54 02:30 Troponin I 0.033 0.039 NT-Pro-B Natriuret Pep 3330 H 85365 H Impressions: Head CT 06/08/20 08:00 IMPRESSION: Sinus disease. No acute intracranial imaging findings. EVIDENCE OF ACUTE STROKE: NO. Chest X-Ray 06/17/20 06:00 IMPRESSION: Slight improvement. No pneumothorax. Assessment & Plan - Diagnosis (1) Acute exacerbation of CHF (congestive heart failure) Qualifiers: Heart failure type: combined systolic and diastolic Qualified Code(s): I50.43 - Acute on chronic combined systolic (congestive) and diastolic (congestive) heart failure Is this a current diagnosis for this admission?: Yes Plan: Congestive heart failure with reduced ejection fraction estimated at 30 to 35% Extubated. Off milrinone Off norepinephrine Off furosemide infusion. Renal function is worse. Patient is more euvolemic now than before and probably a bit volume depleted perhaps. (2) Agitation Is this a current diagnosis for this admission?: Yes Plan: Presently is well composed and not agitated although his affect is somewhat flat (3) Elevated troponin Is this a current diagnosis for this admission?: Yes Plan: Mildly elevated troponins in the setting of heart failure. No ischemic symptoms. Need ischemia evaluation later especially given LV dysfunction. This can be arranged based on clinical course. (4) Shock Is this a current diagnosis for this admission?: Yes Plan: Multifactorial Septic insult on a background of LV dysfunction Significant improvement with improvement of leukocytosis and probably septic picture. Underlying LV dysfunction probably dominates the current picture Has responded to diuresis and norepinephrine has been discontinued as well. Milrinone has been stopped too. (5) ADRI (acute kidney injury) Is this a current diagnosis for this admission?: Yes Plan: Acute kidney injury Presently creatinine is worse after having improved in response to diuresis. Appreciate nephrology input
[2020-06-20] MEDS: FUROSEMIDE INJ/PF 100 MG/10 ML SDV IV SCH (17:10)
--- NOTE | 2020-06-20 22:33 | PDOC PROGRESS REPORT ---
Subjective Date:: 06/20/20 Subjective:: Patient has been off vasopressors pressure has been holding on in the low 100s. His Lasix drip was also discontinued yesterday morning. His urine output has decreased. His nurse in the ICU told me that there were some clots found in his Bolivar catheter and so catheter has been flushed. When I saw the patient he really does not verbalize anything no response to any questions. He has very dark tea colored urine. His urine output for the last 24 hours was only 460 mL and so far today it was 520 mL during the first shift. Reason For Visit: OBTUNDATION,NEEDS ETT FOR AIRWAY PROTECTION Physical Exam Vital Signs: Temp Pulse Resp BP Pulse Ox 97.9 F 88 17 105/47 L 95 06/20/20 10:00 06/20/20 09:37 06/20/20 13:01 06/20/20 13:00 06/20/20 13:01 Intake & Output 06/19/20 06/20/20 06/21/20 06:59 06:59 06:59 Intake Total 1127 528 120 Output Total 1315 460 520 Balance -188 68 -400 Weight 126.8 kg 129.8 kg Exam: General appearance: PRESENT: no acute distress, cooperative, well-developed, well-nourished Head exam: PRESENT: atraumatic, normocephalic Eye exam: PRESENT: conjunctiva slightly pale, PERRLA. ABSENT: scleral icterus Neck exam: ABSENT: JVD Respiratory exam: PRESENT: Diminished breath sounds. ABSENT: crackles, rales, rhonchi, unlabored, wheezes Cardiovascular exam: PRESENT: Regular rate rhythm -+S1, +S2. ABSENT: diastolic murmur, systolic murmur GI/Abdominal exam: PRESENT: normal bowel sounds, soft. ABSENT: guarding, mass, tenderness Extremities exam: Still with significant upper extremity edema and grade 2 bilateral lower extremity pitting edema Neurological exam: PRESENT: alert, awake, but nonverbal and does not answer questions. Skin exam: PRESENT: dry, warm, Cardiovascular exam: PRESENT: +S1, +S2 GI/Abdominal exam: PRESENT: normal bowel sounds, soft. ABSENT: organomegaly, tenderness Results Laboratory Results: 06/18/20 03:00 06/20/20 05:33 06/19/20 06/20/20 19:05 05:33 Sodium 135.1 L 138.7 Potassium 3.7 4.2 Chloride 97 L 97 L Carbon Dioxide 26 27 Anion Gap 12 15 BUN 100 H 102 H Creatinine 3.48 H 3.75 H Est GFR ( Amer) 23 L 21 L Glucose 89 85 Calcium 9.2 9.2 Phosphorus 6.1 H Magnesium 2.0 2.0 06/07/20 06/08/20 06/14/20 17:14 04:54 02:30 Troponin I 0.033 0.039 NT-Pro-B Natriuret Pep 3330 H [id number] H Impressions: Head CT 06/08/20 08:00 IMPRESSION: Sinus disease. No acute intracranial imaging findings. EVIDENCE OF ACUTE STROKE: NO. Chest X-Ray 06/17/20 06:00 IMPRESSION: Slight improvement. No pneumothorax. Assessment & Plan - Diagnosis (1) ADRI (acute kidney injury) Is this a current diagnosis for this admission?: Yes Plan: Creatinine going from 1.1>4+>3.05>3.75. Currently nonoliguric but urine output has significantly declined. Likely secondary to multifactorial ATN secondary to acute shock due to sepsis, hypotension and CHF. Kidney function is obviously worse today with increasing urine output. Patient is still clinically fluid overloaded. There is a high likelihood of the patient would require renal replacement therapy. I will reevaluate tomorrow I will resume intermittent Lasix at 80 mg IV every 12 hours. Recheck kidney functions tomorrow. (2) Acute exacerbation of CHF (congestive heart failure) Qualifiers: Heart failure type: combined systolic and diastolic Qualified Code(s): I50.43 - Acute on chronic combined systolic (congestive) and diastolic (congestive) heart failure Is this a current diagnosis for this admission?: Yes Plan: LVEF of 30 to 35%. Yoga Teacher, Dr. Pablo on board. (3) Acute metabolic encephalopathy Is this a current diagnosis for this admission?: Yes (4) Anasarca Is this a current diagnosis for this admission?: Yes Plan: Resume intermittent IV Lasix as above. (5) Shock Is this a current diagnosis for this admission?: Yes Plan: Due to a combination of sepsis and cardiac dysfunction. Currently off vasopressors and milrinone. Blood pressure is being maintained so far. (6) Sepsis Is this a current diagnosis for this admission?: Yes (7) Hypotension (arterial) Is this a current diagnosis for this admission?: Yes Plan: Off vasopressors. (8) Anemia Is this a current diagnosis for this admission?: Yes (9) Acute respiratory failure with hypoxia Is this a current diagnosis for this admission?: Yes Plan: Resolved. (10) Diabetes mellitus type 2 in obese Is this a current diagnosis for this admission?: Yes (11) Medical non-compliance Is this a current diagnosis for this admission?: Yes
[2020-06-20] MEDS: ASPIRIN 81 MG TABLET, CHEWABLE NG SCH (22:56)
[2020-06-21] MEDS: INSULIN LISPRO 100 UNIT/ML 3 ML VIAL SUBCUT SCH ×4 (00:08→18:18)
[2020-06-21 05:44] LABS: ALBUMIN 3.3 g/dL (3.5-5.0); ALKALINE PHOSPHATASE 91 U/L (38-126); ANION GAP 17 (5-19); ASPARTATE AMINO TRANSFERASE 119 U/L (17-59); BILIRUBIN,TOTAL 3.9 mg/dL (0.2-1.3); BLOOD UREA NITROGEN 108 mg/dL (7-20); CALCIUM 8.9 mg/dL (8.4-10.2); CARBON DIOXIDE 22 mmol/L (22-30); CHLORIDE 99 mmol/L (98-107); GLUCOSE 102 mg/dL (75-110); HEMATOCRIT 23.7 % (37.9-51.0); MEAN CORPUSCULAR HEMOGLOBIN 31.2 pg (27.0-33.4); MEAN CORPUSCULAR HGB CONC 33.8 g/dL (32.0-36.0); MEAN CORPUSCULAR VOLUME 92 fl (80-97); PLATELET COUNT 110 10^3/uL (150-450); POTASSIUM 4.2 mmol/L (3.6-5.0); RED BLOOD COUNT 2.57 10^6/uL (4.35-5.55); RED CELL DISTRIBUTION WIDTH 15.2 % (11.5-14.0); TOTAL PROTEIN 7.4 g/dL (6.3-8.2); WHITE BLOOD COUNT 9.5 10^3/uL (4.0-10.5)
[2020-06-21] MEDS: PIPERACILLIN SODIUM/TAZOBACTAM 2.25 GM in NORMAL SALINE 50 ML IV SCH ×2 (05:53→14:25)
[2020-06-21] MEDS: FUROSEMIDE INJ/PF 100 MG/10 ML SDV IV SCH ×2 (06:00→17:09)
[2020-06-21 06:02] LABS: ABSOLUTE LYMPHOCYTES# (MANUAL) 1.2 10^3/uL (0.5-4.7); ABSOLUTE MONOCYTES # (MANUAL) 1.6 10^3/uL (0.1-1.4); ANISOCYTOSIS 1+; BAND NEUTROPHILS % (MANUAL) 2 % (3-5); BASOPHILS % (MANUAL) 1 % (0-2); EOSINOPHILS % (MANUAL) 3 % (0-6); LYMPHOCYTES % (MANUAL) 13 % (13-45); METAMYELOCYTES % (MANUAL) 1 % (0-1); MONOCYTES % (MANUAL) 17 % (3-13); PLATELET COMMENT DECREASED; SEGMENTED NEUTROPHILS % (MAN) 63 % (42-78); TOTAL CELLS COUNTED 100
--- NOTE | 2020-06-21 09:42 | PDOC PROGRESS REPORT ---
Subjective Date:: 06/21/20 Subjective:: Prior consult note: LIZABETH VICK is a 49 year old male with history of lymphoma, morbid obesity, heart failure of unclear etiology, medication noncompliance, with multiple evaluations in our emergency room as well as admission to this facility but the patient leaves AMA before completing treatment who is consulted to our service for evaluation of dyspnea and heart failure exacerbation. Review of his chart demonstrates that the patient had been seen or admitted to our facility at least 5 times in the last several months. He was seen in our emergency room on 03/28/2020 for evaluation of shortness of breath. At that time he was diagnosed with pneumonia and left the emergency room AMA. He returned to the emergency room on 03/30/2024 worsening dyspnea, he was diagnosed with pneumonia and admitted however he left AMA on 03/31/2020. He returned to our emergency room on 05/22/2020 complaining of genital edema, at that time his chest x-ray was consistent with worsening multifocal pneumonia and a scrotal ultrasound demonstrated edema. The emergency room physician recommended Lasix and admission however the patient declined to be admitted, refused his Lasix and eloped from the emergency department. His dyspnea continued to worsen and he presented again yesterday to the emergency room with worsening shortness of breath, bilateral lower extremity edema as well as scrotal and abdominal edema. His chest x-ray during this admission was read by radiology as improved aeration without pulmonary edema however, upon my review, it appears more consistent with heart failure although it is improved from his prior x-ray on 05/22/2020. 06/21/2020: This patient is well-known to me from prior consultations, please see prior notes. Since my last evaluation the patient has had a very complicated clinical course. He was initially admitted on 06/08/2020 with acute on chronic systolic heart failure decompensation at which time he was edematous and in anasarca. He was placed on appropriate medical therapy and eventually diuresed approximately 6 L of fluids with improvement in his respiratory status and chest x-ray findings. Unfortunately he became progressively obtunded, developed a fever associated with a significant leukocytosis. He was initially suspected to have aspirated and was emergently intubated on 06/13/2020. He was transferred to the intensive care unit where he remained hypotensive, was given a significant amount of IV fluids to sustain his blood pressure and eventually was placed on milrinone and norepinephrine infusions. Unfortunately he developed acute kidney injury and became oliguric therefore nephrology recommended a Lasix infusion with an appropriate response. He was extubated on 06/18/2020 and was taken off of all pressors. He was transferred to the regular floor on 06/20/2019 however his urinary output has decreased significantly and nephrology recommended Lasix IV 80 mg twice daily but unfortunately he has not responded well. He had been hypotensive since he was transferred from the intensive care unit with systolic pressures below 100 mmHg consistently. Of note he tested positive for enterovirus/rhinovirus on 06/16/2020 and tested negative for COVID-19 on 06/07/2020. He has remained afebrile. This morning he continues to be sleepy. Of note, he required continuous bladder irrigation twice for significant hematu nikita after the patient pulled his [place] out with the balloon inflated. Physical exam on 06/21/2020: GENERAL: Sleeping and difficult to wake up. Not in acute distress. Disheveled. Not following commands. HEENT: Normocephalic, atraumatic. Pupils equal. Sclerae anicteric. Oropharynx dry. NECK: Difficult to assess for JVD due to his body habitus. No carotid bruits. LUNGS: Diffuse rhonchi in all pham. Normal respiratory effort without the use of accessory muscles or intercostal retractions. CARDIOVASCULAR: Regular rate and rhythm, normal S1 and S2 without murmurs, rubs, or gallops. PMI not displaced. ABDOMEN: No masses or tenderness to palpation. No bruit. Difficult to assess for organomegaly given his obesity. No abdominal aorta bruit noted. EXTREMITIES: 2-3+ pitting edema bilaterally, no cyanosis, no clubbing. +2 pulses femoral and pedal pulses bilaterally. SKIN: No lesions or rashes. MUSCULOSKELETAL: No chest tenderness to palpation. Scrotal edema not present any longer. NEUROLOGIC: Nonfocal. No gross sensory or motor deficits bilateral upper or lower extremities. Reason For Visit: OBTUNDATION,NEEDS ETT FOR AIRWAY PROTECTION Physical Exam Vital Signs: Temp Pulse Resp BP Pulse Ox 97.6 F 73 16 98/40 L 97 06/21/20 04:13 06/21/20 08:20 06/21/20 08:20 06/21/20 08:20 06/21/20 08:20 Intake & Output 06/20/20 06/21/20 06/22/20 06:59 06:59 06:59 Intake Total 528 270 Output Total 460 540 Balance 68 -270 Weight 129.8 kg 129.8 kg Results Laboratory Results: 06/21/20 05:03 06/21/20 05:03 06/21/20 06/21/20 05:03 05:03 WBC 9.5 RBC 2.57 L Hgb 8.0 L Hct 23.7 L MCV 92 MCH 31.2 MCHC 33.8 RDW 15.2 H Plt Count 110 L Seg Neutrophils % Not Reportable Sodium 137.8 Potassium 4.2 Chloride 99 Carbon Dioxide 22 Anion Gap 17 BUN 108 H Creatinine 5.10 H Est GFR ( Amer) 15 L Glucose 102 Calcium 8.9 Total Bilirubin 3.9 H AST 119 H Alkaline Phosphatase 91 Total Protein 7.4 Albumin 3.3 L 06/07/20 06/08/20 06/14/20 17:14 04:54 02:30 Troponin I 0.033 0.039 NT-Pro-B Natriuret Pep 3330 H 12198 H Impressions: Head CT 06/08/20 08:00 IMPRESSION: Sinus disease. No acute intracranial imaging findings. EVIDENCE OF ACUTE STROKE: NO. Chest X-Ray 06/17/20 06:00 IMPRESSION: Slight improvement. No pneumothorax. 06/21/20 05:03 06/21/20 05:03 MCV 92 fl (80-97) 06/21/20 05:03 MCH 31.2 pg (27.0-33.4) 06/21/20 05:03 MCHC 33.8 g/dL (32.0-36.0) 06/21/20 05:03 RDW 15.2 % (11.5-14.0) H 06/21/20 05:03 Seg Neutrophils % Not Reportable 06/21/20 05:03 Retic Count (auto) 1.07 % (0.66-2.85) 06/16/20 17:54 Carbonic Acid 1.32 mmol/L (1.05-1.35) 06/16/20 04:10 HCO3/H2CO3 Ratio 20:1 06/16/20 04:10 ABG pH 7.40 (7.35-7.45) 06/16/20 04:10 ABG pCO2 43.8 mmHg (35-45) 06/16/20 04:10 ABG pO2 91.1 mmHg (80-100) 06/16/20 04:10 ABG HCO3 26.6 mmol/L (20-24) H 06/16/20 04:10 ABG O2 Saturation 96.9 % (94-98) 06/16/20 04:10 ABG Base Excess 1.6 mmol/L 06/16/20 04:10 VBG pH 7.43 (7.30-7.42) H 06/07/20 17:32 VBG pCO2 49.7 mmHg (35-63) 06/07/20 17:32 VBG HCO3 32.0 mmol/L (20-32) 06/07/20 17:32 VBG Base Excess 6.4 mmol/L 06/07/20 17:32 FiO2 50% 06/16/20 04:10 Chloride 99 mmol/L (98-107) 06/21/20 05:03 Carbon Dioxide 22 mmol/L (22-30) 06/21/20 05:03 Anion Gap 17 (5-19) 06/21/20 05:03 Est GFR ( Amer) 15 (>60) L 06/21/20 05:03 Glucose 102 mg/dL (75-110) 06/21/20 05:03 Lactic Acid 1.4 mmol/L (0.7-2.1) 06/16/20 04:10 Calcium 8.9 mg/dL (8.4-10.2) 06/21/20 05:03 Ionized Calcium Marisabel 1.03 mmol/L (1.14-1.30) L 06/16/20 04:10 Phosphorus 6.1 mg/dL (2.5-4.5) H 06/20/20 05:33 Magnesium 2.0 mg/dL (1.6-2.3) 06/20/20 05:33 Iron 69.5 ug/dL (49-181) 06/16/20 16:41 TIBC 239 ug/dL (250-450) L 06/16/20 16:41 % Saturation 29 % 06/16/20 16:41 Ferritin 460.00 ng/mL (17.9-464.0) 06/16/20 16:41 Total Bilirubin 3.9 mg/dL (0.2-1.3) H 06/21/20 05:03 AST 119 U/L (17-59) H 06/21/20 05:03 Alkaline Phosphatase 91 U/L (38-126) 06/21/20 05:03 Ammonia 41.1 umol/L (9-33) H 06/13/20 09:57 C-Reactive Protein 73.9 mg/L (<10.0) H 06/16/20 16:41 Total Protein 7.4 g/dL (6.3-8.2) 06/21/20 05:03 Albumin 3.3 g/dL (3.5-5.0) L 06/21/20 05:03 Triglycerides 72 mg/dL (<150) 06/08/20 04:54 Cholesterol 179.36 mg/dL (0-200) 06/08/20 04:54 LDL Cholesterol Direct 91 mg/dL (<100) 06/08/20 04:54 VLDL Cholesterol 14.0 mg/dL (10-31) 06/08/20 04:54 HDL Cholesterol 46 mg/dL (>40) 06/08/20 04:54 Vitamin B12 > 1000.0 pg/mL (239-931) H 06/16/20 16:41 Folate 9.04 ng/mL (>2.76) 06/16/20 16:41 Urine Color YELLOW 06/07/20 19:18 Urine Appearance CLEAR 06/07/20 19:18 Urine pH 5.0 (5.0-9.0) 06/07/20 19:18 Ur Specific [place] 1.006 06/07/20 19:18 Urine Protein NEGATIVE mg/dL (NEGATIVE) 06/07/20 19:18 Urine Glucose (UA) NEGATIVE mg/dL (NEGATIVE) 06/07/20 19:18 Urine Ketones NEGATIVE mg/dL (NEGATIVE) 06/07/20 19:18 Urine Blood MODERATE (NEGATIVE) H 06/07/20 19:18 Urine Nitrite NEGATIVE (NEGATIVE) 06/07/20 19:18 Ur Leukocyte Esterase TRACE (NEGATIVE) H 06/07/20 19:18 Urine WBC (Auto) 9 /HPF 06/07/20 19:18 Urine RBC (Auto) 11 /HPF 06/07/20 19:18 12/23/20 12/24/20 12/30/20 17:14 04:54 02:30 Troponin I 0.033 0.039 NT-Pro-B Natriuret Pep 3330 H 28215 H Current Medication List Generic Name Dose Route Start Last Admin Trade Name Freq PRN Reason Stop Dose Admin Acetaminophen 650 mg 06/13/20 12:30 06/18/20 08:25 Acetaminophen Soln 325 Mg/10.15 Ml Udcup NG 07/13/20 00:47 650 mg Q4HP PRN Administration FEVER >101 Albuterol 2.5 mg 06/13/20 11:23 06/18/20 17:42 Albuterol Sulfate 0.083% Neb 2.5 Mg/3 Ml Ampul NEB 07/13/20 11:22 2.5 mg RTQ4HP PRN Administration SHORTNESS OF BREATH Albuterol/Ipratropium 3 ml 06/18/20 17:40 Ipratropium/Albuterol 0.5-2.5 Mg/3 Ml Ampul NEB 07/18/20 17:39 RTQ4HP PRN SHORTNESS OF BREATH Amino Acid Protein 45 ml 06/14/20 18:00 06/20/20 17:12 Amino Ac/Protein Hydr/Whey Pro 11 Gm/45 Ml Pkt NG 07/14/20 17:59 Not Given BID CAMILO Aspirin 81 mg 06/13/20 22:00 06/20/20 22:56 Aspirin 81 Mg Tablet, Chewable NG 07/08/20 21:59 Not Given QHS CAMILO Dextrose 12.5 gm 06/07/20 22:47 Dextrose 50%-Water 25 Gm/50 Ml Disp.Syrin IV 07/07/20 22:46 PRN PRN FOR BG 50-69 IN ALERT PATIENT Protocol Dextrose 25 gm 06/07/20 22:47 Dextrose 50%-Water 25 Gm/50 Ml Disp.Syrin IV 07/07/20 22:46 PRN PRN PER PROTOCOL Protocol Docusate Sodium 100 mg 06/08/20 10:00 06/20/20 17:12 Docusate Sodium 100 Mg Capsule PO 07/08/20 09:59 Not Given BID CAMILO Famotidine 20 mg 06/13/20 22:00 06/20/20 23:52 Famotidine Inj/Pf 20 Mg/2 Ml Sdv IV 07/13/20 21:59 20 mg Q12 CAMILO Administration Furosemide 80 mg 06/20/20 16:00 06/21/20 06:00 Furosemide Inj/Pf 100 Mg/10 Ml Sdv IV 07/20/20 15:59 Not Given Q12A CAMILO Glucagon 1 mg 06/07/20 22:47 Glucagon,Human Recomb 1 Mg Inj IM 07/07/20 22:46 PRN PRN Evaluate for BG < 70 Protocol Glucose 15 gm 06/07/20 22:47 Dextrose 40% Gel 15 Gm Tube PO 07/07/20 22:46 PRN PRN FOR BG 50-69 IN ALERT PATIENT Protocol Glucose 30 gm 06/07/20 22:47 Dextrose 40% Gel 15 Gm Tube PO 07/07/20 22:46 PRN PRN FOR BG < 50 IN ALERT PATIENT Protocol Piperacillin Sod/Tazobactam 50 mls @ 100 mls/hr 06/16/20 22:00 06/21/20 05:53 Sod 2.25 gm/ Sodium Chloride IV 06/23/20 21:59 100 mls/hr Q8 CAMILO 100 mls/hr Administration Insulin Glargine 18 unit 06/10/20 22:00 06/20/20 22:57 Insulin Glargine,Hum.Rec.Anlog 1,000 Unit/10 Ml Vial SUBCUT 07/10/20 21:59 Not Given Q12 CAMILO Insulin Human Lispro 0 - 12 unit 06/15/20 06:15 06/21/20 06:07 Insulin Lispro 100 Unit/Ml 3 Ml Vial SUBCUT 07/15/20 06:14 Not Given Q6 [facility] Protocol Ondansetron HCl 8 mg 06/13/20 11:23 Ondansetron 4 Mg Tab.Rapdis NG 07/13/20 11:22 Q4HP PRN FOR NAUSEA/VOMITING Patient Own Medication 2 puff 06/13/20 22:00 06/20/20 22:57 Budesonide/Formoterol Fumarate IH 07/13/20 21:59 Not Given Q12 [facility] Pharmacy Profile Note 1 each 06/13/20 11:30 Pharmacy Communication Order 07/13/20 11:29 .NOTICE NR Sodium Chloride 2.5 ml 06/13/20 11:30 06/21/20 06:01 Normal Saline Flush 2.5 Ml Disp.Syrin IV 07/13/20 11:29 2.5 ml Q8 CAMILO Administration Sodium Chloride 2.5 ml 06/14/20 02:09 06/21/20 06:01 Normal Saline Flush 2.5 Ml Disp.Syrin IV 07/14/20 02:08 Not Given Q8 [facility] Discontinued Medications Generic Name Dose Route Start Last Admin Trade Name Freq PRN Reason Stop Dose Admin Acetaminophen 650 mg 06/13/20 00:48 Acetaminophen Soln 325 Mg/10.15 Ml Udcup PO 07/13/20 00:47 Q4HP PRN FEVER >101 Acetaminophen 650 mg 06/13/20 11:23 Acetaminophen 325 Mg Tablet NG 07/13/20 11:22 Q4HP PRN FEVER >101 Al Hydrox/Mg Hydrox/Simethicone 15 ml 06/07/20 22:38 Mag Hydrox/Al Hydrox/Simeth Susp 30 Ml Udcup PO 07/07/20 22:37 Q6HP PRN HEARTBURN Al Hydrox/Mg Hydrox/Simethicone 15 ml 06/13/20 12:30 Mag Hydrox/Al Hydrox/Simeth Susp 30 Ml Udcup NG 07/07/20 22:37 Q6HP PRN HEARTBURN Albuterol/Ipratropium 3 ml 06/07/20 22:38 06/13/20 06:51 Ipratropium/Albuterol 0.5-2.5 Mg/3 Ml Ampul NEB 07/07/20 22:37 3 ml RTQ6HP PRN Administration SHORTNESS OF BREATH Albuterol/Ipratropium 3 ml 06/18/20 17:40 06/18/20 18:21 Ipratropium/Albuterol 0.5-2.5 Mg/3 Ml Ampul NEB 06/18/20 17:41 Not Given NOW ONE Aspirin 81 mg 06/08/20 22:00 06/12/20 23:13 Aspirin 81 Mg Tablet, Chewable PO 07/08/20 21:59 Not Given QHS [facility] Aspirin 81 mg 06/07/20 23:00 06/07/20 23:36 Aspirin 81 Mg Tablet, Chewable PO 06/07/20 23:01 81 mg NOW ONE Administration Atorvastatin Calcium 40 mg 06/08/20 22:00 06/12/20 23:28 Atorvastatin Calcium 40 Mg Tablet PO 07/08/20 21:59 Not Given QHS [facility] Atorvastatin Calcium 40 mg 06/07/20 23:00 06/07/20 23:36 Atorvastatin Calcium 40 Mg Tablet PO 06/07/20 23:01 40 mg NOW ONE Administration Atorvastatin Calcium 40 mg 06/13/20 22:00 06/13/20 22:20 Atorvastatin Calcium 40 Mg Tablet NG 07/08/20 21:59 40 mg QHS [facility] Administration Carvedilol 6.25 mg 06/12/20 10:00 06/12/20 10:55 Carvedilol 6.25 Mg Tablet PO 07/12/20 09:59 Not Given Q12 [facility] Epinephrine HCl Confirm 06/14/20 14:44 06/14/20 15:00 Epinephrine Inj/Pf 1 Mg/1 Ml Ampule Administered 06/14/20 14:45 1 mg Dose Administration 1 mg .ROUTE .STK-MED ONE Famotidine 20 mg 06/08/20 10:00 06/13/20 12:02 Famotidine 20 Mg Tablet PO 07/08/20 09:59 Not Given Q12 [facility] Famotidine 20 mg 06/07/20 23:00 06/07/20 23:36 Famotidine 20 Mg Tablet PO 06/07/20 23:01 20 mg NOW ONE Administration Famotidine 20 mg 06/13/20 22:00 06/14/20 21:51 Famotidine 20 Mg Tablet NG 07/08/20 09:59 Not Given Q12 [facility] Flumazenil Confirm 06/13/20 07:51 06/13/20 07:54 Flumazenil Inj 0.5 Mg/5 Ml Vial Administered 06/13/20 07:52 0.5 mg Dose Administration 0.5 mg .ROUTE .STK-MED ONE Furosemide 40 mg 06/07/20 17:18 06/07/20 17:59 Furosemide Inj/Pf 20 Mg/2 Ml Sdv IV 06/07/20 17:19 40 mg NOW ONE Administration Furosemide 40 mg 06/08/20 06:00 06/08/20 16:02 Furosemide Inj/Pf 40 Mg/4 Ml Sdv IV 07/08/20 05:59 Not Given Q8 [facility] Furosemide 60 mg 06/09/20 10:00 06/10/20 17:29 Furosemide Inj/Pf 40 Mg/4 Ml Sdv IV 07/09/20 09:59 60 mg BID CAMILO Administration Furosemide 40 mg 06/11/20 10:00 06/11/20 17:30 Furosemide Inj/Pf 40 Mg/4 Ml Sdv IV 07/11/20 09:59 40 mg BID CAMILO Administration Furosemide 40 mg 06/12/20 10:00 06/13/20 17:17 Furosemide Inj/Pf 40 Mg/4 Ml Sdv IV 07/12/20 09:59 Not Given DAILY [facility] Furosemide Confirm 06/14/20 01:25 06/14/20 02:17 Furosemide Inj/Pf 40 Mg/4 Ml Sdv Administered 06/14/20 01:26 Not Given Dose 40 mg .ROUTE .STK-MED ONE Furosemide 40 mg 06/14/20 01:45 06/14/20 01:27 Furosemide Inj/Pf 40 Mg/4 Ml Sdv IV 06/14/20 01:46 40 mg NOW ONE Administration Haloperidol Lactate 2 mg 06/10/20 01:00 06/10/20 01:13 Haloperidol Lactate Inj 5 Mg/1 Ml Vial IM 06/10/20 01:01 2 mg ONCE ONE Administration Haloperidol Lactate 5 mg 06/19/20 03:19 06/19/20 05:04 Haloperidol Lactate Inj 5 Mg/1 Ml Vial IV 06/19/20 03:20 5 mg NOW ONE Administration Hard Fat/Phenylephrine Confirm 06/14/20 07:27 06/14/20 07:35 Phenylephrine Hcl Inj/Pf 10 Mg/1 Ml Sdv Administered 06/14/20 07:28 10 mg Dose Administration 10 mg .ROUTE .STK-MED ONE Hard Fat/Phenylephrine Confirm 06/14/20 07:33 06/14/20 07:30 Phenylephrine Hcl Inj/Pf 10 Mg/1 Ml Sdv Administered 06/14/20 07:34 Not Given Dose 10 mg .ROUTE .STK-MED ONE Heparin Sodium (Porcine) 5,000 unit 06/08/20 06:00 06/13/20 20:03 Heparin Sod (Porcine) 5,000 Unit/Ml 1 Ml Vial SUBCUT 07/08/20 05:59 Not Given Q8 [facility] Heparin Sodium (Porcine) 5,000 unit 06/13/20 14:00 06/13/20 22:17 Heparin Sod (Porcine) 5,000 Unit/Ml 1 Ml Vial SUBCUT 07/13/20 13:59 Not Given Q8 [facility] Hydrocortisone Sodium Succinate 100 mg 06/13/20 13:15 06/13/20 14:08 Hydrocortisone Sod Succinate Inj/Pf 100 Mg/2 Ml Sdv IV 06/13/20 13:16 100 mg NOW ONE Administration Magnesium Sulfate/Dextrose 1 gm in 100 mls @ 100 mls/hr 06/07/20 19:00 06/07/20 22:45 Magnesium Sulfate Rtu-D5w 1 Gm/100 Ml Premix IV 06/07/20 20:59 Infused Q1H CAMILO Infusion Albumin Human 12.5 gm in 50 mls @ 50 mls/hr 06/09/20 12:15 06/09/20 18:36 Albuminar-25 Rtu Inj 12.5 Gm/50 Ml Premix IV 06/09/20 13:14 Infused NOW ONE Infusion Albumin Human 12.5 gm in 50 mls @ 50 mls/hr 06/10/20 18:00 06/12/20 12:02 Albuminar-25 Rtu Inj 12.5 Gm/50 Ml Premix IV 06/12/20 10:59 Infused BID CAMILO Infusion Magnesium Sulfate/Dextrose 1 gm in 100 mls @ 100 mls/hr 06/11/20 16:30 06/12/20 00:37 Magnesium Sulfate Rtu-D5w 1 Gm/100 Ml Premix IV 06/11/20 18:29 Not Given Q1H CAMILO Magnesium Sulfate/Dextrose 1 gm in 100 mls @ 100 mls/hr 06/11/20 23:45 06/12/20 00:36 Magnesium Sulfate Rtu-D5w 1 Gm/100 Ml Premix IV 06/12/20 00:44 100 mls/hr Q1H CAMILO 100 mls/hr Administration Acetaminophen 1,000 mg in 100 mls @ 400 mls/hr 06/12/20 04:15 06/12/20 04:09 Ofirmev Inj/Pf 1000 Mg/100 Ml Sdv IV 06/12/20 04:29 400 mls/hr ONCE ONE 400 mls/hr Administration Piperacillin Sod/Tazobactam 100 mls @ 200 mls/hr 06/12/20 12:00 06/16/20 11:28 Sod 3.375 gm/ Sodium Chloride IV 06/19/20 11:59 200 mls/hr Q6 CAMILO Administration Vancomycin HCl 1,500 mg/ 250 mls @ 166.667 mls/hr 06/12/20 11:30 06/12/20 11:22 Dextrose IV 06/12/20 12:59 167 mls/hr NOW ONE 167 mls/hr Administration Vancomycin HCl 1,250 mg/ 250 mls @ 166.667 mls/hr 06/12/20 22:00 06/12/20 23 :31 Dextrose IV 06/19/20 21:59 166.67 mls/hr Q12 CAMILO 166.67 mls/hr Administration Acetaminophen 1,000 mg in 100 mls @ 400 mls/hr 06/13/20 01:00 06/13/20 20:03 Ofirmev Inj/Pf 1000 Mg/100 Ml Sdv IV 06/13/20 01:14 Infused NOW ONE Infusion Vancomycin HCl 1,250 mg/ 250 mls @ 166.667 mls/hr 06/13/20 22:00 Dextrose IV 06/19/20 21:59 QHS CAMILO Calcium Gluconate 1 gm in 50 mls @ 50 mls/hr 06/13/20 10:15 06/13/20 12:00 Calcium Gluconate Rtu 1 Gm/50 Ml IV 06/13/20 12:14 50 mls/hr Q1H CAMILO Administration Norepinephrine Bitartrate 4 mg 250 mls @ 0 mls/hr 06/13/20 10:48 06/14/20 07:45 / Dextrose IV 07/13/20 10:47 0 mcg/min CONTINUOUS PRN 0 mls/hr THIS MED IS NOT "PRN" Titration Protocol Titrate Vasopressin 100 unit/ Dextrose 250 mls @ 0 mls/hr 06/13/20 11:32 06/14/20 00:38 IV 07/13/20 11:31 45 mls/hr CONTINUOUS PRN 45 mls/hr THIS MED IS NOT "PRN" Titration Protocol Titrate Lactated Ringer's 1,000 mls @ 150 mls/hr 06/13/20 11:23 06/14/20 01:15 Lactated Ringers 1000 Ml Iv Soln IV 07/13/20 11:22 0 mls/hr CONTINUOUS PRN Infusion THIS MED IS NOT "PRN" Propofol Confirm 06/14/20 01:22 06/14/20 01:30 Diprivan Rtu 1000 Mg/100 Ml Inf.Bottle Administered 06/14/20 01:23 30 mcg/kg/min Dose 20.52 mls/hr 1,000 mg in 100 mls @ ud Administration IV .STK-MED ONE Dexmedetomidine/Sodium Chloride 400 mcg in 100 mls @ 11.4 mls/hr 06/14/20 02:09 Precedex 400 Mcg/Ns 100 Ml Iv Premix IV 07/14/20 02:08 CONTINUOUS PRN THIS MED IS NOT "PRN" Protocol 0.4 MCG/KG/HR Propofol 1,000 mg in 100 mls @ 3.42 mls/hr 06/14/20 02:09 06/15/20 17:25 Diprivan Rtu 1000 Mg/100 Ml Inf.Bottle IV 07/14/20 02:08 Infused CONTINUOUS PRN Titration THIS MED IS NOT "PRN" Protocol 5 MCG/KG/MIN Vasopressin 100 unit/ Dextrose 250 mls @ 0 mls/hr 06/14/20 02:35 06/19/20 17:00 IV 07/14/20 02:34 0 unit/min CONTINUOUS PRN 0 mls/hr THIS MED IS NOT "PRN" Titration Protocol Titrate Hard Fat/Phenylephrine 40 mg/ 250 mls @ 0 mls/hr 06/14/20 07:31 06/15/20 12:20 Dextrose IV 07/14/20 07:30 140 mls/hr CONTINUOUS PRN 140 mls/hr THIS MED IS NOT "PRN" Administration Protocol Titrate Epinephrine HCl 1 mg/ Dextrose 250 mls @ 0 mls/hr 06/14/20 14:33 06/15/20 15:00 IV 07/14/20 14:32 0 mls/hr CONTINUOUS PRN 0 mls/hr THIS MED IS NOT "PRN" Titration Protocol Titrate Hard Fat/Phenylephrine 40 mg/ 250 mls @ 0 mls/hr 06/15/20 01:21 06/15/20 17:10 Dextrose IV 07/15/20 01:20 Infused CONTINUOUS PRN Titration THIS MED IS NOT "PRN" Protocol Titrate Epinephrine HCl 1 mg/ Dextrose 250 mls @ 0 mls/hr 06/15/20 01:22 06/15/20 16:00 IV 07/15/20 01:21 Infused CONTINUOUS PRN Titration THIS MED IS NOT "PRN" Protocol Titrate Milrinone Lactate/Dextrose 20 mg in 100 mls @ 0 mls/hr 06/15/20 12:05 06/16/20 04:19 Primacor Rtu 20 Mg-D5w 100 Ml Premix Bag IV 07/15/20 12:04 0 mls/hr CONTINUOUS PRN 0 mls/hr THIS MED IS NOT "PRN" Titration Protocol Titrate Norepinephrine Bitartrate 4 mg 250 mls @ 0 mls/hr 06/15/20 12:06 06/19/20 11:15 / Dextrose IV 07/15/20 12:05 0 mcg/min CONTINUOUS PRN 0 mls/hr THIS MED IS NOT "PRN" Titration Protocol Titrate Epinephrine HCl 1 mg/ Sodium 251 mls @ 0 mls/hr 06/15/20 13:55 Chloride IV 07/15/20 13:54 CONTINUOUS PRN THIS MED IS NOT "PRN" Protocol Titrate Hard Fat/Phenylephrine 40 mg/ 254 mls @ 0 mls/hr 06/15/20 13:59 Sodium Chloride IV 07/15/20 13:58 CONTINUOUS PRN THIS MED IS NOT "PRN" Protocol Titrate Furosemide 250 mg/ Sodium 250 mls @ 10 mls/hr 06/15/20 16:00 06/19/20 11:15 Chloride IV 07/15/20 15:59 Infused CONTINUOUS PRN Infusion THIS MED IS NOT "PRN" 10 MG/HR Dexmedetomidine/Sodium Chloride Confirm 06/15/20 17:20 06/15/20 22:57 Precedex 400 Mcg/Ns 100 Ml Iv Premix Administered 06/15/20 17:21 0 mcg/kg/hr Dose 0 mls/hr 400 mcg in 100 mls @ ud Infusion IV .STK-MED ONE Milrinone Lactate/Dextrose 20 mg in 100 mls @ 14.68 mls/hr 06/16/20 00:18 Primacor Rtu 20 Mg-D5w 100 Ml Premix Bag IV 07/15/20 12:04 CONTINUOUS PRN THIS MED IS NOT "PRN" Albumin Human 500 mls @ 4 mls/min 06/16/20 04:22 06/16/20 04:53 Albutein 5% Inj 25 Gm/500 Ml Premixed Bottle IV 06/16/20 06:26 Not Given NOW ONE Lactated Ringer's 500 mls @ 0 mls/hr 06/16/20 04:31 06/16/20 04:35 Lactated Ringers 500 Ml Iv Soln IV 06/16/20 04:32 500 mls/hr BOLUS ONE Administration Wide Open Albumin Human 12.5 gm in 50 mls @ 50 mls/hr 06/16/20 04:45 06/16/20 10:01 Albuminar-25 Rtu Inj 12.5 Gm/50 Ml Premix IV 06/16/20 06:44 Infused Q1H CAMILO Infusion Potassium Chloride/Water 20 meq in 50 mls @ 25 mls/hr 06/16/20 05:30 06/16/20 10:02 Potassium Chloride Sony 20 Meq/50 Ml IV 06/16/20 09:29 Infused Q2H CAMILO Infusion Dexmedetomidine/Sodium Chloride Confirm 06/16/20 10:55 06/16/20 12:15 Precedex 400 Mcg/Ns 100 Ml Iv Premix Administered 06/16/20 10:56 Not Given Dose 400 mcg in 100 mls @ ud IV .STK-MED ONE Dopamine HCl/Dextrose Confirm 06/16/20 10:56 06/16/20 12:15 Dopamine Rtu 800 Mg-D5w 250 Ml (Adult) Premix Administered 06/16/20 10:57 Not Given Dose 800 mg in 250 mls @ ud IV .STK-MED ONE Dexmedetomidine/Sodium Chloride 400 mcg in 100 mls @ 13.26 mls/hr 06/16/20 12:48 06/17/20 17:30 Precedex 400 Mcg/Ns 100 Ml Iv Premix IV 07/16/20 12:47 0 mcg/kg/hr CONTINUOUS PRN 0 mls/hr THIS MED IS NOT "PRN" Titration Protocol 0.4 MCG/KG/HR Albumin Human 12.5 gm in 50 mls @ 50 mls/hr 06/16/20 13:15 06/16/20 12:00 Albuminar-25 Rtu Inj 12.5 Gm/50 Ml Premix IV 06/16/20 14:14 Infused NOW ONE Infusion Dopamine HCl/Dextrose 800 mg in 250 mls @ 12.431 mls/hr 06/16/20 12:52 06/16/20 23:33 Dopamine Rtu 800 Mg-D5w 250 Ml (Adult) Premix IV 07/16/20 12:51 0 mcg/kg/min CONTINUOUS PRN 0 mls/hr THIS MED IS NOT "PRN" Titration Protocol 5 MCG/KG/MIN Magnesium Sulfate/Dextrose 1 gm in 100 mls @ 100 mls/hr 06/17/20 04:30 06/17/20 06:03 Magnesium Sulfate Rtu-D5w 1 Gm/100 Ml Premix IV 06/17/20 06:29 100 mls/hr Q1H CAMILO 100 mls/hr Administration Magnesium Sulfate/Dextrose Confirm 06/17/20 06:01 06/17/20 06:52 Magnesium Sulfate Rtu-D5w 1 Gm/100 Ml Premix Administered 06/17/20 06:02 Not Given Dose 1 gm in 100 mls @ ud IV .STK-MED ONE Lactated Ringer's 1,000 mls @ 0 mls/hr 06/19/20 22:54 06/19/20 23:53 Lactated Ringers 1000 Ml Iv Soln IV 06/19/20 22:55 500 mls/hr BOLUS ONE Administration Wide Open Insulin Glargine 12 unit 06/08/20 22:00 06/09/20 10:12 Insulin Glargine,Hum.Rec.Anlog 1,000 Unit/10 Ml Vial SUBCUT 07/08/20 21:59 12 unit Q12 CAMILO Administration Insulin Glargine Confirm 06/08/20 22:10 06/08/20 22:34 Insulin Glargine,Hum.Rec.Anlog 1,000 Unit/10 Ml Vial (Pyx) Administered 06/08/20 22:11 Not Given Dose 1 unit SUBCUT .STK-MED ONE Insulin Glargine 15 unit 06/09/20 22:00 06/10/20 11:37 Insulin Glargine,Hum.Rec.Anlog 1,000 Unit/10 Ml Vial SUBCUT 07/09/20 21:59 15 unit Q12 CAMILO Administration Insulin Glargine Confirm 06/17/20 23:03 06/18/20 03:14 Insulin Glargine,Hum.Rec.Anlog 1,000 Unit/10 Ml Vial (Pyx) Administered 06/17/20 23:04 Not Given Dose 1 unit SUBCUT .STK-MED ONE Insulin Human Lispro 0 - 12 unit 06/08/20 08:00 06/14/20 21:50 Insulin Lispro 100 Unit/Ml 3 Ml Vial SUBCUT 07/08/20 07:59 12 unit ACHS CAMILO Administration Protocol Lactulose 20 gm 06/13/20 11:45 06/13/20 19:20 Lactulose Syrup 20 Gm/30 Ml Udcup NG 07/13/20 11:44 Not Given BID CAMILO Lisinopril 2.5 mg 06/08/20 10:00 06/09/20 10:12 Lisinopril 5 Mg Tablet PO 07/08/20 09:59 2.5 mg DAILY CAMILO Administration Lorazepam 2 mg 06/10/20 13:35 06/10/20 14:56 Lorazepam Inj 2 Mg/1 Ml Vial IV 06/10/20 13:36 2 mg NOW ONE Administration Lorazepam Confirm 06/11/20 13:04 06/11/20 14:14 Lorazepam Inj 2 Mg/1 Ml Vial Administered 06/11/20 13:05 2 mg Dose Administration 2 mg .ROUTE .STK-MED ONE Lorazepam 2 mg 06/11/20 14:15 06/11/20 14:13 Lorazepam Inj 2 Mg/1 Ml Vial IV 06/11/20 14:16 Not Given NOW ONE Lorazepam 2 mg 06/12/20 10:34 06/12/20 11:02 Lorazepam Inj 2 Mg/1 Ml Vial IV 06/12/20 10:35 2 mg NOW ONE Administration Lorazepam 2 mg 06/12/20 15:12 06/12/20 15:49 Lorazepam Inj 2 Mg/1 Ml Vial IV 06/12/20 15:13 2 mg NOW ONE Administration Lorazepam Confirm 06/12/20 15:13 06/12/20 15:49 Lorazepam Inj 2 Mg/1 Ml Vial Administered 06/12/20 15:14 Not Given Dose 2 mg .ROUTE .STK-MED ONE Metoprolol Tartrate 5 mg 06/12/20 17:30 06/14/20 11:48 Metoprolol Tartrate Pf/Inj 5 Mg/5 Ml Sdv IV 07/12/20 17:29 Not Given Q6 CAMILO Morphine Sulfate 1 mg 06/09/20 23:51 06/10/20 13:20 Morphine Sulfate 10 Mg/Ml Inj IV 06/16/20 23:50 1 mg Q4HP PRN Administration PAIN Morphine Sulfate 4 mg 06/13/20 11:39 Morphine Sulfate 10 Mg/Ml Inj IV 06/16/20 23:50 Q4HP PRN PAIN Naloxone HCl Confirm 06/13/20 07:45 06/13/20 07:45 Naloxone Hcl Inj/Pf 0.4 Mg/1 Ml Sdv Administered 06/13/20 07:46 0.4 mg Dose Administration 0.4 mg .ROUTE .STK-MED ONE Naloxone HCl Confirm 06/13/20 07:48 06/13/20 07:50 Naloxone Hcl Inj/Pf 0.4 Mg/1 Ml Sdv Administered 06/13/20 07:49 0.4 mg Dose Administration 0.4 mg .ROUTE .STK-MED ONE Norepinephrine Bitartrate Confirm 06/13/20 09:15 06/13/20 10:47 Norepinephrine Bitartrate Inj/Pf 4 Mg/4 Ml Sdv Administered 06/13/20 09:16 Not Given Dose 4 mg IV .STK-MED ONE Norepinephrine Bitartrate Confirm 06/13/20 17:16 06/13/20 17:35 Norepinephrine Bitartrate Inj/Pf 4 Mg/4 Ml Sdv Administered 06/13/20 17:17 Not Given Dose 4 mg IV .STK-MED ONE Norepinephrine Bitartrate Confirm 06/13/20 17:18 06/13/20 17:29 Norepinephrine Bitartrate Inj/Pf 4 Mg/4 Ml Sdv Administered 06/13/20 17:19 4 mg Dose Administration 4 mg IV .STK-MED ONE Norepinephrine Bitartrate Confirm 06/14/20 03:23 06/14/20 05:04 Norepinephrine Bitartrate Inj/Pf 4 Mg/4 Ml Sdv Administered 06/14/20 03:24 Not Given Dose 4 mg IV .STK-MED ONE Norepinephrine Bitartrate Confirm 06/15/20 12:09 06/15/20 12:40 Norepinephrine Bitartrate Inj/Pf 4 Mg/4 Ml Sdv Administered 06/15/20 12:10 4 mg Dose Administration 4 mg IV .STK-MED ONE Norepinephrine Bitartrate Confirm 06/15/20 20:13 06/15/20 20:34 Norepinephrine Bitartrate Inj/Pf 4 Mg/4 Ml Sdv Administered 06/15/20 20:14 Not Given Dose 4 mg IV .STK-MED ONE Norepinephrine Bitartrate Confirm 06/17/20 06:56 06/17/20 07:07 Norepinephrine Bitartrate Inj/Pf 4 Mg/4 Ml Sdv Administered 06/17/20 06:57 Not Given Dose 4 mg IV .STK-MED ONE Ondansetron HCl 4 mg 12/23/20 22:38 Ondansetron Hcl Inj/Pf 4 Mg/2 Ml Sdv IV 07/07/20 22:37 Q4HP PRN FOR NAUSEA/VOMITING Oxycodone/Acetaminophen 1 tab 06/07/20 22:38 06/08/20 12:25 Oxycodone-Acetaminophen 5-325 Mg Tablet PO 06/14/20 22:37 1 tab Q4HP PRN Administration FOR PAIN SCALE 3-5 Piperacillin Sod/Tazobactam Sod 3.375 gm 06/12/20 12:00 Piperacillin/Tazobactam 3.375 Gm Vial IV 06/19/20 11:59 Q6 CAMILO Piperacillin Sod/Tazobactam Sod Confirm 06/14/20 05:20 06/14/20 06:04 Piperacillin/Tazobactam 3.375 Gm Vial Administered 06/14/20 05:21 Not Given Dose 3.375 gm IV .STK-MED ONE Potassium Chloride 40 meq 06/07/20 18:51 06/07/20 19:11 Potassium Chloride 20 Meq Packet PO 06/07/20 18:52 40 meq NOW ONE Administration Promethazine HCl 6.25 mg 06/07/20 22:38 06/08/20 05:02 Promethazine Hcl Inj 25 Mg/1 Ml Vial IV 07/07/20 22:37 6.25 mg Q4HP PRN Administration FOR NAUSEA/VOMITING Quetiapine Fumarate 25 mg 06/10/20 22:00 06/11/20 22:48 Quetiapine Fumarate 25 Mg Tablet PO 07/10/20 21:59 Not Given QHS CAMILO Spironolactone 25 mg 06/08/20 20:00 06/09/20 10:13 Spironolactone 25 Mg Tablet PO 07/08/20 19:59 25 mg DAILY CAMILO Administration Temazepam 7.5 mg 06/07/20 22:38 06/09/20 21:06 Temazepam 7.5 Mg Capsule PO 06/14/20 22:37 7.5 mg HSP PRN Administration SLEEP OR INSOMNIA Vasopressin Confirm 06/13/20 11:17 06/13/20 12:03 Vasopressin Inj 20 Unit/1 Ml Vial Administered 06/13/20 11:18 Not Given Dose 20 unit .ROUTE .STK-MED ONE Vasopressin Confirm 06/14/20 00:32 06/14/20 02:17 Vasopressin Inj 20 Unit/1 Ml Vial Administered 06/14/20 00:33 Not Given Dose 20 unit .ROUTE .STK-MED ONE Vasopressin Confirm 06/14/20 12:41 06/14/20 13:53 Vasopressin Inj 20 Unit/1 Ml Vial Administered 06/14/20 12:42 Not Given Dose 20 unit .ROUTE .STK-MED ONE Vasopressin Confirm 06/15/20 20:21 06/15/20 21:59 Vasopressin Inj 20 Unit/1 Ml Vial Administered 06/15/20 20:22 Not Given Dose 20 unit .ROUTE .STK-MED ONE Ziprasidone 10 mg 06/11/20 12:00 06/11/20 11:19 Ziprasidone Mesylate Inj/Pf 20 Mg Sdv IM 06/11/20 12:01 10 mg NOW ONE Administration Ziprasidone 10 mg 06/12/20 11:00 06/12/20 11:16 Ziprasidone Mesylate Inj/Pf 20 Mg Sdv IM 06/12/20 11:01 10 mg NOW ONE Administration Assessment & Plan - Diagnosis (1) Acute exacerbation of CHF (congestive heart failure) Qualifiers: Heart failure type: combined systolic and diastolic Qualified Code(s): I50.43 - Acute on chronic combined systolic (congestive) and diastolic (congestive) heart failure Is this a current diagnosis for this admission?: Yes Plan: The patient has heart failure with reduced ejection fraction with an EF between 30 and 35%. Unfortunately he has become progressively sicker as described above and he is now hypotensive, oliguric with acute kidney injury likely secondary to ischemic insult from his hypotension as well as decreased forward flow. At this point the patient has exceeded the capabilities of this facility and will gr eatly benefit from transfer to a tertiary center with advanced heart failure therapy capabilities and to that end I contacted Dr. Love via text this morning and am awaiting his call to discuss the case with him. (2) Elevated troponin Is this a current diagnosis for this admission?: Yes Plan: His troponin is detectable but nondiagnostic. It appears to be a chronic issue as he has had prior mildly elevated troponins. He denies ischemic symptoms. Recommendations: -Continue with current medical management. -We will proceed with ischemic assessment eventually.
[2020-06-21] MEDS ORDERED: NORMAL SALINE 1000 ML 1,000 ML IV PRN (10:00)
[2020-06-21] MEDS ORDERED: HEPARIN SOD (PORCINE) 1,000 UNIT/ML 10 ML VIAL IV PRN (10:00)
[2020-06-21] MEDS ORDERED: LIDOCAINE 1% INJ-PF (10 MG/ML) 30 ML SDV IV PRN (10:13)
[2020-06-21] MEDS: (PENDING PHARMACY ID) (Budesonide/Formoterol Fumarate 60 PUFF/6 GM Inhaler) IH SCH (10:26)
[2020-06-21] MEDS: DOCUSATE SODIUM 100 MG CAPSULE PO SCH ×2 (10:28→17:09)
[2020-06-21] MEDS: AMINO AC/PROTEIN HYDR/WHEY PRO 11 GM/45 ML PKT NG SCH ×2 (10:28→18:18)
[2020-06-21] MEDS: FAMOTIDINE INJ/PF 20 MG/2 ML SDV IV SCH (10:31)
--- NOTE | 2020-06-21 10:56 | Progress Note ---
Provider Note Provider Note: Discussed the case with Dr. Love, Advanced Heart Failure specialist, who advised me that there are currently no beds available and it may take anywhere from 24-48 hours before the patient can be transferred. In the meantime, given the patient's worsening clinical condition, it was recommended that he be transferred back to our ICU for inotropic support while awaiting transfer. Unfortunately, Dr. Soto ([facility]), does not have any beds available and our IM-ICU which is essentially a step-down unit can only support non-titratable dobutamine. After discussing the case with the hospitalist, Whitley George, we agreed on transferring the patient to our IM-ICU and start him on dobutamine until he can be transferred.
[2020-06-21 13:28] LABS: ANION GAP 16 (5-19); BLOOD UREA NITROGEN 110 mg/dL (7-20); CALCIUM 8.9 mg/dL (8.4-10.2); CARBON DIOXIDE 24 mmol/L (22-30); CHLORIDE 98 mmol/L (98-107); GLUCOSE 108 mg/dL (75-110); POTASSIUM 4.4 mmol/L (3.6-5.0)
--- NOTE | 2020-06-21 14:17 | Operative Report ---
Operative Report DATE OF SURGERY: 06/21/20 PREOPERATIVE DIAGNOSIS: Need of hemodialysis catheter POSTOPERATIVE DIAGNOSIS: Same OPERATION: Right common femoral vein hemodialysis catheter placement SURGEON: JEREMIAH ZHU ANESTHESIA: Local - 15 mL 1% plain lidocaine TISSUE REMOVED OR ALTERED: Not applicable COMPLICATIONS: None ESTIMATED BLOOD LOSS: Less than 10 mL INTRAOPERATIVE FINDINGS: normal anatomy PROCEDURE: The procedure was done at bedside: The patient was placed in a supine position, the right groin was prepped and draped in the usual fashion. The area just above and medial to the common femoral artery was was infiltrated with lidocaine, a 16-gauge needle was then used to cannulate the right common femoral vein without difficulty with good blood return; a guidewire was inserted through the needle into the central vein without difficulty the needle was removed. The insertion point of the guidewire was enlarged with a #11 blade and a tissue dilator which was then removed. A triple-lumen hemodialysis catheter was inserted without difficulty over the guidewire into the central vein without difficulty up to 20 cm, the guidewire was removed. Each port was aspirated and flushed with normal saline without difficulty. The catheter was secured to the skin with 3-0 nylon sutures and sterile dressing applied. The patient tolerated the procedure well and portable chest-ray was obtained to confirm good position of the line.
--- NOTE | 2020-06-21 14:21 | PDOC CONSULTATION ---
Consultation Consult Date: 06/21/20 Provider Consulted: JEREMIAH ZHU History of Present Illness Admission Date/PCP: 06/07/20 21:04 MICHELE GUILLEN PA-C Patient complains of: Need of hemodialysis History of Present Illness: LIZABETH VICK is a 49 year old male with acute renal failure in need of a h emodialysis catheter urgently. Past Medical History Cardiac Medical History: Reports: Congestive Heart Failure Denies: Coronary Artery Disease, Myocardial Infarction, Hypertension Pulmonary Medical History: Reports: Pneumonia, Respiratory Failure Denies: Asthma, Bronchitis, Chronic Obstructive Pulmonary Disease (COPD) Neurological Medical History: Denies: Seizures Endocrine Medical History: Reports: Diabetes Mellitus Type 2 Denies: Diabetes Mellitus Type 1, Hyperthyroidism, Hypothyroidism Malignancy Medical History: Reports: Lymphoma GI Medical History: Denies: Cirrhosis, Hepatitis Musculoskeltal Medical History: Reports: Arthritis, Gout Skin Medical History: Denies: Eczema, Psoriasis Psychiatric Medical History: Reports: Depression Hematology: Denies: Anemia, Bleeding Tendencies Past Surgical History Past Surgical History: Reports: Appendectomy, Other - Bone marrow transplant Social History Smoking Status: Current Every Day Smoker Frequency of Alcohol Use: None Hx Recreational Drug Use: No Drugs: None Hx Prescription Drug Abuse: Yes - Advance Directive Resuscitation Status: Full Code Family History Family History: Arthritis Parental Family History Reviewed: No Children Family History Reviewed: No Sibling(s) Family History Reviewed.: No Medication/Allergy Home Medications: Glipizide [Glipizide Xl] 5 mg PO DAILY 03/30/20 Ipratropium [place] [Atrovent Hfa] 2 puff IH Q6 03/30/20 Metformin HCl [Glucophage 500 mg Tablet] 1,000 mg PO BIDACBS 03/30/20 Sitagliptin Phosphate [Januvia 50 mg Tablet] 100 mg PO DAILY 03/30/20 Potassium Chloride 10 meq PO QAM #5 capsule.er 04/14/20 Budesonide/Formoterol Fumarate [Symbicort Hfa 160-4.5 Mcg Inhaler 6 gm] 2 puff IH Q12 06/08/20 Furosemide [Lasix 20 mg Tablet] 40 mg PO DAILY 06/08/20 Hydrocodone/Acetaminophen [[place] 5-325 Tablet] 1 each PO TIDP PRN 06/08/20 Tiotropium [place] [Spiriva Respimat] 2 puff PO DAILY 06/08/20 Allergies/Adverse Reactions: No Known Allergies Allergy (Verified 12/29/12 10:28) Physical Exam Vital Signs: Temp Pulse Resp BP Pulse Ox 97.6 F 76 20 91/36 L 100 06/21/20 10:00 06/21/20 11:57 06/21/20 11:57 06/21/20 11:57 06/21/20 11:57 Intake & Output 06/20/20 06/21/20 06/22/20 06:59 06:59 06:59 Intake Total 528 270 50 Output Total 460 540 Balance 68 -270 50 Weight 129.8 kg 129.8 kg 129.8 kg General appearance: PRESENT: no acute distress, obese, other - Sleepy and arousable after deep physical stimuli Eye exam: PRESENT: EOMI Mouth exam: PRESENT: neck supple Teeth exam: PRESENT: poor dentation Neck exam: PRESENT: full ROM Respiratory exam: PRESENT: clear to auscultation dilia Cardiovascular exam: PRESENT: RRR Pulses: PRESENT: normal femoral pulses GI/Abdominal exam: PRESENT: soft Rectal exam: PRESENT: deferred Extremities exam: PRESENT: full ROM Musculoskeletal exam: PRESENT: full ROM Neurological exam: PRESENT: other - Sleepy but arousable following deep pain stimuli Skin exam: PRESENT: warm Results Laboratory Results: 06/21/20 05:03 06/21/20 12:50 06/21/20 06/21/20 06/21/20 05:03 05:03 12:50 WBC 9.5 RBC 2.57 L Hgb 8.0 L Hct 23.7 L MCV 92 MCH 31.2 MCHC 33.8 RDW 15.2 H Plt Count 110 L Seg Neutrophils % Not Reportable Sodium 137.8 Potassium 4.2 Chloride 99 Carbon Dioxide 22 Anion Gap 17 BUN 108 H Creatinine 5.10 H Est GFR ( Amer) 15 L Glucose 102 Calcium 8.9 Total Bilirubin 3.9 H AST 119 H Alkaline Phosphatase 91 Total Protein 7.4 Albumin 3.3 L Blood Type A POSITIVE Antibody Screen NEGATIVE 06/21/20 12:50 WBC RBC Hgb Hct MCV MCH MCHC RDW Plt Count Seg Neutrophils % Sodium 138.2 Potassium 4.4 Chloride 98 Carbon Dioxide 24 Anion Gap 16 BUN 110 H Creatinine 5.36 H Est GFR ( Amer) 14 L Glucose 108 Calcium 8.9 Total Bilirubin AST Alkaline Phosphatase Total Protein Albumin Blood Type Antibody Screen 06/07/20 06/08/20 06/14/20 17:14 04:54 02:30 Troponin I 0.033 0.039 NT-Pro-B Natriuret Pep 3330 H [id number] H Impressions: Head CT 06/08/20 08:00 IMPRESSION: Sinus disease. No acute intracranial imaging findings. EVIDENCE OF ACUTE STROKE: NO. Chest X-Ray 06/17/20 06:00 IMPRESSION: Slight improvement. No pneumothorax. Assessment & Plan - Plan Summary Plan Summary: Assessment: Need of IV hemodialysis catheter urgently Plan: Placement of right common femoral vein 3 lumens hemodialysis catheter Procedure, risks, benefits, alternatives, complications, explained to the patient's mother, she understands all the above, her questions were answered, and she decides to proceed
[2020-06-21] MEDS: DOBUTAMINE HCL/D5W 500 MG/250 ML RTUINJ IV PRN ×2 (15:15→20:07)
[2020-06-21 18:14] VITALS: BP 90/30
--- NOTE | 2020-06-21 18:58 | PDOC TRANSFER SUMMARY ---
General Admission Date/PCP: 06/07/20 21:04 MICHELE GUILLEN PA-C Admission Date: 06/08/20 Transfer Date: 06/21/19 Accepting Facility: [facility] Resuscitation Status: Full Code - Transfer Diagnosis (1) Acute exacerbation of CHF (congestive heart failure) Is this a current diagnosis for this admission?: Yes (2) Anasarca Is this a current diagnosis for this admission?: Yes (3) ADRI (acute kidney injury) Is this a current diagnosis for this admission?: Yes (4) Acute metabolic encephalopathy Is this a current diagnosis for this admission?: Yes (5) Aspiration into airway Is this a current diagnosis for this admission?: Yes (6) Hypotension (arterial) Is this a current diagnosis for this admission?: Yes (7) Sepsis Is this a current diagnosis for this admission?: Yes (8) Shock Is this a current diagnosis for this admission?: Yes (9) Diabetes mellitus type 2 in obese Is this a current diagnosis for this admission?: Yes (10) Medical non-compliance Is this a current diagnosis for this admission?: Yes - Transfer Medications Home Medications: Glipizide [Glipizide Xl] 5 mg PO DAILY 03/30/20 Ipratropium [place] [Atrovent Hfa] 2 puff IH Q6 03/30/20 Metformin HCl [Glucophage 500 mg Tablet] 1,000 mg PO BIDACBS 03/30/20 Sitagliptin Phosphate [Januvia 50 mg Tablet] 100 mg PO DAILY 03/30/20 Budesonide/Formoterol Fumarate [Symbicort Hfa 160-4.5 Mcg Inhaler 6 gm] 2 puff IH Q12 06/08/20 Furosemide [Lasix 20 mg Tablet] 40 mg PO DAILY 06/08/20 Hydrocodone/Acetaminophen [Pacific 5-325 Tablet] 1 each PO TIDP PRN 06/08/20 Tiotropium [place] [Spiriva Respimat] 2 puff PO DAILY 06/08/20 Transfer Medications: Current Medications Acetaminophen (Acetaminophen Soln 325 Mg/10.15 Ml Udcup) 650 mg NG Q4HP PRN PRN Reason: FEVER >101 Stop: 07/13/20 00:47 Last Admin: 06/18/20 08:25 Dose: 650 mg Documented by: Albuterol (Albuterol Sulfate 0.083% Neb 2.5 Mg/3 Ml Ampul) 2.5 mg NEB RTQ4HP PRN PRN Reason: SHORTNESS OF BREATH Stop: 07/13/20 11:22 Last Admin: 06/18/20 17:42 Dose: 2.5 mg Documented by: Albuterol/Ipratropium (Ipratropium/Albuterol 0.5-2.5 Mg/3 Ml Ampul) 3 ml NEB RTQ4HP PRN PRN Reason: SHORTNESS OF BREATH Stop: 07/18/20 17:39 Amino Acid Protein (Amino Ac/Protein Hydr/Whey Pro 11 Gm/45 Ml Pkt) 45 ml NG BID [facility] Stop: 07/14/20 17:59 Last Admin: 06/21/20 18:18 Dose: Not Given Documented by: Aspirin (Aspirin 81 Mg Tablet, Chewable) 81 mg NG QHS [facility] Stop: 07/08/20 21:59 Last Admin: 06/20/20 22:56 Dose: Not Given Documented by: Dextrose (Dextrose 50%-Water 25 Gm/50 Ml Disp.Syrin) 12.5 gm IV PRN PRN; Protocol PRN Reason: FOR BG 50-69 IN ALERT PATIENT Stop: 07/07/20 22:46 Dextrose (Dextrose 50%-Water 25 Gm/50 Ml Disp.Syrin) 25 gm IV PRN PRN; Protocol PRN Reason: PER PROTOCOL Stop: 07/07/20 22:46 Docusate Sodium (Docusate Sodium 100 Mg Capsule) 100 mg PO BID [facility] Stop: 07/08/20 09:59 Last Admin: 06/21/20 17:09 Dose: Not Given Documented by: Famotidine (Famotidine Inj/Pf 20 Mg/2 Ml Sdv) 20 mg IV Q12 [facility] Stop: 07/13/20 21:59 Last Admin: 06/21/20 10:31 Dose: 20 mg Documented by: Furosemide (Furosemide Inj/Pf 100 Mg/10 Ml Sdv) 80 mg IV Q12A [facility] Stop: 07/20/20 15:59 Last Admin: 06/21/20 17:09 Dose: Not Given Documented by: Glucagon (Glucagon,Human Recomb 1 Mg Inj) 1 mg IM PRN PRN; Protocol PRN Reason: Evaluate for BG < 70 Stop: 07/07/20 22:46 Glucose (Dextrose 40% Gel 15 Gm Tube) 15 gm PO PRN PRN; Protocol PRN Reason: FOR BG 50-69 IN ALERT PATIENT Stop: 07/07/20 22:46 Glucose (Dextrose 40% Gel 15 Gm Tube) 30 gm PO PRN PRN; Protocol PRN Reason: FOR BG < 50 IN ALERT PATIENT Stop: 07/07/20 22:46 Heparin Sodium (Porcine) (Heparin Sod (Porcine) 1,000 Unit/Ml 10 Ml Vial) 3,600 unit IV .SPLIT B/N CATHETERS PRN PRN Reason: THIS MED IS NOT "PRN" Stop: 06/21/20 23:59 Piperacillin Sod/Tazobactam (Sod 2.25 gm/ Sodium Chloride) 50 mls @ 100 mls/hr IV Q8 [facility] Stop: 06/23/20 21:59 Last Infusion: 06/21/20 15:14 Dose: Infused Documented by: Sodium Chloride (Nacl 0.9% 1000 Ml Iv Soln) 1,000 mls @ 0 mls/hr IV .DIALYSIS PRN PRN Reason: THIS MED IS NOT "PRN" Stop: 06/21/20 23:59 Dobutamine HCl/Dextrose (Dobutrex Rtu 500 Mg-D5w 250 Ml Premixed Bag) 500 mg in 250 mls @ 9.735 mls/hr IV CONTINUOUS PRN; Protocol PRN Reason: THIS MED IS NOT "PRN" Stop: 07/21/20 10:45 Last Titration: 06/21/20 16:20 Dose: 10 mcg/kg/min, 38.94 mls/hr Documented by: Insulin Glargine (Insulin Glargine,Hum.Rec.Anlog 1,000 Unit/10 Ml Vial) 18 unit SUBCUT Q12 [facility] Stop: 07/10/20 21:59 Last Admin: 06/20/20 22:57 Dose: Not Given Documented by: Insulin Human Lispro (Insulin Lispro 100 Unit/Ml 3 Ml Vial) 0 - 12 unit SUBCUT Q6 [facility]; Protocol Stop: 07/15/20 06:14 Last Admin: 06/21/20 18:18 Dose: Not Given Documented by: Lidocaine HCl (Lidocaine 1% Inj-Pf (10 Mg/Ml) 30 Ml Sdv) 20 ml IV .PROCEDURE PRN PRN Reason: THIS MED IS NOT "PRN" Stop: 06/21/20 23:59 Ondansetron HCl (Ondansetron 4 Mg Tab.Rapdis) 8 mg NG Q4HP PRN PRN Reason: FOR NAUSEA/VOMITING Stop: 07/13/20 11:22 Patient Own Medication (Budesonide/Formoterol Fumarate) 2 puff IH Q12 [facility] Stop: 07/13/20 21:59 Last Admin: 06/21/20 10:26 Dose: Not Given Documented by: Pharmacy Profile Note (Pharmacy Communication Order) 1 each MC .NOTICE NR Stop: 07/13/20 11:29 Sodium Chloride (Normal Saline Flush 2.5 Ml Disp.Syrin) 2.5 ml IV Q8 [facility] Stop: 07/13/20 11:29 Last Admin: 06/21/20 14:25 Dose: 2.5 ml Documented by: Sodium Chloride (Normal Saline Flush 2.5 Ml Disp.Syrin) 2.5 ml IV Q8 [facility] Stop: 07/14/20 02:08 Last Admin: 06/21/20 14:25 Dose: Not Given Documented by: - Allergies Allergies/Adverse Reactions: No Known Allergies Allergy (Verified 12/29/12 10:28) - Diet/Activity Discharge Diet: Cardiac, Diabetic Hospital Course Hospital Course: Patient was initially admitted on 06/08/2020 with acute on chronic systolic heart failure decompensation at which time he was edematous with anasarca. Recieved IV diuretics, diuresed approximately 6 L of fluids with improvement in overall respiratory status and chest x-ray findings. Course was complicated as patient became progressively obtunded, developed a fever associated with a significant leukocytosis; suspected to have aspirated and was emergently intubated on 06/13/2020. Tested positive enterovirus/rhinovirus on 06/16/2020 He was transferred to the intensive care unit where he remained hypotensive, was given a significant amount of IV fluids to sustain his blood pressure and eventually was placed on milrinone and norepinephrine infusions. Patient developed acute kidney injury and became oliguric therefore nephrology recommended a Lasix infusion with an appropriate response. Patient was extubated on 06/18/2020 and was taken off of all pressors. Blood pressure at that time 100/40s. Patient transferred to step down unit on 06/20/2019. Patients BUN/creatine continued to trend upward, BUN 110/creatinine 5.36, with significant decrease in urine output regardless of Lasix IV 80mg BID as per nephrology recommendations. Patient has since been anuric. Nephrology has recommended dialysis at this time. Surgery consulted with right common femoral vein 3 lumens hemodialysis catheter placed on 06/21. Dialysis initiated immediately following. Patient remains hypotensive since transfer to step-down unit with systolic BP consistently <100 regardless of dobutamine infusion (10mcg - max dose permitted on step-down unit). Additionally temperature was found to be 94.4F rectally, which increased to 97.6 following bear-hugger. ICU at [facility] contacted, unfortunately without available bed. Cardiology on board, recommended transfer to tertiary facility with advanced heart failure specialists. [facility] transfer center contacted. Patient has been accepted at [facility] to the ICU under the care of Dr. Hays. Physical Exam Vital Signs: Temp Pulse Resp BP Pulse Ox 97.6 F 92 20 90/30 L 93 06/21/20 10:00 06/21/20 16:48 06/21/20 14:48 06/21/20 17:34 06/21/20 14:48 Intake & Output 06/20/20 06/21/20 06/22/20 06:59 06:59 06:59 Intake Total 528 270 120 Output Total 460 540 Balance 68 -270 120 Weight 129.8 kg 129.8 kg 129.8 kg General appearance: PRESENT: disheveled, obese, other - Sleping, difficult to wake. In no acute distress. Head exam: PRESENT: atraumatic, normocephalic Eye exam: PRESENT: conjunctival injection, PERRLA. ABSENT: scleral icterus Mouth exam: PRESENT: dry mucosa, tongue midline Neck exam: ABSENT: lymphadenopathy Respiratory exam: PRESENT: rhonchi - diffuse in all pham, symmetrical, unlabored. ABSENT: accessory muscle use, tachypnea Cardiovascular exam: PRESENT: RRR, +S1, +S2. ABSENT: clicks, diastolic murmur, gallop, systolic murmur Pulses: PRESENT: +2 pedal pulses bilateral GI/Abdominal exam: PRESENT: normal bowel sounds, soft. ABSENT: tenderness Rectal exam: PRESENT: deferred Gentrourinary exam: PRESENT: indwelling catheter Extremities exam: PRESENT: +2 edema - - 3+ pitting edema bilaterally. ABSENT: clubbing Neurological exam: PRESENT: alert, awake, oriented to person, other - Nonfocal.. ABSENT: motor sensory deficit Psychiatric exam: PRESENT: flat affect, unusual affect Skin exam: PRESENT: dry. ABSENT: cyanosis, rash, other - lessions Results Laboratory Results: 06/21/20 05:03 06/21/20 12:50 06/21/20 06/21/20 06/21/20 05:03 05:03 12:50 WBC 9.5 RBC 2.57 L Hgb 8.0 L Hct 23.7 L MCV 92 MCH 31.2 MCHC 33.8 RDW 15.2 H Plt Count 110 L Seg Neutrophils % Not Reportable Sodium 137.8 Potassium 4.2 Chloride 99 Carbon Dioxide 22 Anion Gap 17 BUN 108 H Creatinine 5.10 H Est GFR ( Amer) 15 L Glucose 102 Calcium 8.9 Total Bilirubin 3.9 H AST 119 H Alkaline Phosphatase 91 Total Protein 7.4 Albumin 3.3 L Blood Type A POSITIVE Antibody Screen NEGATIVE 06/21/20 12:50 WBC RBC Hgb Hct MCV MCH MCHC RDW Plt Count Seg Neutrophils % Sodium 138.2 Potassium 4.4 Chloride 98 Carbon Dioxide 24 Anion Gap 16 BUN 110 H Creatinine 5.36 H Est GFR ( Amer) 14 L Glucose 108 Calcium 8.9 Total Bilirubin AST Alkaline Phosphatase Total Protein Albumin Blood Type Antibody Screen 06/07/20 06/08/20 06/14/20 17:14 04:54 02:30 Troponin I 0.033 0.039 NT-Pro-B Natriuret Pep 3330 H [id number] H Impressions: Head CT 06/08/20 08:00 IMPRESSION: Sinus disease. No acute intracranial imaging findings. EVIDENCE OF ACUTE STROKE: NO. Chest X-Ray 06/17/20 06:00 IMPRESSION: Slight improvement. No pneumothorax. Status: Imported from PACS Plan Discharge Plan: Patient has been accepted to [facility] ICU under the care of Dr. Hays. Awaiting bed. Awaiting transfer. In the time being initiate dialysis, as directed by nephrology, continue dobutamine drip, and monitor blood pressure and patient status closely. Time Spent: Greater than 30 Minutes
--- NOTE | 2020-06-21 20:50 | PDOC PROGRESS REPORT ---
Subjective Date:: 06/21/20 Subjective:: I have seen the patient this morning. He has not been very verbal although he did answer some questions for me. When asked if is feeling okay he nods indicating that he just does not feel okay other than that he really did not offer any other complaints. His urine output is decreased even with the intermittent high-dose Lasix . He only made about 540 mL of urine output for t he past 24 hours. His blood pressure is also on the low side with systolic blood pressure 190s this morning. His kidney function is worse. Given the scenario I think the patient needs help in terms of his kidneys in terms of renal replacement therapy. I have spoken to the patient today regarding renal replacement therapy in the form of hemodialysis. Explained to him the benefits and risk to include infection, bleeding and hemodynamic instability including hypotension and cardiac arrest. He seems to understand and when I asked him if he would consent to the procedure he said yes. He told me that I can talk to his mother but he does not know his mother's phone number nor was it in the chart when I looked. I then spoke to her surgical list, Dr. Kelly to place a temporary dialysis cat heter so we can do dialysis this afternoon. Dr. Kelly has successfully place a temporary dialysis catheter. While waiting to be dialyzed this afternoon the patient's blood pressure has gone even lower with systolic blood pressure of 80s. I have discussed the case with access clinician, Dr. Avina who told me earlier that he is planning to transfer the patient to a tertiary care facility for his advanced heart failure. He did agree that he is going to benefit with some renal replacement therapy while waiting here in the hospital. He did recommend that the patient start on dobutamine drip. When the patient's blood pressure started to go lower there was a recommendation that the patient goes back to the ICU to be started on dobutamine but unfortunately there was not any bed so he was transferred to [facility] and dobutamine drip was started. This afternoon I am seeing the patient again on his first hemodialysis treatment in the ICU since we cannot dialyze him in the regular floor with a dobutamine drip. He is very somnolent but arousable. He is currently on dobutamine drip and blood pressure is still on the low side so we turned off ultrafiltration. We are dialyzing the patient very slowly. Currently he is being monitored throughout dialysis treatment. Reason For Visit: OBTUNDATION,NEEDS ETT FOR AIRWAY PROTECTION Physical Exam Vital Signs: Temp Pulse Resp BP Pulse Ox 97.6 F 73 16 98/40 L 97 06/21/20 04:13 06/21/20 08:20 06/21/20 08:20 06/21/20 08:20 06/21/20 08:20 Intake & Output 06/20/20 06/21/20 06/22/20 06:59 06:59 06:59 Intake Total 528 270 Output Total 460 540 Balance 68 -270 Weight 129.8 kg 129.8 kg Vitals during dialysis: Blood pressure of 89/25, heart rate of 94, respiration of 14 with oxygen saturation of 100% with 4 L of oxygen per nasal cannula, blood flow is 200 mL/min and dialysate flow of 500 mL/min. Exam: General appearance: PRESENT: no acute distress, cooperative, well-developed, w ell-nourished Head exam: PRESENT: atraumatic, normocephalic Eye exam: PRESENT: conjunctiva slightly pale, PERRLA. ABSENT: scleral icterus Neck exam: ABSENT: JVD Respiratory exam: PRESENT: Diminished breath sounds. Possible wheezes and rhonchi on anterior chest lung pham ABSENT: crackles, rales, unlabored Cardiovascular exam: PRESENT: Regular rate rhythm -+S1, +S2. ABSENT: diastolic murmur, systolic murmur GI/Abdominal exam: PRESENT: normal bowel sounds, soft. ABSENT: guarding, mass, tenderness Extremities exam: Positive anasarca with bilateral upper extremity edema and grade 2 persistent bilateral lower extremity pitting edema Neurological exam: PRESENT: Somnolent but arousable, answers minimal questions. Skin exam: PRESENT: dry, warm, Cardiovascular exam: PRESENT: +S1, +S2 GI/Abdominal exam: PRESENT: normal bowel sounds, soft. ABSENT: organomegaly, tenderness Results Laboratory Results: 06/21/20 05:03 06/21/20 05:03 06/21/20 06/21/20 05:03 05:03 WBC 9.5 RBC 2.57 L Hgb 8.0 L Hct 23.7 L MCV 92 MCH 31.2 MCHC 33.8 RDW 15.2 H Plt Count 110 L Seg Neutrophils % Not Reportable Sodium 137.8 Potassium 4.2 Chloride 99 Carbon Dioxide 22 Anion Gap 17 BUN 108 H Creatinine 5.10 H Est GFR ( Amer) 15 L Glucose 102 Calcium 8.9 Total Bilirubin 3.9 H AST 119 H Alkaline Phosphatase 91 Total Protein 7.4 Albumin 3.3 L 06/07/20 06/08/20 06/14/20 17:14 04:54 02:30 Troponin I 0.033 0.039 NT-Pro-B Natriuret Pep 3330 H [id number] H Impressions: Head CT 06/08/20 08:00 IMPRESSION: Sinus disease. No acute intracranial imaging findings. EVIDENCE OF ACUTE STROKE: NO. Chest X-Ray 06/17/20 06:00 IMPRESSION: Slight improvement. No pneumothorax. Assessment & Plan - Diagnosis (1) ADRI (acute kidney injury) Is this a current diagnosis for this admission?: Yes Plan: Creatinine going from 1.1>4+>3.05>3.75>5.10. Currently nonoliguric but urine output has significantly declined. Likely secondary to multifactorial ATN secondary to acute shock due to sepsis, hypotension and CHF. Kidney function is obviously worse today with decreasing urine output. Patient is still clinically fluid overloaded. As stated above I recommended patient to undergo renal replacement therapy which she consented to. We will do dialysis today for 2.5 hours, using the patient's newly placed temporary dialysis catheter, with 2 potassium bath, blood flow rate of 200-250 mL per minute, dialysate flow rate of 500-600 mL per minute, ultrafiltration 0 to 1 L if tolerated better blood pressure, no heparin and no Procrit. Patient is very closely monitored throughout dialysis treatment here in the ICU. (2) Acute exacerbation of CHF (congestive heart failure) Qualifiers: Heart failure type: combined systolic and diastolic Qualified Code(s): I50.43 - Acute on chronic combined systolic (congestive) and diastolic (congestive) heart failure Is this a current diagnosis for this admission?: Yes Plan: LVEF of 30 to 35%. Veterinary Medical Officer, Dr. Avina plans to transfer the patient to a tertiary care facility for further management of the patient's advanced heart failure. I was told that the patient was accepted at [facility] and is just waiting for a bed. Currently on dobutamine drip. (3) Acute metabolic encephalopathy Is this a current diagnosis for this admission?: Yes (4) Anasarca Is this a current diagnosis for this admission?: Yes Plan: Persistent and currently unresponsive to high-dose intermittent Lasix. We are doing renal replacement therapy to hopefully get some ultrafiltration. This is limited by patient's blood pressure. (5) Shock Is this a current diagnosis for this admission?: Yes Plan: Due to a combination of sepsis and cardiac dysfunction. Blood pressure still low despite dobutamine drip. (6) Sepsis Is this a current diagnosis for this admission?: Yes (7) Hypotension (arterial) Is this a current diagnosis for this admission?: Yes (8) Anemia Is this a current diagnosis for this admission?: Yes Plan: Due to hemodilution due to clinical fluid overload in combination with acute illness. (9) Acute respiratory failure with hypoxia Is this a current diagnosis for this admission?: Yes Plan: Resolved. Patient was extubated 06/18/2020 (10) Diabetes mellitus type 2 in obese Is this a current diagnosis for this admission?: Yes (11) Medical non-compliance Is this a current diagnosis for this admission?: Yes - Notes Notes: Discussed with access clinician, Dr. Avina and hospitalist SAAD Doe. - Time Time with patient: Greater than 35 minutes
[2020-06-22 08:37] LABS: HEPATITS B SURFACE ANTIGEN Negative (Negative)
[2020-06-22 09:34] LABS: HEPATITIS B CORE AB TOT Negative (Negative)
[2020-06-23 02:36] LABS: HEPATITIS C QUANTITATION HCV Not Detected IU/mL (.)
== END 2020-06-21 21:05 | disposition short-term general hospital (02) | DRG 207 ==
LOC: ER 16:59 → EH 21:04 → 4S 23:06 → EH 06-13 09:11 → ICU 06-14 01:15 → 4W 06-20 16:02 → 5 06-21 15:09
PROVIDERS: ADMIT Anesthesiology; ATTEND Physician Assistant
PROC: 5A09357 Assistance with Respiratory Ventilation, Less than 24 Consecutive Hours, Continuous Positive Airway Pressure (ICD-10-PCS; 2020-06-07)
PROC: B24BZZ4 Ultrasonography of Heart with Aorta, Transesophageal (ICD-10-PCS; 2020-06-08)
PROC: 5A1955Z Respiratory Ventilation, Greater than 96 Consecutive Hours (ICD-10-PCS; principal; 2020-06-13)
PROC: 0BH17EZ Insertion of Endotracheal Airway into Trachea, Via Natural or Artificial Opening (ICD-10-PCS; 2020-06-13)
PROC: 04HY32Z Insertion of Monitoring Device into Lower Artery, Percutaneous Approach (ICD-10-PCS; 2020-06-13)
PROC: 06HY33Z Insertion of Infusion Device into Lower Vein, Percutaneous Approach (ICD-10-PCS; 2020-06-21)
PROC: 5A1D70Z Performance of Urinary Filtration, Intermittent, Less than 6 Hours Per Day (ICD-10-PCS; 2020-06-21)
DX: J69.0 Pneumonitis due to inhalation of food and vomit (principal); I50.43 Acute on chronic combined systolic (congestive) and diastolic (congestive) heart failure; A41.9 Sepsis, unspecified organism; R65.21 Severe sepsis with septic shock; G93.41 Metabolic encephalopathy; J96.01 Acute respiratory failure with hypoxia; N17.9 Acute kidney failure, unspecified; Z94.81 Bone marrow transplant status; A36 Diphtheria; Z78.1 Physical restraint status; I95.9 Hypotension, unspecified; E11.9 Type 2 diabetes mellitus without complications; B97.10 Unspecified enterovirus as the cause of diseases classified elsewhere; B97.89 Other viral agents as the cause of diseases classified elsewhere; F32.9 Major depressive disorder, single episode, unspecified; M10.9 Gout, unspecified; F17.210 Nicotine dependence, cigarettes, uncomplicated; E83.42 Hypomagnesemia; D64.9 Anemia, unspecified; R77.8 Other specified abnormalities of plasma proteins; T17.908A Unspecified foreign body in respiratory tract, part unspecified causing other injury, initial encounter; R45.1 Restlessness and agitation; E66.01 Morbid (severe) obesity due to excess calories; Z20.822 Contact with and (suspected) exposure to COVID-19; Z68.39 Body mass index [BMI] 39.0-39.9, adult; Z91.14 Patient's other noncompliance with medication regimen; Z79.899 Other long term (current) drug therapy; Z79.84 Long term (current) use of oral hypoglycemic drugs; Z71.3 Dietary counseling and surveillance; Z85.72 Personal history of non-Hodgkin lymphomas
CPT/HCPCS: 0202U; 31500; 36415; 36600; 36620; 70450; 71045; 80048; 80053; 80061; 80307; 81001; 82140; 82330; 82533; 82607; 82728; 82746; 82803; 82962; 83036; 83540; 83550; 83605; 83735; 83880; 84100; 84145; 84484; 85025; 85045; 85379; 85610; 85730; 86140; 86317; 86704; 86850; 86900; 86901; 87040; 87070; 87077; 87150; 87205; 87324; 87340; 87449; 87522; 93005; 93010; 93306; 94002; 94003; 94640; 94660; 96365; 96366; 96375; 99285; 99291; J0610; 0241U; C9803; J0131; J0171; J1250; J1265; J1630; J1644; J1720; J1815; J1940; J2060; J2260; J2270; J2310; J2370; J2543; J2550; J2704; J3370; J3475; J3480; J3486; J3490; J7050; J7060; J7120; J7613; P9047; S0028